=== PATIENT | female | born 1945 | race Caucasian/White ===

== ENCOUNTER 2018-11-08 13:48 | Outpatient (CLI) | payer OTHER, SELFPAY ==
[2018-11-08 14:31] LABS: Absolute Eosinophil Count 0.05 k/cumm (0.0-0.7); HCT 34.6 % (36.0-46.0); HGB 10.6 g/dL (12.0-15.5); Mean Corp. HGB Concentration 30.6 g/dL (32.0-36.0); Mean Corpuscular Hemoglobin 26.9 pg (27.0-33.0); Mean Corpuscular Volume 87.8 fL (80-95); Mean Platelet Volume 11.4 fL (8.0-11.0); Platelet Count 252 x1000/uL (130-400); RBC 3.94 m/cumm (4.00-5.20)
[2018-11-08 15:15] LABS: Absolute Lymphocyte Count 1.85 k/cumm (1.2-3.4); Absolute Monocyte Count 0.23 k/cumm (0.11-0.7); Atypical Lymphocytes % 3
[2018-11-08 15:25] LABS: Absolute Neutrophil Count 0.47 k/cumm (1.2-6.7)
[2018-11-08 15:26] LABS: Anisocytosis 2+; Diff Comment Manual Differential; Hypochromasia 2+
[2018-11-08 15:27] LABS: Microcytosis 1+
[2018-11-12 13:14] LABS: Anaplasma phagocytophilum Negative (Negative); Ehrlichia chaffeensis Negative (Negative); Ehrlichia ewingii/canis Negative (Negative); Ehrlichia muris eauclairensis Negative (Negative)
== END 2018-11-08 14:08 ==
PROVIDERS: PCP Nurse Practitioner Family; Visit Provider Internal Medicine Hematology
DX: D70.9 Neutropenia, unspecified (principal); S20.96XD Insect bite (nonvenomous) of unspecified parts of thorax, subsequent encounter
CPT/HCPCS: 36415; 85025; 87798

== ENCOUNTER 2018-12-08 19:05 | Inpatient (IN) | payer OTHER, SELFPAY ==
[2018-12-08] VITALS (10 sets, daily range): BP systolic 145–190; BP diastolic 68–98; PULSE 92–104; RESP 12–19; TEMP 36.8–37.1; O2SAT 94–98
[2018-12-08 20:01] LABS: Abs Immature Grans 0.01 k/cumm (0.0-0.09); Absolute Basophil Count 0.01 k/cumm (0.0-0.2); Absolute Eosinophil Count 0.02 k/cumm (0.0-0.7); Absolute Lymphocyte Count 1.69 k/cumm (1.2-3.4); Absolute Monocyte Count 0.28 k/cumm (0.11-0.7); Basophils % 0.4; Eosinophils % 0.9; HCT 28.5 % (36.0-46.0); Immature Grans % 0.4; Lactate 1.6 mmol/L (0.6-1.4); Lymphocytes % 72.5; Mean Corp. HGB Concentration 31.6 g/dL (32.0-36.0); Mean Corpuscular Hemoglobin 27.4 pg (27.0-33.0); Mean Corpuscular Volume 86.6 fL (80-95); Mean Platelet Volume 10.2 fL (8.0-11.0); Neutrophils % 13.8; Platelet Count 237 x1000/uL (130-400); RBC 3.29 m/cumm (4.00-5.20); White Blood Cell Count 2.33 k/cumm (4.4-10.8)
[2018-12-08 20:04] LABS: Absolute Neutrophil Count 0.32 k/cumm (1.2-6.7)
[2018-12-08 20:21] LABS: ALT 19 U/L (14-59); AST 15 U/L (15-37); Albumin 3.4 g/dL (3.4-5.0); Alkaline Phosphatase 64 U/L (46-116); Anion Gap 10.2 mmol/L (3-11); BUN 14 mg/dL (7-18); Bilirubin, Total 0.4 mg/dL (0.2-1.0); CO2 32.8 mmol/L (21.0-32.0); CREATININE 0.89 mg/dL (0.55-1.02); Calcium 9.1 mg/dL (8.5-10.1); Chloride 99 mmol/L (98-107); Glucose 134 mg/dL (70-100); Sodium 142 mmol/L (136-145); Total Protein 7.6 g/dL (6.4-8.2)
[2018-12-08 20:24] LABS: Potassium 2.5 mmol/L (3.5-5.1)
--- NOTE | 2018-12-08 20:26 | ED.GENADUL_ITS ---
Discharge Plan Disposition Patient Disposition: [facility] INPATIENT Condition: Stable Discharge Details Chief Complaint: Fever Clinical Impression: Neutropenic fever Admit Date/Time: 12/08/18 21:34 Admit Provider: Duke Carmona Attending Provider: Duke Carmona Primary Care Provider: Columba Knight ED Provider: Bar Smith Medical Decision Making This is a very pleasant 73-year-old female with past medical history of coronary artery disease and stents, hypertension, and recent diagnosis of myelodysplastic syndrome for which she is being treated at [facility]. She is undergone her first round of chemotherapy this week. She just had her PICC line removed 4 days ago, and a port placed at the same time. She has been doing well since then however today she noticed some mild chills and a fever of 100.7, she contacted [facility] and they recommended she come in for evaluation. Upon arrival here she is afebrile by oral temperature, and her chills have resolved. She has a notably benign physical exam aside for over the right chest port site which demonstrates mild erythema and mild warmth compared to the rest of the body. She has no other clear complaints of urinary or respiratory complaints whatsoever. Differential includes viral illness in addition to potential skin infection from port site. Blood cultures will be drawn, will start antibiotics of vancomycin and Zosyn, her absolute neutrophil count is 320, certainly putting her in a concerning range. Once her chest x-ray and urinalysis and remainder of her blood work are back we will contact [facility]. I suspect this patient would benefit from inpatient admission and IV antibiotics. 9:24 PM Patient has notably low absolute neutrophil count, chest x-ray shows no evidence of acute process. Still pending urinalysis, and the patient has not yet peed. I did contact [facility] and discussed the case with Dr. Gil from heme-onc, he agrees with the need for admission and agrees to the antibiotic choice of vancomycin and Zosyn. He does not recommend any additional antibiotics or management at this time. We will contact the hospitalist for admission, antibiotics, and close observation. FINDINGS: Right-sided Port-A-Cath in good position. Borderline cardiomegaly. Mild interstitial lung scarring. No focal pulmonary consolidation. No significant pleural effusion. IMPRESSION: No definite evidence of acute cardiopulmonary disease. Thank you for allowing us to participate in the care of your patient. Dictated and Authenticated by: Cuco Weiss MD [facility] General Date/Time Provider Initiated Documentation: 12/08/18 19:28 . [facility] Narrative: This is a 73-year-old female with a past medical history of cardiac disease with stents, hypertension, and recently diagnosed myelodysplastic syndrome, she is currently received her first round of chemotherapy finishing this week. She just had her PICC line removed on and a port placed on the same day. Today at home she noted mild chills and a temperature of 100.7 temporally. She contacted [facility] who recommended she come to the ER for further evaluation. By the time she arrived in the ER she was afebrile she has not taken any NSAIDs. At this time she denies any chest pain, shortness of breath, pleuritic chest pain, cough, productive sputum, dysuria, hematuria, incr eased urinary frequency, new rashes or lesions, numbness, tingling, or weakness. She denies any headache or neck pain or neck stiffness. She denies any other sick contacts. She denies a sore throat. She does elicit some tenderness over the new port site, but denies any other complaints. No other modifying factors. Related Data Home Medications Medication Instructions Recorded Confirmed acetaminophen [Tylenol] 650 mg PO Q8H PRN PRN 12/08/18 12/08/18 acyclovir [Zovirax] 400 mg PO BID 12/08/18 12/08/18 allopurinol 300 mg PO DAILY 12/08/18 12/08/18 amoxicillin-pot clavulanate 1 tab PO BID 12/08/18 12/08/18 [Augmentin] aspirin [Aspir-81] 81 mg PO DAILY 12/08/18 12/08/18 atorvastatin 80 mg PO ONCE PM 12/08/18 12/08/18 carvedilol [Coreg] 12.5 mg PO BID 12/08/18 12/08/18 cyanocobalamin (vitamin B-12) 1,000 mcg PO DAILY 12/08/18 12/08/18 diphenhydramine HCl 25 mg PO Q6H PRN PRN 12/08/18 12/08/18 fluconazole 200 mg PO DAILY 12/08/18 12/08/18 hydrochlorothiazide 25 mg PO DAILY 12/08/18 12/08/18 meclizine 25 mg PO BID PRN 12/08/18 12/08/18 ondansetron 8 mg PO PRN PRN 12/08/18 12/08/18 Allergies Allergy/AdvReac Type Severity Reaction Status Date / Time prochlorperazine AdvReac Mild Other (See Unverified 12/08/18 22:12 [From Compazine] Comment) General Stated Complaint: Fever REBEKAH: 3 Review of Systems Review of Systems ROS Unobtainable: All systems reviewed & are unremarkable except as noted in HPI and below [facility] Medical History (Updated 12/08/18 @ 21:42 by Duke Carmona) MDS (myelodysplastic syndrome) (Acute) Social History Smoking/Tobacco Use Status: Never Alcohol Intake: never Drug use: Never Substance use type: does not use Do you feel safe at home: Yes Do you feel safe in your relationship?: Yes Exam Narrative Exam Narrative: 1.Const: Well-nourished, Well-developed, appearing stated age 2.Eyes: PERRL, no conjunctival injection, and symmetrical lids. 3.ENT: Atraumatic external nose and ears. Moist MM. Neck: Symmetric, trachea midline, No thyromegaly. Patient demonstrates good movement of cervical neck. There is no nuchal rigidity, no nuchal tenderness. Patient is able to flex the neck without any difficulty or significant pain. Negative Kernig's and Brudzinski sign. 4.CVS: +S1/S2, No murmurs or gallops. Peripheral pulses 2+ and equal in all extremities. Brisk capillary refill in all extremities. 5.RESP: Unlabored respiratory effort. Clear to auscultation bilaterally. No wheezes rales or rhonchi 6.GI: Soft, Nontender/Nondistended, No hepatosplenomegaly. No guarding or rebound. No suprapubic tenderness. 7.MSK: Normocephalic/Atraumatic, Extremities w/o deformity or ttp No cyanosis or clubbing, Normal movement of all extremities. Trace pitting edema of the lower extremities bilaterally. No calf tenderness 8.Skin: Warm, Dry. The patient's right port site demonstrates very mild erythema, mild warmth compared to the rest of the skin. No drainage. No purulence. No induration. No fluctuance. 9.Neuro: compensation specialist II-XII grossly intact. Sensation grossly intact, no focal neurologic deficits. 10.Psych: (AAO) x3. Appropriate mood and affect Course Vital Signs Vital signs: Vital Signs Temperature 36.8 C 12/08/18 19:14 Pulse 104 H 12/08/18 19:14 Respiratory Rate 18 12/08/18 19:14 Blood Pressure 190/68 H 12/08/18 19:14 Pulse Oximetry 97 12/08/18 19:14 Temperature 36.8 C 12/08/18 19:14 Temperature Source Oral 12/08/18 19:14 Pulse 104 H 12/08/18 19:14 Respiratory Rate 18 12/08/18 19:14 Respiratory Effort 12/08/18 19:20 Blood Pressure 190/68 H 12/08/18 19:14 Blood Pressure Position Sitting 12/08/18 19:14 Pulse Oximetry 97 12/08/18 19:14 Oxygen Delivery Method Room Air 12/08/18 19:14 Oxygen Flow Rate 0 12/08/18 19:14 Pain Level 0 12/08/18 19:14 Lab/Test Results Lab/Test Results: 12/08/18 20:16 Nasopharynx Influenza Types A,B Antigen - Pending 12/08/18 19:28 Blood Blood Culture - Pending 12/08/18 19:28 Blood Blood Culture - Pending Laboratory Tests Range/Units 12/08/18 12/08/18 12/08/18 19:54 19:54 19:54 WBC (4.4-10.8) k/cumm 2.33 L RBC (4.00-5.20) m/cumm 3.29 L Hgb (12.0-15.5) g/dL 9.0 L Hct (36.0-46.0) % 28.5 L MCV (80-95) fL 86.6 MCH (27.0-33.0) pg 27.4 MCHC (32.0-36.0) g/dL 31.6 L RDW (11.7-14.6) % 19.0 H Plt Count (130-400) x1000/uL 237 MPV (8.0-11.0) fL 10.2 Sodium (136-145) mmol/L 142 Potassium (3.5-5.1) mmol/L 2.5 L* Chloride (98-107) mmol/L 99 Carbon Dioxide (21.0-32.0) mmol/L 32.8 H Anion Gap (3-11) mmol/L 10.2 BUN (7-18) mg/dL 14 Creatinine (0.55-1.02) mg/dL 0.89 Estimated GFR/1.73 m2 (mL/min/1.73m2) >= 60.00 Glucose (70-100) mg/dL 134 H Lactate (0.6-1.4) mmol/L 1.6 H Calcium (8.5-10.1) mg/dL 9.1 Total Bilirubin (0.2-1.0) mg/dL 0.4 AST (15-37) U/L 15 ALT (14-59) U/L 19 Alkaline Phosphatase (46-116) U/L 64 Total Protein (6.4-8.2) g/dL 7.6 Albumin (3.4-5.0) g/dL 3.4
--- NOTE | 2018-12-08 20:33 | DI.RAD_ITS ---
EXAM: XR CHEST 2V PA LATERAL CLINICAL HISTORY: fever, neutropenic. TECHNIQUE: 2D digital imaging was performed. COMPARISON: No exams were available for comparison FINDINGS: LUNGS: No focal consolidating infiltrates are present. No pleural effusion or pneumothorax is presen t. HEART: Mild cardiomegaly. MEDIASTINUM: Normal. OTHER FINDINGS:There is a right-sided indwelling central venous catheter. The tip of the catheter is in good position at the junction of the superior vena cava and right atrium. Bones: Age appropriate degenerative changes are seen in the spine. IMPRESSION: No acute pulmonary findings.
[2018-12-08] MEDS: VANCOMYCIN 2,000 MG in Normal Saline 500 ML 333.3333 MG IVPB (21:03)
[2018-12-08 21:07] LABS: Anisocytosis 1+; Diff Comment Agrees w/ Instrument; Hypochromasia 1+; Poikilocytes 1+; Polychromasia Present
[2018-12-08 21:11] LABS: Magnesium 1.6 mg/dL (1.8-2.4)
[2018-12-08] MEDS: PIPERACILLIN/TAZO 4.5 GM in Normal Saline 100 ML IVPB (21:14)
[2018-12-08] MEDS: Potassium Chloride 20 MEQ TABCR 40 MEQ PO (21:15)
--- NOTE | 2018-12-08 21:18 | DI.VRAD_ITS ---
PROCEDURE INFORMATION: Exam: XR Chest, 2 Views Exam date and time: 12/08/2018 8:13 PM Clinical history: 73 years old, female; Fever; Prior surgery; Surgery date: 6+ months; Surgery type: Port; Additional info: Fever, neutropenic TECHNIQUE: Imaging protocol: XR of the chest Views: 2 views. COMPARISON: No relevant prior studies available. FINDINGS: Right-sided Port-A-Cath in good position. Borderline cardiomegaly. Mild interstitial lung scarring. No focal pulmonary consolidation. No significant pleural effusion. IMPRESSION: No definite evidence of acute cardiopulmonary disease. Dictated and Authenticated by: Cuco Weiss MD. Ordering:GLADIS Dinero MD
--- NOTE | 2018-12-08 21:41 | W.PM.HP.N ---
Date of service: 12/08/18 Time of Service: 21:41 Assessment and Plan Assessment and plan (1) Neutropenic fever: Start date: 12/08/18 Status: Acute Assessment and plan: This is a 73-year-old lady who recently finished rounds of chemotherapy for myelodysplastic syndrome and recently had a central line placed over the right chest which is tender, red and warm to touch but with no fluctuance or discharge. She has no other source of infection presently but had a low-grade fever prompting her to call her caregivers at [facility] who told her to be evaluated at the local ED. She was found to be neutropenic with mainly lymphocytes on her differential and a low white blood cell count with an absolute neutrophil count below 400. She is admitted with broad-spectrum antibiotic coverage started and will be continued on Zosyn and vancomycin. Blood cultures and urine cultures were performed. She is comfortable and afebrile presently. She is anemic but has an adequate platelet count at this time. She is a full code and this will be respected. (2) MDS (myelodysplastic syndrome): Status: Chronic Assessment and plan: This is a recent diagnosis and being treated with the first round of chemotherapy now with neutropenic fever. She has an adequate platelet count but is anemic and white blood cell count is not severely low being just above 2000 but mostly lymphocytes on the differential. Her absolute neutrophil count is below 400. She has no active bleeding or bruising. The on-call pharmacist did call about her outpatient medication regimen with Zofran being given at a high dose which could increase QT interval and with fluconazole being given daily as a prophylaxis possibly causing the atorvastatin she is on for hyperlipidemia and CAD treatment to be affected with higher serum levels and possible side effects. Both the atorvastatin Zofran will be held during her hospital stay to be re-evaluated as to outpatient treatment and combinations with her new diagnosis of myelodysplastic syndrome and some of the medications in conflict. (3) Hypokalemia: Start date: 12/08/18 Status: Acute Assessment and plan: The patient is chronically on hydrochlorthiazide and is not on potassium supplement but has a low potassium and magnesium upon admission. She was given both IV and will continue IV supplement with normal saline for hydration. Follow-up lab and continue to adjust supplements. History of Present Illness History of Present Illness Chief Complaint: Low-grade fever and chills status post chemotherapy Narrative: This is a very pleasant 73-year-old lady who has a history of recently diagnosed mild dysplastic syndrome just managing her first round of chemotherapy. She had a central line port placed in the right upper chest just recently and this may be the source of infection with no other evidence of infection other than possible viral with a lymphocytosis and low WBC count. She was at home and had a low-grade fever post chemotherapy being greater than 100.5 which was the measurement that she was told to call the physician for. She has some slight chills but no other symptoms denying any GI complaints, respiratory complaints or other areas of skin changes other than over her recent central line port incision. She also has no complaints. She is very comfortable with no confusion and no focal neurological complaints. In the ED she was comfortable and had no fever with only her right chest wall with her recent surgery as her source of complaints. She had no further chills. She had cultures performed on her bloody urine and imaging was unrevealing for any acute respiratory process. Her urinalysis was benign. She was found to have hypokalemia and hypomagnesemia both of which were treated with IV potassium and magnesium with oral therapy to be continued. This was unexpected but she is chronically on hydrochlorothiazide without replacement. Review of Systems Review of Systems Narrative: 13 point review of systems otherwise unrevealing or stable. [facility] Medical History (Updated 12/09/18 @ 00:46 by Duke Carmona) CAD S/P percutaneous coronary angioplasty (Acute) HTN (hypertension), benign (Acute) Hyperlipidemia (Acute) Lumbago without sciatica (Acute) MDS (myelodysplastic syndrome) (Chronic) Vertiginous syndrome (Acute) Surgical History (Updated 12/09/18 @ 00:34 by Duke Carmona) S/P PICC central line placement (Acute) Social History (Updated 12/09/18 @ 00:35 by Duke Carmona) Smoking/Tobacco Use Status: Never Alcohol Intake: never Drug use: Never Substance use type: does not use What is your relationship status?: Panel score (0-1 are the most socially isolated patients): 1 Do you feel safe at home: Yes Do you feel safe in your relationship?: Yes 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 Medications and Allergies Home Medications Medication Instructions Recorded Confirmed Type acetaminophen [Tylenol] 650 mg PO Q8H PRN PRN 12/08/18 12/08/18 History acyclovir [Zovirax] 400 mg PO BID 12/08/18 12/08/18 History allopurinol 300 mg PO DAILY 12/08/18 12/08/18 History amoxicillin-pot clavulanate 1 tab PO BID 12/08/18 12/08/18 History [Augmentin] aspirin [Aspir-81] 81 mg PO DAILY 12/08/18 12/08/18 History atorvastatin 80 mg PO ONCE PM 12/08/18 12/08/18 History carvedilol [Coreg] 12.5 mg PO BID 12/08/18 12/08/18 History cyanocobalamin (vitamin B-12) 1,000 mcg PO DAILY 12/08/18 12/08/18 History diphenhydramine HCl 25 mg PO Q6H PRN PRN 12/08/18 12/08/18 History fluconazole 200 mg PO DAILY 12/08/18 12/08/18 History hydrochlorothiazide 25 mg PO DAILY 12/08/18 12/08/18 History meclizine 25 mg PO BID PRN 12/08/18 12/08/18 History ondansetron 8 mg PO PRN PRN 12/08/18 12/08/18 History Allergies Allergy/AdvReac Type Severity Reaction Status Date / Time prochlorperazine AdvReac Mild Other (See Unverified 12/08/18 22:12 [From Compazine] Comment) Exam Narrative Exam Narrative: General: Patient is obese, alert and oriented x3 and in no acute distress. HEENT: Normocephalic, oropharynx clear with moist mucosa, eyes with pupils equal and reactive to light symmetrically, extraocular movement intact and sclera anicteric, external ears normal. Neck: Supple without JVD. Back: Decreased range of motion with tenderness of the lumbar spine and loss of lumbar lordosis, no CVA tenderness, stooped posture. Lungs: Clear to auscultation percussion. Chest: Fresh incision over right upper chest wall with placement of central line port with tenderness to palpation, slight erythema and increased warmth to touch over the area but no fluctuance and no discharge. Heart: Regular rate and rhythm with 3/6 to 4/6 systolic murmur over left sternal border, no gallop or rub. Breast: Pendulous with full exam not done. Abdomen: Obese contour, soft and nontender with no palpable hepatomegaly. Bowel sounds positive all quadrants. Genitalia and rectal: Not examined. Extremities: Obese over lower extremities but no pitting edema, no cyanosis, clubbing and peripheral pulses intact with good capillary refill. Skin: Pale, warm and dry. No rashes noted. Neuro: No focalizing motor deficits, cranial nerves II through XII grossly intact, sensory grossly intact. Lymph: Grossly no palpable lymphadenopathy. Psych: Normal affect and mood, memory intact remote and recent and no abnormal thought processes. Results Imaging Imaging Studies: Chest x-ray findings: Right-sided Port-A-Cath in good position. Borderline cardiomegaly. Mild interstitial lung scarring. No focal pulmonary consolidation. No significant pleural effusion. IMPRESSION: No definite evidence of acute cardiopulmonary disease. Dictated and Authenticated by: Cuco Weiss MD Labs Result diagrams: 12/08/18 19:54 12/08/18 19:54 Labs: Laboratory Results - last 24 hr 12/08/18 12/08/18 12/08/18 19:54 19:54 19:54 WBC 2.33 L RBC 3.29 L Hgb 9.0 L Hct 28.5 L MCV 86.6 MCH 27.4 MCHC 31.6 L RDW 19.0 H Plt Count 237 MPV 10.2 Immature Gran % 0.4 Neutrophils % 13.8 Lymphocytes % 72.5 Monocytes % 12.0 Eosinophils % 0.9 Basophils % 0.4 Absolute Neutrophils 0.32 L* Absolute Lymphocytes 1.69 Absolute Monocytes 0.28 Absolute Eosinophils 0.02 Absolute Basophils 0.01 Differential Comment Agrees w/ instrument RBC Morphology See below Polychromasia Present Hypochromasia 1+ Poikilocytosis 1+ Anisocytosis 1+ Sodium 142 Potassium 2.5 L* Chloride 99 Carbon Dioxide 32.8 H Anion Gap 10.2 BUN 14 Creatinine 0.89 Estimated GFR/1.73 m2 >= 60.00 Glucose 134 H Lactate 1.6 H Calcium 9.1 Magnesium Total Bilirubin 0.4 AST 15 ALT 19 Alkaline Phosphatase 64 Total Protein 7.6 Albumin 3.4 12/08/18 19:54 WBC RBC Hgb Hct MCV MCH MCHC RDW Plt Count MPV Immature Gran % Neutrophils % Lymphocytes % Monocytes % Eosinophils % Basophils % Absolute Neutrophils Absolute Lymphocytes Absolute Monocytes Absolute Eosinophils Absolute Basophils Differential Comment RBC Morphology Polychromasia Hypochromasia Poikilocytosis Anisocytosis Sodium Potassium Chloride Carbon Dioxide Anion Gap BUN Creatinine Estimated GFR/1.73 m2 Glucose Lactate Calcium Magnesium 1.6 L Total Bilirubin AST ALT Alkaline Phosphatase Total Protein Albumin Last Vital Signs Temp 37.1 C 12/08/18 21:36 Pulse 104 H 12/08/18 19:14 Resp 18 12/08/18 19:14 BP 190/68 H 12/08/18 19:14 Pulse Ox 97 12/08/18 19:14
[2018-12-08 22:05] LABS: Bilirubin Negative (Negative); Blood Trace-intact (Negative); Clarity Clear (Clear); Glucose Negative (Negative); Ketones Negative (Negative); Leukocyte Esterase Negative (Negative); Nitrite Negative (Negative); Urobilinogen 0.2 EU/dL (Up TO 0.2)
[2018-12-08 22:23] LABS: Casts Negative LPF (Negative); Crystals Negative HPF (Negative); Epithelial Cells Many HPF (Negative); Mucus Negative (Negative); Other Cells Mod Transitional (Negative); RBC 0-2 (0-2); WBC Negative HPF (0-5)
[2018-12-08 22:24] LABS: Bacteria Negative HPF (Negative); C & S Indicated? No/Sq. Contamination
[2018-12-08] MEDS: MAGNESIUM SULFATE 1 GM/100 ML BAG IVPB (23:34)
[2018-12-08] MEDS: POTASSIUM CHLORIDE 20 MEQ/100 ML BAG 50 MEQ IVPB (23:34)
[2018-12-08] MEDS: Normal Saline Flush 10 ML SYR IVP (23:35)
[2018-12-09] VITALS (17 sets, daily range): BP systolic 131–192; BP diastolic 73–103; PULSE 64–93; RESP 16–19; TEMP 36.6–38; O2SAT 91–98
[2018-12-09] MEDS: POTASSIUM CHLORIDE/0.9% NACL 1,000 ML 100 MEQ IV ×2 (00:38→09:41)
[2018-12-09] MEDS: Carvedilol 12.5 MG TAB PO ×3 (00:44→20:32)
[2018-12-09] MEDS: Acyclovir 400 MG TAB PO ×3 (00:44→20:33)
[2018-12-09] MEDS: PIPERACILLIN/TAZO 4.5 GM in Normal Saline 100 ML IVPB ×2 (04:35→10:08)
[2018-12-09 07:46] LABS: ALT 18 U/L (14-59); AST 17 U/L (15-37); Albumin 2.8 g/dL (3.4-5.0); Alkaline Phosphatase 52 U/L (46-116); Anion Gap 8.2 mmol/L (3-11); BUN 10 mg/dL (7-18); Bilirubin, Total 0.5 mg/dL (0.2-1.0); CO2 29.8 mmol/L (21.0-32.0); CREATININE 0.83 mg/dL (0.55-1.02); Chloride 106 mmol/L (98-107); Glucose 126 mg/dL (70-100); Magnesium 1.8 mg/dL (1.8-2.4); Sodium 144 mmol/L (136-145); Total Protein 6.3 g/dL (6.4-8.2)
--- NOTE | 2018-12-09 07:51 | PHARADMIT ---
Addendum entered by Sarah Escalante 12/11/18 15:45: Pharmacy Note Subjective improved, port site looks better per morning report Objective VS-okay, afebrile weight-121.4(up) WBC-1.81(up) ANC-0.14(down) Assessment vanco and cefepime changed to PO doxycycline and cefpodoxime plan on keeping port site for time being per progress note Plan continue to watch H/H, ANC, WBC, and vitals Addendum entered by Latonya Black 12/10/18 16:34: Pharmacy Note Subjective Slight fever overnight but much improved overall Objective BP 152/89, lytes ok, ANC 0.23, WBC 1.79 Assessment Erythema, warmth, discomfort at port site improved with current abx therap *Brought to Dr. Shah's attention that atorvastatin has been active while pt is on fluconazole Plan Continue Cefepime and Vanco (day 2); monitor temp, vitals, and daily ANC Reduce atorvastatin to 40mg and will check CPK in AM Original Note: Admission Pharmacy Clinical Review MDS, NEUTROPENIC FEVER, HYPOKALEMIA (recently finished round of chemotherapy) Code Status Full Code Current Weight Wgt-111.13 kg Renally Cleared and Narrow Therapeutic Index Meds CrCl~ 46.5 mL/min Meds-OK QTc Value / Action Taken none current BP Control, Fever BP-154/84 Tmax-37.2C Electrolytes reviewed Na-142 K+2.5 Mag-1.6 DVT Prophylaxis ASA, SCDs Opiate Usage / Scheduled Bowel Regimen Ordered No Yes Plt/SCr for Heparin / Enoxaparin Plts-237 SCr-0.89 INR for Warfarin NA H/H stable, WBC/Bands H&H-9.0/28.5 WBC-2.33 ANC-0.32 Antibiotic appropriateness IV:Zosyn, Vancomycin, PO:Diflucan, Acyclovir Cultures and Sensitivities Blood-Pending, Flu-Neg Surgical ABX d/c within 24 hr DM control / Insulin Dosing BG-134 Heart Failure (Check EF%) (BOO's, B-Block, Diuretics) Coreg, HCTZ, IV to PO Switch No Home Meds Reviewed Yes Home Meds Not Ordered Augmentin, Lipitor, Zofran Comments Lipitor held while on Diflucan
[2018-12-09 07:53] LABS: Abs Immature Grans 0.01 k/cumm (0.0-0.09); Absolute Basophil Count 0.01 k/cumm (0.0-0.2); Absolute Eosinophil Count 0.02 k/cumm (0.0-0.7); Absolute Lymphocyte Count 1.35 k/cumm (1.2-3.4); Absolute Monocyte Count 0.26 k/cumm (0.11-0.7); Basophils % 0.5; Eosinophils % 1.1; HGB 7.9 g/dL (12.0-15.5); Immature Grans % 0.5; Lymphocytes % 72.2; Mean Corp. HGB Concentration 31.6 g/dL (32.0-36.0); Mean Corpuscular Hemoglobin 27.5 pg (27.0-33.0); Mean Corpuscular Volume 87.1 fL (80-95); Mean Platelet Volume 10.4 fL (8.0-11.0); Monocytes % 13.9; Neutrophils % 11.8; Platelet Count 192 x1000/uL (130-400); RBC 2.87 m/cumm (4.00-5.20); RBC Distribution Width 19.1 % (11.7-14.6)
[2018-12-09 07:58] LABS: Absolute Neutrophil Count 0.22 k/cumm (1.2-6.7); Anisocytosis 2+; Diff Comment Diff Reviewed; Hypochromasia 2+; Microcytosis 2+; White Blood Cell Count 1.87 k/cumm (4.4-10.8)
[2018-12-09 07:59] LABS: Potassium 2.9 mmol/L (3.5-5.1)
[2018-12-09] MEDS: Cyanocobalamin 500 MCG TAB 1000 MCG PO (08:28)
[2018-12-09] MEDS: Potassium Chloride 20 MEQ TABCR PO (08:28)
[2018-12-09] MEDS: hydroCHLOROthiazide 25 MG TAB PO (08:29)
[2018-12-09] MEDS: Aspirin E.C. 81 MG TABEC PO (08:29)
[2018-12-09] MEDS: Allopurinol 300 MG TAB PO (08:29)
[2018-12-09] MEDS: Magnesium Oxide 400 MG TAB PO ×3 (08:29→20:32)
[2018-12-09] MEDS: Fluconazole 100 MG TAB 200 MG PO (08:29)
[2018-12-09] MEDS: Potassium Chloride 20 MEQ TABCR 40 MEQ PO (09:40)
[2018-12-09] MEDS: POTASSIUM CHLORIDE 20 MEQ/100 ML BAG 50 MEQ IVPB (09:41)
--- NOTE | 2018-12-09 09:53 | PDOC.CMIN ---
- If Service Date Differs Date of service: 12/09/18 Time of Service: 09:53 Care Management Initial Assess REASON FOR HOSPITALIZATION:: Neutropenic fever PAST MEDICAL HISTORY/PAST SURGICAL HISTORY:: Medical history: CAD S/P percutaneous coronary angioplasty, hypertension, hyperlipidemia, lumbago without sciatica, myelodysplastic syndrome, and vertiginous syndrome. Surgical history: S/P PICC central line placement PREVIOUS FUNCTIONAL STATUS/SOCIAL/FAMILY SUPPORTS:: Emelyn resides in [facility] with her Josr. 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 Emelyn states she provides all of her 's care but after becoming ill herself 3 weeks ago, several family members and neighbors have stepped in to assist with her 's care. The couple has 5 children and their son, Young, recently moved home from [place] to help around the house. Emelyn shares that she also has a daughter and a niece who have been helping in the home. Emelyn remains independent in the community, drives and manages both her 's and her own needs. 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 CURRENT FUNCTIONAL STATUS:: Emelyn is lying in bed when CM meets with her. She is pleasant and talkative. She talks about the worldwind of being diagnosed with cancer, having to make arrangements for her 's care on short notice, starting chemotherapy, and now being at [facility] due to a possible infection of her port site, all taking place within a span of 3 weeks. ADVANCE DIRECTIVES:: Patient reports she is not interested in advance directives. Has patient been provided with information about the portal?: Yes CODE STATUS:: Full Code INSURANCE COVERAGE / FINANCIAL ISSUES:: [employer] group health, CBA CURRENT HOME/COMMUNITY SERVICES/EQUIPMENT:: Patient states she has walkers, a wheelchair, and a bed rail on its way to her home for her 's use. Emelyn attends physical therapy due to a pinched nerve and walks with a cane to help steady herself. Emelyn expresses an interest in [id number] but states she can set up that service by herself. PRIMARY CARE PHYSICIAN:: Duke Ventura MD, of [facility] in [place], [place]. Primary care physician contact updated. POTENTIAL DISCHARGE NEEDS:: Follow-up with primary care physician and [facility] providers. PATIENT/FAMILY EDUCATION NEEDS:: Discharge plan, limitations, and follow-up plan of care including ask me 3 and self-management. ANTICIPATED BARRIERS TO DISCHARGE:: None. TRANSPORTATION:: Family members will transport patient home upon discharge. PLAN:: Emelyn will be discharged home when medically cleared by provider. Anticipate no additional services needed at time of discharge. Family members will transport patient home.
[2018-12-09] MEDS: Normal Saline 1,000 ML 100 ML IV ×2 (11:05→22:43)
--- NOTE | 2018-12-09 12:37 | W.PM.PROGNOT ---
Date of Service Date of service: 12/09/18 Time of Service: 12:37 Assessment and Plan Assessment and plan (1) Neutropenic fever: Status: Acute Assessment and plan: Leukopenia and Neutropenia in setting of chemotherapy, now with onset of fevers. Patient reports difficulty at time of PICC line removal, with multiple parties attempting to manipulate her line - also with slight erythema, warmth, and subjective pain at Port site as potential portals of entry. Will continue broad spectrum coverage but change Pip-Maxime to Cefepime, and continue Vancomycin. Await Blood culture results, and monitor temperature, vitals, and daily ANC. (2) MDS (myelodysplastic syndrome): Status: Chronic Assessment and plan: On Decitabine. Following [place] [facility] [place]. (3) Anemia: Status: Chronic Assessment and plan: In setting of chemo. Given underlying CAD will transfuse 1 Unit of PRBCs to maintain Hgb >8. (4) CAD S/P percutaneous coronary angioplasty: Status: Acute Assessment and plan: History of NSTEMI, s/p INOCENTE 2018. Continue ASA, BB, statin. Monitor Hgb and consider transfusion to maintain >8. (5) HTN (hypertension), benign: Status: Acute Assessment and plan: Continue BB, thiazide diuretic. Monitor closely as patient is hypertensive despite her anemia, and has a history of Hypertensive Emergency/Urgency in the past. Will initiate IV Hydralazine prn, and 3rd antihypertensive agent if needed. (6) DVT prophylaxis: Status: Acute Assessment and plan: SC Enoxaparin. Subjective Subjective Interval history since last seen: 73 year old woman with a recent diagnosis of MDS on chemotherapy, admitted from [facility] Emergency Department with a diagnosis of Neutropenic Fever. Mrs. Jasso has a Past Medical History significant for CAD with a prior NSTEMI s/p stents in 2018 at [facility], HTN with prior hypertensive Urgency/Emergency, OA, and RBBB by ECG. The patient was recently diagnosed with myelodysplastic syndrome by bone biopsy performed at [facility], and initiated on chemotherapy with decitabine. She initially had a PICC line in place, then had a port placed for the purposes of her infusions. Her PICC line was removed 4 days ago, and port was placed at the same time with chemotherapy also being administered then. She had been reportedly in her usual state of health until she noted some mild chills with a fever of 100.7 ?F, and was instructed by her oncology team at [facility] to present to the ED for further evaluation. In the emergency department she was noted to be neutropenic by labs, with a urinalysis and chest x-ray that were negative for infection, and an influenza swab that was negative as well. Her port site was noted to be mildly erythematous and warm, with significant discomfort upon palpation. Her ANC count was 320 at time of admission. Given her fever and neutropenia, the patient was referred for admission for further evaluation and treatment. This morning Mrs. Jasso reports improvement overall in her symptoms, no further subjective fevers or chills. She has remained afebrile here and on broad-spectrum antibiotics. Blood cultures are still pending at this time. No further events were reported overnight. Exam Narrative Exam Narrative: General: Patient appears comfortable, AAOX3, NAD Skin: Right upper chest port site with minimal erythema and warmth, slightly swollen but without obvious induration or fluctuance. No drainage, and skin appears to be healing well. Neck: Supple CV: Regular, nontachycardic, S1S2, No rubs, murmurs, or gallops. Pulmonary: Clear to auscultation bilaterally, no crackles, wheezing, or rhonchi Abdomen: + Bowel Sounds, soft, nontender, nondistended Vascular: No lower extremity edema Psych: Normal mood and affect. Objective Objective Clinical Data: Abnormal lab results 12/08/18 12/08/18 12/08/18 Range/Units 19:54 19:54 19:54 WBC 2.33 L (4.4-10.8) k/cumm RBC 3.29 L (4.00-5.20) m/cumm Hgb 9.0 L (12.0-15.5) g/dL Hct 28.5 L (36.0-46.0) % MCHC 31.6 L (32.0-36.0) g/dL RDW 19.0 H (11.7-14.6) % Absolute Neutrophils 0.32 L* (1.2-6.7) k/cumm Potassium 2.5 L* (3.5-5.1) mmol/L Carbon Dioxide 32.8 H (21.0-32.0) mmol/L Glucose 134 H (70-100) mg/dL Lactate 1.6 H (0.6-1.4) mmol/L Calcium (8.5-10.1) mg/dL Magnesium (1.8-2.4) mg/dL Total Protein (6.4-8.2) g/dL Albumin (3.4-5.0) g/dL Urine Blood (Negative) Crossmatch 12/08/18 12/08/18 12/09/18 Range/Units 19:54 21:50 06:40 WBC (4.4-10.8) k/cumm RBC (4.00-5.20) m/cumm Hgb (12.0-15.5) g/dL Hct (36.0-46.0) % MCHC (32.0-36.0) g/dL RDW (11.7-14.6) % Absolute Neutrophils (1.2-6.7) k/cumm Potassium 2.9 L* (3.5-5.1) mmol/L Carbon Dioxide (21.0-32.0) mmol/L Glucose 126 H (70-100) mg/dL Lactate (0.6-1.4) mmol/L Calcium 8.0 L (8.5-10.1) mg/dL Magnesium 1.6 L (1.8-2.4) mg/dL Total Protein 6.3 L (6.4-8.2) g/dL Albumin 2.8 L (3.4-5.0) g/dL Urine Blood Trace-intact H (Negative) Crossmatch 12/09/18 12/09/18 Range/Units 06:40 06:40 WBC 1.87 L* (4.4-10.8) k/cumm RBC 2.87 L (4.00-5.20) m/cumm Hgb 7.9 L (12.0-15.5) g/dL Hct 25.0 L (36.0-46.0) % MCHC 31.6 L (32.0-36.0) g/dL RDW 19.1 H (11.7-14.6) % Absolute Neutrophils 0.22 L* (1.2-6.7) k/cumm Potassium (3.5-5.1) mmol/L Carbon Dioxide (21.0-32.0) mmol/L Glucose (70-100) mg/dL Lactate (0.6-1.4) mmol/L Calcium (8.5-10.1) mg/dL Magnesium (1.8-2.4) mg/dL Total Protein (6.4-8.2) g/dL Albumin (3.4-5.0) g/dL Urine Blood (Negative) Crossmatch See Detail Vital Signs Temperature 37.7 C H 12/09/18 07:40 Temperature Source Tympanic 12/09/18 07:40 Pulse 78 12/09/18 07:40 Pulse Rhythm Regular 12/08/18 22:55 Pulse 94 H 12/08/18 21:53 Respiratory Rate 18 12/09/18 07:40 Respiratory Effort 12/08/18 22:55 Respiratory Depth Normal 12/08/18 22:55 Respiratory Pattern Normal 12/08/18 22:55 Blood Pressure 169/76 H 12/09/18 07:40 Blood Pressure Mean 92 12/08/18 21:31 Blood Pressure Position Sitting 12/08/18 19:14 Pulse Oximetry 94 L 12/09/18 07:40 Oxygen Delivery Method Room Air 12/09/18 07:40 Oxygen Flow Rate 0 12/09/18 07:40 Pain Level 0 12/09/18 07:40 Comment 12/09/18 07:40 Intake & Output 12/08/18 12/09/18 12/09/18 23:59 11:59 23:59 Intake Total 600 / 620 1900.000 / 1900.000 Output Total 400 / 400 Balance 600 / 620 1500.000 / 1500.000 Weight 111.13 kg Intake: IV 600 / 620 1420.000 / 1420.000 Oral 480 / 480 Output: Urine 400 / 400 Other: Urine Color Yellow Urine Appearance Clear Clear Comment pt missed hat large void in toilet. Voiding Methods Toilet Laboratory Results WBC 1.87 k/cumm (4.4-10.8) L* 12/09/18 06:40 RBC 2.87 m/cumm (4.00-5.20) L 12/09/18 06:40 Hgb 7.9 g/dL (12.0-15.5) L 12/09/18 06:40 Hct 25.0 % (36.0-46.0) L 12/09/18 06:40 MCV 87.1 fL (80-95) 12/09/18 06:40 MCH 27.5 pg (27.0-33.0) 12/09/18 06:40 MCHC 31.6 g/dL (32.0-36.0) L 12/09/18 06:40 RDW 19.1 % (11.7-14.6) H 12/09/18 06:40 Plt Count 192 x1000/uL (130-400) 12/09/18 06:40 MPV 10.4 fL (8.0-11.0) 12/09/18 06:40 Immature Gran % 0.5 12/09/18 06:40 Neutrophils % 11.8 12/09/18 06:40 Lymphocytes % 72.2 12/09/18 06:40 Monocytes % 13.9 12/09/18 06:40 Eosinophils % 1.1 12/09/18 06:40 Basophils % 0.5 12/09/18 06:40 Absolute Neutrophils 0.22 k/cumm (1.2-6.7) L* 12/09/18 06:40 Absolute Lymphocytes 1.35 k/cumm (1.2-3.4) 12/09/18 06:40 Absolute Monocytes 0.26 k/cumm (0.11-0.7) 12/09/18 06:40 Absolute Eosinophils 0.02 k/cumm (0.0-0.7) 12/09/18 06:40 Absolute Basophils 0.01 k/cumm (0.0-0.2) 12/09/18 06:40 Differential Comment Diff reviewed 12/09/18 06:40 RBC Morphology See below 12/09/18 06:40 Polychromasia Present 12/08/18 19:54 Hypochromasia 2+ 12/09/18 06:40 Poikilocytosis 1+ 12/08/18 19:54 Anisocytosis 2+ 12/09/18 06:40 Microcytosis 2+ 12/09/18 06:40 Sodium 144 mmol/L (136-145) 12/09/18 06:40 Potassium 2.9 mmol/L (3.5-5.1) L* 12/09/18 06:40 Chloride 106 mmol/L (98-107) 12/09/18 06:40 Carbon Dioxide 29.8 mmol/L (21.0-32.0) 12/09/18 06:40 Anion Gap 8.2 mmol/L (3-11) 12/09/18 06:40 BUN 10 mg/dL (7-18) 12/09/18 06:40 Creatinine 0.83 mg/dL (0.55-1.02) 12/09/18 06:40 Estimated GFR/1.73 m2 >= 60.00 (mL/min/1.73m2) 12/09/18 06:40 Glucose 126 mg/dL (70-100) H 12/09/18 06:40 Lactate 1.6 mmol/L (0.6-1.4) H 12/08/18 19:54 Calcium 8.0 mg/dL (8.5-10.1) L 12/09/18 06:40 Magnesium 1.8 mg/dL (1.8-2.4) 12/09/18 06:40 Total Bilirubin 0.5 mg/dL (0.2-1.0) 12/09/18 06:40 AST 17 U/L (15-37) 12/09/18 06:40 ALT 18 U/L (14-59) 12/09/18 06:40 Alkaline Phosphatase 52 U/L (46-116) 12/09/18 06:40 Total Protein 6.3 g/dL (6.4-8.2) L 12/09/18 06:40 Albumin 2.8 g/dL (3.4-5.0) L 12/09/18 06:40 Urine Color Yellow (Yellow) 12/08/18 21:50 Urine Clarity Clear (Clear) 12/08/18 21:50 Urine pH 7.0 (5-8) 12/08/18 21:50 Ur Specific [place] 1.010 (1.005-1.025) 12/08/18 21:50 Urine Protein Negative mg/dL (Negative) 12/08/18 21:50 Urine Ketones Negative mg/dL (Negative) 12/08/18 21:50 Urine Blood Trace-intact (Negative) H 12/08/18 21:50 Urine Nitrite Negative (Negative) 12/08/18 21:50 Urine Bilirubin Negative (Negative) 12/08/18 21:50 Urine Urobilinogen 0.2 EU/dL (Up TO 0.2) 12/08/18 21:50 Ur Leukocyte Esterase Negative (Negative) 12/08/18 21:50 Urine RBC 0-2 (0-2) 12/08/18 21:50 Urine WBC Negative HPF (0-5) 12/08/18 21:50 Ur Epithelial Cells Many HPF (Negative) 12/08/18 21:50 Urine Crystals Negative HPF (Negative) 12/08/18 21:50 Urine Bacteria Negative HPF (Negative) 12/08/18 21:50 Urine Casts Negative LPF (Negative) 12/08/18 21:50 Urine Mucus Negative (Negative) 12/08/18 21:50 Urine Other Mod transitional (Negative) 12/08/18 21:50 Ur Culture Indicated? No/sq. contamination 12/08/18 21:50 Urine Glucose Negative mg/dL (Negative) 12/08/18 21:50 Patient ABO/Rh A Positive 12/09/18 06:40 Antibody Screen Negative 12/09/18 06:40 Crossmatch See Detail 12/09/18 06:40
[2018-12-09 12:48] LABS: Lactate 1.6 mmol/L (0.6-1.4)
[2018-12-09] MEDS: CEFEPIME 2 GM in Normal Saline 100 ML IVPB (15:33)
[2018-12-09] MEDS: amLODIPine 5 MG TAB PO (18:54)
[2018-12-09 19:31] LABS: Troponin I < 0.05 ng/mL (0.00-0.06)
[2018-12-09] MEDS: Atorvastatin 40 MG TAB 80 MG PO (20:32)
[2018-12-10] VITALS (10 sets, daily range): BP systolic 121–162; BP diastolic 58–96; PULSE 72–89; RESP 14–19; TEMP 36.4–37.4; O2SAT 92–95
[2018-12-10] MEDS: CEFEPIME 2 GM in Normal Saline 100 ML IVPB ×3 (01:14→16:29)
[2018-12-10 06:57] LABS: Lactate 1.9 mmol/L (0.6-1.4)
[2018-12-10 07:10] LABS: Abs Immature Grans 0.01 k/cumm (0.0-0.09); Absolute Basophil Count 0.01 k/cumm (0.0-0.2); Absolute Eosinophil Count 0.03 k/cumm (0.0-0.7); Absolute Lymphocyte Count 1.32 k/cumm (1.2-3.4); Absolute Monocyte Count 0.19 k/cumm (0.11-0.7); Basophils % 0.6; Eosinophils % 1.7; HCT 27.1 % (36.0-46.0); HGB 8.8 g/dL (12.0-15.5); Immature Grans % 0.6; Lymphocytes % 73.7; Mean Corp. HGB Concentration 32.5 g/dL (32.0-36.0); Mean Corpuscular Hemoglobin 28.3 pg (27.0-33.0); Mean Corpuscular Volume 87.1 fL (80-95); Mean Platelet Volume 9.9 fL (8.0-11.0); Monocytes % 10.6; Neutrophils % 12.8; Platelet Count 175 x1000/uL (130-400); RBC 3.11 m/cumm (4.00-5.20); RBC Distribution Width 18.7 % (11.7-14.6)
[2018-12-10 07:29] LABS: Anion Gap 9.2 mmol/L (3-11); BUN 11 mg/dL (7-18); CO2 26.8 mmol/L (21.0-32.0); CREATININE 0.82 mg/dL (0.55-1.02); Calcium 8.1 mg/dL (8.5-10.1); Chloride 107 mmol/L (98-107); Glucose 122 mg/dL (70-100); Magnesium 1.9 mg/dL (1.8-2.4); Potassium 3.2 mmol/L (3.5-5.1); Sodium 143 mmol/L (136-145)
[2018-12-10 07:32] LABS: Anisocytosis 2+; Diff Comment Diff Reviewed; Hypochromasia 2+; White Blood Cell Count 1.79 k/cumm (4.4-10.8)
[2018-12-10 07:33] LABS: Polychromasia Present
[2018-12-10] MEDS: Enoxaparin 40 MG/0.4 ML SYR SC (07:57)
[2018-12-10] MEDS: hydroCHLOROthiazide 25 MG TAB PO (07:57)
[2018-12-10] MEDS: Fluconazole 100 MG TAB 200 MG PO (07:58)
[2018-12-10] MEDS: Carvedilol 12.5 MG TAB PO ×2 (07:58→19:35)
[2018-12-10] MEDS: Magnesium Oxide 400 MG TAB PO ×3 (07:58→19:35)
[2018-12-10] MEDS: Acyclovir 400 MG TAB PO ×2 (07:58→19:35)
[2018-12-10] MEDS: Aspirin E.C. 81 MG TABEC PO (07:58)
[2018-12-10] MEDS: Cyanocobalamin 500 MCG TAB 1000 MCG PO (07:58)
[2018-12-10] MEDS: amLODIPine 5 MG TAB PO (07:59)
[2018-12-10] MEDS: Allopurinol 300 MG TAB PO (07:59)
[2018-12-10 09:57] LABS: Absolute Neutrophil Count 0.23 k/cumm (1.2-6.7)
[2018-12-10] MEDS: Normal Saline 1,000 ML 100 ML IV (09:58)
[2018-12-10] MEDS: Potassium Chloride 20 MEQ TABCR 40 MEQ PO ×2 (09:58→16:29)
--- NOTE | 2018-12-10 12:01 | PGE_ITS ---
Date of Service Date of service: 12/10/18 Time of Service: 12:01 Assessment and Plan Assessment and plan (1) Neutropenic fever: Status: Acute Assessment and plan: Leukopenia and Neutropenia in setting of chemotherapy, now with onset of fevers. Patient reports difficulty at time of PICC line removal, with multiple parties attempting to manipulate her line - also with slight erythema, warmth, and subjective pain at Port site as potential portals of entry. Also, erythema, warmth, and discomfort at port site appear improved/resolved on current antibiotic tehrapy. Will continue broad spectrum coverage Cefepime and Vancomycin, now day #2. Blood culture with no growth X24 hours. Monitor temperature, vitals, and daily ANC. Will consult ID to discuss case. (2) MDS (myelodysplastic syndrome): Status: Chronic Assessment and plan: On Decitabine. Following with [facility] Heme/Onc. (3) Anemia: Status: Chronic Assessment and plan: In setting of chemo. Given underlying CAD transfused with 1 Unit of PRBCs to maintain Hgb >8. (4) CAD S/P percutaneous coronary angioplasty: Status: Acute Assessment and plan: History of NSTEMI, s/p INOCENTE 2018. Continue ASA, BB, statin. Monitor Hgb and consider transfusion to maintain >8. (5) HTN (hypertension), benign: Status: Acute Assessment and plan: Continue BB, thiazide diuretic. Monitor closely as patient is hypertensive despite her anemia, and has a history of Hypertensive Emergency/Urgency in the past. Will continue IV Hydralazine prn, and 3rd antihypertensive agent if needed. (6) DVT prophylaxis: Status: Acute Assessment and plan: SC Enoxaparin. Subjective Subjective Interval history since last seen: 73 year old woman with a recent diagnosis of MDS on chemotherapy, admitted from [facility] Emergency Department on 12/08 with a diagnosis of Neutropenic Fever. Mrs. Jasso has a Past Medical History significant for CAD with a prior NSTEMI s/p stents in 2018 at [facility], HTN with prior hypertensive Urgency/Emergency, OA, and RBBB by ECG. The patient was recently diagnosed with myelodysplastic syndrome by bone biopsy performed at [facility], and initiated on chemotherapy with decitabine. She initially had a PICC line in place, then had a port placed for the purposes of her infusions. Her PICC line was removed 4 days prior to her admission, and port was placed at the same time. She had been in her usual state of health until she noted some mild chills with a fever of 100.7 ?F, and was instructed by her oncology team at [facility] to present to the ED for further evaluation. In the emergency department she was noted to be neutropenic by labs, with a urinalysis and chest x-ray that were negative for infection, and an influenza swab that was negative as well. Her port site was noted to be mildly erythematous and warm, with significant discomfort upon palpation. Her ANC count was 320 at time of admission. Given her fever and neutropenia, the patient was referred for admission for further evaluation and treatment. This morning Mrs. Jasso reports improvement overall in her symptoms, no further subjective fevers or chills, but with a recorded temperature last evening of 38.1. She also states that the pain and erythema overlying her port site have drastically improved. Blood cultures remain without growth. No further events were reported overnight. Exam Narrative Exam Narrative: General: Patient appears comfortable, AAOX3, NAD Skin: Right upper chest port site with essentially resolved erythema and warmth, improved swelling and pain on palpation. No obvious induration or fluctuance. No drainage, and skin appears to be healing well. Neck: Supple CV: Regular, nontachycardic, S1S2, No rubs, murmurs, or gallops. Pulmonary: Clear to auscultation bilaterally, no crackles, wheezing, or rhonchi Abdomen: + Bowel Sounds, soft, nontender, nondistended Vascular: No lower extremity edema Psych: Normal mood and affect. Objective Objective Clinical Data: Abnormal lab results 12/09/18 12/09/18 12/10/18 Range/Units 06:40 12:41 06:45 WBC (4.4-10.8) k/cumm RBC (4.00-5.20) m/cumm Hgb (12.0-15.5) g/dL Hct (36.0-46.0) % RDW (11.7-14.6) % Absolute Neutrophils (1.2-6.7) k/cumm Potassium 3.2 L (3.5-5.1) mmol/L Glucose 122 H (70-100) mg/dL Lactate 1.6 H (0.6-1.4) mmol/L Calcium 8.1 L (8.5-10.1) mg/dL Crossmatch See Detail 12/10/18 12/10/18 Range/Units 06:45 06:45 WBC 1.79 L* (4.4-10.8) k/cumm RBC 3.11 L (4.00-5.20) m/cumm Hgb 8.8 L (12.0-15.5) g/dL Hct 27.1 L (36.0-46.0) % RDW 18.7 H (11.7-14.6) % Absolute Neutrophils 0.23 L* (1.2-6.7) k/cumm Potassium (3.5-5.1) mmol/L Glucose (70-100) mg/dL Lactate 1.9 H (0.6-1.4) mmol/L Calcium (8.5-10.1) mg/dL Crossmatch Vital Signs Temperature 37 C 12/10/18 10:48 Temperature Source Tympanic 12/10/18 10:48 Pulse 72 12/10/18 10:48 Pulse Rhythm Regular 12/10/18 07:45 Pulse 94 H 12/08/18 21:53 Respiratory Rate 18 12/10/18 10:48 Respiratory Effort Non-Labored 12/10/18 07:45 Respiratory Depth Normal 12/10/18 07:45 Respiratory Pattern Normal 12/10/18 07:45 Blood Pressure 121/58 L 12/10/18 10:48 Blood Pressure Mean 92 12/08/18 21:31 Blood Pressure Position Sitting 12/08/18 19:14 Pulse Oximetry 92 L 12/10/18 10:48 Oxygen Delivery Method Room Air 12/10/18 10:48 Oxygen Flow Rate 0 12/10/18 10:48 Pain Level 0 12/10/18 10:48 Comment 12/09/18 16:00 Intake & Output 12/09/18 12/10/18 12/10/18 23:59 11:59 23:59 Intake Total 1900 / 3800.000 221 / 2216 Balance 1900 / 3000.000 221 / 221 Weight 119.8 kg Intake: IV 1480 / 2900.000 1450 / 1450 Oral 420 / 900 370 / 370 Blood Product 396 / 396 Rbc Leuko Reduced Unit 396 / 396 [id number] Other: Urine Color Yellow Pale Urine Appearance Clear Clear Urine Odor Normal Normal Comment Pt voided large ammount into toilet Pt voided large amount into toilet Voiding Methods Toilet Toilet Laboratory Results WBC 1.79 k/cumm (4.4-10.8) L* 12/10/18 06:45 RBC 3.11 m/cumm (4.00-5.20) L 12/10/18 06:45 Hgb 8.8 g/dL (12.0-15.5) L 12/10/18 06:45 Hct 27.1 % (36.0-46.0) L 12/10/18 06:45 MCV 87.1 fL (80-95) 12/10/18 06:45 MCH 28.3 pg (27.0-33.0) 12/10/18 06:45 MCHC 32.5 g/dL (32.0-36.0) 12/10/18 06:45 RDW 18.7 % (11.7-14.6) H 12/10/18 06:45 Plt Count 175 x1000/uL (130-400) 12/10/18 06:45 MPV 9.9 fL (8.0-11.0) 12/10/18 06:45 Immature Gran % 0.6 12/10/18 06:45 Neutrophils % 12.8 12/10/18 06:45 Lymphocytes % 73.7 12/10/18 06:45 Monocytes % 10.6 12/10/18 06:45 Eosinophils % 1.7 12/10/18 06:45 Basophils % 0.6 12/10/18 06:45 Absolute Neutrophils 0.23 k/cumm (1.2-6.7) L* 12/10/18 06:45 Absolute Lymphocytes 1.32 k/cumm (1.2-3.4) 12/10/18 06:45 Absolute Monocytes 0.19 k/cumm (0.11-0.7) 12/10/18 06:45 Absolute Eosinophils 0.03 k/cumm (0.0-0.7) 12/10/18 06:45 Absolute Basophils 0.01 k/cumm (0.0-0.2) 12/10/18 06:45 Differential Comment Diff reviewed 12/10/18 06:45 RBC Morphology See below 12/10/18 06:45 Polychromasia Present 12/10/18 06:45 Hypochromasia 2+ 12/10/18 06:45 Poikilocytosis 1+ 12/08/18 19:54 Anisocytosis 2+ 12/10/18 06:45 Microcytosis 2+ 12/09/18 06:40 Sodium 143 mmol/L (136-145) 12/10/18 06:45 Potassium 3.2 mmol/L (3.5-5.1) L 12/10/18 06:45 Chloride 107 mmol/L (98-107) 12/10/18 06:45 Carbon Dioxide 26.8 mmol/L (21.0-32.0) 12/10/18 06:45 Anion Gap 9.2 mmol/L (3-11) 12/10/18 06:45 BUN 11 mg/dL (7-18) 12/10/18 06:45 Creatinine 0.82 mg/dL (0.55-1.02) 12/10/18 06:45 Estimated GFR/1.73 m2 >= 60.00 (mL/min/1.73m2) 12/10/18 06:45 Glucose 122 mg/dL (70-100) H 12/10/18 06:45 Lactate 1.9 mmol/L (0.6-1.4) H 12/10/18 06:45 Calcium 8.1 mg/dL (8.5-10.1) L 12/10/18 06:45 Magnesium 1.9 mg/dL (1.8-2.4) 12/10/18 06:45 Total Bilirubin 0.5 mg/dL (0.2-1.0) 12/09/18 06:40 AST 17 U/L (15-37) 12/09/18 06:40 ALT 18 U/L (14-59) 12/09/18 06:40 Alkaline Phosphatase 52 U/L (46-116) 12/09/18 06:40 Troponin I < 0.05 ng/mL (0.00-0.06) 12/09/18 18:40 Total Protein 6.3 g/dL (6.4-8.2) L 12/09/18 06:40 Albumin 2.8 g/dL (3.4-5.0) L 12/09/18 06:40 Urine Color Yellow (Yellow) 12/08/18 21:50 Urine Clarity Clear (Clear) 12/08/18 21:50 Urine pH 7.0 (5-8) 12/08/18 21:50 Ur Specific [place] 1.010 (1.005-1.025) 12/08/18 21:50 Urine Protein Negative mg/dL (Negative) 12/08/18 21:50 Urine Ketones Negative mg/dL (Negative) 12/08/18 21:50 Urine Blood Trace-intact (Negative) H 12/08/18 21:50 Urine Nitrite Negative (Negative) 12/08/18 21:50 Urine Bilirubin Negative (Negative) 12/08/18 21:50 Urine Urobilinogen 0.2 EU/dL (Up TO 0.2) 12/08/18 21:50 Ur Leukocyte Esterase Negative (Negative) 12/08/18 21:50 Urine RBC 0-2 (0-2) 12/08/18 21:50 Urine WBC Negative HPF (0-5) 12/08/18 21:50 Ur Epithelial Cells Many HPF (Negative) 12/08/18 21:50 Urine Crystals Negative HPF (Negative) 12/08/18 21:50 Urine Bacteria Negative HPF (Negative) 12/08/18 21:50 Urine Casts Negative LPF (Negative) 12/08/18 21:50 Urine Mucus Negative (Negative) 12/08/18 21:50 Urine Other Mod transitional (Negative) 12/08/18 21:50 Ur Culture Indicated? No/sq. contamination 12/08/18 21:50 Urine Glucose Negative mg/dL (Negative) 12/08/18 21:50 Patient ABO/Rh A Positive 12/09/18 06:40 Antibody Screen Negative 12/09/18 06:40 Crossmatch See Detail 12/09/18 06:40
--- NOTE | 2018-12-10 14:44 | CHAPLAIN ---
Emelyn had two visitors when I stopped in. I explained my role and offered support. 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 Connor Vu, who retired this summer from the [employer] in [place]. Although he's no longer at the [employer], Emelyn said she is in touch wit him and he knows she is here. She didn't seem interested in further conversation with me.
--- NOTE | 2018-12-10 16:27 | PDOC.CMPRO ---
- If Service Date Differs Date of service: 12/10/18 Time of Service: 16:27 Care Management Progress Note S/O: Emelyn reports that her fever is gone but she had to receive a transfusion to increase her H&H and will need to remain at [facility] for another day or two while her blood count is being monitored. She expresses some concern over her hemoglobin level being low but is remaining optimistic. CM continues to follow. A: 73 year old female admitted to [facility] 12/08/18 with neutopenic fever and hypokalemia. P: Discharge recommendations undetermined at this time. CM continues to follow.
[2018-12-10 18:15] LABS: Vancomycin, Trough 31.8 ug/mL (10.0-20.0)
[2018-12-10] MEDS: Atorvastatin 40 MG TAB PO (19:35)
[2018-12-11] VITALS (8 sets, daily range): BP systolic 123–172; BP diastolic 63–98; PULSE 72–85; RESP 16–18; TEMP 36.3–37; O2SAT 93–98
[2018-12-11] MEDS: CEFEPIME 2 GM in Normal Saline 100 ML IVPB ×2 (00:24→07:55)
[2018-12-11 07:20] LABS: Abs Immature Grans 0.01 k/cumm (0.0-0.09); HCT 27.1 % (36.0-46.0); HGB 8.5 g/dL (12.0-15.5); Mean Corp. HGB Concentration 31.4 g/dL (32.0-36.0); Mean Corpuscular Hemoglobin 27.2 pg (27.0-33.0); Mean Corpuscular Volume 86.6 fL (80-95); Platelet Count 148 x1000/uL (130-400); RBC 3.13 m/cumm (4.00-5.20); RBC Distribution Width 18.8 % (11.7-14.6)
[2018-12-11] MEDS: Normal Saline 1,000 ML 100 ML IV ×2 (07:35→16:25)
[2018-12-11 07:37] LABS: BUN 13 mg/dL (7-18); CREATININE 0.82 mg/dL (0.55-1.02); Calcium 7.9 mg/dL (8.5-10.1); Chloride 107 mmol/L (98-107); Creatine Kinase 78 U/L (26-192); Glucose 111 mg/dL (70-100); Magnesium 1.9 mg/dL (1.8-2.4); Potassium 3.8 mmol/L (3.5-5.1); Sodium 142 mmol/L (136-145)
[2018-12-11] MEDS: Magnesium Oxide 400 MG TAB PO ×3 (07:54→19:46)
[2018-12-11] MEDS: Allopurinol 300 MG TAB PO (07:54)
[2018-12-11] MEDS: Carvedilol 12.5 MG TAB PO ×2 (07:54→19:46)
[2018-12-11] MEDS: hydroCHLOROthiazide 25 MG TAB PO (07:54)
[2018-12-11] MEDS: amLODIPine 5 MG TAB PO (07:54)
[2018-12-11] MEDS: Cyanocobalamin 500 MCG TAB 1000 MCG PO (07:54)
[2018-12-11] MEDS: Aspirin E.C. 81 MG TABEC PO (07:55)
[2018-12-11] MEDS: Acyclovir 400 MG TAB PO ×2 (07:55→19:46)
[2018-12-11] MEDS: Enoxaparin 40 MG/0.4 ML SYR SC (07:55)
[2018-12-11] MEDS: Fluconazole 100 MG TAB 200 MG PO (07:55)
[2018-12-11 08:00] LABS: White Blood Cell Count 1.81 k/cumm (4.4-10.8)
[2018-12-11 08:02] LABS: Absolute Lymphocyte Count 1.48 k/cumm (1.2-3.4); Absolute Monocyte Count 0.14 k/cumm (0.11-0.7); Absolute Neutrophil Count 0.14 k/cumm (1.2-6.7)
[2018-12-11 08:03] LABS: Absolute Eosinophil Count 0.04 k/cumm (0.0-0.7); Anisocytosis 2+; Diff Comment Manual Differential
[2018-12-11 08:04] LABS: Hypochromasia 2+; Polychromasia Present
[2018-12-11 08:05] LABS: Poikilocytes 1+
[2018-12-11] MEDS: Potassium Chloride 20 MEQ TABCR PO (10:15)
--- NOTE | 2018-12-11 13:51 | W.PM.PROGNOT ---
Date of Service Date of service: 12/11/18 Time of Service: 13:51 Assessment and Plan Assessment and plan (1) Neutropenic fever: Status: Acute Assessment and plan: Leukopenia and Neutropenia in setting of chemotherapy, now with onset of fevers. Patient reports difficulty at time of PICC line removal, with multiple parties attempting to manipulate her line - also with slight erythema, warmth, and subjective pain at Port site as potential portals of entry. Also, erythema, warmth, and discomfort at port site appear improved/resolved less than 24 hours post initiation of antibiotic therapy. Blood cultures are negative X48 hours - unfortunately there does not appear to be a central culture drawn. - Continue antibiotic therapy, but given that patient remains afebrile and stable will change to oral regimen, with plans to watch for another 24 hours prior to discharge. Received broad spectrum coverage Cefepime and Vancomycin for 2 days - change to oral Cefpodoxime and Doxycycline, per discussion with patient's oncologist Dr. Gustafson - will also plan on keeping port in for the time being. - Patient remains neutropenic - please note that her presenting CBC at time of diagnosis of MDS was neutropenia, with an ANC in the 200's, per discussion with oncology. (2) MDS (myelodysplastic syndrome): Status: Chronic Assessment and plan: On Decitabine. Following with [facility] Heme/Onc. (3) Anemia: Status: Chronic Assessment and plan: In setting of chemo. Given underlying CAD transfused with 1 Unit of PRBCs to maintain Hgb >8. (4) CAD S/P percutaneous coronary angioplasty: Status: Acute Assessment and plan: History of NSTEMI, s/p INOCENTE 2018. Continue ASA, BB, statin. Monitor Hgb and consider transfusion to maintain >8. (5) HTN (hypertension), benign: Status: Acute Assessment and plan: Continue BB, thiazide diuretic. Monitor closely as patient is hypertensive despite her anemia, and has a history of Hypertensive Emergency/Urgency in the past. Will continue IV Hydralazine prn, and 3rd antihypertensive agent if needed. Current blood pressures are ideal. (6) DVT prophylaxis: Status: Acute Assessment and plan: SC Enoxaparin. Subjective Subjective Interval history since last seen: 73 year old woman with a recent diagnosis of MDS on chemotherapy, admitted from [facility] Emergency Department on 12/08 with a diagnosis of Neutropenic Fever. Mrs. Jasso has a Past Medical History significant for CAD with a prior NSTEMI s/p stents in 2018 at [facility], HTN with prior hypertensive Urgency/Emergency, OA, and RBBB by ECG. The patient was recently diagnosed with myelodysplastic syndrome by bone biopsy performed at [facility], and initiated on chemotherapy with decitabine. She initially had a PICC line in place, then had a port placed for the purposes of her infusions. Her PICC line was removed 4 days prior to her admission, and port was placed at the same time. She had been in her usual state of health until she noted some mild chills with a fever of 100.7 ?F, and was instructed by her oncology team at [facility] to present to the ED for further evaluation. In the emergency department she was noted to be neutropenic by labs, with a urinalysis and chest x-ray that were negative for infection, and an influenza swab that was negative as well. Her port site was noted to be mildly erythematous and warm, with significant discomfort upon palpation. Her ANC count was 320 at time of admission. Given her fever and neutropenia, the patient was referred for admission for further evaluation and treatment. This morning Mrs. Jasso reports continued improvement overall in her symptoms, with no further subjective fevers or chills, and no further fevers clinically. She also states that the pain and erythema overlying her port site have drastically improved. Blood cultures remain without growth. No further events were reported overnight. Exam Narrative Exam Narrative: General: Patient appears comfortable, AAOX3, NAD Skin: Right upper chest port site with essentially resolved erythema and warmth, improved swelling and pain on palpation. No obvious induration or fluctuance. No drainage, and skin appears to be healing well. Neck: Supple CV: Regular, nontachycardic, S1S2, No rubs, murmurs, or gallops. Pulmonary: Clear to auscultation bilaterally, no crackles, wheezing, or rhonchi Abdomen: + Bowel Sounds, soft, nontender, nondistended Vascular: + b/l lower extremity edema Psych: Normal mood and affect. Objective Objective Clinical Data: Abnormal lab results 12/10/18 12/11/18 12/11/18 Range/Units 16:58 06:58 06:58 WBC 1.81 L* (4.4-10.8) k/cumm RBC 3.13 L (4.00-5.20) m/cumm Hgb 8.5 L (12.0-15.5) g/dL Hct 27.1 L (36.0-46.0) % MCHC 31.4 L (32.0-36.0) g/dL RDW 18.8 H (11.7-14.6) % Absolute Neutrophils 0.14 L* (1.2-6.7) k/cumm Glucose 111 H (70-100) mg/dL Calcium 7.9 L (8.5-10.1) mg/dL Vancomycin Trough 31.8 H* (10.0-20.0) ug/mL Vital Signs Temperature 36.6 C 12/11/18 10:19 Temperature Source Tympanic 12/11/18 10:19 Pulse 73 12/11/18 10:19 Pulse Rhythm Regular 12/11/18 07:56 Pulse 94 H 12/08/18 21:53 Respiratory Rate 16 12/11/18 10:19 Respiratory Effort Non-Labored 12/11/18 07:56 Respiratory Depth Normal 12/11/18 07:56 Respiratory Pattern Normal 12/11/18 07:56 Blood Pressure 123/63 12/11/18 10:19 Blood Pressure Mean 92 12/08/18 21:31 Blood Pressure Position Sitting 12/08/18 19:14 Pulse Oximetry 95 12/11/18 10:19 Oxygen Delivery Method Room Air 12/11/18 10:19 Oxygen Flow Rate 0 12/11/18 10:19 Pain Level 0 12/11/18 10:19 Comment 12/10/18 15:00 Intake & Output 12/10/18 12/11/18 12/11/18 23:59 11:59 23:59 Intake Total 830 / 3056 2210 / 2210 Balance 830 / 3056 2210 / 2210 Weight 121.4 kg Intake: IV 350 / 1810 0 / 2110 Oral 480 / 850 100 / 100 Other: Comment Voiding independently, urine not seen. Denies any issues. large void in toilet Voiding Methods Toilet Toilet Laboratory Results WBC 1.81 k/cumm (4.4-10.8) L* 12/11/18 06:58 RBC 3.13 m/cumm (4.00-5.20) L 12/11/18 06:58 Hgb 8.5 g/dL (12.0-15.5) L 12/11/18 06:58 Hct 27.1 % (36.0-46.0) L 12/11/18 06:58 MCV 86.6 fL (80-95) 12/11/18 06:58 MCH 27.2 pg (27.0-33.0) 12/11/18 06:58 MCHC 31.4 g/dL (32.0-36.0) L 12/11/18 06:58 RDW 18.8 % (11.7-14.6) H 12/11/18 06:58 Plt Count 148 x1000/uL (130-400) 12/11/18 06:58 MPV 10.0 fL (8.0-11.0) 12/11/18 06:58 Immature Gran % 0.0 12/11/18 06:58 Neutrophils % 8.0 12/11/18 06:58 Lymphocytes % 82.0 12/11/18 06:58 Monocytes % 8.0 12/11/18 06:58 Eosinophils % 2.0 12/11/18 06:58 Basophils % 0.0 12/11/18 06:58 Absolute Neutrophils 0.14 k/cumm (1.2-6.7) L* 12/11/18 06:58 Absolute Lymphocytes 1.48 k/cumm (1.2-3.4) 12/11/18 06:58 Absolute Monocytes 0.14 k/cumm (0.11-0.7) 12/11/18 06:58 Absolute Eosinophils 0.04 k/cumm (0.0-0.7) 12/11/18 06:58 Absolute Basophils 0.00 k/cumm (0.0-0.2) 12/11/18 06:58 Differential Comment Manual differential 12/11/18 06:58 RBC Morphology See below 12/11/18 06:58 Polychromasia Present 12/11/18 06:58 Hypochromasia 2+ 12/11/18 06:58 Poikilocytosis 1+ 12/11/18 06:58 Anisocytosis 2+ 12/11/18 06:58 Microcytosis 2+ 12/09/18 06:40 Sodium 142 mmol/L (136-145) 12/11/18 06:58 Potassium 3.8 mmol/L (3.5-5.1) 12/11/18 06:58 Chloride 107 mmol/L (98-107) 12/11/18 06:58 Carbon Dioxide 26.0 mmol/L (21.0-32.0) 12/11/18 06:58 Anion Gap 9.0 mmol/L (3-11) 12/11/18 06:58 BUN 13 mg/dL (7-18) 12/11/18 06:58 Creatinine 0.82 mg/dL (0.55-1.02) 12/11/18 06:58 Estimated GFR/1.73 m2 >= 60.00 (mL/min/1.73m2) 12/11/18 06:58 Glucose 111 mg/dL (70-100) H 12/11/18 06:58 Lactate 1.9 mmol/L (0.6-1.4) H 12/10/18 06:45 Calcium 7.9 mg/dL (8.5-10.1) L 12/11/18 06:58 Magnesium 1.9 mg/dL (1.8-2.4) 12/11/18 06:58 Total Bilirubin 0.5 mg/dL (0.2-1.0) 12/09/18 06:40 AST 17 U/L (15-37) 12/09/18 06:40 ALT 18 U/L (14-59) 12/09/18 06:40 Alkaline Phosphatase 52 U/L (46-116) 12/09/18 06:40 Creatine Kinase 78 U/L (26-192) 12/11/18 06:58 Troponin I < 0.05 ng/mL (0.00-0.06) 12/09/18 18:40 Total Protein 6.3 g/dL (6.4-8.2) L 12/09/18 06:40 Albumin 2.8 g/dL (3.4-5.0) L 12/09/18 06:40 Urine Color Yellow (Yellow) 12/08/18 21:50 Urine Clarity Clear (Clear) 12/08/18 21:50 Urine pH 7.0 (5-8) 12/08/18 21:50 Ur Specific [place] 1.010 (1.005-1.025) 12/08/18 21:50 Urine Protein Negative mg/dL (Negative) 12/08/18 21:50 Urine Ketones Negative mg/dL (Negative) 12/08/18 21:50 Urine Blood Trace-intact (Negative) H 12/08/18 21:50 Urine Nitrite Negative (Negative) 12/08/18 21:50 Urine Bilirubin Negative (Negative) 12/08/18 21:50 Urine Urobilinogen 0.2 EU/dL (Up TO 0.2) 12/08/18 21:50 Ur Leukocyte Esterase Negative (Negative) 12/08/18 21:50 Urine RBC 0-2 (0-2) 12/08/18 21:50 Urine WBC Negative HPF (0-5) 12/08/18 21:50 Ur Epithelial Cells Many HPF (Negative) 12/08/18 21:50 Urine Crystals Negative HPF (Negative) 12/08/18 21:50 Urine Bacteria Negative HPF (Negative) 12/08/18 21:50 Urine Casts Negative LPF (Negative) 12/08/18 21:50 Urine Mucus Negative (Negative) 12/08/18 21:50 Urine Other Mod transitional (Negative) 12/08/18 21:50 Ur Culture Indicated? No/sq. contamination 12/08/18 21:50 Urine Glucose Negative mg/dL (Negative) 12/08/18 21:50 Vancomycin Trough 31.8 ug/mL (10.0-20.0) H* 12/10/18 16:58 Patient ABO/Rh A Positive 12/09/18 06:40 Antibody Screen Negative 12/09/18 06:40 Crossmatch See Detail 12/09/18 06:40
--- NOTE | 2018-12-11 16:47 | PDOC.CMPRO ---
- If Service Date Differs Date of service: 12/11/18 Time of Service: 16:47 Care Management Progress Note S/O: Emelyn reports she is doing okay. She states she is being put on oral antibiotics and if she remains without a fever for the next 24 hours, she will then be discharged home. She shares that her is worried about her as this is the longest they have been apart in the past year and a half. She has made arrangements for a friend to bring him to the hospital to visit her. A: 73 yo female admitted to [facility] 12/08/18 with neutopenic fever and hypokalemia. P: Emelyn will be discharged when medically ready. Anticipate no additional services needed at time of discharge.
[2018-12-11] MEDS: Doxycycline Hyclate 100 MG CAP PO (18:44)
[2018-12-11] MEDS: Cefpodoxime 200 MG TAB PO (18:44)
[2018-12-11] MEDS: Atorvastatin 40 MG TAB PO (19:46)
[2018-12-12 04:23] VITALS: BP 157/84; PULSE 80; RESP 18; TEMP 37.1; O2SAT 96
[2018-12-12] MEDS: Normal Saline 1,000 ML 100 ML IV (04:38)
[2018-12-12] MEDS: Cefpodoxime 200 MG TAB PO ×2 (06:26→17:01)
[2018-12-12] MEDS: Doxycycline Hyclate 100 MG CAP PO ×2 (06:26→17:01)
[2018-12-12 07:06] LABS: Absolute Basophil Count 0.01 k/cumm (0.0-0.2); Absolute Eosinophil Count 0.03 k/cumm (0.0-0.7); Absolute Monocyte Count 0.17 k/cumm (0.11-0.7); Basophils % 0.5; Eosinophils % 1.6; HGB 8.8 g/dL (12.0-15.5); Lymphocytes % 80.2; Mean Corp. HGB Concentration 31.4 g/dL (32.0-36.0); Mean Corpuscular Hemoglobin 27.1 pg (27.0-33.0); Mean Corpuscular Volume 86.2 fL (80-95); Mean Platelet Volume 10.1 fL (8.0-11.0); Monocytes % 9.1; Neutrophils % 8.6; RBC 3.25 m/cumm (4.00-5.20); RBC Distribution Width 18.7 % (11.7-14.6)
[2018-12-12 07:16] LABS: White Blood Cell Count 1.87 k/cumm (4.4-10.8)
[2018-12-12 07:31] LABS: Anion Gap 8.7 mmol/L (3-11); BUN 13 mg/dL (7-18); CO2 27.3 mmol/L (21.0-32.0); CREATININE 0.82 mg/dL (0.55-1.02); Calcium 8.5 mg/dL (8.5-10.1); Chloride 107 mmol/L (98-107); Glucose 106 mg/dL (70-100); Magnesium 1.9 mg/dL (1.8-2.4); Potassium 3.9 mmol/L (3.5-5.1); Sodium 143 mmol/L (136-145)
[2018-12-12 07:34] VITALS: BP 170/88; PULSE 78; RESP 19; TEMP 37; O2SAT 95
[2018-12-12 08:22] LABS: Absolute Neutrophil Count 0.16 k/cumm (1.2-6.7); Anisocytosis 2+; Microcytosis 1+
[2018-12-12 08:23] LABS: Polychromasia Present
[2018-12-12 08:24] LABS: Poikilocytes 1+
[2018-12-12 08:25] LABS: Diff Comment Diff Reviewed; Platelet Count 128 x1000/uL (130-400)
[2018-12-12] MEDS: Acyclovir 400 MG TAB PO (08:25)
[2018-12-12] MEDS: Magnesium Oxide 400 MG TAB PO ×2 (09:52→10:06)
[2018-12-12] MEDS: Fluconazole 100 MG TAB 200 MG PO (09:52)
[2018-12-12] MEDS: Cyanocobalamin 500 MCG TAB 1000 MCG PO (09:53)
[2018-12-12] MEDS: Carvedilol 12.5 MG TAB PO (09:53)
[2018-12-12] MEDS: amLODIPine 5 MG TAB PO (09:53)
[2018-12-12] MEDS: hydroCHLOROthiazide 25 MG TAB PO (09:53)
[2018-12-12] MEDS: Enoxaparin 40 MG/0.4 ML SYR SC (09:53)
[2018-12-12] MEDS: Allopurinol 300 MG TAB PO (09:53)
[2018-12-12] MEDS: Aspirin E.C. 81 MG TABEC PO (09:53)
[2018-12-12] MEDS: Potassium Chloride 10 MEQ TABCR PO (10:06)
--- NOTE | 2018-12-12 11:28 | PDOC.CMDIS ---
Care Management Discharge Reason for Hospitalization: Neutropenic fever
[2018-12-12 12:02] VITALS: BP 158/76; PULSE 74; RESP 18; TEMP 37; O2SAT 95
--- NOTE | 2018-12-12 12:19 | W.PM.DS.N ---
Date of service: 12/12/18 Time of Service: 12:19 DS: Diagnosis Discharge Diagnosis (1) Neutropenic fever: Status: Acute (2) MDS (myelodysplastic syndrome): Status: Chronic (3) Anemia: Status: Chronic (4) CAD S/P percutaneous coronary angioplasty: Status: Acute (5) HTN (hypertension), benign: Status: Acute Discharge Plan Disposition Patient Disposition: HOME Condition: Stable Discharge Details Chief Complaint: Fever Clinical Impression: Neutropenic fever Reason For Visit: MDS, NEUTOPENIC FEVER, HYPOKALEMIA Admit Date/Time: 12/08/18 21:34 Admit Provider: Duke Carmona Attending Provider: Duke Carmona Primary Care Provider: Duke Ventura ED Provider: Bar Smith Hospital Course Hospital Course: Chief Complaint: Fever HPI: 73 year old woman with a recent diagnosis of MDS on chemotherapy, admitted from [facility] Emergency Department on 12/08 with a diagnosis of Neutropenic Fever. Mrs. Jasso has a Past Medical History significant for CAD with a prior NSTEMI s/p stents in 2018 at [facility], HTN with prior hypertensive Urgency/Emergency, OA, and RBBB by ECG. The patient was recently diagnosed with myelodysplastic syndrome by bone biopsy performed at [facility], and initiated on chemotherapy with decitabine. She initially had a PICC line in place, then had a port placed for the purposes of her infusions. Her PICC line was removed 3-4 days prior to her admission, and port was placed at the same time. She had been in her usual state of health until she noted some mild chills with a fever of 100.7 ?F, and was instructed by her oncology team at [facility] to present to the ED for further evaluation. In the emergency department she was noted to be neutropenic by labs, with a urinalysis and chest x-ray that were negative for infection, and an influenza swab that was negative as well. Her port site was noted to be mildly erythematous and warm, with significant discomfort upon palpation. Her ANC count was 320 at time of admission. Given her fever and neutropenia, the patient was referred for admission for further evaluation and treatment. This morning Mrs. Jasso reports continued improvement overall in her symptoms, with no further subjective fevers or chills, and no further fevers clinically. She also states that the pain and erythema overlying her port site have essentially resolved. Blood cultures remain without growth. No further events were reported overnight. Hospital Course: (1) Neutropenic fever: Leukopenia and Neutropenia in setting of chemotherapy, now with onset of fevers. Patient reports difficulty at time of PICC line removal, with multiple parties attempting to manipulate her line - also with slight erythema, warmth, and subjective pain at Port site as potential portals of entry. Also, erythema, warmth, and discomfort at port site appear improved less than 24 hours post initiation of antibiotic therapy, and are now resolved. Blood cultures are negative X72 hours - unfortunately there does not appear to be a central blood culture drawn. - Continue antibiotic therapy, but given that patient remained afebrile and stable changed to oral regimen yesterday. Patient has remained afebrile for 24 hours on PO coverage. - Received broad spectrum coverage Cefepime & Vancomycin for 3 days - changed to oral Cefpodoxime and Doxycycline, per discussion with patient's oncologist Dr. Gustafson. - Patient remains neutropenic - please note that her presenting CBC at time of diagnosis of MDS was neutropenia, with an ANC in the 200's, per discussion with oncology. - Per discussion with ID at [facility] and Oncology at [facility], decision was made to maintain port in place with close clinical follow-up after discharge. (2) MDS (myelodysplastic syndrome): On Decitabine. Following with [facility] Heme/Onc. (3) Anemia: In setting of chemo. Given underlying CAD transfused with 1 Unit of PRBCs to maintain Hgb >8. Hgb has remaines table in the 8's since. (4) CAD S/P percutaneous coronary angioplasty: History of NSTEMI, s/p INOCENTE 2018. Continue ASA, BB, statin. (5) HTN (hypertension), benign: Continue BB, thiazide diuretic. Patient remained hypertensive despite her anemia, and has a history of Hypertensive Emergency/Urgency in the past. SBP ranged between 120-170, with majority of values in the 150's. Needs outpatient monitoring and follow-up. (6) DVT prophylaxis: Was maintained on SC Enoxaparin. Home Meds and New Rx's Prescriptions: New doxycycline hyclate 100 mg Capsule 100 mg PO Q12H Qty: 20 RF: 0 cefpodoxime 200 mg Tablet 200 mg PO Q12H Qty: 20 RF: 0 Continued acetaminophen [Tylenol] 325 mg Capsule 650 mg PO Q8H PRN PRNRF: 0 acyclovir [Zovirax] 400 mg Tablet 400 mg PO BID RF: 0 allopurinol 300 mg Tablet 300 mg PO DAILY RF: 0 aspirin [Aspir-81] 81 mg Tablet,Delayed Release (Dr/Ec) 81 mg PO DAILY RF: 0 atorvastatin 80 mg Tablet 80 mg PO ONCE PM RF: 0 carvedilol [Coreg] 12.5 mg Tablet 12.5 mg PO BID RF: 0 cyanocobalamin (vitamin B-12) 1,000 mcg Capsule 1,000 mcg PO DAILY RF: 0 diphenhydramine HCl 25 mg Capsule 25 mg PO Q6H PRN PRNRF: 0 fluconazole 200 mg Tablet 200 mg PO DAILY RF: 0 hydrochlorothiazide 25 mg Tablet 25 mg PO DAILY RF: 0 meclizine 25 mg Tablet 25 mg PO BID PRNRF: 0 ondansetron 8 mg Tablet,Disintegrating 8 mg PO PRN PRNRF: 0 Discontinued amoxicillin-pot clavulanate [Augmentin] 875-125 mg Tablet 1 tab PO BID RF: 0 Discharge Instructions Instructions: Implanted Venous Access Port (DC), Hypokalemia (DC), Hypokalemia (GEN), Myelodysplastic Syndromes (DC) Stand Alone Forms: Nursing Discharge Form Referrals: Duke Ventura [Primary Care Provider] - 12/18/18 2:00 pm Activity:: No strenuous activity Equipment/Supplies:: No Equipment Needed Diet:: Low Sodium Discharge Orders Discharge Orders: Discharge Order (Routine); Ordered 12/12/18 Ordered By: Davon Paredes DS: Summary Status at Discharge Functional status at discharge: independent ambulation Overall status at discharge: patient is back to baseline Mental Status: mental status grossly normal Speech and Movement: speech and movement normal Mood: congruent mood Affect: normal affect Exam Narrative Exam Narrative: General: Patient appears comfortable, AAOX3, NAD Skin: Right upper chest port site with essentially resolved erythema and warmth, improved swelling and pain on palpation. No obvious induration or fluctuance. No drainage, and skin appears to be healing well. Neck: Supple CV: Regular, nontachycardic, S1S2, No rubs, murmurs, or gallops. Pulmonary: Clear to auscultation bilaterally, no crackles, wheezing, or rhonchi Abdomen: + Bowel Sounds, soft, nontender, nondistended Vascular: + b/l lower extremity edema Psych: Normal mood and affect. Psych Mental Status: mental status grossly normal Speech and Movement: speech and movement normal Mood: congruent mood Affect: normal affect DS: Data Vitals/I&O Vitals and I&O: Vital Signs Temperature 37.0 C 12/12/18 12:02 Temperature Source Tympanic 12/12/18 12:02 Pulse 74 12/12/18 12:02 Pulse Rhythm Regular 12/12/18 09:54 Pulse 94 H 12/08/18 21:53 Respiratory Rate 18 12/12/18 12:02 Respiratory Effort 12/12/18 09:54 Respiratory Depth Normal 12/12/18 09:54 Respiratory Pattern Normal 12/12/18 09:54 Blood Pressure 158/76 H 12/12/18 12:02 Blood Pressure Mean 92 12/08/18 21:31 Blood Pressure Position Sitting 12/08/18 19:14 Pulse Oximetry 95 12/12/18 12:02 Oxygen Delivery Method Room Air 12/12/18 12:02 Oxygen Flow Rate 0 12/12/18 12:02 Pain Level 0 12/12/18 12:02 Comment 12/10/18 15:00 Intake & Output 12/11/18 12/12/18 12/12/18 23:59 11:59 23:59 Intake Total 883.333 / 3093.333 1240 / 1240 Balance 883.333 / 3093.333 1240 / 1240 Weight 118.5 kg Intake: IV 883.333 / 2993.333 1000 / 1000 Oral 240 / 240 Data Completed and Pending Completed studies during hospitalization [Text1]: Exam(s) a RAD:XR chest 2V PA & lateral EXAM: XR CHEST 2V PA LATERAL CLINICAL HISTORY: fever, neutropenic. TECHNIQUE: 2D digital imaging was performed. COMPARISON: No exams were available for comparison FINDINGS: LUNGS: No focal consolidating infiltrates are present. No pleural effusion or pneumothorax is present. HEART: Mild cardiomegaly. MEDIASTINUM: Normal. OTHER FINDINGS:There is a right-sided indwelling central venous catheter. The tip of the catheter is in good position at the junction of the superior vena cava and right atrium. Bones: Age appropriate degenerative changes are seen in the spine. IMPRESSION: No acute pulmonary findings. Labs on day of discharge: Labs from last 24 hours 12/12/18 12/12/18 06:43 06:43 WBC 1.87 L* RBC 3.25 L Hgb 8.8 L Hct 28.0 L MCV 86.2 MCH 27.1 MCHC 31.4 L RDW 18.7 H Plt Count 128 L MPV 10.1 Immature Gran % 0.0 Neutrophils % 8.6 Lymphocytes % 80.2 Monocytes % 9.1 Eosinophils % 1.6 Basophils % 0.5 Absolute Neutrophils 0.16 L* Absolute Lymphocytes 1.50 Absolute Monocytes 0.17 Absolute Eosinophils 0.03 Absolute Basophils 0.01 Differential Comment Diff reviewed RBC Morphology See below Polychromasia Present Poikilocytosis 1+ Anisocytosis 2+ Microcytosis 1+ Sodium 143 Potassium 3.9 Chloride 107 Carbon Dioxide 27.3 Anion Gap 8.7 BUN 13 Creatinine 0.82 Estimated GFR/1.73 m2 >= 60.00 Glucose 106 H Calcium 8.5 Magnesium 1.9 Preliminary micro results at discharge 12/08/18 21:20 Blood Culture - Preliminary Blood NO GROWTH 72 HOURS 12/08/18 19:54 Blood Culture - Preliminary Blood NO GROWTH 72 HOURS [facility] Medical History CAD S/P percutaneous coronary angioplasty (Acute) HTN (hypertension), benign (Acute) Hyperlipidemia (Acute) Lumbago without sciatica (Acute) MDS (myelodysplastic syndrome) (Chronic) Vertiginous syndrome (Acute) Surgical History S/P PICC central line placement (Acute) Social History Smoking/Tobacco Use Status: Never Alcohol Intake: never Drug use: Never Substance use type: does not use What is your relationship status?: Panel score (0-1 are the most socially isolated patients): 1 Do you feel safe at home: Yes Do you feel safe in your relationship?: Yes Additional Social history: Retired nurse
[2018-12-12 15:30] VITALS: BP 156/84; PULSE 72; RESP 18; TEMP 36.9; O2SAT 95
--- NOTE | 2018-12-12 16:11 | PDOC.CMDIS ---
- If Service Date Differs Date of service: 12/12/18 Time of Service: 16:23 LACE Index Scoring Tool - Questions: Length of Stay (in days): 4 - 6 Acuity (Admit via E.D.?): Yes E.D. Visits: 1 - Answers: Total Score: 8 Risk of Readmission: Low Risk Care Management Discharge Reason for Hospitalization: Neutropenic fever Discharge Plan: Emelyn is being discharged home with no services. She will follow-up with her PCP as directed. Patient/Family Education Needs: Nursing will review discharge instructions with Emelyn re medications and activity level. Emelyn is able to verbalize reason for hospitalization and how to manage care at home.
[2018-12-13] MEDS: Normal Saline Flush 10 ML SYR IVP (10:21)
[2018-12-14] MEDS: Normal Saline Flush 10 ML SYR IVP (07:33)
== END 2018-12-12 17:04 | disposition home or self-care (01) | DRG 809 ==
LOC: ER 22:34 → MS 22:38
PROVIDERS: Emergency Medicine; Admitting Provider Family Medicine; Emergency Provider Student in an Organized Health Care Education/Training Program; PCP Family Medicine; Visit Provider Internal Medicine
DX: D70.1 Agranulocytosis secondary to cancer chemotherapy (principal); T80.212A Local infection due to central venous catheter, initial encounter; D64.81 Anemia due to antineoplastic chemotherapy; T45.1X5A Adverse effect of antineoplastic and immunosuppressive drugs, initial encounter; R50.81 Fever presenting with conditions classified elsewhere; D46.9 Myelodysplastic syndrome, unspecified; E87.6 Hypokalemia; I10 Essential (primary) hypertension; I25.10 Atherosclerotic heart disease of native coronary artery without angina pectoris; Z95.5 Presence of coronary angioplasty implant and graft; Z45.2 Encounter for adjustment and management of vascular access device; R31.0 Gross hematuria; E83.42 Hypomagnesemia
CPT/HCPCS: 36415; 36430; 80048; 80053; 82550; 85027; 86850; 86900; 86901; 86920; 86945; 87040; 87449; 96361; 96365; 99223; 99232; 99233; 99239; 99285; J1650; 71046; 80202; 81003; 81015; 83605; 83735; 84484; 85007; 85025; 99284; J2543; J3370; J3475; J3480; P9016

== ENCOUNTER 2019-01-09 08:02 | Outpatient (RCR) | payer OTHER, SELFPAY ==
[2018-12-19] MEDS: Normal Saline Flush 10 ML SYR IVP (08:11)
[2018-12-19 08:13] LABS: Abs Immature Grans 0.05 k/cumm (0.0-0.09); HCT 30.8 % (36.0-46.0); HGB 9.6 g/dL (12.0-15.5); Mean Corp. HGB Concentration 31.2 g/dL (32.0-36.0); Mean Corpuscular Hemoglobin 27.3 pg (27.0-33.0); Mean Corpuscular Volume 87.5 fL (80-95); RBC 3.52 m/cumm (4.00-5.20); RBC Distribution Width 19.2 % (11.7-14.6); White Blood Cell Count 2.83 k/cumm (4.4-10.8)
[2018-12-19 08:51] LABS: Absolute Monocyte Count 0.17 k/cumm (0.11-0.7); Atypical Lymphocytes % 2
[2018-12-19 08:52] LABS: Absolute Basophil Count 0.08 k/cumm (0.0-0.2)
[2018-12-19] MEDS: Heparin 500 UNITS/5 ML SYRINGE IV (09:00)
[2018-12-19 09:05] VITALS: BP 102/68; PULSE 69; RESP 19; TEMP 36.2; O2SAT 100
[2018-12-19 09:11] LABS: Absolute Lymphocyte Count 2.21 k/cumm (1.2-3.4); Absolute Neutrophil Count 0.25 k/cumm (1.2-6.7); Anisocytosis 2+; Diff Comment Manual Differential
[2018-12-19 09:12] LABS: Microcytosis 1+; Poikilocytes 1+; Polychromasia Present
[2018-12-19 09:13] LABS: Platelet Count 82 x1000/uL (130-400)
[2018-12-24 08:18] LABS: Abs Immature Grans 0.09 k/cumm (0.0-0.09); Absolute Basophil Count 0.05 k/cumm (0.0-0.2); HCT 29.6 % (36.0-46.0); HGB 9.2 g/dL (12.0-15.5); Mean Corp. HGB Concentration 31.1 g/dL (32.0-36.0); Mean Corpuscular Hemoglobin 27.1 pg (27.0-33.0); Mean Corpuscular Volume 87.1 fL (80-95); Mean Platelet Volume 10.9 fL (8.0-11.0); RBC Distribution Width 19.3 % (11.7-14.6); White Blood Cell Count 5.19 k/cumm (4.4-10.8)
[2018-12-24] MEDS: Heparin 500 UNITS/5 ML SYRINGE IV (08:21)
[2018-12-24] MEDS: Normal Saline Flush 10 ML SYR IVP (08:21)
[2018-12-24 08:35] LABS: ALT 20 U/L (14-59); AST 16 U/L (15-37); Albumin 3.6 g/dL (3.4-5.0); Alkaline Phosphatase 66 U/L (46-116); Anion Gap 12.4 mmol/L (3-11); BUN 21 mg/dL (7-18); Bilirubin, Total 0.4 mg/dL (0.2-1.0); CO2 24.6 mmol/L (21.0-32.0); CREATININE 1.06 mg/dL (0.55-1.02); Calcium 8.9 mg/dL (8.5-10.1); Chloride 103 mmol/L (98-107); Estimated GFR 50.81 (mL/min/1.73m2); Glucose 155 mg/dL (70-100); Potassium 3.5 mmol/L (3.5-5.1); Sodium 140 mmol/L (136-145); Total Protein 7.5 g/dL (6.4-8.2)
[2018-12-24 08:36] LABS: Absolute Lymphocyte Count 3.89 k/cumm (1.2-3.4); Absolute Monocyte Count 0.73 k/cumm (0.11-0.7)
[2018-12-24 08:37] LABS: Diff Comment Manual Differential
[2018-12-24 08:38] LABS: Hypochromasia 2+; Platelet Count 164 x1000/uL (130-400); Polychromasia Present
[2018-12-24 08:43] LABS: Absolute Neutrophil Count 0.42 k/cumm (1.2-6.7); Anisocytosis 2+
[2018-12-26] MEDS: Normal Saline Flush 10 ML SYR IVP (07:58)
[2018-12-26] MEDS: Heparin 500 UNITS/5 ML SYRINGE IV (07:59)
[2018-12-26 08:27] LABS: HCT 29.7 % (36.0-46.0); HGB 9.4 g/dL (12.0-15.5); Mean Corp. HGB Concentration 31.6 g/dL (32.0-36.0); Mean Corpuscular Hemoglobin 27.4 pg (27.0-33.0); Mean Corpuscular Volume 86.6 fL (80-95); Mean Platelet Volume 10.9 fL (8.0-11.0); RBC 3.43 m/cumm (4.00-5.20); RBC Distribution Width 19.9 % (11.7-14.6); White Blood Cell Count 6.85 k/cumm (4.4-10.8)
[2018-12-26 09:06] LABS: Absolute Basophil Count 0.07 k/cumm (0.0-0.2); Absolute Eosinophil Count 0.14 k/cumm (0.0-0.7); Absolute Lymphocyte Count 5.89 k/cumm (1.2-3.4); Absolute Monocyte Count 0.27 k/cumm (0.11-0.7)
[2018-12-26 09:07] LABS: Anisocytosis 2+; Basophilic Stippling Present; Diff Comment Manual Differential; Nucleated RBC 1 /100WBC; Poikilocytes 1+; Polychromasia Present
[2018-12-26 09:08] LABS: Platelet Count 210 x1000/uL (130-400)
[2018-12-26 09:23] LABS: Absolute Neutrophil Count 0.27 k/cumm (1.2-6.7)
[2018-12-30] MEDS: Normal Saline Flush 10 ML SYR IVP (11:58)
[2018-12-30 12:49] LABS: HCT 29.1 % (36.0-46.0); Mean Corp. HGB Concentration 30.9 g/dL (32.0-36.0); Mean Corpuscular Hemoglobin 26.7 pg (27.0-33.0); Mean Corpuscular Volume 86.4 fL (80-95); Mean Platelet Volume 11.4 fL (8.0-11.0); RBC 3.37 m/cumm (4.00-5.20); RBC Distribution Width 20.1 % (11.7-14.6); White Blood Cell Count 8.63 k/cumm (4.4-10.8)
[2018-12-30 14:04] LABS: Platelet Count 207 x1000/uL (130-400)
[2018-12-30 14:06] LABS: Other Cells 13
[2018-12-30 14:07] LABS: Anisocytosis 2+; Basophilic Stippling Present; Diff Comment Manual Differential; Nucleated RBC 10 /100WBC; Poikilocytes 1+; Polychromasia Present
[2018-12-30 14:16] LABS: ALT 22 U/L (14-59); AST 21 U/L (15-37); Albumin 3.7 g/dL (3.4-5.0); Alkaline Phosphatase 61 U/L (46-116); Anion Gap 11.9 mmol/L (3-11); BUN 20 mg/dL (7-18); Bilirubin, Total 0.3 mg/dL (0.2-1.0); CO2 25.1 mmol/L (21.0-32.0); CREATININE 0.97 mg/dL (0.55-1.02); Chloride 103 mmol/L (98-107); Estimated GFR 56.29 (mL/min/1.73m2); Glucose 119 mg/dL (70-100); Potassium 3.8 mmol/L (3.5-5.1); Sodium 140 mmol/L (136-145); Total Protein 7.5 g/dL (6.4-8.2)
[2018-12-31 14:13] LABS: Absolute Neutrophil Count 2.24 k/cumm (1.2-6.7)
[2018-12-31 14:14] LABS: Absolute Lymphocyte Count 4.14 k/cumm (1.2-3.4); Absolute Monocyte Count 0.78 k/cumm (0.11-0.7); Atypical Lymphocytes % 0
[2018-12-31 14:15] LABS: Absolute Eosinophil Count 0.09 k/cumm (0.0-0.7)
[2018-12-31 14:16] LABS: Abs Immature Grans 0.26 k/cumm (0.0-0.09)
[2019-01-02 11:51] VITALS: BP 102/68; PULSE 69; RESP 19; TEMP 36.2; O2SAT 100
[2019-01-02] MEDS: Normal Saline Flush 10 ML SYR IVP (11:53)
[2019-01-02 12:01] LABS: HCT 28.7 % (36.0-46.0); HGB 8.9 g/dL (12.0-15.5); Mean Platelet Volume 10.5 fL (8.0-11.0); Platelet Count 139 x1000/uL (130-400); RBC Distribution Width 19.6 % (11.7-14.6); White Blood Cell Count 9.78 k/cumm (4.4-10.8)
[2019-01-02 12:46] LABS: Absolute Lymphocyte Count 6.45 k/cumm (1.2-3.4); Absolute Neutrophil Count 1.17 k/cumm (1.2-6.7)
[2019-01-02 12:47] LABS: Absolute Monocyte Count 1.66 k/cumm (0.11-0.7); Other Cells 4
[2019-01-02 12:48] LABS: Anisocytosis 2+; Basophilic Stippling Present; Hypochromasia 2+; Microcytosis 1+; Nucleated RBC 2 /100WBC; Polychromasia Present
[2019-01-02 12:49] LABS: Diff Comment Manual Differential; Poikilocytes 2+
[2019-01-09] MEDS: Normal Saline Flush 10 ML SYR IVP (08:10)
[2019-01-09] MEDS: Heparin 500 UNITS/5 ML SYRINGE IV (08:11)
[2019-01-09 08:45] VITALS: BP 89/43; PULSE 94; RESP 20; TEMP 36.3; O2SAT 98
[2019-01-09 08:55] VITALS: BP 109/69; PULSE 89; RESP 20; O2SAT 98
[2019-01-09 09:14] LABS: HCT 26.9 % (36.0-46.0); HGB 8.6 g/dL (12.0-15.5); Mean Corpuscular Hemoglobin 27.3 pg (27.0-33.0); Mean Corpuscular Volume 85.4 fL (80-95); RBC 3.15 m/cumm (4.00-5.20); RBC Distribution Width 20.2 % (11.7-14.6)
[2019-01-09 09:18] LABS: Absolute Lymphocyte Count 5.66 k/cumm (1.2-3.4); Absolute Neutrophil Count 1.55 k/cumm (1.2-6.7); Platelet Count 52 x1000/uL (130-400)
[2019-01-09 09:20] LABS: Absolute Basophil Count 0.67 k/cumm (0.0-0.2); Absolute Eosinophil Count 0.11 k/cumm (0.0-0.7); Absolute Monocyte Count 1.78 k/cumm (0.11-0.7); Atypical Lymphocytes % 11; Nucleated RBC 5 /100WBC; Other Cells 10
[2019-01-09 09:21] LABS: Anisocytosis 3+; Basophilic Stippling Present; Diff Comment Manual Differential; Hypochromasia 1+; Macrocytosis 1+; Microcytosis 1+; Poikilocytes 1+; Polychromasia Present
== END 2019-01-09 23:59 | disposition home or self-care (01) ==
LOC: INF 08:02
PROVIDERS: PCP Family Medicine; Visit Provider Internal Medicine Hematology
DX: D46.20 Refractory anemia with excess of blasts, unspecified (principal); Z45.2 Encounter for adjustment and management of vascular access device
CPT/HCPCS: 36591; 80053; 86850; 86900; 86901; 85025

== ENCOUNTER 2019-02-07 02:43 | Outpatient (RCR) | payer OTHER, SELFPAY ==
[2019-01-14] VITALS (17 sets, daily range): BP systolic 125–165; BP diastolic 67–89; PULSE 79–99; RESP 18–20; TEMP 36.4–37.1; O2SAT 93–100
[2019-01-14] MEDS: Normal Saline Flush 10 ML SYR IVP (07:47)
[2019-01-14 08:15] LABS: Abs Immature Grans 1.13 k/cumm (0.0-0.09); HCT 23.7 % (36.0-46.0); HGB 7.5 g/dL (12.0-15.5); Mean Corp. HGB Concentration 31.6 g/dL (32.0-36.0); Mean Corpuscular Hemoglobin 27.4 pg (27.0-33.0); Mean Corpuscular Volume 86.5 fL (80-95); RBC 2.74 m/cumm (4.00-5.20); RBC Distribution Width 20.5 % (11.7-14.6); White Blood Cell Count 10.74 k/cumm (4.4-10.8)
[2019-01-14 08:33] LABS: ALT 17 U/L (14-59); AST 23 U/L (15-37); Albumin 3.1 g/dL (3.4-5.0); Alkaline Phosphatase 59 U/L (46-116); Anion Gap 12.1 mmol/L (3-11); BUN 22 mg/dL (7-18); Bilirubin, Total 0.3 mg/dL (0.2-1.0); CO2 24.9 mmol/L (21.0-32.0); CREATININE 1.09 mg/dL (0.55-1.02); Calcium 8.3 mg/dL (8.5-10.1); Chloride 105 mmol/L (98-107); Glucose 151 mg/dL (70-100); Magnesium 1.7 mg/dL (1.8-2.4); PHOSPHORUS 3.8 mg/dL (2.6-4.7); Potassium 3.3 mmol/L (3.5-5.1); Sodium 142 mmol/L (136-145); Total Protein 6.8 g/dL (6.4-8.2); Uric Acid 9.4 mg/dL (2.6-6.0)
[2019-01-14 08:41] LABS: Platelet Count 36 x1000/uL (130-400)
[2019-01-14 08:42] LABS: Absolute Basophil Count 0.21 k/cumm (0.0-0.2); Absolute Eosinophil Count 0.11 k/cumm (0.0-0.7); Absolute Lymphocyte Count 5.26 k/cumm (1.2-3.4); Absolute Monocyte Count 2.47 k/cumm (0.11-0.7); Absolute Neutrophil Count 1.29 k/cumm (1.2-6.7)
[2019-01-14 08:43] LABS: Anisocytosis 3+; Basophilic Stippling Present; Diff Comment Manual Differential; Hypochromasia 1+; Microcytosis 2+; Nucleated RBC 4 /100WBC; Other Cells 2; Polychromasia Present
[2019-01-14 08:44] LABS: Poikilocytes 2+
[2019-01-15] MEDS: Normal Saline Flush 10 ML SYR IVP (07:38)
[2019-01-15 07:57] LABS: ALT 18 U/L (14-59); AST 17 U/L (15-37); Albumin 3.2 g/dL (3.4-5.0); Alkaline Phosphatase 56 U/L (46-116); Anion Gap 12.1 mmol/L (3-11); BUN 20 mg/dL (7-18); Bilirubin, Total 0.6 mg/dL (0.2-1.0); CO2 24.9 mmol/L (21.0-32.0); Calcium 8.7 mg/dL (8.5-10.1); Chloride 105 mmol/L (98-107); Estimated GFR 48.69 (mL/min/1.73m2); Glucose 159 mg/dL (70-100); Magnesium 1.7 mg/dL (1.8-2.4); PHOSPHORUS 3.9 mg/dL (2.6-4.7); Potassium 3.7 mmol/L (3.5-5.1); Sodium 142 mmol/L (136-145); Total Protein 6.9 g/dL (6.4-8.2)
[2019-01-16] MEDS: Normal Saline Flush 10 ML SYR IVP (07:50)
[2019-01-16 08:21] LABS: Abs Immature Grans 0.47 k/cumm (0.0-0.09); Absolute Basophil Count 0.07 k/cumm (0.0-0.2); HCT 26.3 % (36.0-46.0); HGB 8.2 g/dL (12.0-15.5); Mean Corp. HGB Concentration 31.2 g/dL (32.0-36.0); Mean Corpuscular Hemoglobin 27.1 pg (27.0-33.0); Mean Corpuscular Volume 86.8 fL (80-95); RBC 3.03 m/cumm (4.00-5.20); RBC Distribution Width 19.5 % (11.7-14.6); White Blood Cell Count 6.62 k/cumm (4.4-10.8)
[2019-01-16 08:33] LABS: ALT 17 U/L (14-59); AST 14 U/L (15-37); Albumin 3.1 g/dL (3.4-5.0); Alkaline Phosphatase 57 U/L (46-116); BUN 17 mg/dL (7-18); Bilirubin, Total 0.6 mg/dL (0.2-1.0); Calcium 8.6 mg/dL (8.5-10.1); Chloride 104 mmol/L (98-107); Estimated GFR 54.35 (mL/min/1.73m2); Glucose 167 mg/dL (70-100); Magnesium 1.7 mg/dL (1.8-2.4); PHOSPHORUS 3.3 mg/dL (2.6-4.7); Potassium 3.6 mmol/L (3.5-5.1); Sodium 140 mmol/L (136-145); Total Protein 6.8 g/dL (6.4-8.2); Uric Acid 7.9 mg/dL (2.6-6.0)
[2019-01-16 08:37] LABS: Absolute Lymphocyte Count 2.45 k/cumm (1.2-3.4); Absolute Neutrophil Count 0.93 k/cumm (1.2-6.7); Platelet Count 39 x1000/uL (130-400)
[2019-01-16 08:38] LABS: Absolute Eosinophil Count 0.33 k/cumm (0.0-0.7); Absolute Monocyte Count 2.05 k/cumm (0.11-0.7); Nucleated RBC 5 /100WBC; Other Cells 3
[2019-01-16 08:39] LABS: Anisocytosis 3+; Basophilic Stippling Present; Diff Comment Manual Differential; Hypochromasia 1+; Poikilocytes 2+; Polychromasia Present
[2019-01-16 10:14] LABS: Macrocytosis 2+
[2019-01-17] MEDS: Normal Saline Flush 10 ML SYR IVP (07:42)
[2019-01-17 08:05] LABS: Abs Immature Grans 0.08 k/cumm (0.0-0.09); HCT 25.5 % (36.0-46.0); HGB 8.1 g/dL (12.0-15.5); Mean Corp. HGB Concentration 31.8 g/dL (32.0-36.0); Mean Corpuscular Hemoglobin 27.3 pg (27.0-33.0); Mean Corpuscular Volume 85.9 fL (80-95); RBC 2.97 m/cumm (4.00-5.20); RBC Distribution Width 19.1 % (11.7-14.6); White Blood Cell Count 4.65 k/cumm (4.4-10.8)
[2019-01-17 08:20] LABS: ALT 20 U/L (14-59); AST 16 U/L (15-37); Albumin 3.1 g/dL (3.4-5.0); Alkaline Phosphatase 57 U/L (46-116); Anion Gap 9.5 mmol/L (3-11); BUN 16 mg/dL (7-18); Bilirubin, Total 0.8 mg/dL (0.2-1.0); CO2 26.5 mmol/L (21.0-32.0); CREATININE 1.14 mg/dL (0.55-1.02); Calcium 8.7 mg/dL (8.5-10.1); Chloride 104 mmol/L (98-107); Estimated GFR 46.72 (mL/min/1.73m2); Glucose 175 mg/dL (70-100); PHOSPHORUS 3.4 mg/dL (2.6-4.7); Potassium 3.7 mmol/L (3.5-5.1); Sodium 140 mmol/L (136-145); Total Protein 6.8 g/dL (6.4-8.2); Uric Acid 7.6 mg/dL (2.6-6.0)
[2019-01-17 08:22] LABS: Absolute Neutrophil Count 0.98 k/cumm (1.2-6.7); Platelet Count 38 x1000/uL (130-400)
[2019-01-17 08:23] LABS: Absolute Basophil Count 0.14 k/cumm (0.0-0.2); Anisocytosis 3+; Basophilic Stippling Present; Diff Comment Manual Differential; Hypochromasia 2+; Microcytosis 2+; Nucleated RBC 4 /100WBC; Polychromasia Present
[2019-01-17 08:24] LABS: Poikilocytes 2+
[2019-01-20 08:04] LABS: Abs Immature Grans 0.02 k/cumm (0.0-0.09); Absolute Eosinophil Count 0.03 k/cumm (0.0-0.7); HCT 23.7 % (36.0-46.0); HGB 7.5 g/dL (12.0-15.5); Mean Corp. HGB Concentration 31.6 g/dL (32.0-36.0); Mean Corpuscular Hemoglobin 27.1 pg (27.0-33.0); Mean Corpuscular Volume 85.6 fL (80-95); RBC 2.77 m/cumm (4.00-5.20); RBC Distribution Width 18.6 % (11.7-14.6); White Blood Cell Count 2.94 k/cumm (4.4-10.8)
[2019-01-20 08:08] VITALS: BP 130/89; PULSE 91; RESP 19; TEMP 36.4; O2SAT 99
[2019-01-20] MEDS: Normal Saline Flush 10 ML SYR IVP (08:09)
[2019-01-20 08:16] LABS: ALT 20 U/L (14-59); AST 16 U/L (15-37); Albumin 3.1 g/dL (3.4-5.0); Alkaline Phosphatase 58 U/L (46-116); BUN 20 mg/dL (7-18); Bilirubin, Total 0.7 mg/dL (0.2-1.0); CREATININE 1.14 mg/dL (0.55-1.02); Calcium 8.8 mg/dL (8.5-10.1); Chloride 102 mmol/L (98-107); Estimated GFR 46.72 (mL/min/1.73m2); Glucose 172 mg/dL (70-100); Magnesium 1.5 mg/dL (1.8-2.4); PHOSPHORUS 4.4 mg/dL (2.6-4.7); Potassium 3.4 mmol/L (3.5-5.1); Sodium 141 mmol/L (136-145); Total Protein 6.9 g/dL (6.4-8.2)
[2019-01-20 08:23] LABS: Absolute Neutrophil Count 0.76 k/cumm (1.2-6.7); Platelet Count 38 x1000/uL (130-400)
[2019-01-20 08:24] LABS: Absolute Basophil Count 0.03 k/cumm (0.0-0.2); Absolute Lymphocyte Count 1.29 k/cumm (1.2-3.4); Absolute Monocyte Count 0.71 k/cumm (0.11-0.7); Anisocytosis 3+; Diff Comment Manual Differential; Hypochromasia 2+; Other Cells 1
[2019-01-20 08:25] LABS: Basophilic Stippling Present; Microcytosis 2+; Nucleated RBC 4 /100WBC; Poikilocytes 2+; Polychromasia Present
[2019-01-20 10:52] VITALS: BP 134/71; PULSE 94; RESP 18; TEMP 36.6; O2SAT 99
[2019-01-24] MEDS: Normal Saline Flush 10 ML SYR IVP (06:56)
[2019-01-24 07:02] LABS: HCT 23.4 % (36.0-46.0); HGB 7.6 g/dL (12.0-15.5); Mean Corp. HGB Concentration 32.5 g/dL (32.0-36.0); Mean Corpuscular Volume 86.3 fL (80-95); RBC 2.71 m/cumm (4.00-5.20); RBC Distribution Width 18.2 % (11.7-14.6)
[2019-01-24 07:15] VITALS: BP 136/64; PULSE 85; RESP 19; TEMP 36.3; O2SAT 99
[2019-01-24 08:09] LABS: White Blood Cell Count 1.69 k/cumm (4.4-10.8)
[2019-01-24 08:10] LABS: Platelet Count 19 x1000/uL (130-400)
[2019-01-24 08:11] LABS: Absolute Basophil Count 0.07 k/cumm (0.0-0.2); Absolute Lymphocyte Count 1.05 k/cumm (1.2-3.4); Absolute Monocyte Count 0.27 k/cumm (0.11-0.7); Absolute Neutrophil Count 0.27 k/cumm (1.2-6.7)
[2019-01-24 08:12] LABS: Anisocytosis 2+; Basophilic Stippling 2+; Diff Comment Manual Differential; Hypochromasia 3+
[2019-01-24 08:13] LABS: Microcytosis 2+; Poikilocytes 2+; Schistocytes 2+
[2019-01-24 11:08] VITALS: BP 133/78; PULSE 80; RESP 18; TEMP 36.7; O2SAT 98
[2019-01-24 12:54] VITALS: BP 150/71; PULSE 52; RESP 18; TEMP 36.7; O2SAT 96
[2019-01-24 13:20] VITALS: BP 156/72; PULSE 91; RESP 19; TEMP 36.7; O2SAT 99
[2019-01-27] MEDS: Normal Saline Flush 10 ML SYR IVP (08:22)
[2019-01-27 08:36] LABS: Abs Immature Grans 0.01 k/cumm (0.0-0.09); Absolute Basophil Count 0.02 k/cumm (0.0-0.2); Absolute Eosinophil Count 0.02 k/cumm (0.0-0.7); Absolute Lymphocyte Count 0.79 k/cumm (1.2-3.4); Basophils % 1.7; Eosinophils % 1.7; HCT 26.2 % (36.0-46.0); HGB 8.4 g/dL (12.0-15.5); Immature Grans % 0.8; Lymphocytes % 66.9; Mean Corp. HGB Concentration 32.1 g/dL (32.0-36.0); Mean Corpuscular Hemoglobin 27.7 pg (27.0-33.0); Mean Corpuscular Volume 86.5 fL (80-95); Monocytes % 16.9; RBC 3.03 m/cumm (4.00-5.20); RBC Distribution Width 17.3 % (11.7-14.6)
[2019-01-27] MEDS: Heparin 500 UNITS/5 ML SYRINGE IV (09:00)
[2019-01-27 09:14] LABS: Platelet Count 26 x1000/uL (130-400); White Blood Cell Count 1.18 k/cumm (4.4-10.8)
[2019-01-27 09:15] LABS: Absolute Neutrophil Count 0.14 k/cumm (1.2-6.7); Anisocytosis 2+; Basophilic Stippling Present; Diff Comment Agrees w/ Instrument
[2019-01-27 09:16] LABS: Microcytosis 2+; Nucleated RBC 3 /100WBC; Poikilocytes 2+; Polychromasia Present
[2019-01-30] VITALS (12 sets, daily range): BP systolic 108–155; BP diastolic 53–88; PULSE 65–99; RESP 18–19; TEMP 36.5–37.1; O2SAT 97–100
[2019-01-30] MEDS: Heparin 500 UNITS/5 ML SYRINGE IV (08:30)
[2019-01-30] MEDS: Normal Saline Flush 10 ML SYR IVP (08:30)
[2019-01-30 08:39] LABS: HCT 24.5 % (36.0-46.0); HGB 7.9 g/dL (12.0-15.5); Mean Corp. HGB Concentration 32.2 g/dL (32.0-36.0); Mean Corpuscular Hemoglobin 27.7 pg (27.0-33.0); RBC 2.85 m/cumm (4.00-5.20); RBC Distribution Width 17.5 % (11.7-14.6)
[2019-01-30 09:32] LABS: White Blood Cell Count 1.24 k/cumm (4.4-10.8)
[2019-01-30 09:34] LABS: Absolute Neutrophil Count 0.09 k/cumm (1.2-6.7); Platelet Count 21 x1000/uL (130-400)
[2019-01-30 09:35] LABS: Absolute Basophil Count 0.06 k/cumm (0.0-0.2); Absolute Eosinophil Count 0.05 k/cumm (0.0-0.7); Absolute Lymphocyte Count 0.93 k/cumm (1.2-3.4)
[2019-01-30 09:36] LABS: Anisocytosis 2+; Diff Comment Manual Differential; Hypochromasia 1+; Microcytosis 1+; Other Cells 1
[2019-01-30 09:37] LABS: Poikilocytes 2+
[2019-02-03 08:50] LABS: Absolute Basophil Count 0.01 k/cumm (0.0-0.2); Absolute Eosinophil Count 0.01 k/cumm (0.0-0.7); Absolute Lymphocyte Count 0.77 k/cumm (1.2-3.4); Absolute Monocyte Count 0.13 k/cumm (0.11-0.7); HCT 23.3 % (36.0-46.0); HGB 7.7 g/dL (12.0-15.5); Lymphocytes % 75.5; Mean Corpuscular Hemoglobin 28.3 pg (27.0-33.0); Mean Corpuscular Volume 85.7 fL (80-95); Monocytes % 12.7; Neutrophils % 9.8; RBC 2.72 m/cumm (4.00-5.20); RBC Distribution Width 16.3 % (11.7-14.6)
[2019-02-03 09:11] LABS: White Blood Cell Count 1.02 k/cumm (4.4-10.8)
[2019-02-03 09:13] LABS: Anisocytosis 2+; Diff Comment Agrees w/ Instrument; Nucleated RBC 1 /100WBC; Platelet Count 24 x1000/uL (130-400)
[2019-02-03 09:14] LABS: Microcytosis 1+; Poikilocytes 1+
[2019-02-03 10:00] VITALS: BP 136/68; PULSE 101; RESP 20; TEMP 36.7; O2SAT 93
[2019-02-03] MEDS: Normal Saline Flush 10 ML SYR IVP (12:04)
[2019-02-03] MEDS: Heparin 500 UNITS/5 ML SYRINGE IV (12:05)
[2019-02-05 09:29] LABS: Absolute Basophil Count 0.01 k/cumm (0.0-0.2); Absolute Eosinophil Count 0.01 k/cumm (0.0-0.7); Absolute Lymphocyte Count 0.82 k/cumm (1.2-3.4); Absolute Monocyte Count 0.08 k/cumm (0.11-0.7); HCT 25.1 % (36.0-46.0); HGB 8.4 g/dL (12.0-15.5); Lymphocytes % 84.5; Mean Corp. HGB Concentration 33.5 g/dL (32.0-36.0); Mean Corpuscular Hemoglobin 28.6 pg (27.0-33.0); Mean Corpuscular Volume 85.4 fL (80-95); Monocytes % 8.2; Neutrophils % 5.3; RBC 2.94 m/cumm (4.00-5.20); RBC Distribution Width 15.9 % (11.7-14.6)
[2019-02-05] MEDS: Normal Saline Flush 10 ML SYR IVP (09:32)
[2019-02-05 09:38] LABS: White Blood Cell Count 0.97 k/cumm (4.4-10.8)
[2019-02-05 09:39] LABS: Absolute Neutrophil Count 0.05 k/cumm (1.2-6.7)
[2019-02-05 09:44] LABS: ALT 19 U/L (14-59); AST 12 U/L (15-37); Albumin 3.3 g/dL (3.4-5.0); Alkaline Phosphatase 73 U/L (46-116); Anion Gap 11.2 mmol/L (3-11); BUN 26 mg/dL (7-18); Bilirubin, Total 1.1 mg/dL (0.2-1.0); CO2 25.8 mmol/L (21.0-32.0); CREATININE 0.99 mg/dL (0.55-1.02); Calcium 8.8 mg/dL (8.5-10.1); Chloride 103 mmol/L (98-107); Estimated GFR 54.98 (mL/min/1.73m2); Glucose 153 mg/dL (74-106); Potassium 3.9 mmol/L (3.5-5.1); Sodium 140 mmol/L (136-145); Total Protein 7.1 g/dL (6.4-8.2)
[2019-02-05 09:58] LABS: Anisocytosis 2+; Diff Comment Agrees w/ Instrument; Hypochromasia 2+; Platelet Count 33 x1000/uL (130-400); Polychromasia Present
[2019-02-05 09:59] LABS: Poikilocytes 2+
[2019-02-07 08:20] LABS: Absolute Basophil Count 0.01 k/cumm (0.0-0.2); Absolute Monocyte Count 0.06 k/cumm (0.11-0.7); Basophils % 1.1; HCT 24.6 % (36.0-46.0); HGB 8.1 g/dL (12.0-15.5); Lymphocytes % 85.1; Mean Corp. HGB Concentration 32.9 g/dL (32.0-36.0); Mean Corpuscular Hemoglobin 28.2 pg (27.0-33.0); Mean Corpuscular Volume 85.7 fL (80-95); Monocytes % 6.4; Neutrophils % 7.4; RBC 2.87 m/cumm (4.00-5.20); RBC Distribution Width 15.4 % (11.7-14.6)
[2019-02-07] MEDS: Heparin 500 UNITS/5 ML SYRINGE IV (08:30)
[2019-02-07] MEDS: Normal Saline Flush 10 ML SYR IVP (08:30)
[2019-02-07 08:47] LABS: White Blood Cell Count 0.94 k/cumm (4.4-10.8)
[2019-02-07 08:48] LABS: Absolute Neutrophil Count 0.07 k/cumm (1.2-6.7); Platelet Count 42 x1000/uL (130-400)
[2019-02-07 08:49] LABS: Anisocytosis 1+; Diff Comment Agrees w/ Instrument; Microcytosis 1+; Poikilocytes 1+; Polychromasia Present
== END 2019-02-08 23:59 | disposition home or self-care (01) ==
LOC: INF 02:43
PROVIDERS: PCP Family Medicine; Visit Provider Internal Medicine Hematology
DX: D46.20 Refractory anemia with excess of blasts, unspecified (principal); Z45.2 Encounter for adjustment and management of vascular access device
CPT/HCPCS: 36430; 36591; 80053; 86850; 86900; 86901; 86920; 86945; 83735; 84100; 84550; 85025; P9016; P9035

== ENCOUNTER 2019-03-06 09:09 | Emergency (ER) | payer OTHER, SELFPAY ==
[2019-03-06 09:13] VITALS: BP 168/71; PULSE 88; RESP 18; TEMP 37.7; O2SAT 98
--- NOTE | 2019-03-06 09:33 | ED.GENADUL_ITS ---
Discharge Plan Disposition Patient Disposition: [facility] Condition: Stable Discharge Details Chief Complaint: Fever Clinical Impression: Neutropenic fever, Right middle lobe pneumonia Primary Care Provider: [facility] ED Provider: Coleman Bynum Home Meds and New Rx's Prescriptions: No Action levofloxacin [Levaquin] 750 mg Tablet 750 mg PO DAILY RF: 0 magnesium oxide 400 mg magnesium Tablet 400 mg PO DAILY RF: 0 potassium chloride 20 mEq Tablet Extended Release 40 meq PO DAILY RF: 0 Venclexta 100 mg Tablet 200 mg PO DIRECTED RF: 0 acetaminophen [Tylenol] 325 mg Capsule 650 mg PO Q8H PRN PRNRF: 0 acyclovir [Zovirax] 400 mg Tablet 400 mg PO BID RF: 0 allopurinol 300 mg Tablet 300 mg PO DAILY RF: 0 aspirin [Aspir-81] 81 mg Tablet,Delayed Release (Dr/Ec) 81 mg PO DAILY RF: 0 atorvastatin 80 mg Tablet 80 mg PO ONCE PM RF: 0 carvedilol [Coreg] 12.5 mg Tablet 12.5 mg PO BID RF: 0 cyanocobalamin (vitamin B-12) 1,000 mcg Capsule 1,000 mcg PO DAILY RF: 0 diphenhydramine HCl 25 mg Capsule 25 mg PO Q6H PRN PRNRF: 0 fluconazole 200 mg Tablet 200 mg PO DAILY RF: 0 hydrochlorothiazide 25 mg Tablet 25 mg PO DAILY RF: 0 meclizine 25 mg Tablet 25 mg PO BID PRNRF: 0 ondansetron 8 mg Tablet,Disintegrating 8 mg PO PRN PRNRF: 0 doxycycline hyclate 100 mg Capsule 100 mg PO Q12H Qty: 20 RF: 0 Medical Decision Making Delightful 73-year-old female referred from outpatient laboratory. She has a history of neutropenia and was found to have a temperature of 38.3 on evaluation today. She is actively undergoing chemotherapy for myelodysplastic syndrome. She states she has had a few days of dry cough at night, but denies any other significant positives on review of systems. She has been taking daily chemotherapy. She has been known to be neutropenic. She has been taking antibiotic daily as well. She arrives with temperature of 37.7, pulse 88, blood pressure 168/71. Her exam is unremarkable. Screening laboratories, urinalysis, blood culture, chest x- ray, flu swab obtained. This morning's initial CBC revealed a white blood cell count of 0.48 with 0.09 neutrophils, hemoglobin 8.3, platelets 592. Repeat laboratories: Influenza negative, urinalysis appears concentrated with specific gravity of 1.03, mixed cells present and likely contaminated, culture ordered. Chemistries the sodium 132, potassium 3.8, chloride 96, bicarb 26, BUN 15, creatinine 0.9, glucose 282, magnesium 1.7 Chest x-ray: Right middle lobe pneumonia. I discussed the case and reviewed the records with Dr. Clay of heme-onc at [facility]. He states the patient did not tolerate Levaquin and has been taking Augmentin. He recommends admission, with treatment to include cefepime and azithromycin for coverage of atypical organisms. Cefepime 2 g and azithromycin 500 mg ordered. As patient is undergoing active treatment, has lobar pneumonia, we will transfer [facility] for inpatient admission. Lab Data Lab results reviewed: Yes I reviewed the patient's lab results. Labs: Laboratory Results - last 24 hr 03/06/19 03/06/19 03/06/19 09:32 09:43 10:15 WBC Cancelled RBC Cancelled Hgb Cancelled Hct Cancelled MCV Cancelled MCH Cancelled MCHC Cancelled RDW Cancelled Plt Count Cancelled MPV Cancelled Immature Gran % Cancelled Neutrophils % Cancelled Band Neutrophils % Cancelled Lymphocytes % Cancelled Atypical Lymphs % Cancelled Monocytes % Cancelled Eosinophils % Cancelled Basophils % Cancelled Metamyelocytes % Cancelled Myelocytes % Cancelled Promyelocytes % Cancelled Absolute Neutrophils Cancelled Absolute Lymphocytes Cancelled Absolute Monocytes Cancelled Absolute Eosinophils Cancelled Absolute Basophils Cancelled Nucleated RBCs Cancelled Differential Comment Cancelled Other Cell Type Cancelled RBC Morphology Cancelled Polychromasia Cancelled Hypochromasia Cancelled Poikilocytosis Cancelled Basophilic Stippling Cancelled Anisocytosis Cancelled Microcytosis Cancelled Macrocytosis Cancelled Spherocytes Cancelled Target Cells Cancelled Tear Drop Cells Cancelled Ovalocytes Cancelled Stomatocytes Cancelled [place] Bodies Cancelled [place] Cells Cancelled Acanthocytes (Spur) Cancelled Schistocytes Cancelled Sodium 132 L Potassium 3.8 Chloride 96 L Carbon Dioxide 26.4 Anion Gap 9.6 BUN 15 Creatinine 0.90 Estimated GFR/1.73 m2 >= 60.00 Glucose 282 H Lactate Calcium 8.1 L Magnesium 1.7 L Total Bilirubin 1.0 AST 18 ALT 25 Alkaline Phosphatase 128 H Troponin I Total Protein 6.7 Albumin 1.8 L Urine Color Dark yellow Urine Clarity Clear Urine pH 5.5 Ur Specific [place] >= 1.030 H Urine Protein 100 H Urine Ketones Negative Urine Blood Negative Urine Nitrite Negative Urine Bilirubin Small H Urine Urobilinogen 4.0 H Ur Leukocyte Esterase Negative Urine RBC 5-10 H Urine WBC 10-20 H Ur Epithelial Cells Many Urine Crystals Negative Urine Bacteria Many Urine Casts 10-20 coarsegranular Urine Mucus Moderate Urine Other Moderate renal Ur Culture Indicated? C&s done as ordered Urine Glucose 500 H 03/06/19 03/06/19 03/06/19 11:22 11:38 14:22 WBC RBC Hgb Hct MCV MCH MCHC RDW Plt Count MPV Immature Gran % Neutrophils % Band Neutrophils % Lymphocytes % Atypical Lymphs % Monocytes % Eosinophils % Basophils % Metamyelocytes % Myelocytes % Promyelocytes % Absolute Neutrophils Absolute Lymphocytes Absolute Monocytes Absolute Eosinophils Absolute Basophils Nucleated RBCs Differential Comment Other Cell Type RBC Morphology Polychromasia Hypochromasia Poikilocytosis Basophilic Stippling Anisocytosis Microcytosis Macrocytosis Spherocytes Target Cells Tear Drop Cells Ovalocytes Stomatocytes [place] Bodies [place] Cells Acanthocytes (Spur) Schistocytes Sodium Cancelled Potassium Cancelled Chloride Cancelled Carbon Dioxide Cancelled Anion Gap Cancelled BUN Cancelled Creatinine Cancelled Estimated GFR/1.73 m2 Cancelled Glucose Cancelled Lactate 1.4 Calcium Cancelled Magnesium Total Bilirubin Cancelled AST Cancelled ALT Cancelled Alkaline Phosphatase Cancelled Troponin I Cancelled Cancelled Total Protein Cancelled Albumin Cancelled Urine Color Urine Clarity Urine pH Ur Specific [place] Urine Protein Urine [place] Urine Blood Urine Nitrite Urine Bilirubin Urine Urobilinogen Ur Leukocyte Esterase Urine RBC Urine WBC Ur Epithelial Cells Urine Crystals Urine Bacteria Urine Casts Urine Mucus Urine Other Ur Culture Indicated? Urine Glucose HPI General Mode of arrival: ambulatory . Date/Time Provider Initiated Documentation: 03/06/19 09:19 . Limitations to Documentation: no limitations . Information obtained by: patient . History of Present Illness 73 year old F presents to the emergency department with the chief complaint of Temperature 38.3, history of neutropenia. Dry cough, described as mild, and is localized to the chest. Patient reports no radiation. Patient started experiencing this day(s) and it has been intermittent. No relieving factors improve symptom(s), No exacerbating factors reported . Patient notes no other symptoms.. Patient did receive the following treatments prior to arrival, none Related Data Home Medications Medication Instructions Recorded Confirmed acetaminophen [Tylenol] 650 mg PO Q8H PRN PRN 12/08/18 03/06/19 acyclovir [Zovirax] 400 mg PO BID 12/08/18 03/06/19 allopurinol 300 mg PO DAILY 12/08/18 03/06/19 aspirin [Aspir-81] 81 mg PO DAILY 12/08/18 03/06/19 atorvastatin 80 mg PO ONCE PM 12/08/18 03/06/19 carvedilol [Coreg] 12.5 mg PO BID 12/08/18 03/06/19 cyanocobalamin (vitamin B-12) 1,000 mcg PO DAILY 12/08/18 03/06/19 diphenhydramine HCl 25 mg PO Q6H PRN PRN 12/08/18 03/06/19 fluconazole 200 mg PO DAILY 12/08/18 03/06/19 hydrochlorothiazide 25 mg PO DAILY 12/08/18 03/06/19 meclizine 25 mg PO BID PRN 12/08/18 03/06/19 ondansetron 8 mg PO PRN PRN 12/08/18 03/06/19 doxycycline hyclate 100 mg PO Q12H #20 cap 12/12/18 03/06/19 levofloxacin [Levaquin] 750 mg PO DAILY 03/06/19 03/06/19 magnesium oxide 400 mg PO DAILY 03/06/19 03/06/19 potassium chloride 40 meq PO DAILY 03/06/19 03/06/19 venetoclax [Venclexta] 200 mg PO DIRECTED 03/06/19 03/06/19 Previous Rx's Medication Instructions Recorded doxycycline hyclate 100 mg PO Q12H #20 cap 12/12/18 Allergies Allergy/AdvReac Type Severity Reaction Status Date / Time prochlorperazine AdvReac Mild Other (See Unverified 03/06/19 09:24 [From Compazine] Comment) General Stated Complaint: Fever REBEKAH: 3 Review of Systems Narrative: 6 systems reviewed and otherwise negative [facility] Medical History CAD S/P percutaneous coronary angioplasty (Acute) HTN (hypertension), benign (Acute) Hyperlipidemia (Acute) Lumbago without sciatica (Acute) MDS (myelodysplastic syndrome) (Chronic) Vertiginous syndrome (Acute) Social History Smoking/Tobacco Use Status: Never Alcohol Intake: never Drug use: Never Substance use type: does not use What is your relationship status?: Panel score (0-1 are the most socially isolated patients): 1 Do you feel safe at home: Yes Do you feel safe in your relationship?: Yes Additional Social history: Retired nurse Exam Narrative Exam Narrative: GEN: awake, alert, oriented 3. Pleasant, well groomed, interactive. HEAD: Normocephalic, atraumatic ENT: Mucous membranes moist, oropharynx unremarkable, External ear exam unremarkable EYES: PERRL, EOMI NECK: Full ROM, no TAYLER, no menigismus CHEST/RESP: Right anterior chest port nontender, ? R mid rhonchi, otherwise clear to auscultation bilateral, no wheeze/rales CARDIOVASCULAR: RRR, no murmur, rub katy. 2+ Rad pulse bilateral ABDOMEN: Soft, nontender, no mass. +Bowel sounds EXT: Full ROM, no edema, no rash Neuro: Grossly normal neurologic exam, conversant, interactive. Psych: Speech fluent, thoughts congruent, affect normal Course Vital Signs Vital signs: Vital Signs Temperature 37.7 C H 03/06/19 09:13 Pulse 88 03/06/19 09:13 Respiratory Rate 18 03/06/19 09:13 Blood Pressure 168/71 H 03/06/19 09:13 Pulse Oximetry 98 03/06/19 09:13 Temperature 37.7 C H 03/06/19 09:13 Temperature Source Oral 03/06/19 09:13 Pulse 88 03/06/19 09:13 Respiratory Rate 18 03/06/19 09:13 Respiratory Effort 03/06/19 09:26 Blood Pressure 168/71 H 03/06/19 09:13 Blood Pressure Position Supine 03/06/19 09:13 Pulse Oximetry 98 03/06/19 09:13 Oxygen Delivery Method Room Air 03/06/19 09:13 Oxygen Flow Rate 0 03/06/19 09:13 Pain Level 0 03/06/19 09:13 Comment 03/06/19 09:13
[2019-03-06] MEDS: Normal Saline Flush 10 ML SYR IVP (09:56)
--- NOTE | 2019-03-06 10:00 | DI.RAD_ITS ---
EXAM: XR CHEST 2V PA LATERAL INDICATION: fever, hx neutropenia. COMPARISON: XR CHEST 2V PA LATERAL from 12/08/2018 TECHNIQUE: 2D digital imaging was performed. FINDINGS: Cardiomegaly. The right-sided Port-A-Cath is in stable position. Left lung is clear. There is an i nfiltrate seen in the right middle lobe. No pneumothorax is identified. There is a small amount of fluid in the fissure and posterior. Degenerative changes are seen in the spine. IMPRESSION: Right middle lobe pneumonia.
[2019-03-06 10:17] LABS: ALT 25 U/L (14-59); AST 18 U/L (15-37); Albumin 1.8 g/dL (3.4-5.0); Alkaline Phosphatase 128 U/L (46-116); Anion Gap 9.6 mmol/L (3-11); BUN 15 mg/dL (7-18); CO2 26.4 mmol/L (21.0-32.0); Calcium 8.1 mg/dL (8.5-10.1); Chloride 96 mmol/L (98-107); Glucose 282 mg/dL (74-106); Magnesium 1.7 mg/dL (1.8-2.4); Potassium 3.8 mmol/L (3.5-5.1); Sodium 132 mmol/L (136-145); Total Protein 6.7 g/dL (6.4-8.2)
[2019-03-06 10:22] LABS: Bilirubin Small (Negative); Blood Negative (Negative); Clarity Clear (Clear); Glucose 500 mg/dL (Negative); Ketones Negative (Negative); Leukocyte Esterase Negative (Negative); Nitrite Negative (Negative); Specific Gravity >= 1.030 (1.005-1.025); pH 5.5 (5-8)
[2019-03-06 10:35] LABS: Bacteria Many HPF (Negative); C & S Indicated? C&S Done As Ordered; Crystals Negative HPF (Negative); Epithelial Cells Many HPF (Negative); Mucus Moderate (Negative); Other Cells Moderate Renal (Negative)
[2019-03-06 11:24] VITALS: BP 153/65; PULSE 86; RESP 16; TEMP 38.4; O2SAT 98
[2019-03-06 11:44] LABS: Lactate 1.4 mmol/L (0.6-1.4)
[2019-03-06] MEDS: Acetaminophen 500 MG TAB 1000 MG PO (11:44)
[2019-03-06] MEDS: CEFEPIME 2 GM in Normal Saline 100 ML IVPB (11:45)
[2019-03-06] MEDS: Normal Saline 1,000 ML 100 ML IV (11:47)
[2019-03-06] MEDS: AZITHROMYCIN 500 MG in Normal Saline 250 ML 250 MG IVPB (12:14)
--- NOTE | 2019-03-08 16:16 | NUR.NOTE ---
Nursing Note: [place] [facility] [place] [facility] [place] urine culture result. Tonie Rm.
== END 2019-03-06 12:21 | disposition short-term general hospital (02) ==
PROVIDERS: Emergency Provider Emergency Medicine; PCP Family Medicine
DX: D70.9 Neutropenia, unspecified (principal); D46.9 Myelodysplastic syndrome, unspecified; J18.9 Pneumonia, unspecified organism; Z95.828 Presence of other vascular implants and grafts; Z79.899 Other long term (current) drug therapy; I10 Essential (primary) hypertension
CPT/HCPCS: 36415; 36591; 80053; 87040; 87449; 96361; 96365; 96375; 99285; 71046; 81003; 81015; 83605; 83735; 84484; 85025; 87086; J0456

== ENCOUNTER 2019-03-10 01:08 | Outpatient (RCR) | payer OTHER, SELFPAY ==
[2019-02-10] MEDS: Normal Saline Flush 10 ML SYR IVP (07:45)
[2019-02-10 08:10] LABS: HCT 24.7 % (36.0-46.0); HGB 8.1 g/dL (12.0-15.5); Mean Corp. HGB Concentration 32.8 g/dL (32.0-36.0); Mean Corpuscular Hemoglobin 28.1 pg (27.0-33.0); Mean Corpuscular Volume 85.8 fL (80-95); RBC 2.88 m/cumm (4.00-5.20); RBC Distribution Width 15.8 % (11.7-14.6)
[2019-02-10 08:38] LABS: White Blood Cell Count 0.89 k/cumm (4.4-10.8)
[2019-02-10 08:40] LABS: Absolute Basophil Count 0.06 k/cumm (0.0-0.2); Absolute Lymphocyte Count 0.69 k/cumm (1.2-3.4); Absolute Monocyte Count 0.08 k/cumm (0.11-0.7); Absolute Neutrophil Count 0.05 k/cumm (1.2-6.7)
[2019-02-10 08:41] LABS: Anisocytosis 2+; Diff Comment Manual Differential; Microcytosis 2+; Platelet Count 126 x1000/uL (130-400); Poikilocytes 1+; Polychromasia Present
[2019-02-11 10:05] LABS: Magnesium 1.9 mg/dL (1.8-2.4); PHOSPHORUS 4.1 mg/dL (2.6-4.7); Uric Acid 5.1 mg/dL (2.6-6.0)
[2019-02-13] VITALS (10 sets, daily range): BP systolic 127–156; BP diastolic 54–75; PULSE 82–100; RESP 18–19; TEMP 36.2–37; O2SAT 95–99
[2019-02-13] MEDS: Normal Saline Flush 10 ML SYR IVP ×2 (07:40→12:30)
[2019-02-13 08:04] LABS: Abs Immature Grans 0.01 k/cumm (0.0-0.09); Absolute Eosinophil Count 0.01 k/cumm (0.0-0.7); HCT 22.5 % (36.0-46.0); HGB 7.2 g/dL (12.0-15.5); Mean Corpuscular Hemoglobin 27.9 pg (27.0-33.0); Mean Corpuscular Volume 87.2 fL (80-95); Mean Platelet Volume 9.9 fL (8.0-11.0); RBC 2.58 m/cumm (4.00-5.20); RBC Distribution Width 15.8 % (11.7-14.6)
[2019-02-13 08:26] LABS: ALT 15 U/L (14-59); AST 12 U/L (15-37); Alkaline Phosphatase 85 U/L (46-116); Anion Gap 10.2 mmol/L (3-11); BUN 17 mg/dL (7-18); Bilirubin, Total 0.8 mg/dL (0.2-1.0); CO2 25.8 mmol/L (21.0-32.0); CREATININE 1.23 mg/dL (0.55-1.02); Calcium 8.7 mg/dL (8.5-10.1); Chloride 102 mmol/L (98-107); Glucose 215 mg/dL (74-106); Magnesium 1.9 mg/dL (1.8-2.4); PHOSPHORUS 3.1 mg/dL (2.6-4.7); Potassium 3.8 mmol/L (3.5-5.1); Sodium 138 mmol/L (136-145); Total Protein 7.1 g/dL (6.4-8.2); Uric Acid 4.8 mg/dL (2.6-6.0)
[2019-02-13 08:28] LABS: Absolute Basophil Count 0.02 k/cumm (0.0-0.2); Absolute Lymphocyte Count 0.76 k/cumm (1.2-3.4)
[2019-02-13 08:32] LABS: Absolute Neutrophil Count 0.02 k/cumm (1.2-6.7); Anisocytosis 1+; Diff Comment Manual Differential; Polychromasia Present
[2019-02-13 08:33] LABS: Platelet Count 227 x1000/uL (130-400); Poikilocytes 1+
[2019-02-14] VITALS (8 sets, daily range): BP systolic 123–156; BP diastolic 49–82; PULSE 75–91; RESP 18–19; TEMP 36.5–36.8; O2SAT 96–100
[2019-02-14] MEDS: Normal Saline Flush 10 ML SYR IVP (13:10)
[2019-02-14] MEDS: Heparin 500 UNITS/5 ML SYRINGE IV (13:10)
[2019-02-17 08:15] LABS: HCT 25.2 % (36.0-46.0); HGB 8.5 g/dL (12.0-15.5); Mean Corp. HGB Concentration 33.7 g/dL (32.0-36.0); Mean Platelet Volume 9.6 fL (8.0-11.0); Platelet Count 215 x1000/uL (130-400); RBC 2.93 m/cumm (4.00-5.20); RBC Distribution Width 14.6 % (11.7-14.6)
[2019-02-17 08:26] LABS: White Blood Cell Count 0.74 k/cumm (4.4-10.8)
[2019-02-17 09:23] LABS: Absolute Basophil Count 0.01 k/cumm (0.0-0.2); Absolute Monocyte Count 0.01 k/cumm (0.11-0.7)
[2019-02-17 09:24] LABS: Diff Comment Manual Differential; Hypochromasia 2+
[2019-02-17 09:27] LABS: Poikilocytes 2+
[2019-02-17 09:28] LABS: Absolute Neutrophil Count 0.01 k/cumm (1.2-6.7)
[2019-02-17 10:00] VITALS: BP 143/74; PULSE 81; RESP 19; TEMP 36.6; O2SAT 98
[2019-02-17 10:10] VITALS: BP 149/74; PULSE 84; RESP 18; TEMP 36.6; O2SAT 100
[2019-02-17] MEDS: Normal Saline Flush 10 ML SYR IVP (11:55)
[2019-02-17 11:56] VITALS: BP 137/75; PULSE 78; RESP 18; TEMP 36.9; O2SAT 99
[2019-02-20 07:58] LABS: Abs Immature Grans 0.01 k/cumm (0.0-0.09); Absolute Lymphocyte Count 0.75 k/cumm (1.2-3.4); Absolute Monocyte Count 0.01 k/cumm (0.11-0.7); HCT 27.4 % (36.0-46.0); HGB 8.9 g/dL (12.0-15.5); Immature Grans % 1.3; Lymphocytes % 96.2; Mean Corp. HGB Concentration 32.5 g/dL (32.0-36.0); Mean Corpuscular Hemoglobin 28.2 pg (27.0-33.0); Mean Corpuscular Volume 86.7 fL (80-95); Mean Platelet Volume 10.1 fL (8.0-11.0); Monocytes % 1.3; Neutrophils % 1.2; Platelet Count 150 x1000/uL (130-400); RBC 3.16 m/cumm (4.00-5.20); RBC Distribution Width 14.9 % (11.7-14.6)
[2019-02-20 08:59] LABS: White Blood Cell Count 0.78 k/cumm (4.4-10.8)
[2019-02-20 09:00] LABS: Absolute Neutrophil Count 0.01 k/cumm (1.2-6.7)
[2019-02-20 09:01] LABS: Anisocytosis 2+; Diff Comment Agrees w/ Instrument
[2019-02-20 09:02] LABS: Hypochromasia 2+; Poikilocytes 2+
[2019-02-20] MEDS: Heparin 500 UNITS/5 ML SYRINGE IV (10:40)
[2019-02-20] MEDS: Normal Saline Flush 10 ML SYR IVP (10:40)
[2019-02-24] VITALS (8 sets, daily range): BP systolic 123–153; BP diastolic 56–82; PULSE 77–87; RESP 17–19; TEMP 36.6–37.2; O2SAT 94–97
[2019-02-24 07:54] LABS: HGB 8.4 g/dL (12.0-15.5); Mean Corp. HGB Concentration 32.3 g/dL (32.0-36.0); Mean Corpuscular Hemoglobin 27.8 pg (27.0-33.0); Mean Corpuscular Volume 86.1 fL (80-95); Mean Platelet Volume 8.8 fL (8.0-11.0); RBC 3.02 m/cumm (4.00-5.20); RBC Distribution Width 14.5 % (11.7-14.6)
[2019-02-24 08:20] LABS: White Blood Cell Count 0.76 k/cumm (4.4-10.8)
[2019-02-24 08:21] LABS: Absolute Basophil Count 0.01 k/cumm (0.0-0.2); Absolute Lymphocyte Count 0.73 k/cumm (1.2-3.4); Absolute Monocyte Count 0.02 k/cumm (0.11-0.7); Absolute Neutrophil Count 0.01 k/cumm (1.2-6.7); Platelet Count 108 x1000/uL (130-400)
[2019-02-24 08:22] LABS: Anisocytosis 1+; Diff Comment Manual Differential; Microcytosis 1+; Polychromasia Present
[2019-02-24] MEDS: Normal Saline Flush 10 ML SYR IVP (09:28)
[2019-02-24] MEDS: Heparin 500 UNITS/5 ML SYRINGE IV (09:29)
[2019-02-27 08:20] LABS: HCT 26.4 % (36.0-46.0); HGB 8.7 g/dL (12.0-15.5); Mean Corpuscular Hemoglobin 28.7 pg (27.0-33.0); Mean Corpuscular Volume 87.1 fL (80-95); Mean Platelet Volume 11.7 fL (8.0-11.0); Platelet Count 185 x1000/uL (130-400); RBC 3.03 m/cumm (4.00-5.20); RBC Distribution Width 14.3 % (11.7-14.6)
[2019-02-27] MEDS: Heparin 500 UNITS/5 ML SYRINGE IV (08:22)
[2019-02-27] MEDS: Normal Saline Flush 10 ML SYR IVP (08:22)
[2019-02-27 08:54] LABS: Atypical Lymphocytes % 4
[2019-02-27 09:05] LABS: White Blood Cell Count 0.64 k/cumm (4.4-10.8)
[2019-02-27 09:06] LABS: Diff Comment Manual Differential; Nucleated RBC 1 /100WBC
[2019-02-27 09:07] LABS: RBC Morphology Normal
[2019-02-27 09:08] LABS: Absolute Lymphocyte Count 0.64 k/cumm (1.2-3.4)
[2019-03-03 08:01] VITALS: BP 123/75; PULSE 77; RESP 18; TEMP 36.6; O2SAT 96
[2019-03-03 08:19] LABS: Absolute Lymphocyte Count 0.59 k/cumm (1.2-3.4); Absolute Monocyte Count 0.01 k/cumm (0.11-0.7); HCT 25.1 % (36.0-46.0); HGB 8.2 g/dL (12.0-15.5); Lymphocytes % 95.2; Mean Corp. HGB Concentration 32.7 g/dL (32.0-36.0); Mean Corpuscular Hemoglobin 28.9 pg (27.0-33.0); Mean Corpuscular Volume 88.4 fL (80-95); Monocytes % 1.6; Neutrophils % 3.2; RBC 2.84 m/cumm (4.00-5.20); RBC Distribution Width 15.1 % (11.7-14.6)
[2019-03-03 08:45] LABS: Absolute Neutrophil Count 0.02 k/cumm (1.2-6.7); Platelet Count 471 x1000/uL (130-400); White Blood Cell Count 0.62 k/cumm (4.4-10.8)
[2019-03-03 08:46] LABS: Anisocytosis 1+; Diff Comment Agrees w/ Instrument; Polychromasia Present
[2019-03-03 09:21] VITALS: BP 115/64; PULSE 72; RESP 18; TEMP 37.1; O2SAT 97
[2019-03-03 09:23] VITALS: BP 111/48; PULSE 75; RESP 19; TEMP 37.5; O2SAT 97
[2019-03-03 09:53] VITALS: BP 118/61; PULSE 76; RESP 18; TEMP 36.8; O2SAT 97
[2019-03-03 10:23] VITALS: BP 113/57; PULSE 76; RESP 18; TEMP 36.8; O2SAT 97
[2019-03-03 10:53] VITALS: BP 133/65; PULSE 76; RESP 19; TEMP 36.6; O2SAT 100
[2019-03-03] MEDS: Normal Saline Flush 10 ML SYR IVP (11:33)
[2019-03-03] MEDS: Heparin 500 UNITS/5 ML SYRINGE IV (11:33)
[2019-03-06 08:11] LABS: HCT 25.6 % (36.0-46.0); HGB 8.3 g/dL (12.0-15.5); Mean Corp. HGB Concentration 32.4 g/dL (32.0-36.0); Mean Corpuscular Hemoglobin 28.6 pg (27.0-33.0); Mean Corpuscular Volume 88.3 fL (80-95); Mean Platelet Volume 9.6 fL (8.0-11.0); Platelet Count 592 x1000/uL (130-400); RBC Distribution Width 15.2 % (11.7-14.6)
[2019-03-06 08:33] LABS: Absolute Lymphocyte Count 0.38 k/cumm (1.2-3.4); Absolute Monocyte Count 0.01 k/cumm (0.11-0.7)
[2019-03-06 08:56] VITALS: BP 136/56; PULSE 84; RESP 19; TEMP 38.5; O2SAT 98
[2019-03-06 09:26] LABS: Absolute Neutrophil Count 0.09 k/cumm (1.2-6.7); Anisocytosis 1+; Diff Comment Manual Differential; Microcytosis 1+; Poikilocytes 1+; Polychromasia Present; White Blood Cell Count 0.48 k/cumm (4.4-10.8)
== END 2019-03-11 23:59 | disposition home or self-care (01) ==
LOC: INF 01:08
PROVIDERS: PCP Family Medicine; Visit Provider Internal Medicine Hematology
DX: C92.00 Acute myeloblastic leukemia, not having achieved remission (principal); Z45.2 Encounter for adjustment and management of vascular access device
CPT/HCPCS: 36430; 36591; 80053; 86850; 86900; 86901; 86920; 86945; 83735; 84100; 84550; 85025; 86644; P9016

== ENCOUNTER 2019-04-03 11:00 | Emergency (ER) | payer OTHER, SELFPAY ==
[2019-04-03 11:07] VITALS: BP 158/74; PULSE 97; RESP 20; TEMP 36.6; O2SAT 97
--- NOTE | 2019-04-03 11:35 | ED.GENADUL_ITS ---
Discharge Plan Disposition Patient Disposition: HOME Condition: Fair Discharge Details Chief Complaint: SOB Clinical Impression: CHF (congestive heart failure), Hypokalemia Primary Care Provider: [facility] ED Provider: Eli Gamboa Home Meds and New Rx's Prescriptions: New potassium chloride 20 mEq tablet extended release 20 meq PO DAILY Qty: 20 RF: 0 furosemide [Lasix] 40 mg tablet 40 mg PO DAILY Qty: 7 RF: 0 Continued levofloxacin [Levaquin] 750 mg Tablet 750 mg PO DAILY RF: 0 magnesium oxide 400 mg magnesium Tablet 400 mg PO DAILY RF: 0 potassium chloride 20 mEq Tablet Extended Release 40 meq PO DAILY RF: 0 Venclexta 100 mg Tablet 200 mg PO DAILY RF: 0 acetaminophen [Tylenol] 325 mg Capsule 650 mg PO Q8H PRN PRNRF: 0 acyclovir [Zovirax] 400 mg Tablet 400 mg PO BID RF: 0 allopurinol 300 mg Tablet 300 mg PO DAILY RF: 0 aspirin [Aspir-81] 81 mg Tablet,Delayed Release (Dr/Ec) 81 mg PO DAILY RF: 0 atorvastatin 80 mg Tablet 80 mg PO ONCE PM RF: 0 carvedilol [Coreg] 12.5 mg Tablet 12.5 mg PO BID RF: 0 cyanocobalamin (vitamin B-12) 1,000 mcg Capsule 1,000 mcg PO DAILY RF: 0 diphenhydramine HCl 25 mg Capsule 25 mg PO Q6H PRN PRNRF: 0 fluconazole 200 mg Tablet 200 mg PO DAILY RF: 0 meclizine 25 mg Tablet 25 mg PO BID PRNRF: 0 ondansetron 8 mg Tablet,Disintegrating 8 mg PO PRN PRNRF: 0 doxycycline hyclate 100 mg Capsule 100 mg PO Q12H Qty: 20 RF: 0 Discontinued hydrochlorothiazide 25 mg Tablet 25 mg PO DAILY RF: 0 Discharge Instructions Instructions: Heart Failure (ED), Hypokalemia (ED) Additional Instructions: Encourage water intake. Please make medications changes as discuss, stop your HCTZ and begin the Lasix. First dose has been given today, next dose should be taken tomorrow morning. Your potassium was low, a daily dosing of this was prescribed. Your imaging does not show any pneumonia, pulmonary embolism. You have an appointment with your primary care on Sunday the at 10:30AM. At that time please discuss medication changes and the pericardial effusion noted on your CT scan, they may recommend repeat echocardiogram. If you develop chest pain, difficuty breathing, fevers/chills or other new/worsening symptoms please seek care urgently once again. Referrals: [facility] [Primary Care Provider] - 04/07/19 10:30 am Discharge Data Discharge Date/Time-TO BE ENTERED AT DEPARTURE: 04/03/19 17:11 Medical Decision Making <Leatha Mcintyre - Last Filed: 04/04/19 08:44> 73 year old female with history of Leukemia, presents with exertional SOB x 3 days, worse today. Reports having blood drawn today. Denies Chest pain, productive cough, fever or chills. Recent pneumonia in February. She last had Chemotherapy 10 days ago. Exam is largely benign except for 2+ pitting edema to her BLE. She is alert and oriented. CBC reviewed from this am and additional labs and work up ordered including CMP, D-dimer, Pro BNP, and Chest Xray.D-dimer elevated and BNP elevated. EXAM: XR CHEST 2V PA LATERAL INDICATION: Shortness of breath. COMPARISON: XR CHEST 2V PA LATERAL from 12/08/2018 XR CHEST 2V PA LATERAL from 03/06/2019 TECHNIQUE: 2D digital imaging was performed. FINDINGS: The heart is stable and enlarged. Pulmonary vasculature is within normal limits. The indwelling central venous catheter is in stable position. The tip is seen at the junction of the superior vena cava and right atrium. There is a right middle lobe infiltrate. Lungs are otherwise clear. No pleural effusion or pneumothorax is identified. IMPRESSION: Persistent small right middle lobe infiltrate. This may represent incomplete clearing of the prior pneumonia, atelectasis or new infiltrate. Please correlate clinically. Ordered By: Leatha Mcintyre Chest x-ray noted above, possible right middle lobe infiltrate which could be old. Chest CT ordered to rule out PE due to elevated D-dimer and BNP of 1064. Patient informed and is aware and agreeable with plan. 1343:Care signed out to Eli FIERRO pending CT result. Report given on patient presentation and was hemodynamically stable at the time. <Bar Smith DO - Last Filed: 04/03/19 11:59> EKG 11: 49 Rate 89, intervals demonstrate a [place] 124, QTc of 516, QRS 158, right bundle branch block, previous EKG from 09/06/05 demonstrates near identical findings. No significant acute changes. <SRI Le - Last Filed: 04/06/19 01:13> Care was transitioned to myself from Roxane Germain NP, with imaging pending. Please see her initial note for presentation, evaluation and laboratory work-up. In brief, patient is a 73-year-old female with history of leukemia currently receiving chemotherapy treatments. She is been short of breath over the past few days but noted that this is markedly increased today. CT imaging was pending to evaluate for possible PE. We are contacted by radiologist who advised the patient does have a small pericardial effusion but no evidence of PE. Discussed the findings with the patient. Patient had been admitted at [facility] for neutropenic fever and right middle lobe pneumonia last month. She reports she stayed at the hospital for approximate 6 days on IV antibiotics. She reports that since being home, she has noted some mild shortness of breath but is greatly exacerbated over the past 2 days. Will consult again with oncology. Will push images to [facility] [place]. Review of the labs showed patient BNP is elevated at 1064. I do not have an old for comparison. She does have notable lower extremity pitting edema bilaterally. I am questioning if this is also contributing to the patient's increasing shortness of breath. Plan to give Lasix along with the antibiotics. Consulted with oncology at [facility]. We discussed the patients CHF as well as the pericardial effusion. She advised placing the patient on Lasix. She reviewed the patients recent labs/imaging. States that patient had an echo last fall with an EF of 62%. She advised that this could be repeated as an outpatient if needed. She does have an old BNP which was elevated. As the patient does not have symptoms of pneumonia, does not recommend startingon antibiotics. Discussed case with the hospitalist. Discussed findings and concerns. At this point, neither the hospitalist nor the oncologist feel that inpatient admission is absolutely necessary. Discussed htis with the patient. Hospitalist recommended stopping the HCTZ and starting lasix with close f/u . Discussed this option with the patient. She would prefer outpatient management over inpatient. She lives locally and is able to return is symptoms worsen. She was given first dose while here. She was givne strict return precautions. Contacted PCP and was able to get appointment for Sunday. All of her quesitons and concerns were addressed, she is in agreement with this plan. HPI <Leatha Mcintyre - Last Filed: 04/04/19 08:44> General Date/Time Provider Initiated Documentation: 04/03/19 11:22 . Information obtained by: patient . History of Present Illness 73 year old F presents to the emergency department with the chief complaint of Shortness of breath, described as moderate, with intensity rated at 5. and is localized to the chest. Patient started experiencing this day(s) (3) and it has been constant. Rest improves symptom(s), Movement worsens symptoms . Patient notes shortness of breath; denies chest pain, cough, diaphoresis, fever/chills and headaches. Patient did receive the following treatments prior to arrival, none HPI Narrative: 73-year-old female history of leukemia receiving chemo treatments presents with worsening shortness of breath markedly worse this morning. She reports recent pneumonia diagnosis and treatment in the end of February. Related Data Home Medications Medication Instructions Recorded Confirmed acetaminophen [Tylenol] 650 mg PO Q8H PRN PRN 12/08/18 04/03/19 acyclovir [Zovirax] 400 mg PO BID 12/08/18 04/03/19 allopurinol 300 mg PO DAILY 12/08/18 04/03/19 aspirin [Aspir-81] 81 mg PO DAILY 12/08/18 04/03/19 atorvastatin 80 mg PO ONCE PM 12/08/18 04/03/19 carvedilol [Coreg] 12.5 mg PO BID 12/08/18 04/03/19 cyanocobalamin (vitamin B-12) 1,000 mcg PO DAILY 12/08/18 04/03/19 diphenhydramine HCl 25 mg PO Q6H PRN PRN 12/08/18 04/03/19 fluconazole 200 mg PO DAILY 12/08/18 04/03/19 meclizine 25 mg PO BID PRN 12/08/18 04/03/19 ondansetron 8 mg PO PRN PRN 12/08/18 04/03/19 doxycycline hyclate 100 mg PO Q12H #20 cap 12/12/18 04/03/19 Venclexta 200 mg PO DAILY 03/06/19 04/03/19 levofloxacin [Levaquin] 750 mg PO DAILY 03/06/19 04/03/19 magnesium oxide 400 mg PO DAILY 03/06/19 04/03/19 potassium chloride 40 meq PO DAILY 03/06/19 04/03/19 furosemide [Lasix] 40 mg PO DAILY #7 tab 04/03/19 potassium chloride 20 meq PO DAILY #20 tab 04/03/19 Previous Rx's Medication Instructions Recorded doxycycline hyclate 100 mg PO Q12H #20 cap 12/12/18 furosemide [Lasix] 40 mg PO DAILY #7 tab 04/03/19 potassium chloride 20 meq PO DAILY #20 tab 04/03/19 Allergies Allergy/AdvReac Type Severity Reaction Status Date / Time prochlorperazine AdvReac Mild Other (See Unverified 04/03/19 11:46 [From Compazine] Comment) General Stated Complaint: SOB REBEKAH: 3 Review of Systems <Leatha Mcintyre - Last Filed: 04/04/19 08:44> Narrative: Constitutional: Negative for weight loss, alert and oriented, well groomed, normal body habitus, appears comfortable. HEENT: Denies trauma, headaches, blurry vision, nasal discharge, sore throat, trouble swallowing. Chest: Denies chest pain, palpitations, irregular rhythm, hypertension. Respiratory: Positive SOB, cough, hemoptysis. GI: Denies abdominal pain, nausea, vomiting, diarrhea, constipation. : Denies dysuria, hematuria, flank pain, vaginal bleeding, rectal bleeding. Neuro: Denies dizziness, blurry vision, weakness, syncope, headache or facial numbness. Hematologic: Denies easy bruising, intolerance to heat or cold, hair loss. All systems reviewed & are unremarkable except as noted in HPI and below Hematologic/Lymphatic Hematologic/Lymphatic: Reports other (has history of leukemia) PFSH <Leatha Mcintyre - Last Filed: 04/04/19 08:44> Social History Smoking/Tobacco Use Status: Never Alcohol Intake: never Drug use: Never Substance use type: does not use What is your relationship status?: Panel score (0-1 are the most socially isolated patients): 1 Do you feel safe at home: Yes Do you feel safe in your relationship?: Yes Additional Social history: Retired nurse Exam <Leatha Mcintyre - [facility] Filed: 04/04/19 08:44> Const General: cooperative, comfortable and no acute distress Nutritional Appearance: obese Orientation: alert, awake and oriented x3 HENMT Head: normal to inspection and normocephalic Ears: hearing grossly normal bilaterally General nose exam: external nose normal Face and sinus: normal facial exam Mouth: oral mucosae normal Throat: posterior oropharynx normal Neck Neck: normal visual inspection Carotids: normal carotid upstroke Lymphatic: no lymphadenopathy noted Chest Chest: other (Right side port-a cath in place, recently accessed) Resp Effort & Inspection: able to speak in complete sentences, no audible wheezes, no cough, no grunting, not labored, no pursed lip breathing, no respiratory distress, no retractions, no stridor, not tachypneic, no use of accessory muscles and other (SOB on exertion) Auscultation: clear to auscultation bilaterally, no crackles, no rales, no rhonchi and no wheezes Cardio Rate: regular rate Rhythm: regular rhythm Heart Sounds: S1 normal and S2 normal GI Inspection: normal to inspection Palpation: soft and nontender Skin General skin exam: no rashes or lesions noted Extrem General: normal capillary refill, no calf tenderness and edema Laterality: bilat eral (2+ pitting ) Course <Leatha Mcintyre - Last Filed: 04/04/19 08:44> Vital Signs Vital signs: Vital Signs Temperature 36.6 C 04/03/19 11:07 Pulse 97 H 04/03/19 11:07 Respiratory Rate 20 04/03/19 11:07 Blood Pressure 158/74 H 04/03/19 11:07 Pulse Oximetry 97 04/03/19 11:07 Temperature 36.6 C 04/03/19 11:07 Temperature Source Skin 04/03/19 11:07 Pulse 97 H 04/03/19 11:07 Respiratory Rate 20 04/03/19 11:07 Blood Pressure 158/74 H 04/03/19 11:07 Pulse Oximetry 97 04/03/19 11:07 Oxygen Delivery Method Room Air 04/03/19 11:07 Oxygen Flow Rate 0 04/03/19 11:07 Pain Level 0 04/03/19 11:07 Sign Out <Leatha Mcintyre - Last Filed: 04/04/19 08:44> Sign Out Data: Sign Out Comment: Pending CT chest R/O PE. Last updated by Leatha Mcintyre at 04/03/19 13:43
[2019-04-03] MEDS: Normal Saline-STERILE FIELD 0.9% 10 ML SYR (12:11)
--- NOTE | 2019-04-03 12:18 | DI.RAD_ITS ---
EXAM: XR CHEST 2V PA LATERAL INDICATION: Shortness of breath. COMPARISON: XR CHEST 2V PA LATERAL from 12/08/2018 XR CHEST 2V PA LATERAL from 03/06/2019 TECHNIQUE: 2D digital imaging was performed. FINDINGS: The heart is stable and enlarged. Pulmonary vasculature is within normal limits. The indwelling kaitlin tral venous catheter is in stable position. The tip is seen at the junction of the superior vena cav a and right atrium. There is a right middle lobe infiltrate. Lungs are otherwise clear. No pleural effusion or pneumothorax is identified. IMPRESSION: Persistent small right middle lobe infiltrate. This may represent incomplete clearing of the prior p neumonia, atelectasis or new infiltrate. Please correlate clinically.
[2019-04-03 12:33] LABS: ALT 16 U/L (14-59); AST 15 U/L (15-37); Alkaline Phosphatase 89 U/L (46-116); Anion Gap 8.4 mmol/L (3-11); BUN 16 mg/dL (7-18); Bilirubin, Total 0.5 mg/dL (0.2-1.0); CO2 32.6 mmol/L (21.0-32.0); CREATININE 0.95 mg/dL (0.55-1.02); Calcium 8.8 mg/dL (8.5-10.1); Chloride 100 mmol/L (98-107); Estimated GFR 57.66 (mL/min/1.73m2); Glucose 148 mg/dL (74-106); Magnesium 1.7 mg/dL (1.8-2.4); NT-proBNP 1064 pg/mL (<300); Potassium 3.2 mmol/L (3.5-5.1); Sodium 141 mmol/L (136-145)
[2019-04-03 12:36] LABS: Troponin I < 0.05 ng/Ml (<0.06)
[2019-04-03 12:51] LABS: D-Dimer 1532 ng/mlFEU (<500)
[2019-04-03 14:34] VITALS: BP 140/75; PULSE 84; O2SAT 99
[2019-04-03] MEDS: Omnipaque 350 MG/ML 100 ML BTL IJ (14:38)
[2019-04-03] MEDS: Normal Saline - Diluent 50 ML VIAL IV (14:39)
--- NOTE | 2019-04-03 14:45 | DI.CT_ITS ---
EXAM: CT CHEST PE CTA CLINICAL HISTORY: SHORTNESS OF BREATH, ELEVATED D-DIMER. TECHNIQUE: Imaging Protocol: Axial CT angiography was performed with multislice acquisition and mul tiplanar and/or 3D reconstructions. CONTRAST MATERIAL: Intravenous: Omnipaque 350 Contrast volume:100 mL COMPARISON: XR CHEST 2V PA LATERAL from 03/06/2019 FINDINGS: Pulmonary Arteries: No evidence of filling defect to suggest pulmonary emboli. Tracheobronchial tree: Patent where visualized. Mediastinum and [place]: No dominant adenopathy or fluid collection. Pulmonary parenchyma: No consolidation or dominant measurable mass. No architectural distortion. Pleura: No effusion or pneumothorax. Heart: Cardiomegaly. Marked coronary artery calcifications. Small pericardial effusion. No evidenc e of right heart strain. Aorta: Atherosclerosis. No aneurysm or dissection. Upper abdomen: Nodularity of the left adrenal gland. This is incompletely imaged. Bones: DISH. Tubes, Catheters, and Lines: Port-A-Cath is in place. The tip is seen in the right atrium. IMPRESSION: 1. There is no evidence of a pulmonary embolus, thoracic aortic dissection or aneurysm. 2. Cardiomegaly and small pericardial effusion. 3. Findings were discussed with the Emergency Department on the date of the examination. DATA REPOSITORY: All CT scans at this facility are submitted to the National Radiology Data Registry (NRDR) Dose Index Registry (DIR) with the [employer] (ACR). RADIATION OPTIMIZATION: All CT scans at this facility use at least one of these dose optimization te chniques: automated exposure control; mA and/or kV adjustment per patient size (includes targeted exa ms where dose is matched to clinical indication); or iterative reconstruction.
[2019-04-03 15:13] LABS: Troponin I < 0.05 ng/Ml (<0.06)
[2019-04-03 15:31] VITALS: RESP 20
[2019-04-03] MEDS: POTASSIUM CHLORIDE 20 MEQ, POTASSIUM CHLORIDE 10 MEQ 30 MEQ PO (16:22)
[2019-04-03] MEDS: Furosemide 20 MG/2 ML VIAL IVP (16:23)
[2019-04-03] MEDS: Normal Saline Flush 10 ML SYR IVP (16:55)
[2019-04-03] MEDS: Heparin 500 UNITS/5 ML SYRINGE (16:56)
== END 2019-04-03 17:11 | disposition home or self-care (01) ==
PROVIDERS: Registered Nurse Emergency; Emergency Provider Physician Assistant; PCP Family Medicine
DX: I50.30 Unspecified diastolic (congestive) heart failure (principal); E87.6 Hypokalemia; C95.90 Leukemia, unspecified not having achieved remission
CPT/HCPCS: 36415; 71275; 80053; 93005; 96374; 99285; 71046; 83735; 83880; 84484; 85379; 93010; 99284; J1941; J3490

== ENCOUNTER 2019-04-10 01:38 | Outpatient (RCR) | payer OTHER, SELFPAY ==
[2019-03-13 08:30] LABS: Abs Immature Grans 0.22 k/cumm (0.0-0.09); HCT 33.8 % (36.0-46.0); HGB 11.1 g/dL (12.0-15.5); Mean Corp. HGB Concentration 32.8 g/dL (32.0-36.0); Mean Corpuscular Hemoglobin 29.4 pg (27.0-33.0); Mean Corpuscular Volume 89.4 fL (80-95); Mean Platelet Volume 9.8 fL (8.0-11.0); Platelet Count 515 x1000/uL (130-400); RBC 3.78 m/cumm (4.00-5.20); RBC Distribution Width 15.3 % (11.7-14.6); White Blood Cell Count 3.01 k/cumm (4.4-10.8)
[2019-03-13 09:23] LABS: RBC Morphology Normal
[2019-03-13] MEDS: Normal Saline Flush 10 ML SYR IVP (09:30)
[2019-03-13] MEDS: Heparin 500 UNITS/5 ML SYRINGE (09:31)
[2019-03-13 09:48] LABS: Absolute Neutrophil Count 1.17 k/cumm (1.2-6.7)
[2019-03-13 09:49] LABS: Absolute Lymphocyte Count 1.11 k/cumm (1.2-3.4)
[2019-03-13 09:50] LABS: Absolute Monocyte Count 0.36 k/cumm (0.11-0.7)
[2019-03-13 09:52] LABS: Diff Comment Manual Differential
[2019-03-17] MEDS: Normal Saline Flush 10 ML SYR IVP (08:05)
[2019-03-17 08:20] LABS: Abs Immature Grans 0.29 k/cumm (0.0-0.09); HCT 35.8 % (36.0-46.0); HGB 11.5 g/dL (12.0-15.5); Mean Corp. HGB Concentration 32.1 g/dL (32.0-36.0); Mean Corpuscular Hemoglobin 28.6 pg (27.0-33.0); Mean Corpuscular Volume 89.1 fL (80-95); Mean Platelet Volume 9.4 fL (8.0-11.0); Platelet Count 479 x1000/uL (130-400); RBC 4.02 m/cumm (4.00-5.20); RBC Distribution Width 15.7 % (11.7-14.6); White Blood Cell Count 5.45 k/cumm (4.4-10.8)
[2019-03-17 08:41] LABS: Absolute Lymphocyte Count 1.42 k/cumm (1.2-3.4); Absolute Monocyte Count 1.36 k/cumm (0.11-0.7); Absolute Neutrophil Count 2.29 k/cumm (1.2-6.7); Anisocytosis 1+; Diff Comment Manual Differential
[2019-03-17 08:42] LABS: Hypochromasia 1+
[2019-03-20] MEDS: Normal Saline Flush 10 ML SYR IVP (08:23)
[2019-03-20 08:27] LABS: HCT 33.8 % (36.0-46.0); HGB 10.8 g/dL (12.0-15.5); Mean Corpuscular Hemoglobin 28.8 pg (27.0-33.0); Mean Corpuscular Volume 90.1 fL (80-95); Platelet Count 366 x1000/uL (130-400); RBC 3.75 m/cumm (4.00-5.20); RBC Distribution Width 16.4 % (11.7-14.6); White Blood Cell Count 5.39 k/cumm (4.4-10.8)
[2019-03-20 08:55] LABS: Absolute Neutrophil Count 2.32 k/cumm (1.2-6.7)
[2019-03-20 08:56] LABS: Absolute Basophil Count 0.05 k/cumm (0.0-0.2); Absolute Lymphocyte Count 1.51 k/cumm (1.2-3.4)
[2019-03-20 08:57] LABS: Anisocytosis 2+; Diff Comment Manual Differential; Polychromasia Present
[2019-03-20 08:58] LABS: Absolute Monocyte Count 1.24 k/cumm (0.11-0.7); Poikilocytes 1+
[2019-03-24] MEDS: Normal Saline Flush 10 ML SYR IVP (07:50)
[2019-03-24 08:08] LABS: Abs Immature Grans 0.07 k/cumm (0.0-0.09); Absolute Basophil Count 0.01 k/cumm (0.0-0.2); Absolute Eosinophil Count 0.01 k/cumm (0.0-0.7); Absolute Lymphocyte Count 1.42 k/cumm (1.2-3.4); Absolute Monocyte Count 0.79 k/cumm (0.11-0.7); Absolute Neutrophil Count 2.17 k/cumm (1.2-6.7); Basophils % 0.2; Eosinophils % 0.2; HCT 34.1 % (36.0-46.0); HGB 11.1 g/dL (12.0-15.5); Immature Grans % 1.6 %; Lymphocytes % 31.8; Mean Corp. HGB Concentration 32.6 g/dL (32.0-36.0); Mean Platelet Volume 9.1 fL (8.0-11.0); Monocytes % 17.7; Neutrophils % 48.5; Platelet Count 247 x1000/uL (130-400); RBC 3.83 m/cumm (4.00-5.20); RBC Distribution Width 16.1 % (11.7-14.6); White Blood Cell Count 4.47 k/cumm (4.4-10.8)
[2019-03-27] MEDS: Heparin 500 UNITS/5 ML SYRINGE IV (08:00)
[2019-03-27] MEDS: Normal Saline Flush 10 ML SYR IVP (08:00)
[2019-03-27 08:10] LABS: Abs Immature Grans 0.02 k/cumm (0.0-0.09); Absolute Basophil Count 0.01 k/cumm (0.0-0.2); Absolute Lymphocyte Count 1.22 k/cumm (1.2-3.4); Absolute Monocyte Count 0.61 k/cumm (0.11-0.7); Absolute Neutrophil Count 1.75 k/cumm (1.2-6.7); Basophils % 0.3; HCT 32.8 % (36.0-46.0); HGB 10.8 g/dL (12.0-15.5); Immature Grans % 0.6 %; Lymphocytes % 33.8; Mean Corp. HGB Concentration 32.9 g/dL (32.0-36.0); Mean Corpuscular Hemoglobin 29.5 pg (27.0-33.0); Mean Corpuscular Volume 89.6 fL (80-95); Mean Platelet Volume 9.5 fL (8.0-11.0); Monocytes % 16.9; Neutrophils % 48.4; Platelet Count 197 x1000/uL (130-400); RBC 3.66 m/cumm (4.00-5.20); RBC Distribution Width 16.8 % (11.7-14.6); White Blood Cell Count 3.61 k/cumm (4.4-10.8)
[2019-03-31 08:07] LABS: Abs Immature Grans 0.01 k/cumm (0.0-0.09); Absolute Lymphocyte Count 1.27 k/cumm (1.2-3.4); Absolute Monocyte Count 0.32 k/cumm (0.11-0.7); Absolute Neutrophil Count 0.92 k/cumm (1.2-6.7); HCT 32.4 % (36.0-46.0); HGB 10.6 g/dL (12.0-15.5); Immature Grans % 0.4 %; Lymphocytes % 50.4; Mean Corp. HGB Concentration 32.7 g/dL (32.0-36.0); Mean Corpuscular Hemoglobin 29.4 pg (27.0-33.0); Mean Corpuscular Volume 89.8 fL (80-95); Mean Platelet Volume 9.3 fL (8.0-11.0); Monocytes % 12.7; Neutrophils % 36.5; Platelet Count 177 x1000/uL (130-400); RBC 3.61 m/cumm (4.00-5.20); RBC Distribution Width 17.3 % (11.7-14.6); White Blood Cell Count 2.52 k/cumm (4.4-10.8)
[2019-03-31 08:41] LABS: Anisocytosis 2+; Diff Comment Diff Reviewed; Polychromasia Present
[2019-03-31] MEDS: Heparin 500 UNITS/5 ML SYRINGE IV (08:45)
[2019-03-31] MEDS: Normal Saline Flush 10 ML SYR IVP (08:45)
[2019-04-03 08:11] LABS: Abs Immature Grans 0.01 k/cumm (0.0-0.09); Absolute Basophil Count 0.01 k/cumm (0.0-0.2); Absolute Lymphocyte Count 1.01 k/cumm (1.2-3.4); Absolute Monocyte Count 0.13 k/cumm (0.11-0.7); Absolute Neutrophil Count 1.25 k/cumm (1.2-6.7); Basophils % 0.4; HCT 31.5 % (36.0-46.0); HGB 10.4 g/dL (12.0-15.5); Immature Grans % 0.4 %; Lymphocytes % 41.9; Mean Corpuscular Hemoglobin 29.7 pg (27.0-33.0); Mean Platelet Volume 9.3 fL (8.0-11.0); Monocytes % 5.4; Neutrophils % 51.9; Platelet Count 173 x1000/uL (130-400); RBC Distribution Width 17.5 % (11.7-14.6); White Blood Cell Count 2.41 k/cumm (4.4-10.8)
[2019-04-03] MEDS: Normal Saline Flush 10 ML SYR IVP (08:36)
[2019-04-03] MEDS: Heparin 500 UNITS/5 ML SYRINGE IV (08:37)
[2019-04-07] MEDS: Heparin 500 UNITS/5 ML SYRINGE IV (07:46)
[2019-04-07] MEDS: Normal Saline Flush 10 ML SYR IVP (07:46)
[2019-04-07 07:59] LABS: Absolute Lymphocyte Count 1.31 k/cumm (1.2-3.4); Absolute Monocyte Count 0.01 k/cumm (0.11-0.7); HCT 29.3 % (36.0-46.0); HGB 9.6 g/dL (12.0-15.5); Mean Corp. HGB Concentration 32.8 g/dL (32.0-36.0); Mean Corpuscular Hemoglobin 29.4 pg (27.0-33.0); Mean Corpuscular Volume 89.9 fL (80-95); Mean Platelet Volume 11.3 fL (8.0-11.0); Monocytes % 0.6; Neutrophils % 25.4; RBC 3.26 m/cumm (4.00-5.20); RBC Distribution Width 17.3 % (11.7-14.6)
[2019-04-07 08:40] LABS: Absolute Neutrophil Count 0.45 k/cumm (1.2-6.7); White Blood Cell Count 1.77 k/cumm (4.4-10.8)
[2019-04-07 08:41] LABS: Anisocytosis 2+; Diff Comment Diff Reviewed; Microcytosis 1+; Poikilocytes 1+; Polychromasia Present
[2019-04-07 08:43] LABS: Platelet Count 107 x1000/uL (130-400)
[2019-04-10] MEDS: Normal Saline Flush 10 ML SYR IVP (07:45)
[2019-04-10] MEDS: Heparin 500 UNITS/5 ML SYRINGE IV (07:45)
[2019-04-10 08:01] LABS: Absolute Basophil Count 0.01 k/cumm (0.0-0.2); Absolute Lymphocyte Count 1.12 k/cumm (1.2-3.4); Absolute Monocyte Count 0.01 k/cumm (0.11-0.7); Basophils % 0.8; HCT 26.9 % (36.0-46.0); HGB 8.8 g/dL (12.0-15.5); Lymphocytes % 91.8; Mean Corp. HGB Concentration 32.7 g/dL (32.0-36.0); Mean Corpuscular Hemoglobin 29.6 pg (27.0-33.0); Mean Corpuscular Volume 90.6 fL (80-95); Monocytes % 0.8; Neutrophils % 6.6; RBC 2.97 m/cumm (4.00-5.20); RBC Distribution Width 17.7 % (11.7-14.6)
[2019-04-10 08:39] LABS: White Blood Cell Count 1.22 k/cumm (4.4-10.8)
[2019-04-10 08:40] LABS: Absolute Neutrophil Count 0.08 k/cumm (1.2-6.7)
[2019-04-10 08:42] LABS: Platelet Count 33 x1000/uL (130-400)
[2019-04-10 08:43] LABS: Diff Comment Diff Reviewed
[2019-04-10 08:44] LABS: Anisocytosis 2+; Microcytosis 1+; Poikilocytes 1+; Polychromasia Present
== END 2019-04-11 23:59 | disposition home or self-care (01) ==
LOC: INF 01:38
PROVIDERS: PCP Family Medicine; Visit Provider Internal Medicine Hematology
DX: C92.00 Acute myeloblastic leukemia, not having achieved remission (principal); D46.9 Myelodysplastic syndrome, unspecified
CPT/HCPCS: 36591; 86900; 86901; 85025

== ENCOUNTER 2019-05-08 03:00 | Outpatient (RCR) | payer OTHER, SELFPAY ==
[2019-04-14] VITALS (15 sets, daily range): BP systolic 142–199; BP diastolic 61–118; PULSE 66–111; RESP 18–20; TEMP 36.4–36.7; O2SAT 95–100
[2019-04-14 08:16] LABS: Absolute Lymphocyte Count 1.19 k/cumm (1.2-3.4); Absolute Monocyte Count 0.01 k/cumm (0.11-0.7); HGB 8.1 g/dL (12.0-15.5); Lymphocytes % 99.2; Mean Corp. HGB Concentration 33.8 g/dL (32.0-36.0); Mean Corpuscular Volume 88.9 fL (80-95); Monocytes % 0.8; RBC Distribution Width 17.3 % (11.7-14.6)
[2019-04-14 08:32] LABS: Platelet Count 13 x1000/uL (130-400)
[2019-04-14 08:38] LABS: Diff Comment Diff Reviewed; Nucleated RBC 1 /100WBC
[2019-04-14 08:39] LABS: Anisocytosis 2+; Macrocytosis 1+; Microcytosis 1+; Polychromasia Present
[2019-04-14 08:40] LABS: Poikilocytes 1+
[2019-04-14] MEDS: Normal Saline Flush 10 ML SYR IVP (11:37)
[2019-04-15 09:15] VITALS: BP 118/66; PULSE 69; RESP 18; TEMP 36.4; O2SAT 95
[2019-04-15 09:35] VITALS: BP 111/71; PULSE 84; RESP 18; TEMP 36.6; O2SAT 99
[2019-04-15] MEDS: Normal Saline Flush 10 ML SYR IVP (10:08)
[2019-04-17 09:46] LABS: HCT 25.9 % (36.0-46.0); HGB 8.9 g/dL (12.0-15.5); Mean Corp. HGB Concentration 34.4 g/dL (32.0-36.0); Mean Corpuscular Hemoglobin 29.8 pg (27.0-33.0); Mean Corpuscular Volume 86.6 fL (80-95); RBC 2.99 m/cumm (4.00-5.20); RBC Distribution Width 16.5 % (11.7-14.6)
[2019-04-17] MEDS: Normal Saline Flush 10 ML SYR IVP (10:03)
[2019-04-17] MEDS: Heparin 500 UNITS/5 ML SYRINGE IV (10:03)
[2019-04-17 10:05] LABS: Platelet Count 21 x1000/uL (130-400)
[2019-04-17 10:06] LABS: Absolute Lymphocyte Count 1.27 k/cumm (1.2-3.4); Absolute Neutrophil Count 0.03 k/cumm (1.2-6.7); Atypical Lymphocytes % 2; Diff Comment Manual Differential
[2019-04-17 10:07] LABS: Anisocytosis 1+
[2019-04-21] MEDS: Normal Saline Flush 10 ML SYR IVP (11:40)
[2019-04-21 12:21] LABS: Absolute Lymphocyte Count 1.44 k/cumm (1.2-3.4); Absolute Monocyte Count 0.05 k/cumm (0.11-0.7); HCT 23.5 % (36.0-46.0); HGB 8.2 g/dL (12.0-15.5); Lymphocytes % 93.5; Mean Corp. HGB Concentration 34.9 g/dL (32.0-36.0); Mean Corpuscular Volume 86.1 fL (80-95); Monocytes % 3.2; Neutrophils % 3.3; RBC 2.73 m/cumm (4.00-5.20); RBC Distribution Width 16.1 % (11.7-14.6)
[2019-04-21 12:49] LABS: White Blood Cell Count 1.54 k/cumm (4.4-10.8)
[2019-04-21 12:50] LABS: Absolute Neutrophil Count 0.05 k/cumm (1.2-6.7)
[2019-04-21 12:53] LABS: Platelet Count 13 x1000/uL (130-400)
[2019-04-21 12:55] LABS: Diff Comment Diff Reviewed
[2019-04-21 12:56] LABS: Anisocytosis 1+; Poikilocytes 1+; Polychromasia Present
[2019-04-21 13:08] VITALS: BP 127/72; PULSE 89; RESP 18; TEMP 36.4; O2SAT 99
[2019-04-21 13:10] VITALS: BP 136/76; PULSE 88; RESP 19; TEMP 36.6; O2SAT 100
[2019-04-21 13:25] VITALS: BP 150/59; PULSE 87; RESP 18; TEMP 36.6; O2SAT 99
[2019-04-21 13:40] VITALS: BP 146/61; PULSE 84; RESP 18; TEMP 36.6; O2SAT 98
[2019-04-21 13:55] VITALS: BP 157/79; PULSE 87; RESP 18; TEMP 36.5; O2SAT 99
[2019-04-22 11:00] VITALS: BP 131/73; PULSE 79; RESP 18; TEMP 36.4; O2SAT 98
[2019-04-22] MEDS: Normal Saline Flush 10 ML SYR IVP (11:00)
[2019-04-22 11:30] VITALS: BP 131/80; PULSE 72; RESP 20; TEMP 36.1; O2SAT 100
[2019-04-24 08:15] LABS: Absolute Lymphocyte Count 1.42 k/cumm (1.2-3.4); Absolute Monocyte Count 0.11 k/cumm (0.11-0.7); HCT 25.2 % (36.0-46.0); HGB 8.7 g/dL (12.0-15.5); Lymphocytes % 86.6; Mean Corp. HGB Concentration 34.5 g/dL (32.0-36.0); Mean Corpuscular Hemoglobin 29.6 pg (27.0-33.0); Mean Corpuscular Volume 85.7 fL (80-95); Monocytes % 6.7; Neutrophils % 6.7; RBC 2.94 m/cumm (4.00-5.20); RBC Distribution Width 15.6 % (11.7-14.6)
[2019-04-24 08:55] LABS: Absolute Neutrophil Count 0.11 k/cumm (1.2-6.7); White Blood Cell Count 1.64 k/cumm (4.4-10.8)
[2019-04-24 08:57] LABS: Diff Comment Diff Reviewed; Platelet Count 34 x1000/uL (130-400)
[2019-04-24 09:00] LABS: Anisocytosis 1+; Macrocytosis 1+; Microcytosis 1+; Polychromasia Present
[2019-04-24 09:01] LABS: Poikilocytes 1+
[2019-04-24] MEDS: Heparin 500 UNITS/5 ML SYRINGE IV (09:09)
[2019-04-24] MEDS: Normal Saline Flush 10 ML SYR IVP (09:10)
[2019-04-28 08:19] LABS: Abs Immature Grans 0.01 k/cumm (0.0-0.09); Absolute Monocyte Count 0.25 k/cumm (0.11-0.7); HCT 23.1 % (36.0-46.0); HGB 7.9 g/dL (12.0-15.5); Immature Grans % 0.5 %; Lymphocytes % 72.1; Mean Corp. HGB Concentration 34.2 g/dL (32.0-36.0); Mean Corpuscular Hemoglobin 29.9 pg (27.0-33.0); Mean Corpuscular Volume 87.5 fL (80-95); RBC 2.64 m/cumm (4.00-5.20); RBC Distribution Width 15.6 % (11.7-14.6); White Blood Cell Count 2.08 k/cumm (4.4-10.8)
[2019-04-28 08:29] VITALS: BP 143/75; PULSE 84; RESP 18; TEMP 36.6; O2SAT 98
[2019-04-28 08:32] LABS: ALT 14 U/L (14-59); AST 10 U/L (15-37); Albumin 3.1 g/dL (3.4-5.0); Alkaline Phosphatase 89 U/L (46-116); BUN 20 mg/dL (7-18); Bilirubin, Total 0.3 mg/dL (0.2-1.0); CREATININE 1.14 mg/dL (0.55-1.02); Calcium 8.6 mg/dL (8.5-10.1); Chloride 103 mmol/L (98-107); Estimated GFR 46.59 (mL/min/1.73m2); Glucose 154 mg/dL (74-106); Potassium 3.5 mmol/L (3.5-5.1); Sodium 142 mmol/L (136-145); Total Protein 6.7 g/dL (6.4-8.2)
[2019-04-28 08:50] LABS: Platelet Count 31 x1000/uL (130-400)
[2019-04-28 08:52] LABS: Neutrophils % 15.4
[2019-04-28 08:53] LABS: Absolute Neutrophil Count 0.32 k/cumm (1.2-6.7)
[2019-04-28 08:54] LABS: Diff Comment Agrees w/ Instrument
[2019-04-28 08:56] LABS: Anisocytosis 1+
[2019-04-28 09:46] VITALS: BP 146/72; PULSE 80; RESP 19; TEMP 36.6; O2SAT 99
[2019-04-28 10:01] VITALS: BP 139/67; PULSE 82; RESP 19; TEMP 36.6; O2SAT 97
[2019-04-28 10:16] VITALS: BP 112/69; PULSE 77; RESP 19; TEMP 36.5; O2SAT 99
[2019-04-28 10:31] VITALS: BP 120/68; PULSE 71; RESP 18; TEMP 36.4; O2SAT 99
[2019-04-28 12:07] VITALS: BP 157/69; PULSE 70; RESP 19; TEMP 36.3; O2SAT 100
[2019-04-28] MEDS: Normal Saline Flush 10 ML SYR IVP (12:21)
[2019-05-01 08:10] LABS: Abs Immature Grans 0.34 k/cumm (0.0-0.09); HCT 25.7 % (36.0-46.0); HGB 8.8 g/dL (12.0-15.5); Mean Corp. HGB Concentration 34.2 g/dL (32.0-36.0); Mean Corpuscular Volume 87.7 fL (80-95); RBC 2.93 m/cumm (4.00-5.20); RBC Distribution Width 15.4 % (11.7-14.6); White Blood Cell Count 6.34 k/cumm (4.4-10.8)
[2019-05-01 09:02] LABS: Platelet Count 30 x1000/uL (130-400)
[2019-05-01 09:07] LABS: Absolute Monocyte Count 0.95 k/cumm (0.11-0.7)
[2019-05-01 09:08] LABS: Anisocytosis 1+; Polychromasia Present
[2019-05-01 09:09] LABS: Diff Comment Manual Differential
[2019-05-01 09:10] VITALS: BP 157/69; PULSE 70; RESP 19; TEMP 36.3; O2SAT 100
[2019-05-01] MEDS: Normal Saline Flush 10 ML SYR IVP (09:13)
[2019-05-01] MEDS: Heparin 500 UNITS/5 ML SYRINGE IV (09:13)
[2019-05-05 08:18] LABS: Abs Immature Grans 0.05 k/cumm (0.0-0.09); Absolute Lymphocyte Count 1.34 k/cumm (1.2-3.4); Absolute Monocyte Count 0.68 k/cumm (0.11-0.7); Absolute Neutrophil Count 1.13 k/cumm (1.2-6.7); HCT 25.6 % (36.0-46.0); HGB 8.7 g/dL (12.0-15.5); Immature Grans % 1.6 %; Lymphocytes % 41.9; Mean Corpuscular Hemoglobin 29.9 pg (27.0-33.0); Mean Platelet Volume 9.8 fL (8.0-11.0); Monocytes % 21.3; Neutrophils % 35.2; Platelet Count 37 x1000/uL (130-400); RBC 2.91 m/cumm (4.00-5.20); RBC Distribution Width 15.4 % (11.7-14.6)
[2019-05-05 08:26] LABS: Anisocytosis 1+; Basophilic Stippling Present; Diff Comment Diff Reviewed; Macrocytosis 1+; Microcytosis 1+; Polychromasia Present
[2019-05-05] MEDS: Normal Saline Flush 10 ML SYR IVP (08:29)
[2019-05-05] MEDS: Heparin 500 UNITS/5 ML SYRINGE IV (08:30)
[2019-05-08 08:15] LABS: Abs Immature Grans 0.02 k/cumm (0.0-0.09); Absolute Lymphocyte Count 1.25 k/cumm (1.2-3.4); Absolute Monocyte Count 0.65 k/cumm (0.11-0.7); HCT 24.3 % (36.0-46.0); HGB 8.1 g/dL (12.0-15.5); Immature Grans % 0.6 %; Lymphocytes % 40.1; Mean Corp. HGB Concentration 33.3 g/dL (32.0-36.0); Mean Corpuscular Hemoglobin 29.7 pg (27.0-33.0); Mean Platelet Volume 10.6 fL (8.0-11.0); Monocytes % 20.8; Neutrophils % 38.5; Platelet Count 56 x1000/uL (130-400); RBC 2.73 m/cumm (4.00-5.20); RBC Distribution Width 15.4 % (11.7-14.6); White Blood Cell Count 3.12 k/cumm (4.4-10.8)
[2019-05-08 08:29] LABS: Diff Comment PLT Morph Reviewed
[2019-05-08 08:30] LABS: Anisocytosis 1+; Polychromasia Present
[2019-05-08 08:44] VITALS: BP 145/75; PULSE 78; RESP 19; TEMP 36.5; O2SAT 99
[2019-05-08 09:23] VITALS: BP 138/68; PULSE 76; RESP 18; TEMP 36.6; O2SAT 98
[2019-05-08 09:38] VITALS: BP 145/82; PULSE 75; RESP 18; TEMP 36.6; O2SAT 99
[2019-05-08 09:54] VITALS: BP 141/78; PULSE 65; RESP 19; TEMP 36.5; O2SAT 100
[2019-05-08 10:10] VITALS: BP 161/83; PULSE 65; RESP 18; TEMP 36.4; O2SAT 100
[2019-05-08 10:40] VITALS: BP 149/72; PULSE 71; RESP 18; TEMP 36.4; O2SAT 100
[2019-05-08] MEDS: Heparin 500 UNITS/5 ML SYRINGE IV (12:20)
[2019-05-08] MEDS: Normal Saline Flush 10 ML SYR IVP (12:20)
== END 2019-05-10 23:59 | disposition home or self-care (01) ==
LOC: INF 03:00
PROVIDERS: PCP Family Medicine; Visit Provider Internal Medicine Hematology
DX: C92.00 Acute myeloblastic leukemia, not having achieved remission (principal); Z45.2 Encounter for adjustment and management of vascular access device
CPT/HCPCS: 36430; 36591; 80053; 86850; 86900; 86901; 86920; 86945; 85025; 86644; P9016; P9035

== ENCOUNTER 2019-06-09 02:12 | Outpatient (RCR) | payer OTHER, SELFPAY ==
[2019-05-12] MEDS: Normal Saline Flush 10 ML SYR IVP (08:15)
[2019-05-12 08:19] LABS: Abs Immature Grans 0.02 k/cumm (0.0-0.09); HCT 27.4 % (36.0-46.0); HGB 9.4 g/dL (12.0-15.5); Mean Corp. HGB Concentration 34.3 g/dL (32.0-36.0); Mean Corpuscular Hemoglobin 30.7 pg (27.0-33.0); Mean Corpuscular Volume 89.5 fL (80-95); Mean Platelet Volume 9.2 fL (8.0-11.0); Platelet Count 119 x1000/uL (130-400); RBC 3.06 m/cumm (4.00-5.20); RBC Distribution Width 15.6 % (11.7-14.6); White Blood Cell Count 2.78 k/cumm (4.4-10.8)
[2019-05-12 08:38] LABS: Absolute Lymphocyte Count 1.33 k/cumm (1.2-3.4); Absolute Monocyte Count 0.89 k/cumm (0.11-0.7); Absolute Neutrophil Count 0.56 k/cumm (1.2-6.7); Diff Comment Manual Differential
[2019-05-12 08:39] LABS: Anisocytosis 2+; Hypochromasia 2+; Polychromasia Present
[2019-05-12 08:40] LABS: Poikilocytes 2+
[2019-05-15 08:11] LABS: Abs Immature Grans 0.03 k/cumm (0.0-0.09); Absolute Basophil Count 0.01 k/cumm (0.0-0.2); HCT 28.7 % (36.0-46.0); HGB 9.5 g/dL (12.0-15.5); Immature Grans % 0.8 %; Mean Corp. HGB Concentration 33.1 g/dL (32.0-36.0); Mean Corpuscular Hemoglobin 30.3 pg (27.0-33.0); Mean Corpuscular Volume 91.4 fL (80-95); Mean Platelet Volume 9.6 fL (8.0-11.0); Platelet Count 166 x1000/uL (130-400); RBC 3.14 m/cumm (4.00-5.20); RBC Distribution Width 17.5 % (11.7-14.6)
[2019-05-15 09:01] LABS: Absolute Neutrophil Count 1.01 k/cumm (1.2-6.7)
[2019-05-15 09:02] LABS: Absolute Monocyte Count 0.68 k/cumm (0.11-0.7)
[2019-05-15 09:03] LABS: Promyelocytes % 2 %
[2019-05-15 09:04] LABS: Diff Comment Diff Reviewed; Nucleated RBC 1 /100WBC
[2019-05-15 09:05] LABS: Anisocytosis 2+
[2019-05-15 09:06] LABS: Poikilocytes 1+; Polychromasia Present
[2019-05-19] MEDS: Normal Saline Flush 10 ML SYR IVP (07:58)
[2019-05-19 08:11] LABS: Abs Immature Grans 0.04 k/cumm (0.0-0.09); Absolute Basophil Count 0.01 k/cumm (0.0-0.2); Absolute Monocyte Count 0.61 k/cumm (0.11-0.7); Absolute Neutrophil Count 0.84 k/cumm (1.2-6.7); Basophils % 0.3; HCT 27.9 % (36.0-46.0); HGB 9.5 g/dL (12.0-15.5); Immature Grans % 1.3 %; Lymphocytes % 51.6; Mean Corp. HGB Concentration 34.1 g/dL (32.0-36.0); Mean Corpuscular Volume 91.2 fL (80-95); Mean Platelet Volume 8.8 fL (8.0-11.0); Monocytes % 19.7; Neutrophils % 27.1; Platelet Count 159 x1000/uL (130-400); RBC 3.06 m/cumm (4.00-5.20); RBC Distribution Width 17.7 % (11.7-14.6)
[2019-05-22 08:06] LABS: Abs Immature Grans 0.01 k/cumm (0.0-0.09); Absolute Basophil Count 0.01 k/cumm (0.0-0.2); Absolute Lymphocyte Count 1.63 k/cumm (1.2-3.4); Absolute Monocyte Count 0.56 k/cumm (0.11-0.7); Absolute Neutrophil Count 1.27 k/cumm (1.2-6.7); Basophils % 0.3; HCT 27.5 % (36.0-46.0); HGB 9.1 g/dL (12.0-15.5); Immature Grans % 0.3 %; Lymphocytes % 46.8; Mean Corp. HGB Concentration 33.1 g/dL (32.0-36.0); Mean Corpuscular Hemoglobin 30.6 pg (27.0-33.0); Mean Corpuscular Volume 92.6 fL (80-95); Mean Platelet Volume 9.3 fL (8.0-11.0); Monocytes % 16.1; Neutrophils % 36.5; Platelet Count 147 x1000/uL (130-400); RBC 2.97 m/cumm (4.00-5.20); RBC Distribution Width 18.5 % (11.7-14.6); White Blood Cell Count 3.48 k/cumm (4.4-10.8)
[2019-05-22] MEDS: Heparin 500 UNITS/5 ML SYRINGE IV (08:24)
[2019-05-22] MEDS: Normal Saline Flush 10 ML SYR IVP (08:24)
[2019-05-26] MEDS: Normal Saline Flush 10 ML SYR IVP (08:00)
[2019-05-26] MEDS: Heparin 500 UNITS/5 ML SYRINGE IV (08:00)
[2019-05-26 08:33] LABS: Abs Immature Grans 0.01 k/cumm (0.0-0.09); Absolute Lymphocyte Count 1.39 k/cumm (1.2-3.4); Absolute Monocyte Count 0.29 k/cumm (0.11-0.7); Absolute Neutrophil Count 1.03 k/cumm (1.2-6.7); HCT 26.2 % (36.0-46.0); HGB 8.7 g/dL (12.0-15.5); Immature Grans % 0.4 %; Lymphocytes % 51.1; Mean Corp. HGB Concentration 33.2 g/dL (32.0-36.0); Mean Corpuscular Hemoglobin 31.4 pg (27.0-33.0); Mean Corpuscular Volume 94.6 fL (80-95); Mean Platelet Volume 8.8 fL (8.0-11.0); Monocytes % 10.7; Neutrophils % 37.8; Platelet Count 110 x1000/uL (130-400); RBC 2.77 m/cumm (4.00-5.20); RBC Distribution Width 18.9 % (11.7-14.6); White Blood Cell Count 2.72 k/cumm (4.4-10.8)
[2019-05-29] MEDS: Heparin 500 UNITS/5 ML SYRINGE IV (08:15)
[2019-05-29] MEDS: Normal Saline Flush 10 ML SYR IVP (08:15)
[2019-05-29 08:36] LABS: Absolute Lymphocyte Count 1.12 k/cumm (1.2-3.4); Absolute Monocyte Count 0.12 k/cumm (0.11-0.7); Absolute Neutrophil Count 1.06 k/cumm (1.2-6.7); HCT 24.9 % (36.0-46.0); HGB 8.2 g/dL (12.0-15.5); Lymphocytes % 48.7; Mean Corp. HGB Concentration 32.9 g/dL (32.0-36.0); Mean Corpuscular Hemoglobin 31.5 pg (27.0-33.0); Mean Corpuscular Volume 95.8 fL (80-95); Mean Platelet Volume 8.6 fL (8.0-11.0); Monocytes % 5.2; Neutrophils % 46.1; Platelet Count 79 x1000/uL (130-400); RBC Distribution Width 19.7 % (11.7-14.6)
[2019-05-29 09:42] LABS: Anisocytosis 2+; Diff Comment RBC Morph Reviewed
[2019-05-29 09:43] LABS: Hypochromasia 2+; Macrocytosis 2+; Poikilocytes 1+; Polychromasia Present
[2019-05-30] VITALS (7 sets, daily range): BP systolic 130–151; BP diastolic 60–83; PULSE 81–90; RESP 18–19; TEMP 36–36.6; O2SAT 97–100
[2019-05-30] MEDS: Normal Saline Flush 10 ML SYR IVP (15:23)
[2019-05-30] MEDS: Heparin 500 UNITS/5 ML SYRINGE IV (15:25)
[2019-06-02 08:36] LABS: Absolute Lymphocyte Count 1.03 k/cumm (1.2-3.4); Absolute Monocyte Count 0.02 k/cumm (0.11-0.7); Absolute Neutrophil Count 0.62 k/cumm (1.2-6.7); HCT 27.9 % (36.0-46.0); HGB 9.4 g/dL (12.0-15.5); Lymphocytes % 61.7; Mean Corp. HGB Concentration 33.7 g/dL (32.0-36.0); Mean Corpuscular Hemoglobin 31.9 pg (27.0-33.0); Mean Corpuscular Volume 94.6 fL (80-95); Mean Platelet Volume 9.9 fL (8.0-11.0); Monocytes % 1.2; Neutrophils % 37.1; RBC 2.95 m/cumm (4.00-5.20)
[2019-06-02 09:05] LABS: Anisocytosis 3+; Diff Comment RBC Morph Reviewed; White Blood Cell Count 1.67 k/cumm (4.4-10.8)
[2019-06-02 09:06] LABS: Macrocytosis 1+; Microcytosis 1+; Poikilocytes 1+; Polychromasia Present
[2019-06-02] MEDS: Normal Saline Flush 10 ML SYR IVP (09:20)
[2019-06-02] MEDS: Heparin 500 UNITS/5 ML SYRINGE IV (09:20)
[2019-06-02 11:59] LABS: Platelet Count 59 x1000/uL (130-400)
[2019-06-09 08:33] LABS: Absolute Basophil Count 0.01 k/cumm (0.0-0.2); HCT 26.4 % (36.0-46.0); Mean Corp. HGB Concentration 34.1 g/dL (32.0-36.0); Mean Corpuscular Hemoglobin 32.4 pg (27.0-33.0); Mean Platelet Volume 9.7 fL (8.0-11.0); RBC 2.78 m/cumm (4.00-5.20); RBC Distribution Width 19.8 % (11.7-14.6)
[2019-06-09 08:41] VITALS: BP 151/83; PULSE 88; RESP 19; TEMP 36.4; O2SAT 99
[2019-06-09] MEDS: Normal Saline Flush 10 ML SYR IVP (08:47)
[2019-06-09] MEDS: Heparin 500 UNITS/5 ML SYRINGE IV (08:47)
[2019-06-09 09:05] LABS: Absolute Eosinophil Count 0.01 k/cumm (0.0-0.7); Absolute Lymphocyte Count 1.16 k/cumm (1.2-3.4); Absolute Monocyte Count 0.03 k/cumm (0.11-0.7)
[2019-06-09 09:11] LABS: Absolute Neutrophil Count 0.04 k/cumm (1.2-6.7)
[2019-06-09 09:12] LABS: White Blood Cell Count 1.25 k/cumm (4.4-10.8)
[2019-06-09 09:13] LABS: Diff Comment Manual Differential; Platelet Count 74 x1000/uL (130-400)
[2019-06-09 09:14] LABS: Hypochromasia 2+; Poikilocytes 2+; Polychromasia Present
[2019-06-09 12:06] LABS: Uric Acid 2.6 mg/dL (2.6-6.0)
== END 2019-06-10 23:59 | disposition home or self-care (01) ==
LOC: INF 02:12
PROVIDERS: PCP Family Medicine; Visit Provider Internal Medicine Hematology
DX: C92.00 Acute myeloblastic leukemia, not having achieved remission (principal); Z45.2 Encounter for adjustment and management of vascular access device
CPT/HCPCS: 36430; 36591; 86850; 86900; 86901; 86920; 86945; 83735; 84100; 84550; 85025; P9016

== ENCOUNTER 2019-07-10 01:00 | Outpatient (RCR) | payer OTHER, SELFPAY ==
[2019-06-12] MEDS: Heparin 500 UNITS/5 ML SYRINGE IV (08:23)
[2019-06-12] MEDS: Normal Saline Flush 10 ML SYR IVP (08:23)
[2019-06-12 08:27] LABS: Absolute Eosinophil Count 0.01 k/cumm (0.0-0.7); Absolute Lymphocyte Count 1.78 k/cumm (1.2-3.4); Absolute Monocyte Count 0.02 k/cumm (0.11-0.7); Eosinophils % 0.5; HCT 26.2 % (36.0-46.0); Lymphocytes % 95.7; Mean Corp. HGB Concentration 34.4 g/dL (32.0-36.0); Mean Corpuscular Hemoglobin 32.7 pg (27.0-33.0); Mean Corpuscular Volume 95.3 fL (80-95); Mean Platelet Volume 10.4 fL (8.0-11.0); Monocytes % 1.1; RBC 2.75 m/cumm (4.00-5.20); RBC Distribution Width 19.4 % (11.7-14.6)
[2019-06-12 08:50] LABS: Platelet Count 67 x1000/uL (130-400)
[2019-06-12 08:52] LABS: Diff Comment Agrees w/ Instrument; Neutrophils % 2.7
[2019-06-12 08:53] LABS: Hypochromasia 1+; Polychromasia Present
[2019-06-12 08:54] LABS: Poikilocytes 1+
[2019-06-12 08:56] LABS: Absolute Neutrophil Count 0.05 k/cumm (1.2-6.7); White Blood Cell Count 1.86 k/cumm (4.4-10.8)
[2019-06-16 08:26] LABS: Absolute Eosinophil Count 0.01 k/cumm (0.0-0.7); Absolute Lymphocyte Count 1.19 k/cumm (1.2-3.4); Absolute Monocyte Count 0.07 k/cumm (0.11-0.7); Eosinophils % 0.7; HCT 23.4 % (36.0-46.0); HGB 8.1 g/dL (12.0-15.5); Lymphocytes % 86.9; Mean Corp. HGB Concentration 34.6 g/dL (32.0-36.0); Mean Corpuscular Hemoglobin 33.2 pg (27.0-33.0); Mean Corpuscular Volume 95.9 fL (80-95); Mean Platelet Volume 10.7 fL (8.0-11.0); Monocytes % 5.1; Neutrophils % 7.3; RBC 2.44 m/cumm (4.00-5.20); RBC Distribution Width 19.2 % (11.7-14.6)
[2019-06-16 08:59] LABS: White Blood Cell Count 1.37 k/cumm (4.4-10.8)
[2019-06-16 09:00] LABS: Platelet Count 43 x1000/uL (130-400)
[2019-06-16 09:01] LABS: Anisocytosis 2+; Diff Comment Agrees w/ Instrument; Microcytosis 1+; Polychromasia Present
[2019-06-16 09:02] LABS: Poikilocytes 1+
[2019-06-16 09:46] VITALS: BP 125/68; PULSE 93; RESP 14; TEMP 36.6; O2SAT 100
[2019-06-16 09:50] VITALS: BP 125/68; PULSE 93; RESP 14; TEMP 36.6; O2SAT 100
[2019-06-16 10:01] VITALS: BP 132/84; PULSE 84; RESP 15; TEMP 36.5; O2SAT 100
[2019-06-16] MEDS: Heparin 500 UNITS/5 ML SYRINGE IV (10:17)
[2019-06-16] MEDS: Normal Saline Flush 10 ML SYR IVP (10:17)
[2019-06-16 10:31] VITALS: BP 132/70; PULSE 81; RESP 15; TEMP 36.4; O2SAT 100
[2019-06-16 11:24] VITALS: BP 158/84; PULSE 78; RESP 16; TEMP 36.7; O2SAT 100
[2019-06-19 07:51] VITALS: BP 158/84; PULSE 78; RESP 16; TEMP 36.7; O2SAT 100
[2019-06-19] MEDS: Normal Saline Flush 10 ML SYR IVP (07:53)
[2019-06-19 08:08] LABS: Abs Immature Grans 0.05 k/cumm (0.0-0.09); Absolute Eosinophil Count 0.01 k/cumm (0.0-0.7); Absolute Lymphocyte Count 1.33 k/cumm (1.2-3.4); Absolute Monocyte Count 0.15 k/cumm (0.11-0.7); Eosinophils % 0.6; HCT 24.6 % (36.0-46.0); HGB 8.6 g/dL (12.0-15.5); Immature Grans % 2.8 %; Lymphocytes % 73.9; Mean Corpuscular Hemoglobin 33.1 pg (27.0-33.0); Mean Corpuscular Volume 94.6 fL (80-95); Monocytes % 8.3; Neutrophils % 14.4
[2019-06-19 08:28] LABS: Anisocytosis 2+; Diff Comment Agrees w/ Instrument; Microcytosis 1+
[2019-06-19 08:29] LABS: Poikilocytes 1+; Polychromasia Present
[2019-06-19 08:35] LABS: Platelet Count 24 x1000/uL (130-400)
[2019-06-19 08:36] LABS: Absolute Neutrophil Count 0.26 k/cumm (1.2-6.7)
[2019-06-19] MEDS: Heparin 500 UNITS/5 ML SYRINGE IV (08:46)
[2019-06-23 08:21] LABS: Abs Immature Grans 0.01 k/cumm (0.0-0.09); Absolute Eosinophil Count 0.01 k/cumm (0.0-0.7); Absolute Lymphocyte Count 1.54 k/cumm (1.2-3.4); Absolute Monocyte Count 0.26 k/cumm (0.11-0.7); Eosinophils % 0.5; HCT 23.2 % (36.0-46.0); Immature Grans % 0.5 %; Lymphocytes % 69.4; Mean Corp. HGB Concentration 34.5 g/dL (32.0-36.0); Mean Corpuscular Hemoglobin 33.1 pg (27.0-33.0); Mean Corpuscular Volume 95.9 fL (80-95); Monocytes % 11.7; Neutrophils % 17.9; RBC 2.42 m/cumm (4.00-5.20); RBC Distribution Width 18.3 % (11.7-14.6); White Blood Cell Count 2.22 k/cumm (4.4-10.8)
[2019-06-23 09:02] LABS: Platelet Count 24 x1000/uL (130-400)
[2019-06-23 09:03] LABS: Anisocytosis 1+; Diff Comment Diff Reviewed
[2019-06-23 09:04] VITALS: BP 135/88; PULSE 80; RESP 15; TEMP 36.5; O2SAT 99
[2019-06-23 09:30] VITALS: BP 134/81; PULSE 77; RESP 15; TEMP 36.3; O2SAT 99
[2019-06-23 09:45] VITALS: BP 131/74; PULSE 75; RESP 16; TEMP 36.4; O2SAT 99
[2019-06-23 10:25] VITALS: BP 142/67; PULSE 78; RESP 16; TEMP 36.3; O2SAT 100
[2019-06-23 11:15] VITALS: BP 149/84; PULSE 74; RESP 16; TEMP 36.4; O2SAT 100
[2019-06-26] MEDS: Normal Saline Flush 10 ML SYR IVP (07:49)
[2019-06-26] MEDS: Heparin 500 UNITS/5 ML SYRINGE IV (07:50)
[2019-06-26 08:05] LABS: Abs Immature Grans 0.01 k/cumm (0.0-0.09); Absolute Eosinophil Count 0.01 k/cumm (0.0-0.7); Absolute Lymphocyte Count 1.59 k/cumm (1.2-3.4); Absolute Monocyte Count 0.33 k/cumm (0.11-0.7); Eosinophils % 0.4; HGB 9.1 g/dL (12.0-15.5); Immature Grans % 0.4 %; Lymphocytes % 62.6; Mean Corp. HGB Concentration 33.7 g/dL (32.0-36.0); Mean Corpuscular Hemoglobin 31.7 pg (27.0-33.0); Mean Corpuscular Volume 94.1 fL (80-95); Neutrophils % 23.6; RBC 2.87 m/cumm (4.00-5.20); RBC Distribution Width 17.6 % (11.7-14.6); White Blood Cell Count 2.54 k/cumm (4.4-10.8)
[2019-06-26 08:50] LABS: Platelet Count 26 x1000/uL (130-400)
[2019-06-26 08:51] LABS: Anisocytosis 1+; Diff Comment Diff Reviewed
[2019-06-26 08:52] LABS: Basophilic Stippling Present; Polychromasia Present
[2019-06-30 08:17] LABS: Abs Immature Grans 0.01 k/cumm (0.0-0.09); Absolute Eosinophil Count 0.01 k/cumm (0.0-0.7); Absolute Lymphocyte Count 1.64 k/cumm (1.2-3.4); Absolute Monocyte Count 0.38 k/cumm (0.11-0.7); Absolute Neutrophil Count 0.82 k/cumm (1.2-6.7); Eosinophils % 0.3; HCT 25.2 % (36.0-46.0); HGB 8.8 g/dL (12.0-15.5); Immature Grans % 0.3 %; Lymphocytes % 57.3; Mean Corp. HGB Concentration 34.9 g/dL (32.0-36.0); Mean Corpuscular Hemoglobin 32.8 pg (27.0-33.0); Monocytes % 13.3; Neutrophils % 28.8; Platelet Count 32 x1000/uL (130-400); RBC 2.68 m/cumm (4.00-5.20); RBC Distribution Width 17.2 % (11.7-14.6); White Blood Cell Count 2.86 k/cumm (4.4-10.8)
[2019-06-30] MEDS: Heparin 500 UNITS/5 ML SYRINGE IV (08:29)
[2019-06-30] MEDS: Normal Saline Flush 10 ML SYR IVP (08:29)
[2019-06-30 08:37] LABS: Anisocytosis 1+; Diff Comment Diff Reviewed; Macrocytosis 1+; Poikilocytes 1+
[2019-07-03] VITALS (8 sets, daily range): BP systolic 128–150; BP diastolic 61–85; PULSE 72–89; RESP 18–19; TEMP 36–36.4; O2SAT 99–100
[2019-07-03] MEDS: Heparin 500 UNITS/5 ML SYRINGE IV (08:08)
[2019-07-03] MEDS: Normal Saline Flush 10 ML SYR IVP (08:08)
[2019-07-03 08:23] LABS: Abs Immature Grans 0.03 k/cumm (0.0-0.09); Absolute Basophil Count 0.01 k/cumm (0.0-0.2); Absolute Eosinophil Count 0.03 k/cumm (0.0-0.7); Absolute Lymphocyte Count 2.03 k/cumm (1.2-3.4); Absolute Monocyte Count 0.43 k/cumm (0.11-0.7); Absolute Neutrophil Count 0.85 k/cumm (1.2-6.7); Basophils % 0.3; Eosinophils % 0.9; HCT 24.4 % (36.0-46.0); HGB 8.4 g/dL (12.0-15.5); Immature Grans % 0.9 %; Lymphocytes % 60.1; Mean Corp. HGB Concentration 34.4 g/dL (32.0-36.0); Mean Corpuscular Hemoglobin 32.6 pg (27.0-33.0); Mean Corpuscular Volume 94.6 fL (80-95); Mean Platelet Volume 9.7 fL (8.0-11.0); Monocytes % 12.7; Neutrophils % 25.1; RBC 2.58 m/cumm (4.00-5.20); RBC Distribution Width 17.6 % (11.7-14.6); White Blood Cell Count 3.38 k/cumm (4.4-10.8)
[2019-07-03 08:30] LABS: Anisocytosis 2+; Diff Comment Diff Reviewed; Platelet Count 36 x1000/uL (130-400); Polychromasia Present
[2019-07-07 08:19] LABS: Abs Immature Grans 0.01 k/cumm (0.0-0.09); Absolute Eosinophil Count 0.02 k/cumm (0.0-0.7); Absolute Lymphocyte Count 1.38 k/cumm (1.2-3.4); Absolute Monocyte Count 0.37 k/cumm (0.11-0.7); Absolute Neutrophil Count 1.11 k/cumm (1.2-6.7); Eosinophils % 0.7; HCT 25.4 % (36.0-46.0); HGB 8.7 g/dL (12.0-15.5); Immature Grans % 0.3 %; Lymphocytes % 47.8; Mean Corp. HGB Concentration 34.3 g/dL (32.0-36.0); Mean Corpuscular Hemoglobin 31.4 pg (27.0-33.0); Mean Corpuscular Volume 91.7 fL (80-95); Mean Platelet Volume 10.1 fL (8.0-11.0); Monocytes % 12.8; Neutrophils % 38.4; RBC 2.77 m/cumm (4.00-5.20); RBC Distribution Width 19.4 % (11.7-14.6); White Blood Cell Count 2.89 k/cumm (4.4-10.8)
[2019-07-07 08:30] LABS: Anisocytosis 2+; Basophilic Stippling Present; Diff Comment RBC Morph Reviewed; Platelet Count 44 x1000/uL (130-400); Polychromasia Present
[2019-07-07 08:46] LABS: ALT 35 U/L (14-59); AST 21 U/L (15-37); Albumin 3.3 g/dL (3.4-5.0); Alkaline Phosphatase 72 U/L (46-116); BUN 22 mg/dL (7-18); Bilirubin, Total 0.5 mg/dL (0.2-1.0); CREATININE 0.92 mg/dL (0.55-1.02); Calcium 8.8 mg/dL (8.5-10.1); Chloride 102 mmol/L (98-107); Estimated GFR 59.67 (mL/min/1.73m2); Glucose 157 mg/dL (74-106); Magnesium 1.8 mg/dL (1.8-2.4); PHOSPHORUS 4.7 mg/dL (2.6-4.7); Potassium 3.3 mmol/L (3.5-5.1); Sodium 139 mmol/L (136-145); Uric Acid 7.1 mg/dL (2.6-6.0)
[2019-07-10 12:01] VITALS: BP 144/85; PULSE 73; RESP 18; TEMP 36.2; O2SAT 99
[2019-07-10] MEDS: Normal Saline Flush 10 ML SYR IVP (12:04)
== END 2019-07-10 23:59 | disposition home or self-care (01) ==
LOC: INF 01:00
PROVIDERS: PCP Family Medicine; Visit Provider Internal Medicine Hematology
DX: C92.00 Acute myeloblastic leukemia, not having achieved remission (principal); Z45.2 Encounter for adjustment and management of vascular access device
CPT/HCPCS: 36430; 36591; 80053; 86850; 86900; 86901; 86920; 86945; 83735; 84100; 84550; 85025; P9016

== ENCOUNTER 2019-08-07 02:58 | Outpatient (RCR) | payer OTHER, SELFPAY ==
[2019-07-10 12:23] LABS: Abs Immature Grans 0.03 k/cumm (0.0-0.09); Absolute Basophil Count 0.01 k/cumm (0.0-0.2); Absolute Eosinophil Count 0.02 k/cumm (0.0-0.7); Absolute Lymphocyte Count 1.58 k/cumm (1.2-3.4); Absolute Monocyte Count 0.53 k/cumm (0.11-0.7); Absolute Neutrophil Count 1.56 k/cumm (1.2-6.7); Basophils % 0.3; Eosinophils % 0.5; HCT 24.1 % (36.0-46.0); Immature Grans % 0.8 %; Lymphocytes % 42.4; Mean Corp. HGB Concentration 33.2 g/dL (32.0-36.0); Mean Corpuscular Hemoglobin 31.3 pg (27.0-33.0); Mean Corpuscular Volume 94.1 fL (80-95); Mean Platelet Volume 10.5 fL (8.0-11.0); Monocytes % 14.2; Neutrophils % 41.8; RBC 2.56 m/cumm (4.00-5.20); White Blood Cell Count 3.73 k/cumm (4.4-10.8)
[2019-07-10 12:33] LABS: Anisocytosis 2+; Diff Comment Diff Reviewed; Hypochromasia 1+; Macrocytosis 1+; Microcytosis 1+; Platelet Count 57 x1000/uL (130-400); Polychromasia Present
[2019-07-10 12:34] LABS: Poikilocytes 1+
[2019-07-11] VITALS (7 sets, daily range): BP systolic 112–168; BP diastolic 69–83; PULSE 83–104; RESP 18–19; TEMP 36.2–36.6; O2SAT 96–100
[2019-07-11] MEDS: Normal Saline Flush 10 ML SYR IVP (11:22)
[2019-07-14 12:13] LABS: Abs Immature Grans 0.01 k/cumm (0.0-0.09); Absolute Eosinophil Count 0.02 k/cumm (0.0-0.7); Absolute Lymphocyte Count 1.13 k/cumm (1.2-3.4); Absolute Monocyte Count 0.28 k/cumm (0.11-0.7); Absolute Neutrophil Count 1.46 k/cumm (1.2-6.7); Eosinophils % 0.7; HCT 27.5 % (36.0-46.0); HGB 9.4 g/dL (12.0-15.5); Immature Grans % 0.3 %; Mean Corp. HGB Concentration 34.2 g/dL (32.0-36.0); Mean Corpuscular Hemoglobin 31.2 pg (27.0-33.0); Mean Corpuscular Volume 91.4 fL (80-95); Mean Platelet Volume 11.1 fL (8.0-11.0); Monocytes % 9.7; Neutrophils % 50.3; RBC 3.01 m/cumm (4.00-5.20)
[2019-07-14] MEDS: Normal Saline Flush 10 ML SYR IVP (12:22)
[2019-07-14 12:33] LABS: Anisocytosis 2+; Diff Comment Diff Reviewed; Macrocytosis 1+; Microcytosis 1+; Platelet Count 44 x1000/uL (130-400)
[2019-07-17 08:07] LABS: Absolute Eosinophil Count 0.01 k/cumm (0.0-0.7); Absolute Lymphocyte Count 1.82 k/cumm (1.2-3.4); Absolute Monocyte Count 0.26 k/cumm (0.11-0.7); Absolute Neutrophil Count 1.19 k/cumm (1.2-6.7); Eosinophils % 0.3; HCT 27.7 % (36.0-46.0); HGB 9.5 g/dL (12.0-15.5); Lymphocytes % 55.5; Mean Corp. HGB Concentration 34.3 g/dL (32.0-36.0); Mean Corpuscular Hemoglobin 31.5 pg (27.0-33.0); Mean Corpuscular Volume 91.7 fL (80-95); Mean Platelet Volume 10.1 fL (8.0-11.0); Monocytes % 7.9; Neutrophils % 36.3; RBC 3.02 m/cumm (4.00-5.20); RBC Distribution Width 18.9 % (11.7-14.6); White Blood Cell Count 3.28 k/cumm (4.4-10.8)
[2019-07-17 08:17] LABS: Anisocytosis 2+; Diff Comment PLT Morph Reviewed; Platelet Count 31 x1000/uL (130-400); Polychromasia Present
[2019-07-17] MEDS: Normal Saline Flush 10 ML SYR IVP (08:30)
[2019-07-17] MEDS: Heparin 500 UNITS/5 ML SYRINGE IV (08:30)
[2019-07-21] VITALS (8 sets, daily range): BP systolic 112–147; BP diastolic 60–109; PULSE 73–89; RESP 18–19; TEMP 36.3–36.6; O2SAT 98–100
[2019-07-21] MEDS: Normal Saline Flush 10 ML SYR IVP (08:06)
[2019-07-21] MEDS: Heparin 500 UNITS/5 ML SYRINGE IV (08:06)
[2019-07-21 08:19] LABS: Absolute Lymphocyte Count 1.47 k/cumm (1.2-3.4); HCT 24.2 % (36.0-46.0); HGB 8.3 g/dL (12.0-15.5); Lymphocytes % 72.4; Mean Corp. HGB Concentration 34.3 g/dL (32.0-36.0); Mean Corpuscular Hemoglobin 31.4 pg (27.0-33.0); Mean Corpuscular Volume 91.7 fL (80-95); Monocytes % 4.9; Neutrophils % 22.7; RBC 2.64 m/cumm (4.00-5.20); RBC Distribution Width 18.7 % (11.7-14.6); White Blood Cell Count 2.03 k/cumm (4.4-10.8)
[2019-07-21 08:42] LABS: Absolute Neutrophil Count 0.46 k/cumm (1.2-6.7)
[2019-07-21 08:43] LABS: Anisocytosis 2+; Diff Comment Diff Reviewed; Hypochromasia 1+; Platelet Count 28 x1000/uL (130-400); Poikilocytes 1+; Polychromasia Present
[2019-07-24 08:08] LABS: Absolute Lymphocyte Count 1.18 k/cumm (1.2-3.4); Absolute Monocyte Count 0.04 k/cumm (0.11-0.7); HCT 27.6 % (36.0-46.0); HGB 9.4 g/dL (12.0-15.5); Mean Corp. HGB Concentration 34.1 g/dL (32.0-36.0); Mean Corpuscular Volume 91.1 fL (80-95); Monocytes % 2.5; Neutrophils % 22.3; RBC 3.03 m/cumm (4.00-5.20); RBC Distribution Width 18.7 % (11.7-14.6)
[2019-07-24 08:22] LABS: Absolute Neutrophil Count 0.35 k/cumm (1.2-6.7)
[2019-07-24 08:26] LABS: Platelet Count 16 x1000/uL (130-400); White Blood Cell Count 1.57 k/cumm (4.4-10.8)
[2019-07-24 08:27] LABS: Anisocytosis 2+; Diff Comment Agrees w/ Instrument; Lymphocytes % 75.2; Nucleated RBC 2 /100WBC
[2019-07-24 08:31] VITALS: BP 143/77; PULSE 89; RESP 18; TEMP 36.3; O2SAT 98
[2019-07-24] MEDS: Normal Saline Flush 10 ML SYR IVP (08:33)
[2019-07-25 08:35] VITALS: BP 148/87; PULSE 104; RESP 18; TEMP 36.4; O2SAT 99
[2019-07-25 09:16] VITALS: BP 175/67; PULSE 85; RESP 18; TEMP 36.4; O2SAT 100
[2019-07-25] MEDS: Normal Saline Flush 10 ML SYR IVP (09:24)
[2019-07-25 10:43] VITALS: BP 159/80; PULSE 70; RESP 18; TEMP 36.5; O2SAT 100
[2019-07-28 08:08] LABS: Absolute Eosinophil Count 0.01 k/cumm (0.0-0.7); Absolute Lymphocyte Count 0.92 k/cumm (1.2-3.4); HCT 25.2 % (36.0-46.0); HGB 8.5 g/dL (12.0-15.5); Lymphocytes % 87.6; Mean Corp. HGB Concentration 33.7 g/dL (32.0-36.0); Mean Corpuscular Hemoglobin 31.1 pg (27.0-33.0); Mean Corpuscular Volume 92.3 fL (80-95); Mean Platelet Volume 9.4 fL (8.0-11.0); Neutrophils % 11.4; RBC 2.73 m/cumm (4.00-5.20); RBC Distribution Width 18.8 % (11.7-14.6)
[2019-07-28 08:42] LABS: White Blood Cell Count 1.05 k/cumm (4.4-10.8)
[2019-07-28 08:43] LABS: Absolute Neutrophil Count 0.12 k/cumm (1.2-6.7)
[2019-07-28 08:44] LABS: Platelet Count 41 x1000/uL (130-400)
[2019-07-28 08:46] LABS: Anisocytosis 2+; Diff Comment Agrees w/ Instrument; Polychromasia Present
[2019-07-28 09:00] VITALS: BP 153/79; PULSE 80; RESP 19; TEMP 36.6; O2SAT 100
[2019-07-28 10:58] VITALS: BP 155/74; PULSE 71; RESP 18; TEMP 36.6; O2SAT 99
[2019-07-28 11:13] VITALS: BP 150/93; PULSE 84; RESP 18; TEMP 36.3; O2SAT 99
[2019-07-28 11:28] VITALS: BP 159/83; PULSE 86; RESP 18; TEMP 36.6; O2SAT 99
[2019-07-28 11:43] VITALS: BP 172/71; PULSE 82; RESP 18; TEMP 36.6; O2SAT 99
[2019-07-28 12:13] VITALS: BP 165/80; PULSE 87; RESP 18; TEMP 36.6; O2SAT 99
[2019-07-28] MEDS: Normal Saline Flush 10 ML SYR IVP (12:30)
[2019-07-31 07:39] LABS: Abs Immature Grans 0.03 k/cumm (0.0-0.09); Absolute Basophil Count 0.01 k/cumm (0.0-0.2); Absolute Lymphocyte Count 1.14 k/cumm (1.2-3.4); Basophils % 0.8; HCT 28.2 % (36.0-46.0); HGB 9.5 g/dL (12.0-15.5); Immature Grans % 2.5 %; Lymphocytes % 94.2; Mean Corp. HGB Concentration 33.7 g/dL (32.0-36.0); Mean Corpuscular Hemoglobin 30.8 pg (27.0-33.0); Mean Corpuscular Volume 91.6 fL (80-95); Mean Platelet Volume 10.2 fL (8.0-11.0); Neutrophils % 2.5; RBC 3.08 m/cumm (4.00-5.20); RBC Distribution Width 18.4 % (11.7-14.6)
[2019-07-31] MEDS: Normal Saline Flush 10 ML SYR IVP (07:45)
[2019-07-31 08:12] VITALS: BP 165/80; PULSE 87; RESP 18; TEMP 36.6; O2SAT 99
[2019-07-31 08:21] LABS: ALT 41 U/L (14-59); AST 26 U/L (15-37); Albumin 3.4 g/dL (3.4-5.0); Alkaline Phosphatase 70 U/L (46-116); BUN 16 mg/dL (7-18); Bilirubin, Total 0.8 mg/dL (0.2-1.0); CREATININE 0.99 mg/dL (0.55-1.02); Calcium 8.7 mg/dL (8.5-10.1); Chloride 106 mmol/L (98-107); Estimated GFR 54.83 (mL/min/1.73m2); Glucose 147 mg/dL (74-106); Sodium 140 mmol/L (136-145); Total Protein 7.1 g/dL (6.4-8.2)
[2019-07-31 08:32] LABS: Absolute Neutrophil Count 0.03 k/cumm (1.2-6.7); White Blood Cell Count 1.21 k/cumm (4.4-10.8)
[2019-07-31 08:33] LABS: Anisocytosis 2+; Diff Comment Diff Reviewed; Platelet Count 54 x1000/uL (130-400)
[2019-08-05] VITALS (8 sets, daily range): BP systolic 133–174; BP diastolic 65–84; PULSE 72–91; RESP 16–18; TEMP 35.9–36.6; O2SAT 98–100
[2019-08-05 08:08] LABS: HCT 25.1 % (36.0-46.0); HGB 8.5 g/dL (12.0-15.5); Mean Corp. HGB Concentration 33.9 g/dL (32.0-36.0); Mean Corpuscular Hemoglobin 31.1 pg (27.0-33.0); Mean Corpuscular Volume 91.9 fL (80-95); Mean Platelet Volume 10.2 fL (8.0-11.0); RBC 2.73 m/cumm (4.00-5.20); RBC Distribution Width 18.1 % (11.7-14.6)
[2019-08-05] MEDS: Normal Saline Flush 10 ML SYR IVP (08:26)
[2019-08-05] MEDS: Heparin 500 UNITS/5 ML SYRINGE IV (08:27)
[2019-08-05 08:40] LABS: Absolute Eosinophil Count 0.01 k/cumm (0.0-0.7); Absolute Lymphocyte Count 0.78 k/cumm (1.2-3.4); Absolute Monocyte Count 0.02 k/cumm (0.11-0.7); Platelet Count 58 x1000/uL (130-400); White Blood Cell Count 0.81 k/cumm (4.4-10.8)
[2019-08-05 08:41] LABS: Anisocytosis 2+; Basophilic Stippling Present; Diff Comment Manual Differential; Polychromasia Present
[2019-08-07 08:13] LABS: Absolute Lymphocyte Count 1.31 k/cumm (1.2-3.4); Absolute Monocyte Count 0.03 k/cumm (0.11-0.7); HCT 29.6 % (36.0-46.0); Lymphocytes % 95.6; Mean Corp. HGB Concentration 33.8 g/dL (32.0-36.0); Mean Corpuscular Hemoglobin 30.9 pg (27.0-33.0); Mean Corpuscular Volume 91.4 fL (80-95); Mean Platelet Volume 9.7 fL (8.0-11.0); Monocytes % 2.2; Neutrophils % 2.2; RBC 3.24 m/cumm (4.00-5.20); RBC Distribution Width 17.7 % (11.7-14.6)
[2019-08-07] MEDS: Normal Saline Flush 10 ML SYR IVP (08:42)
[2019-08-07] MEDS: Heparin 500 UNITS/5 ML SYRINGE IV (08:42)
[2019-08-07 08:55] LABS: Absolute Neutrophil Count 0.03 k/cumm (1.2-6.7); White Blood Cell Count 1.37 k/cumm (4.4-10.8)
[2019-08-07 08:56] LABS: Diff Comment Agrees w/ Instrument; Platelet Count 57 x1000/uL (130-400); Polychromasia Present
== END 2019-08-10 23:59 | disposition home or self-care (01) ==
LOC: INF 02:58
PROVIDERS: PCP Family Medicine; Visit Provider Internal Medicine Hematology
DX: C92.00 Acute myeloblastic leukemia, not having achieved remission (principal); Z45.2 Encounter for adjustment and management of vascular access device; Z79.899 Other long term (current) drug therapy
CPT/HCPCS: 36430; 36591; 80053; 86850; 86900; 86901; 86920; 86945; 96523; 85025; 86644; P9016; P9035

== ENCOUNTER 2019-09-08 01:53 | Outpatient (RCR) | payer OTHER, SELFPAY ==
[2019-08-11 08:10] LABS: Abs Immature Grans 0.01 k/cumm (0.0-0.09); Absolute Eosinophil Count 0.01 k/cumm (0.0-0.7); Absolute Monocyte Count 0.19 k/cumm (0.11-0.7); Eosinophils % 0.6; HGB 9.5 g/dL (12.0-15.5); Immature Grans % 0.6 %; Lymphocytes % 77.8; Mean Corp. HGB Concentration 33.9 g/dL (32.0-36.0); Mean Corpuscular Volume 91.5 fL (80-95); Mean Platelet Volume 11.1 fL (8.0-11.0); Monocytes % 11.4; Neutrophils % 9.6; RBC 3.06 m/cumm (4.00-5.20); RBC Distribution Width 17.5 % (11.7-14.6)
[2019-08-11 08:49] LABS: White Blood Cell Count 1.67 k/cumm (4.4-10.8)
[2019-08-11 08:50] LABS: Absolute Neutrophil Count 0.16 k/cumm (1.2-6.7); Platelet Count 49 x1000/uL (130-400)
[2019-08-11 08:51] LABS: Anisocytosis 2+; Diff Comment Agrees w/ Instrument; Polychromasia Present
[2019-08-11] MEDS: Heparin 500 UNITS/5 ML SYRINGE IV (08:58)
[2019-08-11] MEDS: Normal Saline Flush 10 ML SYR IVP (08:58)
[2019-08-14] MEDS: Heparin 500 UNITS/5 ML SYRINGE IV (08:18)
[2019-08-14] MEDS: Normal Saline Flush 10 ML SYR IVP (08:18)
[2019-08-14 08:37] LABS: Abs Immature Grans 0.02 k/cumm (0.0-0.09); Absolute Eosinophil Count 0.01 k/cumm (0.0-0.7); Absolute Lymphocyte Count 1.65 k/cumm (1.2-3.4); Absolute Monocyte Count 0.26 k/cumm (0.11-0.7); Eosinophils % 0.4; HCT 27.3 % (36.0-46.0); HGB 9.4 g/dL (12.0-15.5); Immature Grans % 0.8 %; Lymphocytes % 69.9; Mean Corp. HGB Concentration 34.4 g/dL (32.0-36.0); Mean Corpuscular Hemoglobin 31.2 pg (27.0-33.0); Mean Corpuscular Volume 90.7 fL (80-95); Mean Platelet Volume 10.1 fL (8.0-11.0); Neutrophils % 17.9; RBC 3.01 m/cumm (4.00-5.20); RBC Distribution Width 17.6 % (11.7-14.6)
[2019-08-14 08:51] LABS: Absolute Neutrophil Count 0.42 k/cumm (1.2-6.7); Platelet Count 33 x1000/uL (130-400)
[2019-08-14 08:52] LABS: Anisocytosis 2+; Basophilic Stippling Present; Diff Comment Agrees w/ Instrument; Polychromasia Present; White Blood Cell Count 2.36 k/cumm (4.4-10.8)
[2019-08-18 08:26] LABS: Abs Immature Grans 0.01 k/cumm (0.0-0.09); Absolute Lymphocyte Count 2.04 k/cumm (1.2-3.4); Absolute Monocyte Count 0.37 k/cumm (0.11-0.7); Absolute Neutrophil Count 0.79 k/cumm (1.2-6.7); HCT 26.8 % (36.0-46.0); HGB 9.1 g/dL (12.0-15.5); Immature Grans % 0.3 %; Lymphocytes % 63.6; Mean Corpuscular Hemoglobin 31.1 pg (27.0-33.0); Mean Corpuscular Volume 91.5 fL (80-95); Monocytes % 11.5; Neutrophils % 24.6; RBC 2.93 m/cumm (4.00-5.20); White Blood Cell Count 3.21 k/cumm (4.4-10.8)
[2019-08-18] MEDS: Heparin 500 UNITS/5 ML SYRINGE IV (08:38)
[2019-08-18] MEDS: Normal Saline Flush 10 ML SYR IVP (08:38)
[2019-08-18 08:52] LABS: Anisocytosis 2+; Diff Comment Diff Reviewed; Platelet Count 34 x1000/uL (130-400); Polychromasia Present
[2019-08-21] VITALS (8 sets, daily range): BP systolic 131–150; BP diastolic 69–79; PULSE 71–88; RESP 18–19; TEMP 35.9–36.6; O2SAT 95–100
[2019-08-21] MEDS: Normal Saline Flush 10 ML SYR IVP (07:54)
[2019-08-21] MEDS: Heparin 500 UNITS/5 ML SYRINGE IV (07:54)
[2019-08-21 08:20] LABS: Abs Immature Grans 0.02 k/cumm (0.0-0.09); Absolute Eosinophil Count 0.01 k/cumm (0.0-0.7); Absolute Lymphocyte Count 1.96 k/cumm (1.2-3.4); Absolute Monocyte Count 0.53 k/cumm (0.11-0.7); Absolute Neutrophil Count 0.81 k/cumm (1.2-6.7); Eosinophils % 0.3; HCT 24.6 % (36.0-46.0); HGB 8.4 g/dL (12.0-15.5); Immature Grans % 0.6 %; Lymphocytes % 58.9; Mean Corp. HGB Concentration 34.1 g/dL (32.0-36.0); Mean Corpuscular Hemoglobin 31.5 pg (27.0-33.0); Mean Corpuscular Volume 92.1 fL (80-95); Mean Platelet Volume 12.8 fL (8.0-11.0); Monocytes % 15.9; Neutrophils % 24.3; RBC 2.67 m/cumm (4.00-5.20); RBC Distribution Width 17.8 % (11.7-14.6); White Blood Cell Count 3.33 k/cumm (4.4-10.8)
[2019-08-21 08:32] LABS: Anisocytosis 1+; Diff Comment Agrees w/ Instrument; Platelet Count 32 x1000/uL (130-400)
[2019-08-25 08:06] LABS: Abs Immature Grans 0.01 k/cumm (0.0-0.09); Absolute Basophil Count 0.01 k/cumm (0.0-0.2); Absolute Eosinophil Count 0.01 k/cumm (0.0-0.7); Absolute Lymphocyte Count 1.98 k/cumm (1.2-3.4); Absolute Monocyte Count 0.42 k/cumm (0.11-0.7); Absolute Neutrophil Count 1.07 k/cumm (1.2-6.7); Basophils % 0.3; Eosinophils % 0.3; HCT 28.1 % (36.0-46.0); HGB 9.6 g/dL (12.0-15.5); Immature Grans % 0.3 %; Lymphocytes % 56.6; Mean Corp. HGB Concentration 34.2 g/dL (32.0-36.0); Mean Corpuscular Hemoglobin 31.1 pg (27.0-33.0); Mean Corpuscular Volume 90.9 fL (80-95); Neutrophils % 30.5; RBC 3.09 m/cumm (4.00-5.20); RBC Distribution Width 17.3 % (11.7-14.6)
[2019-08-25] MEDS: Normal Saline Flush 10 ML SYR IVP (08:06)
[2019-08-25] MEDS: Heparin 500 UNITS/5 ML SYRINGE IV (08:06)
[2019-08-25 08:21] LABS: Anisocytosis 1+; Diff Comment Diff Reviewed; Mean Platelet Volume 11.4 fL (8.0-11.0); Platelet Count 35 x1000/uL (130-400); Polychromasia Present
[2019-08-28 08:26] LABS: Abs Immature Grans 0.02 k/cumm (0.0-0.09); Absolute Basophil Count 0.02 k/cumm (0.0-0.2); Absolute Eosinophil Count 0.01 k/cumm (0.0-0.7); Absolute Lymphocyte Count 1.83 k/cumm (1.2-3.4); Absolute Monocyte Count 0.45 k/cumm (0.11-0.7); Absolute Neutrophil Count 1.25 k/cumm (1.2-6.7); Basophils % 0.6; Eosinophils % 0.3; HCT 26.7 % (36.0-46.0); HGB 9.1 g/dL (12.0-15.5); Immature Grans % 0.6 %; Lymphocytes % 51.1; Mean Corp. HGB Concentration 34.1 g/dL (32.0-36.0); Mean Corpuscular Hemoglobin 31.2 pg (27.0-33.0); Mean Corpuscular Volume 91.4 fL (80-95); Mean Platelet Volume 10.7 fL (8.0-11.0); Monocytes % 12.6; Neutrophils % 34.8; RBC 2.92 m/cumm (4.00-5.20); RBC Distribution Width 17.5 % (11.7-14.6); White Blood Cell Count 3.58 k/cumm (4.4-10.8)
[2019-08-28 08:48] LABS: Anisocytosis 1+; Diff Comment RBC Morph Reviewed; Platelet Count 39 x1000/uL (130-400); Polychromasia Present
[2019-08-28] MEDS: Normal Saline Flush 10 ML SYR IVP (09:12)
[2019-08-28] MEDS: Heparin 500 UNITS/5 ML SYRINGE IV (09:12)
[2019-09-01] VITALS (8 sets, daily range): BP systolic 125–145; BP diastolic 45–87; PULSE 66–92; RESP 12–18; TEMP 35.9–36.9; O2SAT 90–99
[2019-09-01] MEDS: Heparin 500 UNITS/5 ML SYRINGE IV (08:12)
[2019-09-01] MEDS: Normal Saline Flush 10 ML SYR IVP (08:12)
[2019-09-01 08:29] LABS: Abs Immature Grans 0.04 k/cumm (0.0-0.09); Absolute Eosinophil Count 0.02 k/cumm (0.0-0.7); Absolute Lymphocyte Count 1.83 k/cumm (1.2-3.4); Absolute Monocyte Count 0.48 k/cumm (0.11-0.7); Absolute Neutrophil Count 1.46 k/cumm (1.2-6.7); Eosinophils % 0.5; HCT 24.1 % (36.0-46.0); HGB 8.1 g/dL (12.0-15.5); Lymphocytes % 47.8; Mean Corp. HGB Concentration 33.6 g/dL (32.0-36.0); Mean Corpuscular Hemoglobin 31.3 pg (27.0-33.0); Mean Corpuscular Volume 93.1 fL (80-95); Mean Platelet Volume 8.9 fL (8.0-11.0); Monocytes % 12.5; Neutrophils % 38.2; RBC 2.59 m/cumm (4.00-5.20); RBC Distribution Width 18.2 % (11.7-14.6); White Blood Cell Count 3.83 k/cumm (4.4-10.8)
[2019-09-01 08:35] LABS: Anisocytosis 1+; Basophilic Stippling Present; Diff Comment RBC Morph Reviewed; Platelet Count 40 x1000/uL (130-400); Polychromasia Present
[2019-09-08] MEDS: Normal Saline Flush 10 ML SYR IVP (07:56)
[2019-09-08] MEDS: Heparin 500 UNITS/5 ML SYRINGE IV (07:57)
[2019-09-08 08:06] LABS: Abs Immature Grans 0.03 k/cumm (0.0-0.09); Absolute Eosinophil Count 0.03 k/cumm (0.0-0.7); Absolute Lymphocyte Count 2.14 k/cumm (1.2-3.4); Absolute Monocyte Count 0.41 k/cumm (0.11-0.7); Absolute Neutrophil Count 2.26 k/cumm (1.2-6.7); Eosinophils % 0.6; HCT 27.1 % (36.0-46.0); HGB 9.3 g/dL (12.0-15.5); Immature Grans % 0.6 %; Lymphocytes % 43.9; Mean Corp. HGB Concentration 34.3 g/dL (32.0-36.0); Mean Corpuscular Volume 93.1 fL (80-95); Mean Platelet Volume 10.5 fL (8.0-11.0); Monocytes % 8.4; Neutrophils % 46.5; RBC 2.91 m/cumm (4.00-5.20); RBC Distribution Width 18.2 % (11.7-14.6); White Blood Cell Count 4.87 k/cumm (4.4-10.8)
[2019-09-08 08:28] LABS: Anisocytosis 2+; Diff Comment RBC Morph Reviewed; Platelet Count 45 x1000/uL (130-400)
== END 2019-09-09 23:59 | disposition home or self-care (01) ==
LOC: INF 01:53
PROVIDERS: PCP Family Medicine; Visit Provider Internal Medicine Hematology
DX: D46.20 Refractory anemia with excess of blasts, unspecified (principal); Z45.2 Encounter for adjustment and management of vascular access device
CPT/HCPCS: 36430; 36591; 86850; 86900; 86901; 86920; 86945; 85025; 86644; P9016

== ENCOUNTER 2019-10-09 09:00 | Outpatient (RCR) | payer OTHER, SELFPAY ==
[2019-09-11 08:12] LABS: Abs Immature Grans 0.02 k/cumm (0.0-0.09); Absolute Eosinophil Count 0.05 k/cumm (0.0-0.7); Absolute Lymphocyte Count 1.47 k/cumm (1.2-3.4); Absolute Monocyte Count 0.34 k/cumm (0.11-0.7); Absolute Neutrophil Count 2.34 k/cumm (1.2-6.7); Eosinophils % 1.2; HCT 25.2 % (36.0-46.0); HGB 8.6 g/dL (12.0-15.5); Immature Grans % 0.5 %; Lymphocytes % 34.8; Mean Corp. HGB Concentration 34.1 g/dL (32.0-36.0); Mean Corpuscular Hemoglobin 32.1 pg (27.0-33.0); Monocytes % 8.1; Neutrophils % 55.4; RBC 2.68 m/cumm (4.00-5.20); RBC Distribution Width 18.8 % (11.7-14.6); White Blood Cell Count 4.22 k/cumm (4.4-10.8)
[2019-09-11 08:26] LABS: Anisocytosis 1+; Diff Comment RBC Morph Reviewed; Platelet Count 50 x1000/uL (130-400); Poikilocytes 1+; Polychromasia Present
[2019-09-11] MEDS: Heparin 500 UNITS/5 ML SYRINGE IV (09:19)
[2019-09-11] MEDS: Normal Saline Flush 10 ML SYR IVP (09:19)
[2019-09-15] MEDS: Normal Saline Flush 10 ML SYR IVP (07:58)
[2019-09-15 08:21] LABS: Abs Immature Grans 0.05 k/cumm (0.0-0.09); Absolute Basophil Count 0.01 k/cumm (0.0-0.2); Absolute Eosinophil Count 0.05 k/cumm (0.0-0.7); Absolute Lymphocyte Count 1.81 k/cumm (1.2-3.4); Absolute Monocyte Count 0.38 k/cumm (0.11-0.7); Absolute Neutrophil Count 2.21 k/cumm (1.2-6.7); Basophils % 0.2; Eosinophils % 1.1; HCT 25.3 % (36.0-46.0); HGB 8.5 g/dL (12.0-15.5); Immature Grans % 1.1 %; Lymphocytes % 40.1; Mean Corp. HGB Concentration 33.6 g/dL (32.0-36.0); Mean Corpuscular Hemoglobin 31.8 pg (27.0-33.0); Mean Corpuscular Volume 94.8 fL (80-95); Mean Platelet Volume 10.3 fL (8.0-11.0); Monocytes % 8.4; Neutrophils % 49.1; RBC 2.67 m/cumm (4.00-5.20); RBC Distribution Width 19.7 % (11.7-14.6); White Blood Cell Count 4.51 k/cumm (4.4-10.8)
[2019-09-15 08:35] LABS: ALT 45 U/L (14-59); AST 30 U/L (15-37); Albumin 3.5 g/dL (3.4-5.0); Alkaline Phosphatase 80 U/L (46-116); Anion Gap 11.6 mmol/L (3-11); Anisocytosis 2+; BUN 26 mg/dL (7-18); Bilirubin, Total 0.4 mg/dL (0.2-1.0); CO2 24.4 mmol/L (21.0-32.0); CREATININE 1.27 mg/dL (0.55-1.02); Calcium 9.1 mg/dL (8.5-10.1); Chloride 103 mmol/L (98-107); Diff Comment RBC Morph Reviewed; Estimated GFR 41.13 (mL/min/1.73m2); Glucose 171 mg/dL (74-106); Platelet Count 52 x1000/uL (130-400); Polychromasia Present; Potassium 3.5 mmol/L (3.5-5.1); Sodium 139 mmol/L (136-145); Total Protein 7.2 g/dL (6.4-8.2)
[2019-09-16] VITALS (9 sets, daily range): BP systolic 104–151; BP diastolic 66–98; PULSE 65–100; RESP 18–19; TEMP 36–36.6; O2SAT 97–100
[2019-09-16] MEDS: Normal Saline Flush 10 ML SYR IVP (07:16)
[2019-09-18] MEDS: Normal Saline Flush 10 ML SYR IVP (07:53)
[2019-09-18 08:06] LABS: Abs Immature Grans 0.03 k/cumm (0.0-0.09); Absolute Basophil Count 0.01 k/cumm (0.0-0.2); Absolute Eosinophil Count 0.03 k/cumm (0.0-0.7); Absolute Lymphocyte Count 1.77 k/cumm (1.2-3.4); Absolute Monocyte Count 0.44 k/cumm (0.11-0.7); Absolute Neutrophil Count 2.68 k/cumm (1.2-6.7); Basophils % 0.2; Eosinophils % 0.6; HCT 27.4 % (36.0-46.0); HGB 9.3 g/dL (12.0-15.5); Immature Grans % 0.6 %; Lymphocytes % 35.7; Mean Corp. HGB Concentration 33.9 g/dL (32.0-36.0); Mean Corpuscular Hemoglobin 32.1 pg (27.0-33.0); Mean Corpuscular Volume 94.5 fL (80-95); Mean Platelet Volume 10.5 fL (8.0-11.0); Monocytes % 8.9; RBC Distribution Width 20.1 % (11.7-14.6); White Blood Cell Count 4.96 k/cumm (4.4-10.8)
[2019-09-18 08:20] LABS: Basophilic Stippling Present; Diff Comment Diff Reviewed; Hypochromasia 2+; Platelet Count 53 x1000/uL (130-400); Polychromasia Present
[2019-09-18 08:21] LABS: Poikilocytes 2+
[2019-09-22] MEDS: Normal Saline Flush 10 ML SYR IVP (08:01)
[2019-09-22 08:14] LABS: Abs Immature Grans 0.01 k/cumm (0.0-0.09); Absolute Eosinophil Count 0.03 k/cumm (0.0-0.7); Absolute Lymphocyte Count 1.31 k/cumm (1.2-3.4); Absolute Monocyte Count 0.26 k/cumm (0.11-0.7); Absolute Neutrophil Count 1.87 k/cumm (1.2-6.7); Eosinophils % 0.9; HCT 25.7 % (36.0-46.0); HGB 8.7 g/dL (12.0-15.5); Immature Grans % 0.3 %; Lymphocytes % 37.6; Mean Corp. HGB Concentration 33.9 g/dL (32.0-36.0); Mean Corpuscular Hemoglobin 32.1 pg (27.0-33.0); Mean Corpuscular Volume 94.8 fL (80-95); Mean Platelet Volume 10.8 fL (8.0-11.0); Monocytes % 7.5; Neutrophils % 53.7; RBC 2.71 m/cumm (4.00-5.20); White Blood Cell Count 3.48 k/cumm (4.4-10.8)
[2019-09-22 08:36] LABS: Platelet Count 45 x1000/uL (130-400)
[2019-09-25] MEDS: Normal Saline Flush 10 ML SYR IVP (07:50)
[2019-09-25] MEDS: Heparin 500 UNITS/5 ML SYRINGE IV (07:57)
[2019-09-25 08:16] LABS: Abs Immature Grans 0.01 k/cumm (0.0-0.09); Absolute Eosinophil Count 0.01 k/cumm (0.0-0.7); Absolute Lymphocyte Count 1.33 k/cumm (1.2-3.4); Absolute Monocyte Count 0.25 k/cumm (0.11-0.7); Absolute Neutrophil Count 1.42 k/cumm (1.2-6.7); Eosinophils % 0.3; HCT 25.3 % (36.0-46.0); HGB 8.6 g/dL (12.0-15.5); Immature Grans % 0.3 %; Mean Corpuscular Hemoglobin 32.5 pg (27.0-33.0); Mean Corpuscular Volume 95.5 fL (80-95); Mean Platelet Volume 10.5 fL (8.0-11.0); Monocytes % 8.3; Neutrophils % 47.1; RBC 2.65 m/cumm (4.00-5.20); RBC Distribution Width 19.3 % (11.7-14.6); White Blood Cell Count 3.02 k/cumm (4.4-10.8)
[2019-09-25 08:24] LABS: Anisocytosis 1+; Basophilic Stippling Present; Diff Comment RBC Morph Reviewed; Platelet Count 35 x1000/uL (130-400); Polychromasia Present
[2019-09-29 08:00] LABS: Abs Immature Grans 0.01 k/cumm (0.0-0.09); Absolute Eosinophil Count 0.01 k/cumm (0.0-0.7); Absolute Lymphocyte Count 1.09 k/cumm (1.2-3.4); Absolute Monocyte Count 0.21 k/cumm (0.11-0.7); Absolute Neutrophil Count 0.51 k/cumm (1.2-6.7); Eosinophils % 0.5; Immature Grans % 0.5 %; Lymphocytes % 59.6; Mean Corp. HGB Concentration 34.8 g/dL (32.0-36.0); Mean Corpuscular Hemoglobin 33.2 pg (27.0-33.0); Mean Corpuscular Volume 95.4 fL (80-95); Monocytes % 11.5; Neutrophils % 27.9; RBC 2.41 m/cumm (4.00-5.20); RBC Distribution Width 19.3 % (11.7-14.6)
[2019-09-29 08:36] VITALS: BP 101/64; PULSE 58; RESP 19; TEMP 36.6; O2SAT 93
[2019-09-29 08:36] LABS: White Blood Cell Count 1.83 k/cumm (4.4-10.8)
[2019-09-29 08:37] LABS: Platelet Count 26 x1000/uL (130-400)
[2019-09-29 08:38] LABS: Anisocytosis 2+; Diff Comment Agrees w/ Instrument; Microcytosis 1+; Polychromasia Present
[2019-09-29 09:35] VITALS: BP 105/66; PULSE 65; RESP 19; TEMP 36.2; O2SAT 99
[2019-09-29 09:50] VITALS: BP 109/65; PULSE 69; RESP 18; TEMP 36.1; O2SAT 99
[2019-09-29 10:05] VITALS: BP 122/74; PULSE 66; RESP 19; TEMP 36.6; O2SAT 99
[2019-09-29 10:35] VITALS: BP 116/64; PULSE 68; RESP 18; TEMP 36.6; O2SAT 97
[2019-09-29 11:00] VITALS: BP 118/64; PULSE 68; RESP 18; TEMP 36.7; O2SAT 97
[2019-09-29] MEDS: Normal Saline Flush 10 ML SYR IVP (11:03)
[2019-09-29] MEDS: Heparin 500 UNITS/5 ML SYRINGE IV (11:03)
[2019-10-02 07:53] LABS: Absolute Lymphocyte Count 1.51 k/cumm (1.2-3.4); Absolute Monocyte Count 0.11 k/cumm (0.11-0.7); HCT 25.6 % (36.0-46.0); HGB 8.7 g/dL (12.0-15.5); Lymphocytes % 71.9; Mean Corpuscular Volume 94.1 fL (80-95); Monocytes % 5.2; Neutrophils % 22.9; RBC 2.72 m/cumm (4.00-5.20); RBC Distribution Width 18.5 % (11.7-14.6)
[2019-10-02] MEDS: Normal Saline Flush 10 ML SYR IVP (08:11)
[2019-10-02 08:14] LABS: Platelet Count 20 x1000/uL (130-400)
[2019-10-02 08:15] LABS: Absolute Neutrophil Count 0.48 k/cumm (1.2-6.7); Anisocytosis 2+; Diff Comment Agrees w/ Instrument; Macrocytosis 1+; Microcytosis 2+; Polychromasia Present
[2019-10-03 08:35] VITALS: BP 173/82; PULSE 120; RESP 19; TEMP 36.4; O2SAT 99
[2019-10-03] MEDS: Normal Saline Flush 10 ML SYR IVP (09:15)
[2019-10-03 09:16] VITALS: BP 137/78; PULSE 96; RESP 19; TEMP 36.4; O2SAT 100
[2019-10-03 09:17] VITALS: BP 124/71; PULSE 75; RESP 18; TEMP 36; O2SAT 100
[2019-10-06] MEDS: Heparin 500 UNITS/5 ML SYRINGE IV (08:00)
[2019-10-06] MEDS: Normal Saline Flush 10 ML SYR IVP (08:00)
[2019-10-06 08:01] LABS: Absolute Basophil Count 0.01 k/cumm (0.0-0.2); Absolute Eosinophil Count 0.01 k/cumm (0.0-0.7); Absolute Lymphocyte Count 1.27 k/cumm (1.2-3.4); Absolute Monocyte Count 0.03 k/cumm (0.11-0.7); Basophils % 0.6; Eosinophils % 0.6; HCT 25.4 % (36.0-46.0); HGB 8.7 g/dL (12.0-15.5); Lymphocytes % 77.4; Mean Corp. HGB Concentration 34.3 g/dL (32.0-36.0); Mean Corpuscular Hemoglobin 32.7 pg (27.0-33.0); Mean Corpuscular Volume 95.5 fL (80-95); Mean Platelet Volume 12.2 fL (8.0-11.0); Monocytes % 1.8; Neutrophils % 19.6; RBC 2.66 m/cumm (4.00-5.20); RBC Distribution Width 19.3 % (11.7-14.6)
[2019-10-06 08:34] LABS: White Blood Cell Count 1.64 k/cumm (4.4-10.8)
[2019-10-06 08:35] LABS: Absolute Neutrophil Count 0.32 k/cumm (1.2-6.7); Platelet Count 28 x1000/uL (130-400)
[2019-10-06 08:36] LABS: Anisocytosis 2+; Diff Comment Agrees w/ Instrument; Microcytosis 1+; Nucleated RBC 1 /100WBC; Polychromasia Present
[2019-10-09] VITALS (9 sets, daily range): BP systolic 108–153; BP diastolic 56–84; PULSE 63–96; RESP 18–20; TEMP 36–36.4; O2SAT 97–100
[2019-10-09] MEDS: Heparin 500 UNITS/5 ML SYRINGE IV (08:17)
[2019-10-09] MEDS: Normal Saline Flush 10 ML SYR IVP (08:17)
[2019-10-09 08:43] LABS: Abs Immature Grans 0.01 10^3/uL (0.0-0.06); Absolute Lymphocyte Count 0.99 10^3/uL (1.2-3.4); Absolute Monocyte Count 0.04 10^3/uL (0.1-0.8); HCT 23.6 % (36.0-46.0); HGB 8.3 g/dL (11.2-15.7); Immature Grans % 0.9; Lymphocytes % 86.8; MCH 33.2 pg (27.0-33.0); MCHC 35.2 % (32.0-36.0); MCV 94.4 fL (80-95); MPV 11.3 fL (8.0-11.0); Monocytes % 3.5; Neutrophils % 8.8; RDW 19.2 % (11.7-14.6); RDW-SD 62.1 fL
[2019-10-09 08:54] LABS: WBC 1.14 10^3/uL (4.4-10.8)
[2019-10-09 08:55] LABS: Anisocytosis 2+; Basophilic Stippling Present; Diff Comment Diff Reviewed; Hypochromasia 1+; Microcytosis 1+; Poikilocytes 1+; Polychromasia Present
[2019-10-09 08:56] LABS: Platelet Count 34 10^3/uL (130-400)
== END 2019-10-10 23:59 | disposition home or self-care (01) ==
LOC: INF 09:00
PROVIDERS: PCP Family Medicine; Visit Provider Internal Medicine Hematology
DX: D46.20 Refractory anemia with excess of blasts, unspecified (principal); Z45.2 Encounter for adjustment and management of vascular access device
CPT/HCPCS: 36430; 36591; 80053; 86850; 86900; 86901; 86920; 86945; 96365; 96523; 85025; 86644; P9016; P9035

== ENCOUNTER 2019-10-23 09:41 | Outpatient (REF) | payer OTHER, SELFPAY ==
[2019-10-23 09:58] LABS: ALT 37 U/L (14-59); AST 21 U/L (15-37); Albumin 3.5 g/dL (3.4-5.0); Alkaline Phosphatase 81 U/L (46-116); Anion Gap 9.4 mmol/L (3-11); BUN 20 mg/dL (7-18); Bilirubin, Total 0.6 mg/dL (0.2-1.0); CO2 26.6 mmol/L (21.0-32.0); CREATININE 1.34 mg/dL (0.55-1.02); Calcium 9.4 mg/dL (8.5-10.1); Chloride 100 mmol/L (98-107); Estimated GFR 38.66 (mL/min/1.73m2); Glucose 162 mg/dL (74-106); PHOSPHORUS 4.5 mg/dL (2.6-4.7); Potassium 3.4 mmol/L (3.5-5.1); Sodium 136 mmol/L (136-145); Total Protein 6.9 g/dL (6.4-8.2)
== END 2019-10-23 10:01 ==
LOC: LBN 09:41
PROVIDERS: PCP Family Medicine; Visit Provider Internal Medicine Hematology
DX: D46.Z Other myelodysplastic syndromes (principal); C92.00 Acute myeloblastic leukemia, not having achieved remission
CPT/HCPCS: 80053; 84100

== ENCOUNTER 2019-11-03 07:42 | Emergency (ER) | payer OTHER, SELFPAY ==
[2019-11-03] VITALS (36 sets, daily range): BP systolic 111–162; BP diastolic 62–110; PULSE 68–118; RESP 16–18; TEMP 36.6–36.8; O2SAT 95–100
--- NOTE | 2019-11-03 07:56 | W.ED.GENAD ---
Discharge Plan Disposition Patient Disposition: HOME Condition: Stable Discharge Details Chief Complaint: HeadInjury Clinical Impression: Thrombocytopenia, Fall, Acute head trauma, Traumatic hematoma of scalp Primary Care Provider: [facility] ED Provider: Bjorn Bethea Home Meds and New Rx's Prescriptions: Continued levofloxacin [Levaquin] 750 mg Tablet 750 mg PO DAILY RF: 0 acetaminophen [Tylenol] 325 mg Capsule 650 mg PO Q8H PRN PRNRF: 0 acyclovir [Zovirax] 400 mg Tablet 400 mg PO BID RF: 0 allopurinol 300 mg Tablet 300 mg PO DAILY RF: 0 cyanocobalamin (vitamin B-12) 1,000 mcg Capsule 1,000 mcg PO DAILY RF: 0 diphenhydramine HCl 25 mg Capsule 25 mg PO Q6H PRN PRNRF: 0 fluconazole 200 mg Tablet 200 mg PO DAILY RF: 0 meclizine 25 mg Tablet 25 mg PO BID PRNRF: 0 ondansetron 8 mg Tablet,Disintegrating 8 mg PO PRN PRNRF: 0 potassium chloride 20 mEq tablet extended release 20 meq PO DAILY Qty: 20 RF: 0 Discharge Instructions Instructions: Fall Prevention for Older Adults (ED), Head Injury (ED), Scalp Contusion in Adults (ED) Additional Instructions: Today received 1 pack of platelets. Please contact your primary care physician to arrange follow-up. Return to the ER for any worsening or new concerning symptoms. Medical Decision Making 819 ?? 74-year-old female with history of mild dysplastic syndrome and thrombocytopenia requiring intermittent transfusions, here after mechanical trip and fall from standing to the ground having pulled a iron onto the back of her head. She has a small hematoma left occiput. She has no headache and did not lose consciousness. She is neurologically intact. Patient here at the prompting of infusion lab staff. Labs that were drawn and infusion labs today reveal thrombocytopenia with platelets of 18. Plan will be to give platelets that she would have received an infusion lab and monitor closely. 1217 --patient was transfused a pack of platelets. She was reassessed multiple times. She continues to have no headache, no visual changes, no nausea, no numbness or tingling. She states that her hematoma feels slightly tender but otherwise is well. Plan for outpatient follow-up. Disposition decision was made weighing the risks and benefits of hospitalization versus outpatient treatment, the risk for further decompensation, and the patient's wishes. The patient was stable and requested discharge. Prior to discharge, my usual and customary return precautions were reviewed with the patient - this included follow-up instructions and reason to return to the emergency department if condition worsens, does not improve as expected, or other new concerns arise including headache. HPI General Mode of arrival: ambulatory. Date/Time Provider Initiated Documentation: 11/03/19 07:53. Limitations to Documentation: no limitations. Information obtained by: patient. HPI Narrative: 74-year-old female with multiple medical problems including history of myelodysplastic syndrome resulting in thrombocytopenia requiring intermittent transfusions, presents after mechanical trip and fall with head injury. Patient notes she tripped, grabbed the cord of a iron which then fell from about 3 feet and struck the back of her head. She did not have any loss of consciousness. Patient denies associated headache. Patient does have goose egg posterior occiput. Related Data Home Medications Medication Instructions Recorded Confirmed acetaminophen [Tylenol] 650 mg PO Q8H PRN PRN 12/08/18 11/03/19 acyclovir [Zovirax] 400 mg PO BID 12/08/18 11/03/19 allopurinol 300 mg PO DAILY 12/08/18 11/03/19 cyanocobalamin (vitamin B-12) 1,000 mcg PO DAILY 12/08/18 11/03/19 diphenhydramine HCl 25 mg PO Q6H PRN PRN 12/08/18 11/03/19 fluconazole 200 mg PO DAILY 12/08/18 11/03/19 meclizine 25 mg PO BID PRN 12/08/18 11/03/19 ondansetron 8 mg PO PRN PRN 12/08/18 11/03/19 levofloxacin [Levaquin] 750 mg PO DAILY 03/06/19 11/03/19 potassium chloride 20 meq PO DAILY #20 tab 04/03/19 11/03/19 Previous Rx's Medication Instructions Recorded potassium chloride 20 meq PO DAILY #20 tab 04/03/19 Allergies Allergy/AdvReac Type Severity Reaction Status Date / Time prochlorperazine AdvReac Mild Other (See Unverified 11/03/19 07:52 [From Compazine] Comment) General Stated Complaint: HeadInjury REBEKAH: 3 Review of Systems Constitutional Constitutional: Denies headache(s) and Denies weakness ENT Ears, Nose, Mouth, and Throat: Denies headache(s) Neurologic Neurologic: Denies headache(s) and Denies weakness [facility] Medical History CAD S/P percutaneous coronary angioplasty (Acute) HTN (hypertension), benign (Acute) Hyperlipidemia (Acute) Lumbago without sciatica (Acute) MDS (myelodysplastic syndrome) (Chronic) Vertiginous syndrome (Acute) Surgical History S/P PICC central line placement (Acute) Social History Smoking/Tobacco Use Status: Never Alcohol Intake: never Drug use: Never Substance use type: does not use What is your relationship status?: Panel score (0-1 are the most socially isolated patients): 1 Do you feel safe at home: Yes Do you feel safe in your relationship?: Yes Additional Social history: Retired nurse Exam Const General: cooperative and no acute distress HENMT Head: no Burgess's sign, hematoma left occipital, no palpable skull fracture, no raccoon eyes, scalp tenderness (Over occipital hematoma) and No periorbital ecchymosis Ears: TM's normal bilaterally Mouth: moist mucous membranes Throat: posterior oropharynx normal Eyes EOM: EOM intact bilaterally Neck Neck: full ROM and nontender Resp Auscultation: clear to auscultation bilaterally, no rales, no rhonchi and no wheezes Cardio Jugular venous pressure: no JVD Rate: regular rate and not tachycardic Rhythm: regular rhythm GI Palpation: soft, not firm, no guarding, no masses, not rigid and nontender Skin General skin exam: no rashes or lesions noted Neuro General: patient alert, patient awake, patient oriented x3 and tone normal Extrem General: no edema Psych Appearance: grossly normal Mental Status: mental status grossly normal Speech and Movement: speech and movement normal Course Vital Signs Vital signs: Vital Signs Temperature 36.7 C 11/03/19 07:45 Pulse 118 H 11/03/19 07:45 Blood Pressure 155/92 H 11/03/19 07:45 Pulse Oximetry 100 11/03/19 07:45 Temperature 36.7 C 11/03/19 07:45 Temperature Source Temporal Artery Scan 11/03/19 07:45 Pulse 118 H 11/03/19 07:45 Respiratory Effort Non-Labored 11/03/19 07:50 Blood Pressure 155/92 H 11/03/19 07:45 Blood Pressure Position Sitting 11/03/19 07:45 Pulse Oximetry 100 11/03/19 07:45 Oxygen Delivery Method Room Air 11/03/19 07:45 Oxygen Flow Rate 0 11/03/19 07:45 Pain Level 2 11/03/19 07:45
[2019-11-03 08:04] LABS: Absolute Lymphocyte Count 1.33 10^3/uL (1.2-3.4); Absolute Monocyte Count 0.11 10^3/uL (0.1-0.8); HCT 26.6 % (36.0-46.0); HGB 9.2 g/dL (11.2-15.7); Lymphocytes % 84.2; MCH 31.7 pg (27.0-33.0); MCHC 34.6 % (32.0-36.0); MCV 91.7 fL (80-95); Neutrophils % 8.8; Nucleated RBC 0 %; RDW 15.6 % (11.7-14.6); RDW-SD 51.8 fL
[2019-11-03 08:18] LABS: Absolute Neutrophil Count 0.14 10^3/uL (1.2-6.7); Platelet Count 18 10^3/uL (130-400); WBC 1.58 10^3/uL (4.4-10.8)
[2019-11-03 08:19] LABS: Anisocytosis 1+; Diff Comment Diff Reviewed
--- NOTE | 2019-11-03 11:58 | NUR.NOTE ---
lungs clear / afebrile at start of transfusion Nursing Note:
--- NOTE | 2019-11-03 12:27 | NUR.NOTE ---
port accessed in transfusion room this morning for blood draw d/c'd by brendon,rn prior to d/c Nursing Note:
== END 2019-11-03 12:23 | disposition home or self-care (01) ==
PROVIDERS: Internal Medicine Hematology; Emergency Provider Student in an Organized Health Care Education/Training Program; PCP Family Medicine
DX: S00.03XA Contusion of scalp, initial encounter (principal); W18.30XA Fall on same level, unspecified, initial encounter; W20.8XXA Other cause of strike by thrown, projected or falling object, initial encounter; D69.6 Thrombocytopenia, unspecified; D46.9 Myelodysplastic syndrome, unspecified; I10 Essential (primary) hypertension
CPT/HCPCS: 36430; 36592; 86850; 86900; 86901; 86945; 99285; 85025; 86644; 99284; P9035

== ENCOUNTER 2019-11-05 08:05 | Outpatient (CLI) | payer OTHER, SELFPAY ==
--- NOTE | 2019-11-04 | DI.CT_ITS ---
EXAM: CT HEAD WO CLINICAL HISTORY: PANCYTOPENIA D61.818. TECHNIQUE: Imaging Protocol: Axial computed tomography images with coronal and sagittal reformatted images were created and reviewed COMPARISON: No exams were available for comparison FINDINGS: The ventricular system is normal in appearance. No evidence of acute intracranial hemorrhage, mass effect, or midline shift. The orbital structures are unremarkable. The temporal bone structures appear intact. Calvarium: Normal. Visualized Paranasal sinuses/Mastoids: Clear. IMPRESSION: Normal cranial CT. RADIATION DOSE DELIVERED: 700.55mGy.cm Total DLP 700.55mGy.cm Total DLP DATA REPOSITORY: All CT scans at this facility are submitted to the National Radiology Data Registry (NRDR) Dose Index Registry (DIR) with the [employer] (ACR). RADIATION OPTIMIZATION: All CT scans at this facility use at least one of these dose optimization te chniques: automated exposure control; mA and/or kV adjustment per patient size (includes targeted exa ms where dose is matched to clinical indication); or iterative reconstruction.
== END 2019-11-05 08:25 ==
PROVIDERS: PCP Family Medicine; Visit Provider Internal Medicine Hematology
DX: D61.818 Other pancytopenia (principal)
CPT/HCPCS: 70450

== ENCOUNTER 2019-11-10 02:40 | Outpatient (RCR) | payer OTHER, SELFPAY ==
[2019-10-13 08:00] LABS: Absolute Eosinophil Count 0.01 10^3/uL (0.0-0.7); Absolute Lymphocyte Count 1.39 10^3/uL (1.2-3.4); Absolute Monocyte Count 0.06 10^3/uL (0.1-0.8); Eosinophils % 0.7; HCT 26.9 % (36.0-46.0); HGB 9.1 g/dL (11.2-15.7); Lymphocytes % 92.7; MCH 31.5 pg (27.0-33.0); MCHC 33.8 % (32.0-36.0); MCV 93.1 fL (80-95); MPV 9.2 fL (8.0-11.0); Neutrophils % 2.6; RBC 2.89 10^6/uL (3.93-5.22); RDW 18.5 % (11.7-14.6); RDW-SD 59.3 fL
[2019-10-13] MEDS: Normal Saline Flush 10 ML SYR IVP (08:03)
[2019-10-13] MEDS: Heparin 500 UNITS/5 ML SYRINGE IV (08:04)
[2019-10-13 08:32] LABS: Platelet Count 40 10^3/uL (130-400)
[2019-10-13 08:33] LABS: Absolute Neutrophil Count 0.04 10^3/uL (1.2-6.7); Diff Comment Agrees w/ Instrument
[2019-10-13 08:34] LABS: Poikilocytes 1+; Polychromasia Present
[2019-10-16] MEDS: Normal Saline Flush 10 ML SYR IVP (07:59)
[2019-10-16] MEDS: Heparin 500 UNITS/5 ML SYRINGE IV (08:00)
[2019-10-16 08:19] LABS: HCT 25.4 % (36.0-46.0); HGB 8.6 g/dL (11.2-15.7); MCH 31.9 pg (27.0-33.0); MCHC 33.9 % (32.0-36.0); MCV 94.1 fL (80-95); MPV 11.6 fL (8.0-11.0); Nucleated RBC 0 %; RDW 18.3 % (11.7-14.6); RDW-SD 60.3 fL
[2019-10-16 08:37] LABS: Absolute Lymphocyte Count 1.88 10^3/uL (1.2-3.4); Absolute Monocyte Count 0.06 10^3/uL (0.1-0.8); Platelet Count 35 10^3/uL (130-400)
[2019-10-16 08:46] LABS: Diff Comment Manual Differential
[2019-10-16 08:47] LABS: Anisocytosis 1+; Polychromasia Present
[2019-10-16 08:57] LABS: Absolute Neutrophil Count 0.06 10^3/uL (1.2-6.7)
[2019-10-20] VITALS (7 sets, daily range): BP systolic 122–142; BP diastolic 66–84; PULSE 78–98; RESP 17–18; TEMP 36.1–36.8; O2SAT 98–100
[2019-10-20] MEDS: Normal Saline Flush 10 ML SYR IVP (07:51)
[2019-10-20] MEDS: Heparin 500 UNITS/5 ML SYRINGE IV (07:52)
[2019-10-20 08:09] LABS: Abs Immature Grans 0.04 10^3/uL (0.0-0.06); Absolute Basophil Count 0.01 10^3/uL (0.0-0.2); Absolute Eosinophil Count 0.02 10^3/uL (0.0-0.7); Absolute Lymphocyte Count 2.66 10^3/uL (1.2-3.4); Absolute Monocyte Count 0.31 10^3/uL (0.1-0.8); Basophils % 0.3; Eosinophils % 0.6; HCT 24.4 % (36.0-46.0); HGB 8.3 g/dL (11.2-15.7); Immature Grans % 1.1; Lymphocytes % 74.1; MCH 31.9 pg (27.0-33.0); MCV 93.8 fL (80-95); Monocytes % 8.6; Neutrophils % 15.3; Nucleated RBC 0 %; RDW 18.5 % (11.7-14.6); RDW-SD 60.3 fL; WBC 3.59 10^3/uL (4.4-10.8)
[2019-10-20 08:27] LABS: Diff Comment Diff Reviewed
[2019-10-20 08:28] LABS: Anisocytosis 2+
[2019-10-20 09:10] LABS: Platelet Count 27 10^3/uL (130-400)
[2019-10-20 09:11] LABS: Absolute Neutrophil Count 0.55 10^3/uL (1.2-6.7)
[2019-10-23 08:04] LABS: Abs Immature Grans 0.04 10^3/uL (0.0-0.06); HCT 26.6 % (36.0-46.0); MCH 31.8 pg (27.0-33.0); MCHC 33.8 % (32.0-36.0); Nucleated RBC 1 %; RBC 2.83 10^6/uL (3.93-5.22); RDW 17.9 % (11.7-14.6); RDW-SD 59.4 fL; WBC 3.81 10^3/uL (4.4-10.8)
[2019-10-23] MEDS: Normal Saline Flush 10 ML SYR IVP (08:11)
[2019-10-23 08:32] LABS: Platelet Count 23 10^3/uL (130-400)
[2019-10-23 08:34] LABS: Absolute Lymphocyte Count 2.67 10^3/uL (1.2-3.4); Absolute Monocyte Count 0.23 10^3/uL (0.1-0.8); Absolute Neutrophil Count 0.91 10^3/uL (1.2-6.7); Atypical Lymphocytes % 5
[2019-10-23 08:36] LABS: Polychromasia Present
[2019-10-27] VITALS (7 sets, daily range): BP systolic 117–173; BP diastolic 70–86; PULSE 84–98; RESP 18–20; TEMP 36.1–36.5; O2SAT 96–100
[2019-10-27] MEDS: Normal Saline Flush 10 ML SYR IVP (07:50)
[2019-10-27 08:16] LABS: Absolute Eosinophil Count 0.01 10^3/uL (0.0-0.7); Absolute Lymphocyte Count 1.61 10^3/uL (1.2-3.4); Absolute Monocyte Count 0.13 10^3/uL (0.1-0.8); Eosinophils % 0.4; HCT 22.8 % (36.0-46.0); Lymphocytes % 65.7; MCH 31.9 pg (27.0-33.0); MCHC 35.1 % (32.0-36.0); MCV 90.8 fL (80-95); Monocytes % 5.3; Neutrophils % 28.6; RBC 2.51 10^6/uL (3.93-5.22); RDW 17.2 % (11.7-14.6); RDW-SD 54.2 fL; WBC 2.45 10^3/uL (4.4-10.8)
[2019-10-27 08:56] LABS: Anisocytosis 1+; Diff Comment Diff Reviewed; Platelet Count 18 10^3/uL (130-400)
[2019-10-28 13:18] VITALS: BP 172/93; PULSE 101; RESP 19; TEMP 36.4; O2SAT 99
[2019-10-28] MEDS: Normal Saline Flush 10 ML SYR IVP (13:20)
[2019-10-28 14:10] VITALS: BP 157/83; PULSE 91; RESP 18; TEMP 36.3; O2SAT 100
[2019-10-30] VITALS (7 sets, daily range): BP systolic 96–178; BP diastolic 47–80; PULSE 81–113; RESP 18–19; TEMP 36.2–36.6; O2SAT 96–100
[2019-10-30] MEDS: Normal Saline Flush 10 ML SYR IVP ×2 (07:50→10:56)
[2019-10-30 08:11] LABS: HCT 24.7 % (36.0-46.0); HGB 8.7 g/dL (11.2-15.7); MCH 32.5 pg (27.0-33.0); MCHC 35.2 % (32.0-36.0); MCV 92.2 fL (80-95); Nucleated RBC 0 %; RBC 2.68 10^6/uL (3.93-5.22); RDW 16.7 % (11.7-14.6); RDW-SD 55.8 fL
[2019-10-30 08:26] LABS: Absolute Basophil Count 0.02 10^3/uL (0.0-0.2); Absolute Eosinophil Count 0.02 10^3/uL (0.0-0.7); Absolute Lymphocyte Count 1.57 10^3/uL (1.2-3.4); Absolute Monocyte Count 0.02 10^3/uL (0.1-0.8); Anisocytosis 1+; Diff Comment Manual Differential
[2019-10-30 08:35] LABS: WBC 1.85 10^3/uL (4.4-10.8)
[2019-10-30 08:36] LABS: Absolute Neutrophil Count 0.22 10^3/uL (1.2-6.7); Platelet Count 12 10^3/uL (130-400)
[2019-10-31 08:03] VITALS: BP 149/99; PULSE 95; RESP 19; TEMP 36.5; O2SAT 99
[2019-10-31 08:25] VITALS: BP 142/86; PULSE 91; RESP 100; TEMP 36.6
[2019-11-03] MEDS: Normal Saline Flush 10 ML SYR IVP (07:44)
[2019-11-04] MEDS: Normal Saline Flush 10 ML SYR IVP (09:00)
[2019-11-04 09:23] LABS: Absolute Eosinophil Count 0.01 10^3/uL (0.0-0.7); Absolute Monocyte Count 0.08 10^3/uL (0.1-0.8); Eosinophils % 0.7; HGB 8.5 g/dL (11.2-15.7); Lymphocytes % 79.7; MCH 31.4 pg (27.0-33.0); MCV 92.3 fL (80-95); MPV 10.1 fL (8.0-11.0); Monocytes % 5.8; Neutrophils % 13.8; Nucleated RBC 0 %; RBC 2.71 10^6/uL (3.93-5.22); RDW 15.7 % (11.7-14.6); RDW-SD 51.8 fL
[2019-11-04 10:06] LABS: Absolute Neutrophil Count 0.19 10^3/uL (1.2-6.7); WBC 1.38 10^3/uL (4.4-10.8)
[2019-11-04 10:07] LABS: Platelet Count 32 10^3/uL (130-400)
[2019-11-04 10:29] VITALS: BP 168/76; PULSE 105; RESP 18; TEMP 36.8; O2SAT 100
[2019-11-04 11:35] VITALS: BP 148/76; PULSE 82; RESP 18; TEMP 35.9; O2SAT 100
[2019-11-06] VITALS (7 sets, daily range): BP systolic 128–145; BP diastolic 62–82; PULSE 77–94; RESP 18–19; TEMP 35.7–35.9; O2SAT 98–100
[2019-11-06] MEDS: Normal Saline Flush 10 ML SYR IVP ×2 (07:44→15:13)
[2019-11-06 07:58] LABS: Absolute Monocyte Count 0.08 10^3/uL (0.1-0.8); HCT 25.1 % (36.0-46.0); HGB 8.9 g/dL (11.2-15.7); Lymphocytes % 84.1; MCH 31.9 pg (27.0-33.0); MCHC 35.5 % (32.0-36.0); MPV 10.4 fL (8.0-11.0); Monocytes % 3.7; Neutrophils % 12.2; Nucleated RBC 0 %; RBC 2.79 10^6/uL (3.93-5.22); RDW 15.5 % (11.7-14.6); WBC 2.14 10^3/uL (4.4-10.8)
[2019-11-06 08:40] LABS: Diff Comment Agrees w/ Instrument; Platelet Count 45 10^3/uL (130-400)
[2019-11-06 08:41] LABS: Hypochromasia 2+
[2019-11-06 08:42] LABS: Poikilocytes 1+
[2019-11-06 08:48] LABS: Absolute Neutrophil Count 0.26 10^3/uL (1.2-6.7)
[2019-11-10] MEDS: Normal Saline Flush 10 ML SYR IVP (07:50)
== END 2019-11-10 23:59 | disposition home or self-care (01) ==
LOC: INF 02:40
PROVIDERS: PCP Family Medicine; Visit Provider Internal Medicine Hematology
DX: D46.20 Refractory anemia with excess of blasts, unspecified (principal); Z45.2 Encounter for adjustment and management of vascular access device; C92.01 Acute myeloblastic leukemia, in remission
CPT/HCPCS: 36430; 36591; 86850; 86900; 86901; 86920; 86945; 96372; 85025; 86644; P9016; P9035

== ENCOUNTER 2019-12-09 01:56 | Outpatient (RCR) | payer OTHER, SELFPAY ==
[2019-11-10 07:58] LABS: HGB 9.3 g/dL (11.2-15.7); MCH 31.2 pg (27.0-33.0); MCHC 34.4 % (32.0-36.0); MCV 90.6 fL (80-95); MPV 11.3 fL (8.0-11.0); Nucleated RBC 0 %; RBC 2.98 10^6/uL (3.93-5.22); RDW-SD 48.2 fL
[2019-11-10 08:44] LABS: Platelet Count 15 10^3/uL (130-400)
[2019-11-10 08:45] LABS: WBC 1.59 10^3/uL (4.4-10.8)
[2019-11-10 08:46] LABS: Absolute Lymphocyte Count 1.49 10^3/uL (1.2-3.4); Absolute Monocyte Count 0.03 10^3/uL (0.1-0.8); Absolute Neutrophil Count 0.06 10^3/uL (1.2-6.7)
[2019-11-10 08:47] LABS: Anisocytosis 1+; Diff Comment Manual Differential
[2019-11-11 08:00] VITALS: BP 155/59; PULSE 91; RESP 20; TEMP 36.5; O2SAT 99
[2019-11-11] MEDS: Normal Saline Flush 10 ML SYR IVP (08:00)
[2019-11-11 08:41] VITALS: BP 132/67; PULSE 78; RESP 18; TEMP 36.5; O2SAT 100
[2019-11-11 08:54] VITALS: BP 156/72; PULSE 87; RESP 19; TEMP 36.6; O2SAT 100
[2019-11-13] MEDS: Normal Saline Flush 10 ML SYR IVP (07:52)
[2019-11-13 08:01] LABS: HCT 25.2 % (36.0-46.0); HGB 8.8 g/dL (11.2-15.7); MCH 31.7 pg (27.0-33.0); MCHC 34.9 % (32.0-36.0); MCV 90.6 fL (80-95); Nucleated RBC 0 %; RBC 2.78 10^6/uL (3.93-5.22); RDW 15.1 % (11.7-14.6); RDW-SD 49.4 fL
[2019-11-13 08:54] LABS: WBC 1.51 10^3/uL (4.4-10.8)
[2019-11-13 08:56] LABS: Absolute Lymphocyte Count 1.36 10^3/uL (1.2-3.4); Absolute Monocyte Count 0.06 10^3/uL (0.1-0.8); Absolute Neutrophil Count 0.09 10^3/uL (1.2-6.7); Diff Comment Manual Differential; Platelet Count 19 10^3/uL (130-400)
[2019-11-13 08:57] LABS: Anisocytosis 1+; Polychromasia Present
[2019-11-14] VITALS (8 sets, daily range): BP systolic 141–172; BP diastolic 73–99; PULSE 67–95; RESP 18–19; TEMP 36.1–36.6; O2SAT 98–100
[2019-11-14] MEDS: Normal Saline Flush 10 ML SYR IVP (08:30)
[2019-11-18] MEDS: Normal Saline Flush 10 ML SYR IVP (07:56)
[2019-11-18 08:03] LABS: Absolute Eosinophil Count 0.01 10^3/uL (0.0-0.7); Absolute Lymphocyte Count 1.58 10^3/uL (1.2-3.4); Absolute Monocyte Count 0.08 10^3/uL (0.1-0.8); Eosinophils % 0.6; HCT 26.5 % (36.0-46.0); HGB 9.2 g/dL (11.2-15.7); Lymphocytes % 92.4; MCH 31.2 pg (27.0-33.0); MCHC 34.7 % (32.0-36.0); MCV 89.8 fL (80-95); MPV 8.7 fL (8.0-11.0); Monocytes % 4.7; Neutrophils % 2.3; Nucleated RBC 0 %; Platelet Count 32 10^3/uL (130-400); RBC 2.95 10^6/uL (3.93-5.22); RDW 14.5 % (11.7-14.6); RDW-SD 46.1 fL
[2019-11-18 08:34] LABS: Absolute Neutrophil Count 0.04 10^3/uL (1.2-6.7); WBC 1.71 10^3/uL (4.4-10.8)
[2019-11-18 08:36] LABS: Diff Comment Diff Reviewed; RBC Morphology Normal
[2019-11-20] VITALS (8 sets, daily range): BP systolic 123–158; BP diastolic 56–84; PULSE 71–91; RESP 18–19; TEMP 35.7–36.3; O2SAT 96–100
[2019-11-20] MEDS: Normal Saline Flush 10 ML SYR IVP (07:55)
[2019-11-20 08:01] LABS: HCT 24.2 % (36.0-46.0); HGB 8.7 g/dL (11.2-15.7); MCH 31.9 pg (27.0-33.0); MCV 88.6 fL (80-95); MPV 10.5 fL (8.0-11.0); Nucleated RBC 0 %; RBC 2.73 10^6/uL (3.93-5.22); RDW 14.5 % (11.7-14.6); RDW-SD 45.1 fL
[2019-11-20 08:20] LABS: Diff Comment Manual Differential
[2019-11-20 08:21] LABS: Absolute Eosinophil Count 0.01 10^3/uL (0.0-0.7); Absolute Monocyte Count 0.01 10^3/uL (0.1-0.8); RBC Morphology Normal
[2019-11-20 08:31] LABS: Platelet Count 29 10^3/uL (130-400); WBC 1.35 10^3/uL (4.4-10.8)
[2019-11-20 08:32] LABS: Absolute Neutrophil Count 0.03 10^3/uL (1.2-6.7)
[2019-11-20] MEDS: Heparin 500 UNITS/5 ML SYRINGE IV (10:03)
[2019-11-24 08:14] LABS: HCT 26.9 % (36.0-46.0); HGB 9.3 g/dL (11.2-15.7); MCH 30.4 pg (27.0-33.0); MCHC 34.6 % (32.0-36.0); MCV 87.9 fL (80-95); MPV 10.8 fL (8.0-11.0); Nucleated RBC 1 %; RBC 3.06 10^6/uL (3.93-5.22); RDW 14.1 % (11.7-14.6); RDW-SD 43.7 fL
[2019-11-24] MEDS: Normal Saline Flush 10 ML SYR IVP (08:32)
[2019-11-24] MEDS: Heparin 500 UNITS/5 ML SYRINGE IV (08:33)
[2019-11-24 08:45] LABS: Absolute Lymphocyte Count 1.56 10^3/uL (1.2-3.4); Absolute Monocyte Count 0.09 10^3/uL (0.1-0.8); Diff Comment Manual Differential
[2019-11-24 08:46] LABS: RBC Morphology Normal
[2019-11-24 08:53] LABS: WBC 1.71 10^3/uL (4.4-10.8)
[2019-11-24 08:54] LABS: Absolute Neutrophil Count 0.05 10^3/uL (1.2-6.7); Platelet Count 29 10^3/uL (130-400)
[2019-11-27 08:02] LABS: Abs Immature Grans 0.01 10^3/uL (0.0-0.06); Absolute Eosinophil Count 0.02 10^3/uL (0.0-0.7); Absolute Lymphocyte Count 1.49 10^3/uL (1.2-3.4); Absolute Monocyte Count 0.32 10^3/uL (0.1-0.8); Eosinophils % 0.9; HCT 26.4 % (36.0-46.0); HGB 9.1 g/dL (11.2-15.7); Immature Grans % 0.5; Lymphocytes % 70.3; MCH 30.4 pg (27.0-33.0); MCHC 34.5 % (32.0-36.0); MCV 88.3 fL (80-95); MPV 13.3 fL (8.0-11.0); Monocytes % 15.1; Neutrophils % 13.2; Nucleated RBC 1 %; RBC 2.99 10^6/uL (3.93-5.22); RDW 13.9 % (11.7-14.6); RDW-SD 43.2 fL; WBC 2.12 10^3/uL (4.4-10.8)
[2019-11-27] MEDS: Normal Saline Flush 10 ML SYR IVP (08:25)
[2019-11-27 08:42] LABS: Absolute Neutrophil Count 0.28 10^3/uL (1.2-6.7); Platelet Count 28 10^3/uL (130-400)
[2019-11-27 08:45] LABS: Diff Comment Agrees w/ Instrument; Polychromasia Present
[2019-11-28 10:29] LABS: Abs Immature Grans 0.19 10^3/uL (0.0-0.06); HCT 24.3 % (36.0-46.0); HGB 8.5 g/dL (11.2-15.7); MCH 30.8 pg (27.0-33.0); RBC 2.76 10^6/uL (3.93-5.22); RDW 14.1 % (11.7-14.6); RDW-SD 43.8 fL
[2019-11-28 10:52] LABS: Platelet Count 17 10^3/uL (130-400)
[2019-11-28 10:53] LABS: Absolute Lymphocyte Count 1.46 10^3/uL (1.2-3.4); Absolute Neutrophil Count 0.43 10^3/uL (1.2-6.7)
[2019-11-28 10:54] LABS: Nucleated RBC 0 %
[2019-11-28 10:55] LABS: Diff Comment Manual Differential; RBC Morphology Normal
[2019-11-29] VITALS (9 sets, daily range): BP systolic 119–149; BP diastolic 58–86; PULSE 78–106; RESP 18–20; TEMP 35.9–36.8; O2SAT 91–100
[2019-11-29] MEDS: Normal Saline Flush 10 ML SYR IVP (11:15)
[2019-12-01] VITALS (10 sets, daily range): BP systolic 110–156; BP diastolic 59–81; PULSE 71–99; RESP 18–19; TEMP 36–36.9; O2SAT 96–100
[2019-12-01 08:09] LABS: Abs Immature Grans 0.04 10^3/uL (0.0-0.06); HCT 25.8 % (36.0-46.0); HGB 8.9 g/dL (11.2-15.7); MCH 30.4 pg (27.0-33.0); MCHC 34.5 % (32.0-36.0); MCV 88.1 fL (80-95); RBC 2.93 10^6/uL (3.93-5.22); RDW 14.2 % (11.7-14.6); RDW-SD 44.3 fL
[2019-12-01] MEDS: Normal Saline Flush 10 ML SYR IVP (08:09)
[2019-12-01 08:51] LABS: Platelet Count 30 10^3/uL (130-400)
[2019-12-01 08:53] LABS: Absolute Eosinophil Count 0.06 10^3/uL (0.0-0.7); Absolute Lymphocyte Count 1.54 10^3/uL (1.2-3.4); Absolute Monocyte Count 0.41 10^3/uL (0.1-0.8); Bands % 2; Nucleated RBC 2 %
[2019-12-01 08:54] LABS: Anisocytosis 1+; Diff Comment Manual Differential; Polychromasia Present
[2019-12-04] MEDS: Normal Saline Flush 10 ML SYR IVP (07:36)
[2019-12-04 07:44] LABS: Abs Immature Grans 0.02 10^3/uL (0.0-0.06); Absolute Basophil Count 0.01 10^3/uL (0.0-0.2); Absolute Eosinophil Count 0.01 10^3/uL (0.0-0.7); Absolute Lymphocyte Count 1.92 10^3/uL (1.2-3.4); Absolute Monocyte Count 0.34 10^3/uL (0.1-0.8); Absolute Neutrophil Count 0.76 10^3/uL (1.2-6.7); Basophils % 0.3; Eosinophils % 0.3; HCT 29.4 % (36.0-46.0); Immature Grans % 0.7; Lymphocytes % 62.7; MCH 30.3 pg (27.0-33.0); MCV 89.1 fL (80-95); MPV 10.6 fL (8.0-11.0); Monocytes % 11.1; Neutrophils % 24.9; Nucleated RBC 0 %; RDW 13.8 % (11.7-14.6); RDW-SD 44.4 fL
[2019-12-04 08:01] LABS: Diff Comment Agrees w/ Instrument; RBC Morphology Normal
[2019-12-04 09:50] LABS: Platelet Count 24 10^3/uL (130-400)
[2019-12-04 09:51] LABS: WBC 3.06 10^3/uL (4.4-10.8)
[2019-12-08] MEDS: Normal Saline Flush 10 ML SYR IVP (07:43)
[2019-12-08 08:27] LABS: Abs Immature Grans 0.01 10^3/uL (0.0-0.06); Absolute Lymphocyte Count 1.56 10^3/uL (1.2-3.4); Absolute Neutrophil Count 0.96 10^3/uL (1.2-6.7); HCT 25.5 % (36.0-46.0); HGB 8.8 g/dL (11.2-15.7); Immature Grans % 0.4; Lymphocytes % 57.1; MCH 30.2 pg (27.0-33.0); MCHC 34.5 % (32.0-36.0); MCV 87.6 fL (80-95); MPV 10.4 fL (8.0-11.0); Monocytes % 7.3; Neutrophils % 35.2; Nucleated RBC 0 %; RBC 2.91 10^6/uL (3.93-5.22); RDW 13.2 % (11.7-14.6); RDW-SD 41.2 fL; WBC 2.73 10^3/uL (4.4-10.8)
[2019-12-08 09:14] LABS: Platelet Count 17 10^3/uL (130-400)
[2019-12-08 09:15] LABS: Diff Comment Diff Reviewed; Microcytosis 1+
[2019-12-08 10:45] VITALS: BP 146/66; PULSE 87; RESP 20; TEMP 36.9; O2SAT 98
[2019-12-08 11:26] VITALS: BP 136/68; PULSE 92; RESP 18; TEMP 36.6; O2SAT 100
[2019-12-08 11:56] VITALS: BP 123/90; PULSE 95; RESP 18; TEMP 36.6; O2SAT 98
[2019-12-08 12:33] VITALS: BP 128/82; PULSE 108; RESP 20; TEMP 36.7; O2SAT 97
[2019-12-09 07:40] VITALS: BP 158/81; PULSE 97; RESP 18; TEMP 36.4; O2SAT 97
[2019-12-09 07:55] VITALS: BP 146/80; PULSE 91; RESP 18; TEMP 36.4; O2SAT 99
[2019-12-09] MEDS: Normal Saline Flush 10 ML SYR IVP (08:00)
[2019-12-09 08:10] VITALS: BP 145/69; PULSE 89; RESP 18; TEMP 36.2; O2SAT 97
== END 2019-12-10 23:59 | disposition home or self-care (01) ==
LOC: INF 01:56
PROVIDERS: PCP Family Medicine; Visit Provider Internal Medicine Hematology
DX: D46.Z Other myelodysplastic syndromes (principal); C92.01 Acute myeloblastic leukemia, in remission; Z45.2 Encounter for adjustment and management of vascular access device
CPT/HCPCS: 36430; 36591; 86850; 86900; 86901; 86920; 86945; 96372; 96523; 85025; 86644; P9016; P9035

== ENCOUNTER 2020-01-09 03:52 | Outpatient (RCR) | payer OTHER, SELFPAY ==
[2019-12-11] MEDS: Normal Saline Flush 10 ML SYR IVP (07:55)
[2019-12-11 08:02] LABS: Absolute Eosinophil Count 0.01 10^3/uL (0.0-0.7); Absolute Lymphocyte Count 1.62 10^3/uL (1.2-3.4); Absolute Monocyte Count 0.13 10^3/uL (0.1-0.8); Eosinophils % 0.5; HCT 27.2 % (36.0-46.0); HGB 9.4 g/dL (11.2-15.7); MCH 30.3 pg (27.0-33.0); MCHC 34.6 % (32.0-36.0); MCV 87.7 fL (80-95); MPV 11.3 fL (8.0-11.0); Monocytes % 6.5; Nucleated RBC 0 %; RDW 13.1 % (11.7-14.6); RDW-SD 40.9 fL
[2019-12-11 08:26] LABS: ALT 66 U/L (14-59); AST 36 U/L (15-37); Albumin 3.4 g/dL (3.4-5.0); Alkaline Phosphatase 81 U/L (46-116); Anion Gap 6.5 mmol/L (3-11); BUN 24 mg/dL (7-18); Bilirubin, Total 0.8 mg/dL (0.2-1.0); CO2 29.5 mmol/L (21.0-32.0); CREATININE 1.11 mg/dL (0.55-1.02); Calcium 9.4 mg/dL (8.5-10.1); Chloride 102 mmol/L (98-107); Estimated GFR 48.05 (mL/min/1.73m2); Glucose 170 mg/dL (74-106); Potassium 3.5 mmol/L (3.5-5.1); Sodium 138 mmol/L (136-145); Total Protein 7.1 g/dL (6.4-8.2)
[2019-12-11 08:48] LABS: Absolute Neutrophil Count 0.24 10^3/uL (1.2-6.7); Platelet Count 24 10^3/uL (130-400)
[2019-12-11 08:49] LABS: Diff Comment Agrees w/ Instrument; RBC Morphology Normal
[2019-12-15] VITALS (7 sets, daily range): BP systolic 106–132; BP diastolic 57–81; PULSE 70–90; RESP 18–19; TEMP 36–36.5; O2SAT 99–100
[2019-12-15 08:11] LABS: Absolute Eosinophil Count 0.01 10^3/uL (0.0-0.7); Absolute Lymphocyte Count 1.69 10^3/uL (1.2-3.4); Eosinophils % 0.5; HCT 24.6 % (36.0-46.0); HGB 8.5 g/dL (11.2-15.7); Lymphocytes % 87.6; MCHC 34.6 % (32.0-36.0); MCV 86.9 fL (80-95); MPV 8.4 fL (8.0-11.0); Monocytes % 5.2; Neutrophils % 6.7; Nucleated RBC 0 %; RBC 2.83 10^6/uL (3.93-5.22); RDW 12.7 % (11.7-14.6); RDW-SD 39.9 fL
[2019-12-15 08:53] LABS: Diff Comment Diff Reviewed; RBC Morphology Normal
[2019-12-15 08:55] LABS: Platelet Count 8 10^3/uL (130-400); WBC 1.93 10^3/uL (4.4-10.8)
[2019-12-15 08:56] LABS: Absolute Neutrophil Count 0.13 10^3/uL (1.2-6.7)
[2019-12-15] MEDS: Normal Saline Flush 10 ML SYR IVP (12:25)
[2019-12-18 07:50] LABS: Absolute Lymphocyte Count 1.36 10^3/uL (1.2-3.4); Absolute Monocyte Count 0.09 10^3/uL (0.1-0.8); HCT 26.4 % (36.0-46.0); HGB 9.3 g/dL (11.2-15.7); Lymphocytes % 86.1; MCH 30.6 pg (27.0-33.0); MCHC 35.2 % (32.0-36.0); MCV 86.8 fL (80-95); MPV 9.5 fL (8.0-11.0); Monocytes % 5.7; Neutrophils % 8.2; Nucleated RBC 0 %; RBC 3.04 10^6/uL (3.93-5.22); RDW 12.6 % (11.7-14.6); RDW-SD 39.7 fL
[2019-12-18 08:15] LABS: Diff Comment Agrees w/ Instrument; RBC Morphology Normal
[2019-12-18 08:21] LABS: Absolute Neutrophil Count 0.13 10^3/uL (1.2-6.7); Platelet Count 12 10^3/uL (130-400)
[2019-12-18 08:23] LABS: WBC 1.58 10^3/uL (4.4-10.8)
[2019-12-19 07:52] VITALS: BP 143/99; PULSE 89; RESP 18; TEMP 36; O2SAT 98
[2019-12-19] MEDS: Normal Saline Flush 10 ML SYR IVP (08:15)
[2019-12-19 08:25] VITALS: BP 125/78; PULSE 81; RESP 19; TEMP 36.1; O2SAT 99
[2019-12-22 08:01] LABS: Abs Immature Grans 0.01 10^3/uL (0.0-0.06); Absolute Lymphocyte Count 1.57 10^3/uL (1.2-3.4); HCT 25.8 % (36.0-46.0); HGB 8.9 g/dL (11.2-15.7); Immature Grans % 0.5; Lymphocytes % 81.8; MCH 30.1 pg (27.0-33.0); MCHC 34.5 % (32.0-36.0); MCV 87.2 fL (80-95); MPV 11.1 fL (8.0-11.0); Monocytes % 10.4; Neutrophils % 7.3; Nucleated RBC 0 %; RBC 2.96 10^6/uL (3.93-5.22); RDW 12.8 % (11.7-14.6); RDW-SD 39.8 fL
[2019-12-22 08:19] LABS: Diff Comment Diff Reviewed; RBC Morphology Normal
[2019-12-22 08:20] VITALS: BP 127/78; PULSE 86; RESP 18; TEMP 36.4; O2SAT 98
[2019-12-22 08:39] LABS: WBC 1.92 10^3/uL (4.4-10.8)
[2019-12-22 08:40] LABS: Absolute Neutrophil Count 0.14 10^3/uL (1.2-6.7); Platelet Count 24 10^3/uL (130-400)
[2019-12-22 09:10] VITALS: BP 130/73; PULSE 85; RESP 18; TEMP 36.4; O2SAT 99
[2019-12-22 09:35] VITALS: BP 114/73; PULSE 89; RESP 18; TEMP 36.4; O2SAT 98
[2019-12-22 09:50] VITALS: BP 137/64; PULSE 85; RESP 18; TEMP 36.2; O2SAT 100
[2019-12-22 10:20] VITALS: BP 126/63; PULSE 94; RESP 18; TEMP 36.2; O2SAT 100
[2019-12-22 10:50] VITALS: BP 139/70; PULSE 91; RESP 18; TEMP 36; O2SAT 100
[2019-12-22] MEDS: Normal Saline Flush 10 ML SYR IVP (11:13)
[2019-12-25] MEDS: Normal Saline Flush 10 ML SYR IVP (07:55)
[2019-12-25 08:16] LABS: Absolute Basophil Count 0.01 10^3/uL (0.0-0.2); Absolute Eosinophil Count 0.01 10^3/uL (0.0-0.7); Absolute Lymphocyte Count 1.29 10^3/uL (1.2-3.4); Absolute Monocyte Count 0.22 10^3/uL (0.1-0.8); Basophils % 0.6; Eosinophils % 0.6; HCT 26.2 % (36.0-46.0); HGB 8.9 g/dL (11.2-15.7); Lymphocytes % 79.1; MCH 30.1 pg (27.0-33.0); MCV 88.5 fL (80-95); MPV 9.1 fL (8.0-11.0); Monocytes % 13.5; Neutrophils % 6.2; RBC 2.96 10^6/uL (3.93-5.22); RDW 12.5 % (11.7-14.6); RDW-SD 39.6 fL
[2019-12-25 09:15] VITALS: BP 127/62; PULSE 85; RESP 18; TEMP 36.6; O2SAT 98
[2019-12-25 09:24] LABS: Nucleated RBC 0 %; Platelet Count 14 10^3/uL (130-400); WBC 1.63 10^3/uL (4.4-10.8)
[2019-12-25 09:25] LABS: Diff Comment Diff Reviewed; RBC Morphology Normal
[2019-12-25 09:35] VITALS: BP 130/76; PULSE 77; RESP 16; TEMP 36.3; O2SAT 98
[2019-12-25 09:50] VITALS: BP 134/82; PULSE 87; RESP 16; TEMP 36.5; O2SAT 99
[2019-12-25 10:15] VITALS: BP 127/80; PULSE 82; RESP 18; TEMP 36.3; O2SAT 97
[2019-12-25 11:05] VITALS: BP 134/64; PULSE 72; RESP 16; TEMP 36.5; O2SAT 98
[2019-12-25 11:51] LABS: ALT 60 U/L (14-59); AST 28 U/L (15-37); Albumin 3.2 g/dL (3.4-5.0); Alkaline Phosphatase 78 U/L (46-116); Anion Gap 10.5 mmol/L (3-11); BUN 24 mg/dL (7-18); Bilirubin, Total 0.5 mg/dL (0.2-1.0); CO2 25.5 mmol/L (21.0-32.0); CREATININE 1.08 mg/dL (0.55-1.02); Calcium 9.3 mg/dL (8.5-10.1); Chloride 105 mmol/L (98-107); Estimated GFR 49.59 (mL/min/1.73m2); Glucose 167 mg/dL (74-106); Potassium 3.8 mmol/L (3.5-5.1); Sodium 141 mmol/L (136-145); Total Protein 7.2 g/dL (6.4-8.2)
[2019-12-26 07:55] VITALS: BP 131/60; PULSE 94; RESP 19; TEMP 36; O2SAT 98
[2019-12-26] MEDS: Normal Saline Flush 10 ML SYR IVP (08:03)
[2019-12-26 08:25] VITALS: BP 132/68; PULSE 78; RESP 19; TEMP 36; O2SAT 98
[2019-12-29] MEDS: Normal Saline Flush 10 ML SYR IVP (07:59)
[2019-12-29 08:21] LABS: Absolute Basophil Count 0.01 10^3/uL (0.0-0.2); Absolute Lymphocyte Count 1.11 10^3/uL (1.2-3.4); Absolute Monocyte Count 0.18 10^3/uL (0.1-0.8); Basophils % 0.7; HCT 27.7 % (36.0-46.0); Lymphocytes % 77.1; MCH 30.2 pg (27.0-33.0); MCHC 34.7 % (32.0-36.0); MCV 87.1 fL (80-95); Monocytes % 12.5; Neutrophils % 9.7; Nucleated RBC 4 %; RBC 3.18 10^6/uL (3.93-5.22); RDW 12.1 % (11.7-14.6); RDW-SD 38.5 fL
[2019-12-29 08:52] LABS: Diff Comment Agrees w/ Instrument; RBC Morphology Normal
[2019-12-29 08:54] LABS: WBC 1.44 10^3/uL (4.4-10.8)
[2019-12-29 08:56] LABS: Absolute Neutrophil Count 0.14 10^3/uL (1.2-6.7)
[2019-12-29 08:57] LABS: Platelet Count 24 10^3/uL (130-400)
[2019-12-29 08:58] LABS: HGB 9.6 g/dL (11.2-15.7)
[2020-01-01] MEDS: Normal Saline Flush 10 ML SYR IVP (07:50)
[2020-01-01 08:03] LABS: Absolute Basophil Count 0.02 10^3/uL (0.0-0.2); Absolute Eosinophil Count 0.01 10^3/uL (0.0-0.7); Absolute Lymphocyte Count 1.34 10^3/uL (1.2-3.4); Absolute Monocyte Count 0.31 10^3/uL (0.1-0.8); Basophils % 1.1; Eosinophils % 0.5; HCT 26.2 % (36.0-46.0); HGB 8.9 g/dL (11.2-15.7); MCH 29.7 pg (27.0-33.0); MCV 87.3 fL (80-95); MPV 10.1 fL (8.0-11.0); Monocytes % 16.8; Neutrophils % 9.2; Nucleated RBC 5 %; RDW 12.1 % (11.7-14.6); RDW-SD 38.5 fL
[2020-01-01 08:17] VITALS: BP 146/85; PULSE 83; RESP 16; TEMP 36.8; O2SAT 99
[2020-01-01 08:18] VITALS: BP 146/85; PULSE 83; RESP 16; TEMP 36.8; O2SAT 99
[2020-01-01 09:15] LABS: WBC 1.85 10^3/uL (4.4-10.8)
[2020-01-01 09:16] LABS: Absolute Neutrophil Count 0.17 10^3/uL (1.2-6.7); Platelet Count 17 10^3/uL (130-400)
[2020-01-01 09:18] LABS: Lymphocytes % 72.4
[2020-01-01 09:19] LABS: Diff Comment Agrees w/ Instrument; RBC Morphology Normal
[2020-01-01 09:29] VITALS: BP 119/77; PULSE 86; RESP 18; TEMP 36.5; O2SAT 99
[2020-01-01 09:44] VITALS: BP 130/75; PULSE 83; RESP 18; TEMP 36.6; O2SAT 99
[2020-01-01 09:59] VITALS: BP 129/76; PULSE 17; RESP 17; TEMP 36.5; O2SAT 99
[2020-01-01 11:04] VITALS: BP 131/69; PULSE 79; RESP 16; TEMP 36.9; O2SAT 100
[2020-01-02 08:43] VITALS: BP 166/91; PULSE 111; RESP 19; TEMP 36.3; O2SAT 99
[2020-01-02] MEDS: Normal Saline Flush 10 ML SYR IVP (08:45)
[2020-01-02 09:04] VITALS: BP 162/84; PULSE 100; RESP 19; TEMP 37; O2SAT 99
[2020-01-05] MEDS: Normal Saline Flush 10 ML SYR IVP (07:50)
[2020-01-05 08:02] LABS: Abs Immature Grans 0.08 10^3/uL (0.0-0.06); HCT 27.2 % (36.0-46.0); HGB 9.4 g/dL (11.2-15.7); MCH 29.2 pg (27.0-33.0); MCHC 34.6 % (32.0-36.0); MCV 84.5 fL (80-95); MPV 10.8 fL (8.0-11.0); Nucleated RBC 4 %; RBC 3.22 10^6/uL (3.93-5.22); RDW 12.6 % (11.7-14.6); RDW-SD 38.2 fL; WBC 2.87 10^3/uL (4.4-10.8)
[2020-01-05 08:58] LABS: Absolute Lymphocyte Count 1.72 10^3/uL (1.2-3.4); Absolute Neutrophil Count 0.26 10^3/uL (1.2-6.7); Platelet Count 22 10^3/uL (130-400)
[2020-01-05 08:59] LABS: Absolute Basophil Count 0.09 10^3/uL (0.0-0.2); Absolute Eosinophil Count 0.03 10^3/uL (0.0-0.7); Absolute Monocyte Count 0.66 10^3/uL (0.1-0.8)
[2020-01-05 09:00] LABS: Other Cells % 3
[2020-01-05 09:01] LABS: Diff Comment Manual Differential; RBC Morphology Normal
[2020-01-07 13:17] VITALS: BP 162/84; PULSE 100; RESP 19; TEMP 37; O2SAT 99
[2020-01-07] MEDS: Normal Saline Flush 10 ML SYR IVP (13:22)
[2020-01-07 13:34] LABS: Abs Immature Grans 0.01 10^3/uL (0.0-0.06); HCT 27.6 % (36.0-46.0); HGB 9.6 g/dL (11.2-15.7); MCH 29.8 pg (27.0-33.0); MCHC 34.8 % (32.0-36.0); MCV 85.7 fL (80-95); MPV 9.7 fL (8.0-11.0); RBC 3.22 10^6/uL (3.93-5.22); RDW 12.4 % (11.7-14.6); RDW-SD 38.1 fL; WBC 2.65 10^3/uL (4.4-10.8)
[2020-01-07 14:03] LABS: Absolute Lymphocyte Count 1.91 10^3/uL (1.2-3.4); Absolute Monocyte Count 0.48 10^3/uL (0.1-0.8)
[2020-01-07 14:04] LABS: Absolute Basophil Count 0.03 10^3/uL (0.0-0.2); Absolute Eosinophil Count 0.05 10^3/uL (0.0-0.7); Diff Comment Manual Differential; Nucleated RBC 3 %; RBC Morphology Normal
[2020-01-07 14:10] LABS: Absolute Neutrophil Count 0.19 10^3/uL (1.2-6.7); Platelet Count 15 10^3/uL (130-400)
[2020-01-08] MEDS: Normal Saline Flush 10 ML SYR IVP (07:51)
[2020-01-08 08:05] LABS: Abs Immature Grans 0.35 10^3/uL (0.0-0.06); HCT 27.3 % (36.0-46.0); HGB 9.4 g/dL (11.2-15.7); MCH 29.5 pg (27.0-33.0); MCHC 34.4 % (32.0-36.0); MCV 85.6 fL (80-95); RBC 3.19 10^6/uL (3.93-5.22); RDW 12.3 % (11.7-14.6); WBC 3.94 10^3/uL (4.4-10.8)
[2020-01-08 08:46] LABS: Platelet Count 11 10^3/uL (130-400)
[2020-01-08 08:47] LABS: Absolute Eosinophil Count 0.08 10^3/uL (0.0-0.7); Absolute Lymphocyte Count 2.21 10^3/uL (1.2-3.4); Absolute Monocyte Count 0.59 10^3/uL (0.1-0.8)
[2020-01-08 08:48] LABS: Absolute Basophil Count 0.08 10^3/uL (0.0-0.2); Metamyelocytes % 1; Nucleated RBC 1 %; Other Cells % 3; Promyelocytes % 2
[2020-01-08 08:49] LABS: Absolute Neutrophil Count 0.71 10^3/uL (1.2-6.7); Diff Comment Manual Differential; Polychromasia Present
[2020-01-08 08:51] LABS: Bands % 9
[2020-01-09 09:13] VITALS: BP 135/57; PULSE 103; RESP 18; TEMP 36.5; O2SAT 99
[2020-01-09 09:20] LABS: Abs Immature Grans 0.19 10^3/uL (0.0-0.06); MCH 29.6 pg (27.0-33.0); MCHC 34.1 % (32.0-36.0); MCV 86.8 fL (80-95); RBC 3.11 10^6/uL (3.93-5.22); RDW 12.5 % (11.7-14.6); RDW-SD 39.3 fL; WBC 4.28 10^3/uL (4.4-10.8)
[2020-01-09] MEDS: Normal Saline Flush 10 ML SYR IVP (09:27)
[2020-01-09 09:30] VITALS: BP 145/75; PULSE 99; RESP 17; TEMP 36.5; O2SAT 98
[2020-01-09 09:52] LABS: Bands % 10
[2020-01-09 09:53] LABS: Absolute Eosinophil Count 0.04 10^3/uL (0.0-0.7); Absolute Monocyte Count 0.56 10^3/uL (0.1-0.8); Atypical Lymphocytes % 20
[2020-01-09 09:55] LABS: Metamyelocytes % 1; Myelocytes % 1; Nucleated RBC 3 %
[2020-01-09 10:01] LABS: Platelet Count 8 10^3/uL (130-400)
[2020-01-09 10:02] LABS: HGB 9.2 g/dL (11.2-15.7)
[2020-01-09 11:02] LABS: Platelet Count 30 10^3/uL (130-400)
[2020-01-09 13:03] LABS: Diff Comment Manual Differential; RBC Morphology Normal
== END 2020-01-10 23:59 | disposition home or self-care (01) ==
LOC: INF 03:52
PROVIDERS: PCP Family Medicine; Visit Provider Internal Medicine Hematology
DX: D46.Z Other myelodysplastic syndromes (principal); C92.10 Chronic myeloid leukemia, BCR/ABL-positive, not having achieved remission
CPT/HCPCS: 36430; 36591; 80053; 86850; 86900; 86901; 86920; 86945; 96372; 85025; 85049; 86644; P9016; P9035

== ENCOUNTER 2020-01-21 19:57 | Inpatient (IN) | payer OTHER, SELFPAY ==
[2020-01-21] VITALS (18 sets, daily range): BP systolic 92–129; BP diastolic 48–72; PULSE 82–122; RESP 16–27; TEMP 37.6–39.4; O2SAT 94–98
--- NOTE | 2020-01-21 20:15 | RT.EKG_ITS ---
APPROVED REPORT Exam: Resting ECG Patient Location: E HR:112 bpm ECG Measurements Heart Rate 112 AXIS NC 128 P 65 QRSd 158 QRS 94 QT 400 T -3 QTc 546 Conclusion Sinus tachycardia...rate> 99 Right bundle branch block...QRSd>120, terminal axis(90,270) Physician: No STEMI. Unchanged from March EKG
--- NOTE | 2020-01-21 20:28 | ED.GENADUL_ITS ---
Discharge Plan Disposition Patient Disposition: [facility] INPATIENT Condition: Improving Discharge Details Chief Complaint: Fever Clinical Impression: Neutropenic fever, Thrombocytopenia Primary Care Provider: [facility] ED Provider: Bar Smith Home Meds and New Rx's Prescriptions: No Action levofloxacin [Levaquin] 750 mg Tablet 750 mg PO DAILY RF: 0 acetaminophen [Tylenol] 325 mg Capsule 650 mg PO Q8H PRN PRNRF: 0 acyclovir [Zovirax] 400 mg Tablet 400 mg PO BID RF: 0 diphenhydramine HCl 25 mg Capsule 25 mg PO Q6H PRN PRNRF: 0 fluconazole 200 mg Tablet 200 mg PO DAILY RF: 0 meclizine 25 mg Tablet 25 mg PO BID PRNRF: 0 ondansetron 8 mg Tablet,Disintegrating 8 mg PO PRN PRNRF: 0 potassium chloride 20 mEq tablet extended release 20 meq PO DAILY Qty: 20 RF: 0 cefpodoxime 200 mg tablet RF: 0 tramadol 50 mg tablet 50 mg PO PRN PRN (Reason: Pain) RF: 0 Medical Decision Making 74-year-old female with a past medical history of myelodysplastic syndrome, leukemia, currently receiving chemotherapy, presents today for fall, however upon EMS arrival they noted her to be febrile and recommended transfer to ED. Patient states that today she got up to get out of bed and grabbed a rolling chair instead of a solid chair, slipped and she fell to her knees. She did not hit her head, she did not hit her body in any other way, and had no pain. She denies any significant trauma otherwise. She does admit to feeling cold regularly and was chilled today but states that this is somewhat normal for her. Additionally she is supposed to be taking prophylactic Levaquin and Cefp odoxime however she has not taken the for the last 2 days. She denies any other complaints at this time. She denies any urinary complaints, cough, shortness of breath, calf pain, nausea vomiting diarrhea. She did receive chemotherapy last week, and platelets today. Physical exam is notably unremarkable, however she is febrile, tachycardic, and mildly hypotensive. We will start with fluid bolus, broad-spectrum antibiotics, evaluate for septic etiology. I suspect patient will require admission. As she has not had her prophylactic antibiotics over the last 2 days I feel infectious etiology is most likely, I feel that a serum reaction to the platelets is less likely but on the differential still. 11 PM Chest x-ray negative for evidence of acute pneumonia. Temperature improving after Tylenol, urinalysis negative for evidence of infection. Heart rate improving, blood pressure rising. Work-up shows a notable low white count at 0.62, absolute neutrophil is 0.11. Mild lymphopenia. Platelets are 21 which is stable for her. Lactate is only 2.0, electrolytes demonstrate an abnormality of potassium at 3.1, BUN/creatinine ratio of 2 suggesting mild dehydration, low calcium at 8.3, and a low magnesium at 1.6. Calcium magnesium and potassium will be repleted. Troponin normal. proBNP 950 and stable for the patient, no signs of significant fluid overload. The patient's neutropenic fever, her lack of taking her prophylactic antiviral and antibiotic medication for the last 2 days, and her generalized symptomatology we did start broad-spectrum antibiotics orally of vancomycin, Zosyn, azithromycin, and acyclovir. Clinically the patient shows no signs of meningitis, I am uncertain as to the exact cause of her sepsis and neutropenic fever, but I suspect mild bacteremia. With her stabilizing vital signs, I feel that she can be admitted to our ICU here. Influenza negative. Pending Covid test at this time. Discussed the case with Dr. Thurston, he agrees with the assessment and plan. I have extensively reviewed the treatment plan and discharge instructions with the patient. I have addressed all patient concerns at this time. The patient was made aware of what symptoms to monitor for that would warrant a return to the emergency department. Discussed the plan with the patient, they demonstrate verbal understanding and agreement with our assessment and plan at this time. Of note I did contact the patient's family and spoke with Dorothy who is on the list for contact. I discussed the case with her and she also agrees with the plan. She will contact the other family. FINDINGS: Tubes, catheters and devices: Right chest wall Port-A-Cath with its tip in the cavoatrial junction. Lungs: The lungs are clear without opacity or suspicious parenchymal finding. Pleural space: Unremarkable. No pleural effusion. No pneumothorax. Heart/Mediastinum: Unremarkable. No cardiomegaly. Bones/joints: Unremarkable. IMPRESSION: No acute cardiopulmonary process. Thank you for allowing us to participate in the care of your patient. Dictated and Authenticated by: Rox Avilez MD 01/21/2020 8:43 PM Eastern Time ([place] & [place]) HPI General Date/Time Provider Initiated Documentation: 01/21/20 20:05 . HPI Narrative: 74-year-old female with a past medical history of myelodysplastic syndrome, leukemia, currently receiving chemotherapy, presents today for fall, however upon EMS arrival they noted her to be febrile and recommended transfer to ED. Patient states that today she got up to get out of bed and grabbed a rolling chair instead of a solid chair, slipped and she fell to her knees. She did not hit her head, she did not hit her body in any other way, and had no pain. She denies any significant trauma otherwise. She does admit to feeling cold regularly and was chilled today but states that this is somewhat normal for her. Additionally she is supposed to be taking prophylactic Levaquin and Cefpodoxime however she has not taken the for the last 2 days. She denies any other complaints at this time. She denies any urinary complaints, cough, shortness of breath, calf pain, nausea vomiting diarrhea. She did receive chemotherapy last week, and platelets today. Related Data Home Medications Medication Instructions Recorded Confirmed acetaminophen [Tylenol] 650 mg PO Q8H PRN PRN 12/08/18 01/21/20 acyclovir [Zovirax] 400 mg PO BID 12/08/18 01/21/20 diphenhydramine HCl 25 mg PO Q6H PRN PRN 12/08/18 01/21/20 fluconazole 200 mg PO DAILY 12/08/18 01/21/20 meclizine 25 mg PO BID PRN 12/08/18 01/21/20 ondansetron 8 mg PO PRN PRN 12/08/18 01/21/20 levofloxacin [Levaquin] 750 mg PO DAILY 03/06/19 01/21/20 potassium chloride 20 meq PO DAILY #20 tab 04/03/19 01/21/20 cefpodoxime 01/21/20 tramadol 50 mg PO PRN PRN 01/21/20 01/21/20 Previous Rx's Medication Instructions Recorded potassium chloride 20 meq PO DAILY #20 tab 04/03/19 Allergies Allergy/AdvReac Type Severity Reaction Status Date / Time prochlorperazine AdvReac Mild Other (See Unverified 01/21/20 20:10 [From Compazine] Comment) General Stated Complaint: Fever REBEKAH: 2 Review of Systems All systems reviewed & are unremarkable except as noted in HPI and below PFSH Medical History (Updated 01/21/20 @ 23:14 by Bar Smith DO) CAD S/P percutaneous coronary angioplasty HTN (hypertension), benign Hyperlipidemia Lumbago without sciatica MDS (myelodysplastic syndrome) Vertiginous syndrome Surgical History S/P PICC central line placement Social History Smoking/Tobacco Use Status: Never Smoking risk assessment performed?: Yes Alcohol Intake: never Drug use: Never Substance use type: does not use What is your relationship status?: Panel score (0-1 are the most socially isolated patients): 1 Do you feel safe at home: Yes Do you feel safe in your relationship?: Yes Additional Social history: Retired nurse Exam Narrative Exam Narrative: 1.Const: Well-nourished, Well-developed, appearing stated age 2.Eyes: PERRL, no conjunctival injection, and symmetrical lids. 3.ENT: Atraumatic external nose and ears. Moist MM. Neck: Symmetric, trachea midline, No thyromegaly. 4.CVS: +S1/S2, No murmurs or gallops. Peripheral pulses 2+ and equal in all extremities. Brisk capillary refill in all extremities. 5.RESP: Unlabored respiratory effort. Clear to auscultation bilaterally. No wheezes rales or rhonchi 6.GI: Soft, Nontender/Nondistended, No hepatosplenomegaly. No guarding or rebound. 7.MSK: Normocephalic/Atraumatic, Extremities w/o deformity or ttp No cyanosis or clubbing, Normal movement of all extremities. Mild abrasions over the knees but no tenderness 8.Skin: Notably warm, Dry. No rashes or lesions. 9.Neuro: thread drawer II-XII grossly intact. Sensation grossly intact, no focal neurologic deficits. 10.Psych: (AAO) x3. Appropriate mood and affect Course Vital Signs Vital signs: Vital Signs Temperature 39.4 C H 01/21/20 20:00 Pulse 122 H 01/21/20 20:00 Respiratory Rate 16 01/21/20 20:00 Blood Pressure 92/69 L 01/21/20 20:00 Pulse Oximetry 98 01/21/20 20:00 Temperature 39.4 C H 01/21/20 20:00 Temperature Source Oral 01/21/20 20:00 Pulse 122 H 01/21/20 20:00 Respiratory Rate 16 01/21/20 20:00 Blood Pressure 92/69 L 01/21/20 20:00 Blood Pressure Position Supine 01/21/20 20:00 Pulse Oximetry 98 01/21/20 20:00 Oxygen Delivery Method Room Air 01/21/20 20:00 Oxygen Flow Rate 0 01/21/20 20:00 Pain Level 0 01/21/20 20:00 Lab/Test Results Lab/Test Results: 01/21/20 20:06 Blood Blood Culture - Pending 01/21/20 20:06 Blood Blood Culture - Pending
--- NOTE | 2020-01-21 20:35 | DI.RAD_ITS ---
EXAM: XR PORTABLE CHEST AP CLINICAL HISTORY: neutropenic fever TECHNIQUE: 2D digital imaging was performed. COMPARISON: CR XR CHEST 2V PA LATERAL from 04/03/2019 FINDINGS: MEDIASTINUM: Normal. HEART: Normal. PULMONARY VASCULATURE: Normal. LUNGS: Clear. PLEURAL SPACE: No pleural effusion or pneumothorax. BONE:Within normal limits for the patient's age. OTHER FINDINGS:The tip of the indwelling central venous catheter is in good position at the junction of the superior vena cava and right atrium. IMPRESSION: No acute pulmonary findings. DATA REPOSITORY: RADIATION DOSE DELIVERED:
[2020-01-21] MEDS: Acetaminophen 500 MG TAB 1000 MG PO (20:40)
--- NOTE | 2020-01-21 20:43 | DI.VRAD_ITS ---
PROCEDURE INFORMATION: Exam: XR Chest, 1 View Exam date and time: 01/21/2020 8:29 PM Age: 74 years old Clinical indication: Other: Neutropenic fever TECHNIQUE: Imaging protocol: XR of the chest Views: 1 view. COMPARISON: CR XR CHEST 2V PA LATERAL 04/03/2019 12:18 PM FINDINGS: Tubes, catheters and devices: Right chest wall Port-A-Cath with its tip in the cavoatrial junction. Lungs: The lungs are clear without opacity or suspicious parenchymal finding. Pleural space: Unremarkable. No pleural effusion. No pneumothorax. Heart/Mediastinum: Unremarkable. No cardiomegaly. Bones/joints: Unremarkable. IMPRESSION: No acute cardiopulmonary process. Dictated and Authenticated by: Rox Avilez MD. Ordering:LORY Benitez MD
[2020-01-21] MEDS: Normal Saline 1,000 ML 1000 ML IV (20:51)
[2020-01-21 21:13] LABS: Absolute Lymphocyte Count 0.37 10^3/uL (1.2-3.4); Absolute Monocyte Count 0.14 10^3/uL (0.1-0.8); HCT 35.3 % (36.0-46.0); HGB 12.3 g/dL (11.2-15.7); Lymphocytes % 59.7; MCH 28.7 pg (27.0-33.0); MCHC 34.8 % (32.0-36.0); MCV 82.5 fL (80-95); MPV 9.2 fL (8.0-11.0); Monocytes % 22.6; Neutrophils % 17.7; Nucleated RBC 0 %; RBC 4.28 10^6/uL (3.93-5.22); RDW 12.5 % (11.7-14.6); RDW-SD 37.7 fL
[2020-01-21 21:30] LABS: ALT 20 U/L (14-59); AST 14 U/L (15-37); Albumin 2.9 g/dL (3.4-5.0); Alkaline Phosphatase 71 U/L (46-116); Anion Gap 7.1 mmol/L (3-11); BUN 20 mg/dL (7-18); Bilirubin, Total 0.5 mg/dL (0.2-1.0); CO2 28.9 mmol/L (21.0-32.0); CREATININE 1.07 mg/dL (0.55-1.02); Calcium 8.3 mg/dL (8.5-10.1); Chloride 97 mmol/L (98-107); Estimated GFR 50.13 (mL/min/1.73m2); Glucose 200 mg/dL (74-106); Magnesium 1.6 mg/dL (1.8-2.4); Potassium 3.1 mmol/L (3.5-5.1); Sodium 133 mmol/L (136-145); Total Protein 7.1 g/dL (6.4-8.2)
[2020-01-21] MEDS: PIPERACILLIN/TAZO 4.5 GM in Normal Saline 100 ML IVPB (21:35)
--- NOTE | 2020-01-21 21:36 | NUR.NOTE ---
Nursing Note: Patient up to bedside commode with 1 assist.
[2020-01-21 21:39] LABS: Troponin I < 0.05 ng/mL (<0.06)
[2020-01-21 21:47] LABS: Absolute Neutrophil Count 0.11 10^3/uL (1.2-6.7)
[2020-01-21 21:50] LABS: Platelet Count 21 10^3/uL (130-400); WBC 0.62 10^3/uL (4.4-10.8)
[2020-01-21 21:57] LABS: NT-proBNP 950 pg/mL (<300)
[2020-01-21 21:58] LABS: INR 1.1 (0.9-1.1); PTT Activated 24.6 sec (21.0-27.5)
[2020-01-21 22:02] LABS: Diff Comment Diff Reviewed; RBC Morphology Normal
[2020-01-21] MEDS: AZITHROMYCIN 500 MG in Normal Saline 250 ML 250 MG IVPB (22:13)
[2020-01-21 22:17] LABS: Bilirubin Negative (Negative); Blood Trace-intact (Negative); Clarity Clear (Clear); Glucose Negative (Negative); Ketones Negative (Negative); Leukocyte Esterase Negative (Negative); Nitrite Negative (Negative); Urobilinogen 0.2 EU/dL (Up TO 0.2); pH 6.5 (5-8)
[2020-01-21 22:32] LABS: Bacteria Negative HPF (Negative); Casts Negative LPF (Negative); Crystals Negative HPF (Negative); Epithelial Cells Few HPF (Negative); Mucus Negative (Negative); Other Cells Negative (Negative); WBC 0-2 HPF (0-5)
[2020-01-21 22:33] LABS: C & S Indicated? C&S Done As Ordered
--- NOTE | 2020-01-21 23:06 | W.PM.HP.N ---
Date of service: 01/21/20 Time of Service: 23:07 Assessment and Plan Assessment and plan (1) Neutropenic fever: Status: Acute Assessment and plan: Neutropenic fever, source not apparent. Will continue empiric abx and track counts. Monotherapy (Cefipime) reasonable choice at present. Reviewed ADs, requests Full Code. History of Present Illness History of Present Illness Chief Complaint: fever, neutropenia Narrative: 74 female with h/o myelodysplasia and now unspecified leukemia. In [facility] last week for BM biopsy, reports she had transient fever during stay. Last chemo one week [facility] [employer]. Slipped at home today, fever 102 noted. In ER temp to 103 with ANC 110. CXR and U/A unremarkable. Cxx obtained and given doses Vanco, Zosyn and Zithro, admitted for further management. Feels entirely well. Review of Systems All systems reviewed & are unremarkable except as noted in HPI and below PFSH Medical History (Updated 01/21/20 @ 23:14 by Bar Smith DO) CAD S/P percutaneous coronary angioplasty HTN (hypertension), benign Hyperlipidemia Lumbago without sciatica MDS (myelodysplastic syndrome) Vertiginous syndrome Surgical History S/P PICC central line placement Social History Smoking/Tobacco Use Status: Never Smoking risk assessment performed?: Yes Alcohol Intake: never Drug use: Never Substance use type: does not use What is your relationship status?: Panel score (0-1 are the most socially isolated patients): 1 Do you feel safe at home: Yes Do you feel safe in your relationship?: Yes 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 Medications and Allergies Home Medications Medication Instructions Recorded Confirmed Type acetaminophen [Tylenol] 650 mg PO Q8H PRN PRN 12/08/18 01/21/20 History acyclovir [Zovirax] 400 mg PO BID 12/08/18 01/21/20 History diphenhydramine HCl 25 mg PO Q6H PRN PRN 12/08/18 01/21/20 History fluconazole 200 mg PO DAILY 12/08/18 01/21/20 History meclizine 25 mg PO BID PRN 12/08/18 01/21/20 History ondansetron 8 mg PO PRN PRN 12/08/18 01/21/20 History levofloxacin [Levaquin] 750 mg PO DAILY 03/06/19 01/21/20 History potassium chloride 20 meq PO DAILY #20 tab 04/03/19 01/21/20 Rx cefpodoxime 01/21/20 History tramadol 50 mg PO PRN PRN 01/21/20 01/21/20 History Allergies Allergy/AdvReac Type Severity Reaction Status Date / Time prochlorperazine AdvReac Mild Other (See Unverified 01/21/20 20:10 [From Compazine] Comment) Exam Narrative Exam Narrative: 121/67, 94, 37.6 (39.4 max), 23, 96% RA. HEENT no oral lesions noted; neck supple; lungs clear; heart RRR w/o MRG; port site right upper chest w/o redness; abdomen soft and NT; extremities w/o edema; skin w/o rash or lesion, neuro Ox3, nonfocal Results Labs Result diagrams: 01/21/20 20:50 01/21/20 20:50 Labs: Laboratory Results - last 24 hr 01/21/20 01/21/20 01/21/20 20:28 20:50 20:50 WBC RBC Hgb Hct MCV MCH MCHC RDW Plt Count MPV Immature Gran % Neutrophils % Lymphocytes % Monocytes % Eosinophils % Basophils % Nucleated RBC % Absolute Neutrophils Absolute Lymphocytes Absolute Monocytes Absolute Eosinophils Absolute Basophils RBC Morphology PT INR APTT VBG Lactate 2.0 H Sodium 133 L Potassium 3.1 L Chloride 97 L Carbon Dioxide 28.9 Anion Gap 7.1 BUN 20 H Creatinine 1.07 H Estimated GFR/1.73 m2 50.13 Glucose 200 H Calcium 8.3 L Magnesium 1.6 L Total Bilirubin 0.5 AST 14 L ALT 20 Alkaline Phosphatase 71 Troponin I NT-Pro-B Natriuret Pep Total Protein 7.1 Albumin 2.9 L Urine Color Urine Clarity Urine pH Ur Specific [place] Urine Protein Urine Ketones Urine Blood Urine Nitrite Urine Bilirubin Urine Urobilinogen Ur Leukocyte Esterase Urine RBC Urine WBC Ur Epithelial Cells Urine Crystals Urine Bacteria Urine Casts Urine Mucus Urine Other Ur Culture Indicated? Urine Glucose COVID-19 PCR Cancelled Nasopharyn COVID-19 PCR Cancelled Ref Test Perform Site Cancelled 01/21/20 01/21/2020 20:50 20:50 20:50 WBC 0.62 L* RBC 4.28 Hgb 12.3 D Hct 35.3 L D MCV 82.5 MCH 28.7 MCHC 34.8 RDW 12.5 Plt Count 21 L* MPV 9.2 Immature Gran % 0.0 Neutrophils % 17.7 Lymphocytes % 59.7 Monocytes % 22.6 Eosinophils % 0.0 Basophils % 0.0 Nucleated RBC % 0 Absolute Neutrophils 0.11 L* Absolute Lymphocytes 0.37 L Absolute Monocytes 0.14 Absolute Eosinophils 0.00 Absolute Basophils 0.00 RBC Morphology Normal PT 11.0 INR 1.1 APTT 24.6 VBG Lactate Sodium Potassium Chloride Carbon Dioxide Anion Gap BUN Creatinine Estimated GFR/1.73 m2 Glucose Calcium Magnesium Total Bilirubin AST ALT Alkaline Phosphatase Troponin I < 0.05 NT-Pro-B Natriuret Pep 950 H Total Protein Albumin Urine Color Urine Clarity Urine pH Ur Specific [place] Urine Protein Urine Ketones Urine Blood Urine Nitrite Urine Bilirubin Urine Urobilinogen Ur Leukocyte Esterase Urine RBC Urine WBC Ur Epithelial Cells Urine Crystals Urine Bacteria Urine Casts Urine Mucus Urine Other Ur Culture Indicated? Urine Glucose COVID-19 PCR Nasopharyn COVID-19 PCR Ref Test Perform Site 01/21/20 22:14 WBC RBC Hgb Hct MCV MCH MCHC RDW Plt Count MPV Immature Gran % Neutrophils % Lymphocytes % Monocytes % Eosinophils % Basophils % Nucleated RBC % Absolute Neutrophils Absolute Lymphocytes Absolute Monocytes Absolute Eosinophils Absolute Basophils RBC Morphology PT INR APTT VBG Lactate Sodium Potassium Chloride Carbon Dioxide Anion Gap BUN Creatinine Estimated GFR/1.73 m2 Glucose Calcium Magnesium Total Bilirubin AST ALT Alkaline Phosphatase Troponin I NT-Pro-B Natriuret Pep Total Protein Albumin Urine Color Yellow Urine Clarity Clear Urine pH 6.5 Ur Specific [place] 1.020 Urine Protein Negative Urine Ketones Negative Urine Blood Trace-intact H Urine Nitrite Negative Urine Bilirubin Negative Urine Urobilinogen 0.2 Ur Leukocyte Esterase Negative Urine RBC 3-5 H Urine WBC 0-2 Ur Epithelial Cells Few Urine Crystals Negative Urine Bacteria Negative Urine Casts Negative Urine Mucus Negative Urine Other Negative Ur Culture Indicated? C&s done as ordered Urine Glucose Negative COVID-19 PCR Nasopharyn COVID-19 PCR Ref Test Perform Site Last Vital Signs Temp 37.6 C H 01/21/20 22:15 Pulse 94 H 01/21/20 21:16 Resp 23 01/21/20 21:16 BP 121/67 01/21/20 21:16 Pulse Ox 96 01/21/20 21:16 COVID-19 Screening Have you, or household traveled for leisure in last 14 days?: No Had IN PERSON contact w/suspected or confirmed C-19 person: No
[2020-01-21] MEDS: Potassium Chloride 20 MEQ TABCR 40 MEQ PO (23:45)
[2020-01-21] MEDS: MAGNESIUM SULFATE 1 GM/100 ML BAG IVPB (23:45)
[2020-01-22] VITALS (20 sets, daily range): BP systolic 104–148; BP diastolic 50–63; PULSE 80–106; RESP 16–20; TEMP 36–38.7; O2SAT 94–97
[2020-01-22] MEDS: VANCOMYCIN 2,000 MG in Normal Saline 500 ML 333.3333 MG IVPB (00:24)
[2020-01-22] MEDS: CEFEPIME 2 GM in Normal Saline 100 ML IVPB ×2 (02:23→14:50)
[2020-01-22] MEDS: POTASSIUM CHLORIDE/0.9% NACL 1,000 ML 100 MEQ IV (02:23)
[2020-01-22] MEDS: Acetaminophen 325 MG TAB 650 MG PO ×3 (05:39→23:59)
[2020-01-22 07:16] LABS: Abs Immature Grans 0.02 10^3/uL (0.0-0.06); Absolute Lymphocyte Count 0.73 10^3/uL (1.2-3.4); Absolute Monocyte Count 0.31 10^3/uL (0.1-0.8); Immature Grans % 1.6; Lymphocytes % 59.8; MCH 28.8 pg (27.0-33.0); MCHC 34.5 % (32.0-36.0); MCV 83.3 fL (80-95); MPV 9.1 fL (8.0-11.0); Monocytes % 25.4; Neutrophils % 13.2; Nucleated RBC 0 %; RDW 12.7 % (11.7-14.6)
[2020-01-22 07:23] LABS: Anion Gap 6.6 mmol/L (3-11); BUN 17 mg/dL (7-18); CO2 27.4 mmol/L (21.0-32.0); CREATININE 0.92 mg/dL (0.55-1.02); Calcium 8.1 mg/dL (8.5-10.1); Chloride 104 mmol/L (98-107); Estimated GFR 59.67 (mL/min/1.73m2); Glucose 124 mg/dL (74-106); Potassium 3.4 mmol/L (3.5-5.1); Sodium 138 mmol/L (136-145)
[2020-01-22 07:40] LABS: WBC 1.22 10^3/uL (4.4-10.8)
[2020-01-22 07:41] LABS: Absolute Neutrophil Count 0.16 10^3/uL (1.2-6.7)
[2020-01-22 07:42] LABS: HGB 6.9 g/dL (11.2-15.7)
[2020-01-22 07:43] LABS: Diff Comment Diff Reviewed; Microcytosis 2+; Platelet Count 22 10^3/uL (130-400)
[2020-01-22] MEDS: Acyclovir 400 MG TAB PO ×2 (08:33→19:39)
[2020-01-22] MEDS: Fluconazole 100 MG TAB 200 MG PO (08:33)
[2020-01-22] MEDS: Potassium Chloride 20 MEQ TABCR PO (08:33)
[2020-01-22 10:06] LABS: Lactate 1.8 mmol/L (0.6-1.4)
[2020-01-22 10:10] LABS: HGB 7.2 g/dL (11.2-15.7)
--- NOTE | 2020-01-22 11:32 | W.NUTRFU ---
Date of service: 01/23/20 Time of Service: 12:15 Nutritional Follow up NOTE: 74 year old female admitted to ICU with neutropenic fever. PMH: leukemia, MS, recently undergoing chemotherapy. BMI indicates morbid obesity, stable. WBC severly depleted. Following neutropenic diet and meeting nutrient and fluid needs at this time. Not at nutritional risk. Will continue to follow. Time Spent in Nutritional Counseling and Treatment: 0
--- NOTE | 2020-01-22 12:16 | PDOC.CMIN ---
- If Service Date Differs Date of service: 01/22/20 Time of Service: 12:17 Care Management Initial Assess REASON FOR HOSPITALIZATION:: Neutropenic Fever PAST MEDICAL HISTORY/PAST SURGICAL HISTORY:: Medical History. CAD S/P percutaneous coronary angioplasty. HTN (hypertension), benign. Hyperlipidemia. Lumbago without sciatica. MDS (myelodysplastic syndrome). Vertiginous syndrome. Surgical History. S/P PICC central line placement PREVIOUS FUNCTIONAL STATUS/SOCIAL/FAMILY SUPPORTS:: Emelyn lives in [facility]. Per chart review, she is recently . She is a retired RN. She has 5 children, who are very supportive. She is independent at baseline with her ADLs, and continues to drive. She enjoys quilting, reading, gardening and farming. CURRENT FUNCTIONAL STATUS:: Emelyn is currently on Covid 19 precautions, so CM was unable to visit with her. CM spoke to her RN, who stated that she has her cell phone, and provided the phone number to CM. Emelyn was resting when CM attempted to call. Per report, she will likely need abx for at least two weeks. CM will continue to follow. ADVANCE DIRECTIVES:: Patient reports she is not interested in advance directives. Has patient been provided with info about the portal/API?: Yes Did the patient sign up for the portal?: No CODE STATUS:: Full Code INSURANCE COVERAGE / FINANCIAL ISSUES:: [employer] group health, CBA CURRENT HOME/COMMUNITY SERVICES/EQUIPMENT:: No current services. Equipment unknown. PRIMARY CARE PHYSICIAN:: Duke Ventura MD, of [facility] in [place], [place]. POTENTIAL DISCHARGE NEEDS:: Follow-up with primary care physician and [facility] providers. PATIENT/FAMILY EDUCATION NEEDS:: Discharge plan, limitations, and follow-up plan of care including ask me 3 and self-management. ANTICIPATED BARRIERS TO DISCHARGE:: None identified at this time. TRANSPORTATION:: Via private vehicle by family when ready. PLAN:: Emelyn will be discharged home when medically cleared by provider. Anticipate no additional services needed at time of discharge. Family members will transport patient home. She will follow up with her PCP and discharge plan of care. CM will continue to follow.
--- NOTE | 2020-01-22 12:39 | PGE_ITS ---
Date of Service Date of service: 01/22/20 Time of Service: 12:39 Assessment and Plan Assessment and plan (1) Thrombocytopenia: Status: Chronic Assessment and plan: Platelets 22. No spontaneous bleeding. Goal is above 10 while in hospital, 20 when discharged. (2) Anemia: Status: Chronic Assessment and plan: Hgb 6.9 this AM; repeated to verify result and it was 7.2 The goal at the [facility] infusion center has been to transfuse if lower than 7.5. Recheck tomorrow and transfuse if < 7.5. No SOA, CP. (3) DVT prophylaxis: Status: Acute Assessment and plan: Avoid chemical VTE prophylaxis d/t thrombocytopenia and anemia. SCD's. (4) MDS (myelodysplastic syndrome): Status: Chronic Assessment and plan: Bone marrow at [facility] admission on 01/15/2020 - 01/17/2020 showed 10% blast cells. Does not qualify as leukemic phase when blasts are 20% or more. H/O AML. I spoke with her oncologist Dr Gustafson. She is OK with the current treatment plan. (5) Neutropenic fever: Status: Acute Assessment and plan: Now on Cefepime and Vancomycin. Gram stain shows gram + cocci in pairs and chains; likely to be strep. Narrow antibiotic coverage when final ID and sensitivities are known. She is on home prophylaxis of Levaquin 750mg QD, acyclovir 400mg BID and fluconazole 400mg daily. Subjective Subjective Patient reports: no new complaints, feels better and afebrile; denies shortness of breath Interval history since last seen: No melena, hematochezia, hematuria noted. Good appetite. Exam Const General: cooperative, no acute distress and well groomed Nutritional Appearance: obese Orientation: alert and oriented x3 Eyes Sclera: sclerae normal Pupils: PERRL Resp Effort & Inspection: normal respiratory effort Auscultation: clear to auscultation bilaterally Cardio Rate: regular rate Rhythm: regular rhythm Heart Sounds: S1 normal and S2 normal GI Inspection: obesity Palpation: soft and nontender Skin General skin exam: no rashes or lesions noted Extrem General: no pedal edema and no calf tenderness Objective Last Vital Signs Temp 36.0 C L 01/22/20 12:29 Pulse 80 01/22/20 08:40 Resp 16 01/22/20 00:35 BP 111/50 L 01/22/20 08:40 Pulse Ox 97 01/22/20 08:38 Laboratory Results - last 24 hr 01/21/20 01/21/20 01/21/20 20:28 20:50 20:50 WBC RBC Hgb Hct MCV MCH MCHC RDW Plt Count MPV Immature Gran % Neutrophils % Lymphocytes % Monocytes % Eosinophils % Basophils % Nucleated RBC % Absolute Neutrophils Absolute Lymphocytes Absolute Monocytes Absolute Eosinophils Absolute Basophils RBC Morphology Microcytosis PT INR APTT VBG Lactate 2.0 H Sodium 133 L Potassium 3.1 L Chloride 97 L Carbon Dioxide 28.9 Anion Gap 7.1 BUN 20 H Creatinine 1.07 H Estimated GFR/1.73 m2 50.13 Glucose 200 H Calcium 8.3 L Magnesium 1.6 L Total Bilirubin 0.5 AST 14 L ALT 20 Alkaline Phosphatase 71 Troponin I NT-Pro-B Natriuret Pep Total Protein 7.1 Albumin 2.9 L Urine Color Urine Clarity Urine pH Ur Specific [place] Urine Protein Urine Ketones Urine Blood Urine Nitrite Urine Bilirubin Urine Urobilinogen Ur Leukocyte Esterase Urine RBC Urine WBC Ur Epithelial Cells Urine Crystals Urine Bacteria Urine Casts Urine Mucus Urine Other Ur Culture Indicated? Urine Glucose COVID-19 PCR Cancelled Nasopharyn COVID-19 PCR Cancelled Ref Test Perform Site Cancelled 01/21/20 01/21/20 01/21/20 20:50 20:50 20:50 WBC 0.62 L* RBC 4.28 Hgb 12.3 D Hct 35.3 L D MCV 82.5 MCH 28.7 MCHC 34.8 RDW 12.5 Plt Count 21 L* MPV 9.2 Immature Gran % 0.0 Neutrophils % 17.7 Lymphocytes % 59.7 Monocytes % 22.6 Eosinophils % 0.0 Basophils % 0.0 Nucleated RBC % 0 Absolute Neutrophils 0.11 L* Absolute Lymphocytes 0.37 L Absolute Monocytes 0.14 Absolute Eosinophils 0.00 Absolute Basophils 0.00 RBC Morphology Normal Microcytosis PT 11.0 INR 1.1 APTT 24.6 VBG Lactate Sodium Potassium Chloride Carbon Dioxide Anion Gap BUN Creatinine Estimated GFR/1.73 m2 Glucose Calcium Magnesium Total Bilirubin AST ALT Alkaline Phosphatase Troponin I < 0.05 NT-Pro-B Natriuret Pep 950 H Total Protein Albumin Urine Color Urine Clarity Urine pH Ur Specific [place] Urine Protein Urine Ketones Urine Blood Urine Nitrite Urine Bilirubin Urine Urobilinogen Ur Leukocyte Esterase Urine RBC Urine WBC Ur Epithelial Cells Urine Crystals Urine Bacteria Urine Casts Urine Mucus Urine Other Ur Culture Indicated? Urine Glucose COVID-19 PCR Nasopharyn COVID-19 PCR Ref Test Perform Site 01/21/20 01/21/20 01/22/20 22:14 23:25 06:50 WBC RBC Hgb Hct MCV MCH MCHC RDW Plt Count MPV Immature Gran % Neutrophils % Lymphocytes % Monocytes % Eosinophils % Basophils % Nucleated RBC % Absolute Neutrophils Absolute Lymphocytes Absolute Monocytes Absolute Eosinophils Absolute Basophils RBC Morphology Microcytosis PT INR APTT VBG Lactate Sodium 138 Potassium 3.4 L Chloride 104 Carbon Dioxide 27.4 Anion Gap 6.6 BUN 17 Creatinine 0.92 Estimated GFR/1.73 m2 59.67 Glucose 124 H D Calcium 8.1 L Magnesium Total Bilirubin AST ALT Alkaline Phosphatase Troponin I Cancelled NT-Pro-B Natriuret Pep Total Protein Albumin Urine Color Yellow Urine Clarity Clear Urine pH 6.5 Ur Specific [place] 1.020 Urine Protein Negative Urine Ketones Negative Urine Blood Trace-intact H Urine Nitrite Negative Urine Bilirubin Negative Urine Urobilinogen 0.2 Ur Leukocyte Esterase Negative Urine RBC 3-5 H Urine WBC 0-2 Ur Epithelial Cells Few Urine Crystals Negative Urine Bacteria Negative Urine Casts Negative Urine Mucus Negative Urine Other Negative Ur Culture Indicated? C&s done as ordered Urine Glucose Negative COVID-19 PCR Nasopharyn COVID-19 PCR Ref Test Perform Site 01/22/20 01/22/20 01/22/20 06:50 09:55 09:55 WBC 1.22 L* D RBC 2.40 L Hgb 6.9 L* D 7.2 L Hct 20.0 L* D 21.0 L MCV 83.3 MCH 28.8 MCHC 34.5 RDW 12.7 Plt Count 22 L* MPV 9.1 Immature Gran % 1.6 Neutrophils % 13.2 Lymphocytes % 59.8 Monocytes % 25.4 Eosinophils % 0.0 Basophils % 0.0 Nucleated RBC % 0 Absolute Neutrophils 0.16 L* Absolute Lymphocytes 0.73 L Absolute Monocytes 0.31 Absolute Eosinophils 0.00 Absolute Basophils 0.00 RBC Morphology See below Microcytosis 2+ PT INR APTT VBG Lactate 1.8 H Sodium Potassium Chloride Carbon Dioxide Anion Gap BUN Creatinine Estimated GFR/1.73 m2 Glucose Calcium Magnesium Total Bilirubin AST ALT Alkaline Phosphatase Troponin I NT-Pro-B Natriuret Pep Total Protein Albumin Urine Color Urine Clarity Urine pH Ur Specific [place] Urine Protein Urine Ketones Urine Blood Urine Nitrite Urine Bilirubin Urine Urobilinogen Ur Leukocyte Esterase Urine RBC Urine WBC Ur Epithelial Cells Urine Crystals Urine Bacteria Urine Casts Urine Mucus Urine Other Ur Culture Indicated? Urine Glucose COVID-19 PCR Nasopharyn COVID-19 PCR Ref Test Perform Site
--- NOTE | 2020-01-22 13:34 | PHA.REVIEW ---
Pharmacy Admission Review - Admission Clinical Review (Last Reviewed 01/21/20 @ 23:11 by Duke Thurston MD) DVT prophylaxis (Acute) Neutropenic fever (Acute) prochlorperazine [From Compazine] Adverse Reaction (Mild, Unverified 01/21/20 20:10) Other (See Comment) Height 5 ft 5 in Weight 111.13 kg - Renal Dosing Renal Dosing: BUN 17 mg/dL (7-18) 01/22/20 06:50 Creatinine 0.92 mg/dL (0.55-1.02) 01/22/20 06:50 Medications needing adjustments: Reviewed (eCrCl slightly improved and is now 66.6 based on abw, cefepime was originally dosed q8h but changed to q12h given renal fxn at that time -- will leave given vanco was added) - Anticoagulation Anticoagulation: Hgb 7.2 g/dL (11.2-15.7) L 01/22/20 09:55 Hct 21.0 % (36.0-46.0) L 01/22/20 09:55 Plt Count 22 10^3/uL (130-400) L* 01/22/20 06:50 INR 1.1 (0.9-1.1) 01/21/20 20:50 Creatinine 0.92 mg/dL (0.55-1.02) 01/22/20 06:50 DVT Prohphylaxis: N/A (None due to thrombocytopenia and anemia) - Opiate Usage Evaluate Pain Scale/Pains Meds: N/A - Relevant Labs Sodium 138 mmol/L (136-145) 01/22/20 06:50 Potassium 3.4 mmol/L (3.5-5.1) L 01/22/20 06:50 Chloride 104 mmol/L (98-107) 01/22/20 06:50 Magnesium 1.6 mg/dL (1.8-2.4) L 01/21/20 20:50 Electrolytes, C-Reactive P, ESR: Reviewed (K+ being repleted orally and via fluids, mag replaced in the ED) - DM Control DM Control: Glucose 124 mg/dL (74-106) H D 01/22/20 06:50 Insulin Dosing: N/A - Heart Failure/KY Heart Failure/KY: Troponin I Cancelled 01/21/20 23:25 NT-Pro-B Natriuret Pep 950 pg/mL (<300) H 01/21/20 20:50 EF%, BOO's, B-Blockers, Diuretics: Reviewed - BP Control BP Control: Blood Pressure 111/50 - Qtc Review If Elevated: Intervened (QTc is 546) List meds needing interventions: Patient is on Levaquin 750mg daily at home as well as fluconazole 400mg daily both moderate risk for LQTS, avoid additional drugs with prolonged QT risk while admitted - IV to PO Switch IV Medications: Reviewed - Home Meds Home Med List reviewed: Intervened (corrected doses, added missing rxs pt has been filling regularly per pharmacy record) Relevent Home Meds Not ordered & why?: celecoxib 200mg daily; of note: pt has previously been on multiple BP medications but all seemed to have been dc'd as she hasn't picked any up recently, has a history hypertensive emerency/urgency in the past per prev admission reports - Current meds Current Medication Order Review: Reviewed - Comments Comments/Follow Ups: Cefepime 2g q12h plus Vanco 1g q12h (2g loading dose given in ED)
[2020-01-22] MEDS: Normal Saline Flush 10 ML SYR IVP (15:48)
[2020-01-22] MEDS: Acetaminophen 500 MG TAB PO (17:50)
[2020-01-22] MEDS: POTASSIUM CHLORIDE/0.9% NACL 1,000 ML 1000 MEQ IV (18:14)
[2020-01-23] VITALS (24 sets, daily range): BP systolic 103–156; BP diastolic 45–91; PULSE 78–95; RESP 16–20; TEMP 36.8–39.3; O2SAT 83–99
[2020-01-23] MEDS: Zolpidem 5 MG TAB PO (01:15)
[2020-01-23] MEDS: CEFEPIME 2 GM in Normal Saline 100 ML IVPB (02:40)
[2020-01-23 06:56] LABS: Abs Immature Grans 0.01 10^3/uL (0.0-0.06); MCH 29.4 pg (27.0-33.0); MCHC 34.6 % (32.0-36.0); MCV 84.9 fL (80-95); MPV 10.7 fL (8.0-11.0); Nucleated RBC 0 %; RBC 2.18 10^6/uL (3.93-5.22); RDW 12.7 % (11.7-14.6); RDW-SD 38.5 fL
[2020-01-23 07:12] LABS: Anion Gap 6.9 mmol/L (3-11); BUN 15 mg/dL (7-18); CO2 27.1 mmol/L (21.0-32.0); CREATININE 0.91 mg/dL (0.55-1.02); Calcium 7.8 mg/dL (8.5-10.1); Chloride 104 mmol/L (98-107); Glucose 138 mg/dL (74-106); Magnesium 1.7 mg/dL (1.8-2.4); Potassium 3.5 mmol/L (3.5-5.1); Sodium 138 mmol/L (136-145)
[2020-01-23 07:41] LABS: WBC 1.23 10^3/uL (4.4-10.8)
[2020-01-23 07:42] LABS: Absolute Basophil Count 0.01 10^3/uL (0.0-0.2); Absolute Lymphocyte Count 0.82 10^3/uL (1.2-3.4); Absolute Monocyte Count 0.25 10^3/uL (0.1-0.8); HCT 18.5 % (36.0-46.0); HGB 6.4 g/dL (11.2-15.7); Platelet Count 13 10^3/uL (130-400)
[2020-01-23 07:43] LABS: Absolute Neutrophil Count 0.11 10^3/uL (1.2-6.7); Diff Comment Manual Differential; Myelocytes % 1; Other Cells % 2
[2020-01-23] MEDS: Potassium Chloride 20 MEQ TABCR PO (08:13)
[2020-01-23] MEDS: Fluconazole 100 MG TAB 400 MG PO (08:13)
[2020-01-23] MEDS: Acyclovir 400 MG TAB PO ×2 (08:14→20:16)
[2020-01-23] MEDS: POTASSIUM CHLORIDE/0.9% NACL 1,000 ML 100 MEQ IV (08:56)
[2020-01-23] MEDS: Magnesium Oxide 400 MG TAB PO ×2 (08:59→20:16)
[2020-01-23 10:24] LABS: COVID-19 RT-PCR UVMMC Result Negative (Negative)
--- NOTE | 2020-01-23 11:48 | PDOC.CMPRO ---
- If Service Date Differs Date of service: 01/23/20 Time of Service: 11:48 Care Management Progress Note S/O: Emelyn was sitting up in her chair when CM met with her. She reported that she is feeling better today. She was aware that she would be receiving a unit of blood today, as her RN had just informed her. Per report, her provider spoke with her oncologist, who is in agreement with the current treatment plan. Awaiting sensitivities to determine final abx course. Per MD, she will likely remain at [facility] through the weekend. She reported that she is very happy with her care at [facility], and feels well taken care of. CM will continue to follow. A: Emelyn is a 74 year old female admitted to [facility] on 01/23/20 with neutropenic fever. P: Anticipate Emelyn will return home when medically cleared vs remain at [facility] for IV abx, depending on course of treatment. Emelyn regularly goes to the Infusion room at [facility]. Once she is ready for discharge, she will be driven home via private vehicle by family. She will follow up with her PCP, Oncologist, and discharge plan of care. CM will continue to follow.
--- NOTE | 2020-01-23 13:41 | W.PM.PROGNOT ---
Date of Service Date of service: 01/23/20 Time of Service: 13:43 Assessment and Plan Assessment and plan (1) Thrombocytopenia: Status: Chronic Assessment and plan: Blood streaked stool but likely d/t firmness of stool. No significant bleeding noted overall. Transfuse platelets. Goal is to keep above 10 while in hospital. Goal of > 20 upon discharge (2) Anemia: Status: Chronic Assessment and plan: Hgb decreased to 6.4. Transfused 1 unit RBCs Recheck CBC pending. Monitor. Goal of > 7 during hospitalization, > 8 at home. (3) MDS (myelodysplastic syndrome): Status: Chronic Assessment and plan: With trend toward recurrence of AML; 10% blasts on recent bone marrow bx (4) Neutropenic fever: Status: Acute Assessment and plan: Tm of 38.7 overnight and so far today. Blood culture growing Group D strep (gallolyticus). Echocardiogram ordered to r/o endocarditis; will be performed on Sunday. Changed antibiotic to ceftriaxone 2g daily. Stopped vancomycin and cefepime. Planning 2 weeks IV ceftriaxone if no valvular vegetations noted. Technically, her TTE may be less than optimal for evaluation of vegetations. If so, consider a 4 week antibiotic treatment with gentamicin for 2 weeks. Subjective Subjective Patient reports: no new complaints, blood in stool (red streak after painful passing of firm stool) and afebrile; denies nausea and vomiting Interval history since last seen: Endorses fatigue Exam Const General: cooperative and no acute distress Nutritional Appearance: obese Orientation: alert and oriented x3 Resp Effort & Inspection: normal respiratory effort Auscultation: clear to auscultation bilaterally Cardio Rate: regular rate Rhythm: regular rhythm Heart Sounds: S1 normal and S2 normal GI Palpation: soft and nontender Auscultation: normal bowel sounds Extrem General: no pedal edema and no calf tenderness Objective Last Vital Signs Temp 37.2 C 01/23/20 11:46 Pulse 82 01/23/20 11:48 Resp 16 01/23/20 11:46 BP 128/68 01/23/20 11:48 Pulse Ox 83 L 01/23/20 11:48 Laboratory Results - last 24 hr 01/21/20 01/23/20 01/23/20 22:14 06:20 06:20 WBC 1.23 L* RBC 2.18 L Hgb 6.4 L* Hct 18.5 L* MCV 84.9 MCH 29.4 MCHC 34.6 RDW 12.7 Plt Count 13 L* MPV 10.7 Immature Gran % See Differential Neutrophils % 9.0 Lymphocytes % 67.0 Monocytes % 20.0 Eosinophils % 0.0 Basophils % 1.0 Myelocytes % 1 Other Cells % 2 Nucleated RBC % 0 Absolute Neutrophils 0.11 L* Absolute Lymphocytes 0.82 L Absolute Monocytes 0.25 Absolute Eosinophils 0.00 Absolute Basophils 0.01 RBC Morphology See below Sodium 138 Potassium 3.5 Chloride 104 Carbon Dioxide 27.1 Anion Gap 6.9 BUN 15 Creatinine 0.91 Estimated GFR/1.73 m2 >= 60.00 Glucose 138 H Calcium 7.8 L Magnesium 1.7 L COVID-19 PCR Negative Nasopharyn COVID-19 PCR Not Applicable Ref Test Perform Site [facility] Patient ABO/Rh Antibody Screen Crossmatch 01/23/20 08:45 WBC RBC Hgb Hct MCV MCH MCHC RDW Plt Count MPV Immature Gran % Neutrophils % Lymphocytes % Monocytes % Eosinophils % Basophils % Myelocytes % Other Cells % Nucleated RBC % Absolute Neutrophils Absolute Lymphocytes Absolute Monocytes Absolute Eosinophils Absolute Basophils RBC Morphology Sodium Potassium Chloride Carbon Dioxide Anion Gap BUN Creatinine Estimated GFR/1.73 m2 Glucose Calcium Magnesium COVID-19 PCR Nasopharyn COVID-19 PCR Ref Test Perform Site Patient ABO/Rh A Positive Antibody Screen Negative Crossmatch See Detail
[2020-01-23] MEDS: cefTRIAXone 2 GM/50 ML BAG IVPB (14:00)
[2020-01-23 16:08] LABS: Absolute Lymphocyte Count 1.14 10^3/uL (1.2-3.4); HCT 22.3 % (36.0-46.0); HGB 7.7 g/dL (11.2-15.7); MCH 28.7 pg (27.0-33.0); MCHC 34.5 % (32.0-36.0); MCV 83.2 fL (80-95); MPV 10.4 fL (8.0-11.0); RBC 2.68 10^6/uL (3.93-5.22); RDW 12.8 % (11.7-14.6)
[2020-01-23 16:31] LABS: Myelocytes % 1; Nucleated RBC 0 %
[2020-01-23 16:32] LABS: Blastocytes % 2
[2020-01-23 16:34] LABS: WBC 1.68 10^3/uL (4.4-10.8)
[2020-01-23 16:36] LABS: Absolute Neutrophil Count 0.18 10^3/uL (1.2-6.7); Diff Comment Manual Differential; Platelet Count 13 10^3/uL (130-400)
[2020-01-23] MEDS: Normal Saline Flush 10 ML SYR IVP (20:15)
[2020-01-23] MEDS: Acetaminophen 325 MG TAB 650 MG PO (20:15)
[2020-01-24] VITALS (12 sets, daily range): BP systolic 118–157; BP diastolic 63–84; PULSE 70–85; RESP 16–18; TEMP 36.3–38.3; O2SAT 94–99
[2020-01-24] MEDS: POTASSIUM CHLORIDE/0.9% NACL 1,000 ML 100 MEQ IV ×2 (00:02→09:49)
[2020-01-24] MEDS: Acetaminophen 325 MG TAB 650 MG PO ×3 (05:46→19:02)
[2020-01-24] MEDS: Fluconazole 150 MG TAB 300 MG PO (08:21)
[2020-01-24] MEDS: Fluconazole 100 MG TAB PO (08:21)
[2020-01-24] MEDS: Magnesium Oxide 400 MG TAB PO ×2 (08:22→19:49)
[2020-01-24] MEDS: Acyclovir 400 MG TAB PO ×2 (08:22→19:49)
[2020-01-24] MEDS: Potassium Chloride 20 MEQ TABCR PO (08:22)
[2020-01-24 08:55] LABS: Abs Immature Grans 0.04 10^3/uL (0.0-0.06); Absolute Lymphocyte Count 0.88 10^3/uL (1.2-3.4); Absolute Monocyte Count 0.29 10^3/uL (0.1-0.8); Lymphocytes % 66.2; MCHC 34.7 % (32.0-36.0); MCV 83.6 fL (80-95); MPV 12.2 fL (8.0-11.0); Monocytes % 21.8; RBC 2.38 10^6/uL (3.93-5.22); RDW 13.1 % (11.7-14.6); RDW-SD 39.8 fL
[2020-01-24 09:02] LABS: BUN 12 mg/dL (7-18); CO2 25.1 mmol/L (21.0-32.0); CREATININE 0.93 mg/dL (0.55-1.02); Calcium 7.9 mg/dL (8.5-10.1); Estimated GFR 58.93 (mL/min/1.73m2); Glucose 153 mg/dL (74-106); Magnesium 1.5 mg/dL (1.8-2.4)
[2020-01-24 09:11] LABS: Anion Gap 8.9 mmol/L (3-11); Chloride 103 mmol/L (98-107); Potassium 3.9 mmol/L (3.5-5.1); Sodium 137 mmol/L (136-145)
[2020-01-24 09:25] LABS: HCT 19.9 % (36.0-46.0); HGB 6.9 g/dL (11.2-15.7); WBC 1.33 10^3/uL (4.4-10.8)
[2020-01-24 09:26] LABS: Absolute Neutrophil Count 0.12 10^3/uL (1.2-6.7); Diff Comment Agrees w/ Instrument; Nucleated RBC 0 %
[2020-01-24 09:27] LABS: Platelet Count 40 10^3/uL (130-400); Polychromasia Present
--- NOTE | 2020-01-24 09:38 | PDOC.CMPRO ---
- If Service Date Differs Date of service: 01/24/20 Time of Service: 09:38 Care Management Progress Note S/O:Emelyn was presented at interdisciplinary meeting, CM reviewed clinical chart and will continue to coordinate discharge and disposition. A: Emelyn is a 74 year old patient admitted to [facility] on 01/23/20 with neutropenic fever, with a history of AML in remission. Positive blood cultures concerns for port infection. She remains on IV antibiotics, anticipate a possible port removal if needed. P: Anticipate Emelyn will return home when medically cleared vs remain at [facility] for IV abx, depending on course of treatment. Emelyn regularly goes to the Infusion room at [facility]. Once she is ready for discharge, she will be driven home via private vehicle by family. She will follow up with her PCP, Oncologist, and discharge plan of care. CM will continue to follow.
--- NOTE | 2020-01-24 10:27 | PGE_ITS ---
Date of Service Date of service: 01/24/20 Time of Service: 10:29 Assessment and Plan Assessment and plan (1) Bacteremia due to Streptococcus: Start date: 01/24/20 Start time: 10:34 Status: Acute Assessment and plan: Positive blood cultures from 01/20 growing strep gallolyticus Surgery consulted, platelets 40, Dr. Tirado will plan for tomorrow, will give 1 unit prbc and plan on platelets in am. Spoke with [facility] [place] Kathleen she recommends the sooner the port be removed the better as this is likely the source for bactermia. She states she will let surgery decide when they want to remove but sooner the better. Agreeable ceftriaxone 2 gm appropriate treatment with duration for 2-4 weeks if blood cultures clear on second set, if blood cultures do not clear with second set she recommends 6 weeks antibiotic therapy, and a repeat phone call to discuss regimen. (2) Neutropenic fever: Start date: 01/24/20 Start time: 10:39 Status: Acute Assessment and plan: Tm of 37.8 overnight and so far today. Blood culture growing Group D strep (gallolyticus). Echocardiogram ordered to r/o endocarditis; will be performed on Sunday. Changed antibiotic to ceftriaxone 2g daily. Stopped vancomycin and cefepime. Planning 2 weeks IV ceftriaxone if no valvular vegetations noted. Technically, her TTE may be less than optimal for evaluation of vegetations. If so, consider a 4 week antibiotic treatment with gentamicin for 2 weeks. (3) Thrombocytopenia: Start date: 01/24/20 Start time: 10:41 Status: Chronic Assessment and plan: Blood streaked stool but likely d/t firmness of stool. No significant bleeding noted overall. Transfuse platelets. Goal is to keep above 10 while in hospital. Goal of > 20 upon discharge (4) Anemia: Start date: 01/24/20 Start time: 10:41 Status: Chronic Assessment and plan: Hgb decreased to 6.9. Transfuse 1 unit Recheck CBC pending. Monitor. Goal of > 7 during hospitalization, > 8 at home. (5) MDS (myelodysplastic syndrome): Start date: 01/24/20 Start time: 10:42 Status: Chronic Assessment and plan: With trend toward recurrence of AML; 10% blasts on recent bone marrow bx above case discussed with Dr. Tariq who is in agreement. Subjective Subjective Patient reports: no new complaints Interval history since last seen: Febrile overnight, tearful this morning. Exam Const General: cooperative, no acute distress and well groomed Nutritional Appearance: obese Orientation: alert and oriented x3 Eyes Sclera: sclerae normal Pupils: PERRL Resp Effort & Inspection: normal respiratory effort Auscultation: clear to auscultation bilaterally Cardio Rate: regular rate Rhythm: regular rhythm Heart Sounds: S1 normal and S2 normal GI Inspection: obesity Palpation: soft and nontender Auscultation: normal bowel sounds Skin General skin exam: no rashes or lesions noted Extrem General: no pedal edema and no calf tenderness Objective Last Vital Signs Temp 37.8 C H 01/24/20 08:26 Pulse 75 01/24/20 08:26 Resp 16 01/24/20 08:26 BP 128/63 01/24/20 08:26 Pulse Ox 97 01/24/20 08:26 Laboratory Results - last 24 hr 01/23/20 01/23/20 01/24/20 08:45 16:00 06:35 WBC 1.68 L* D RBC 2.68 L Hgb 7.7 L Hct 22.3 L D MCV 83.2 MCH 28.7 MCHC 34.5 RDW 12.8 Plt Count 13 L* MPV 10.4 Immature Gran % See Differential Neutrophils % 11.0 Lymphocytes % 68.0 Monocytes % 18.0 Eosinophils % 0.0 Basophils % 0.0 Myelocytes % 1 Nucleated RBC % 0 Absolute Neutrophils 0.18 L* Absolute Lymphocytes 1.14 L Absolute Monocytes 0.30 Absolute Eosinophils 0.00 Absolute Basophils 0.00 RBC Morphology See below Polychromasia Sodium 137 Potassium 3.9 Chloride 103 Carbon Dioxide 25.1 Anion Gap 8.9 BUN 12 Creatinine 0.93 Glucose 153 H Calcium 7.9 L Magnesium 1.5 L Patient ABO/Rh A Positive Antibody Screen Negative Crossmatch See Detail 01/24/20 06:35 WBC 1.33 L* RBC 2.38 L Hgb 6.9 L* Hct 19.9 L* MCV 83.6 MCH 29.0 MCHC 34.7 RDW 13.1 Plt Count 40 L D MPV 12.2 H Immature Gran % 3.0 Neutrophils % 9.0 Lymphocytes % 66.2 Monocytes % 21.8 Eosinophils % 0.0 Basophils % 0.0 Myelocytes % Nucleated RBC % 0 Absolute Neutrophils 0.12 L* Absolute Lymphocytes 0.88 L Absolute Monocytes 0.29 Absolute Eosinophils 0.00 Absolute Basophils 0.00 RBC Morphology See below Polychromasia Present Sodium Potassium Chloride Carbon Dioxide Anion Gap BUN Creatinine Glucose Calcium Magnesium Patient ABO/Rh Antibody Screen Crossmatch
--- NOTE | 2020-01-24 11:11 | SCONE_ITS ---
Date of service: 01/24/20 Time of Service: 22:35 Assessment and Plan Assessment and plan (1) Bacteremia due to Streptococcus: Status: Acute Assessment and plan: Patient is at high risk from anesthesia standpoint and from a bleeding standpoint. She is on antifungal's/antiviral/antibiotics We cannot get an echo until Sunday. CT was not remarkable for any acute abdominal pathology or source of infection Patient is currently not septic and hemodynamically stable. Patient currently does not have any active bleeding. [facility] does not have any beds The decision was made at this time to hold for removal and to wait until we have the echo and blood cultures from the line. Medicine will continue to treat her. I will continue to follow her progress. 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 Pt has mylodysplastic syndrome which has rapidly deteriorated to AML in 6wks. she is being treated with 2 chemotherapeutic agents. Her last chemo dose was approximately January 15. She was diagnosed with MDS approximately 3 years ago. Her and Adames is a production problem and not a destruction/consumption problem. She was recently in [facility] for an infection. She was d./c'ed from on 01/16 w/ infection. Labs from today were reviewed. hgb 6 .9.plt 40. She did receive a sixpack of platelets yesterday. She grew out strep bovis in x2 bottles. These are simply labeled as blood cultures and do not say if they came from her port or peripheral site. We cannot get an echo today. [facility] has no beds and cannot take her. Hematology oncology wanted the port removed. Infectious disease was more conservative and it is not clear cut at this point that they absolutely want the port removed from an infection standpoint. Port was inserted in November 2018 for continued treatment of her myelodysplastic syndrome. It is right IJ. [place] port. She also has a history of pulmonary nodular amyloidosis. She is severely short of breath per the notes at [facility]. Her BMI is 42. She has had no problems with anesthesia in the past. She did have a ME and stents placed remotely. She had a stress test in 2019 which showed no reversible defects. There was also concern for possible intra-abdominal source of sepsis/bacteremia versus cancer. CT was obtained. I did personally review it and does not show any source of infection. We cannot obtain an echo until Sunday. Her port is in the right atrium. She is currently on an antifungal/antibiotics/antiviral. I did discuss the case with anesthesia-Rosalind Flowers.. Given her MDS and obesity, and the amyloidosis, she would be a difficult airway. She is not a good candidate for general anesthesia. The line is in the right IJ. If we had coagulation problems we would be forced to intubate and tie off her IJ. She would definitely require a higher level of care. Unfortunately [facility] has no beds available at this time I did look discussed the case with Angelina Moses as well. At this point we are going to draw blood cultures from the port and see if it shows anything and we will hold on doing any surgery. She is very high risk from an airway standpoint and from a bleeding standpoint. She would need to receive platelets and DDAVP prior to the procedure.. 60 minutes is spent doing the consult today and reviewing her chart and discussing with other providers. 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 IJ in 11/2018. IR @ [facility] Lumbago without sciatica MDS (myelodysplastic syndrome) Pulmonary nodular amyloidosis Vertiginous syndrome Surgical History (Updated 01/24/20 @ 23:01 by Tangela Watson DO) S/P laparoscopic cholecystectomy S/P PICC central line placement Social History Smoking/Tobacco Use Status: Never Smoking risk assessment performed?: Yes Alcohol Intake: never Drug use: Never Substance use type: does not use What is your relationship status?: Panel score (0-1 are the most socially isolated patients): 1 Do you feel safe at home: Yes Do you feel safe in your relationship?: Yes Additional Social history: Retired nurse Results Last Vital Signs Temp 37.8 C H 01/24/20 08:26 Pulse 75 01/24/20 08:26 Resp 16 01/24/20 08:26 BP 128/63 01/24/20 08:26 Pulse Ox 97 01/24/20 08:26 Labs Result diagrams: 01/25/20 08:43 01/25/20 08:43 Labs: Laboratory Results - last 24 hr 01/23/20 01/23/20 01/24/20 08:45 16:00 06:35 WBC 1.68 L* D RBC 2.68 L Hgb 7.7 L Hct 22.3 L D MCV 83.2 MCH 28.7 MCHC 34.5 RDW 12.8 Plt Count 13 L* MPV 10.4 Immature Gran % See Differential Neutrophils % 11.0 Lymphocytes % 68.0 Monocytes % 18.0 Eosinophils % 0.0 Basophils % 0.0 Myelocytes % 1 Nucleated RBC % 0 Absolute Neutrophils 0.18 L* Absolute Lymphocytes 1.14 L Absolute Monocytes 0.30 Absolute Eosinophils 0.00 Absolute Basophils 0.00 RBC Morphology See below Polychromasia Sodium 137 Potassium 3.9 Chloride 103 Carbon Dioxide 25.1 Anion Gap 8.9 BUN 12 Creatinine 0.93 Estimated GFR/1.73 m2 58.93 Glucose 153 H Calcium 7.9 L Magnesium 1.5 L Patient ABO/Rh A Positive Antibody Screen Negative Crossmatch See Detail 01/24/20 06:35 WBC 1.33 L* RBC 2.38 L Hgb 6.9 L* Hct 19.9 L* MCV 83.6 MCH 29.0 MCHC 34.7 RDW 13.1 Plt Count 40 L D MPV 12.2 H Immature Gran % 3.0 Neutrophils % 9.0 Lymphocytes % 66.2 Monocytes % 21.8 Eosinophils % 0.0 Basophils % 0.0 Myelocytes % Nucleated RBC % 0 Absolute Neutrophils 0.12 L* Absolute Lymphocytes 0.88 L Absolute Monocytes 0.29 Absolute Eosinophils 0.00 Absolute Basophils 0.00 RBC Morphology See below Polychromasia Present Sodium Potassium Chloride Carbon Dioxide Anion Gap BUN Creatinine Estimated GFR/1.73 m2 Glucose Calcium Magnesium Patient ABO/Rh Antibody Screen Crossmatch
[2020-01-24] MEDS: cefTRIAXone 2 GM/50 ML BAG IVPB (13:10)
--- NOTE | 2020-01-24 13:44 | DI.CT_ITS ---
EXAM: CT ABDOMEN PELVIS W INDICATION: bactermic. COMPARISON: CR XR CHEST 2V PA LATERAL from 03/06/[address] CHEST PE CTA from 04/03/2019 TECHNIQUE: FINDINGS: CT examination of the abdomen and pelvis was performed with bolus infusion of 100 cc of Omnipaque 350 . Oral contrast was also administered. Images obtained through the lung bases are unremarkable except for a tiny bilateral pleural effusions .. The bones are diffusely demineralized with a somewhat patchy appearance, this is a nonspecific findin g and may reflect osteoporosis but possibility of a diffuse bony process such as multiple myeloma is not entirely excluded. The liver is unremarkable in appearance. Prior cholecystectomy noted. No biliary dilatation.. Pancreas appears normal. Spleen is unremarkable in appearance. There is a 2.5 x 1.5 cm in diameter left adrenal mass, mean attenuation values are around 25 Hounsfie ld units. This is in the indeterminate range for likelihood of adrenal neoplasm, accordingly adrenal protocol CT is recommended for further evaluation. The kidneys are unremarkable with no evidence of hydronephrosis, nephrolithiasis, or renal mass.. Ur inary bladder unremarkable. Abdominal aorta is of normal diameter and no major vascular abnormality is seen. No abdominal wall hernia. No abdominal or pelvic adenopathy. Uterus is presumably absent. There are multiple vascular clips in the pelvis. Appendix is not specifically visualized but there is no evidence of appendicitis. No evidence of div erticulitis or bowel obstruction. There is a large quantity of fecal material in the rectosigmoid. IMPRESSION: No evidence of acute process. Probable constipation. Indeterminate left adrenal mass, 2.5 cm in diameter. Additional evaluation with adrenal protocol CT recommended. RADIATION DOSE DELIVERED: LINK-TO-SR Total DLP 1,484.03mGy.cm Total DLP
[2020-01-24] MEDS: Normal Saline - Diluent 50 ML VIAL IV (13:52)
[2020-01-24] MEDS: Omnipaque 350 MG/ML 100 ML BTL IJ (13:53)
[2020-01-24] MEDS: Normal Saline Flush 10 ML SYR IVP ×3 (13:55→19:00)
--- NOTE | 2020-01-24 14:08 | DI.VRAD_ITS ---
PROCEDURE INFORMATION: Exam: CT Abdomen And Pelvis With Contrast Exam date and time: 01/24/2020 11:31 AM Age: 74 years old Clinical indication: Other: Bactermic TECHNIQUE: Imaging protocol: Computed tomography of the abdomen and pelvis with intravenous contrast. Radiation optimization: All CT scans at this facility use at least one of these dose optimization techniques: automated exposure control; mA and/or kV adjustment per patient size (includes targeted exams where dose is matched to clinical indication); or iterative reconstruction. Contrast material: OMNI-PAQUE 350; Contrast volume: 100 ml; Contrast route: INTRAVENOUS (IV); COMPARISON: No relevant prior studies available. FINDINGS: Lungs: Dependent atelectasis in the lung bases posteriorly. Pleural space: Small bilateral pleural effusions. Heart: Very dense mitral annulus calcifications. Mild cardiomegaly. Liver: Mild diffuse fatty infiltration of the liver. Gallbladder and bile ducts: Cholecystectomy. Pancreas: Normal. No ductal dilation. Spleen: Normal. No splenomegaly. Adrenal glands: 3 cm left adrenal mass with Hounsfield units of 15. Kidneys and ureters: Horizontal orientation of right kidney, normal variant. No urinary stones are identified. No evidence of urinary obstruction. Stomach and bowel: Large amount of stool in rectosigmoid colon. No evidence of obstruction. Appendix: No evidence of appendicitis. Intraperitoneal space: Unremarkable. No free air. No significant fluid collection. Vasculature: Vascular calcifications. No aneurysm identified. Lymph nodes: Unremarkable. No enlarged lymph nodes. Urinary bladder: Unremarkable as visualized. Reproductive: Hysterectomy. 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 Bilateral L4 spondylolysis. Left L5 spondylolysis. Low-grade spondylolisthesis of L4. Bones are demineralized. Soft tissues: Fat containing left inguinal hernia. Several tiny fat containing ventral midline abdominal wall hernias in the periumbilical and sub umbilical region. The periumbilical hernia opening measures approximately 10 mm by 10 mm in AP and transverse dimension. Lowest hernia opening measures approximately 15 mm by 28 mm in craniocaudad and transverse dimensions. IMPRESSION: 1. Small bilateral effusions with dependent atelectasis in lung bases. 2. Large amount of stool in the rectosigmoid colon. 3. Indeterminate 3 cm left adrenal mass. Recommend adrenal CT. (Shore-Collins W, ACR White Paper, 2017) Dictated and Authenticated by: Lucretia Klein MD. Ordering:IAN Alfaro MD
[2020-01-24] MEDS: diphenhydrAMINE 25 MG CAP PO (14:18)
[2020-01-24] MEDS: MAGNESIUM SULFATE 4 GM/100 ML BAG IVPB (19:00)
--- NOTE | 2020-01-24 19:13 | NUR.NOTE ---
Nursing Note: patient rings about 1700, her access was lost, blood was completed, Ed nurse Beverley resumes access via us at 1848, and magnesium started
[2020-01-24] MEDS: Docusate Sodium 100 MG CAP PO (19:49)
[2020-01-25] VITALS (31 sets, daily range): BP systolic 144–213; BP diastolic 46–136; PULSE 67–110; RESP 13–31; TEMP 36.1–38.6; O2SAT 92–98
[2020-01-25] MEDS: Zolpidem 5 MG TAB PO (01:47)
[2020-01-25] MEDS: Acetaminophen 325 MG TAB 650 MG PO ×2 (01:59→17:28)
[2020-01-25] MEDS: POTASSIUM CHLORIDE/0.9% NACL 1,000 ML 100 MEQ IV ×2 (05:28→16:30)
[2020-01-25] MEDS: Potassium Chloride 20 MEQ TABCR PO (08:08)
[2020-01-25] MEDS: Acyclovir 400 MG TAB PO ×2 (08:08→21:02)
[2020-01-25] MEDS: Docusate Sodium 100 MG CAP PO ×2 (08:08→21:02)
[2020-01-25] MEDS: Magnesium Oxide 400 MG TAB PO ×2 (08:08→21:02)
[2020-01-25] MEDS: Fluconazole 100 MG TAB 200 MG PO (08:08)
[2020-01-25 08:47] LABS: Abs Immature Grans 0.04 10^3/uL (0.0-0.06); Absolute Lymphocyte Count 0.82 10^3/uL (1.2-3.4); Absolute Monocyte Count 0.42 10^3/uL (0.1-0.8); HCT 24.1 % (36.0-46.0); HGB 8.5 g/dL (11.2-15.7); Immature Grans % 2.7; Lymphocytes % 55.4; MCH 29.4 pg (27.0-33.0); MCHC 35.3 % (32.0-36.0); MCV 83.4 fL (80-95); MPV 8.8 fL (8.0-11.0); Monocytes % 28.4; Neutrophils % 13.5; Nucleated RBC 0 %; RBC 2.89 10^6/uL (3.93-5.22); RDW 12.9 % (11.7-14.6); RDW-SD 39.3 fL
[2020-01-25 08:54] LABS: BUN 12 mg/dL (7-18); CREATININE 0.91 mg/dL (0.55-1.02); Calcium 8.1 mg/dL (8.5-10.1); Chloride 102 mmol/L (98-107); Glucose 130 mg/dL (74-106); Magnesium 2.3 mg/dL (1.8-2.4); Potassium 4.2 mmol/L (3.5-5.1); Sodium 135 mmol/L (136-145)
[2020-01-25 09:02] LABS: INR 1.1 (0.9-1.1); Prothrombin Time 11.5 sec (9.3-11.0)
[2020-01-25 09:28] LABS: WBC 1.48 10^3/uL (4.4-10.8)
[2020-01-25 09:31] LABS: Platelet Count 22 10^3/uL (130-400)
[2020-01-25 09:32] LABS: Diff Comment Agrees w/ Instrument; RBC Morphology Normal
[2020-01-25] MEDS: VANCOMYCIN/WATER (PEG) 1.25 GM/250 ML BAG IV (10:53)
--- NOTE | 2020-01-25 10:58 | PDOC.CMPRO ---
- If Service Date Differs Date of service: 01/25/20 Time of Service: 10:58 Care Management Progress Note S/O:Emelyn was presented at interdisciplinary meeting, CM reviewed clinical chart and will continue to coordinate discharge and disposition. Plan will be for her to have her PORT removed today, continues with IV abx, she does not want to return to [facility] at this point. She will have a palliative consult on Sunday which she and her family are in agreement with. A: Emelyn is a 74 year old patient admitted to [facility] on 01/23/20 with neutropenic fever, with a history of AML in remission. Positive blood cultures concerns for port infection. She remains on IV antibiotics, anticipate a possible port removal if needed. P: Anticipate Emelyn will return home when medically cleared vs remain at [facility] for IV abx, depending on course of treatment. Once she is ready for discharge, she will be driven home via private vehicle by family. She will follow up with her PCP, Oncologist, and discharge plan of care. CM will continue to follow.
--- NOTE | 2020-01-25 11:15 | W.PM.PROGNOT ---
Date of Service Date of service: 01/25/20 Time of Service: 11:15 Assessment and Plan Assessment and plan (1) Bacteremia due to Streptococcus: Start date: 01/25/20 Start time: 11:33 Status: Acute Assessment and plan: Positive blood cultures from 01/20 growing strep gallolyticus. Also revealing staph in all 4 bottles. Repeat cultures pending. Vanco added to regimen, she was febrile overnight Going to OR today for PAC removal with Dr. Tirado, she will need an ICU bed post surgery as she is high risk for bleeding. 2 units platelets ordered for surgery (2) Neutropenic fever: Start date: 01/25/20 Start time: 11:35 Status: Acute Assessment and plan: 38.6 overnight Vanco added. Removal of PAC Will await sensitivities to narrow antibiotics. (3) Thrombocytopenia: Start date: 01/25/20 Start time: 11:35 Status: Chronic Assessment and plan: HH improved today after 1 unit yesterday 8.5/24.1, Monitor h/h. Per daughter spoke with oncologist she is no longer going to have chemo on discharge she will going into a new trial. Will speak with oncology tomorrow. (4) Anemia: Start date: 01/25/20 Start time: 11:37 Status: Chronic Assessment and plan: Greater than 7 continue to monitor. Daily labs (5) MDS (myelodysplastic syndrome): Start date: 01/25/20 Start time: 11:37 Status: Chronic Assessment and plan: With trend toward recurrence of AML; 10% blasts on recent bone marrow bx, above case discussed with Dr. Tariq who is in agreement. Subjective Subjective Patient reports: no new complaints Interval history since last seen: Spoke with Lab all 4 blood culture bottles are speciating staph. Dr. Watson made aware. Patient is going to the OR today for PAC removal. She is tearful when speaking and experiencing a lot of guilt over her husbands . She will benefit from antidepressant which will be started after surgery today. She will need transfer to ICU post surgery. Exam Const General: cooperative, no acute distress and well groomed Nutritional Appearance: obese Orientation: alert and oriented x3 Eyes Sclera: sclerae normal Pupils: PERRL Resp Effort & Inspection: normal respiratory effort Auscultation: clear to auscultation bilaterally Cardio Rate: regular rate Rhythm: regular rhythm Heart Sounds: S1 normal and S2 normal GI Inspection: obesity Palpation: soft and nontender Auscultation: normal bowel sounds Skin General skin exam: no rashes or lesions noted Extrem General: no pedal edema and no calf tenderness Objective Last Vital Signs Temp 36.6 C 01/25/20 08:12 Pulse 88 01/25/20 08:12 Resp 15 01/25/20 08:12 BP 144/77 H 01/25/20 08:12 Pulse Ox 96 01/25/20 08:12 Laboratory Results - last 24 hr 01/23/20 01/25/20 01/25/20 08:45 08:43 08:43 WBC 1.48 L* RBC 2.89 L Hgb 8.5 L Hct 24.1 L D MCV 83.4 MCH 29.4 MCHC 35.3 RDW 12.9 Plt Count 22 L* MPV 8.8 Immature Gran % 2.7 Neutrophils % 13.5 Lymphocytes % 55.4 Monocytes % 28.4 Eosinophils % 0.0 Basophils % 0.0 Nucleated RBC % 0 Absolute Neutrophils 0.20 L* Absolute Lymphocytes 0.82 L Absolute Monocytes 0.42 Absolute Eosinophils 0.00 Absolute Basophils 0.00 RBC Morphology Normal PT INR Sodium 135 L Potassium 4.2 Chloride 102 Carbon Dioxide 24.0 Anion Gap 9.0 BUN 12 Creatinine 0.91 Estimated GFR/1.73 m2 >= 60.00 Glucose 130 H Calcium 8.1 L Magnesium 2.3 Patient ABO/Rh A Positive Antibody Screen Negative Crossmatch See Detail 01/25/20 08:43 WBC RBC Hgb Hct MCV MCH MCHC RDW Plt Count MPV Immature Gran % Neutrophils % Lymphocytes % Monocytes % Eosinophils % Basophils % Nucleated RBC % Absolute Neutrophils Absolute Lymphocytes Absolute Monocytes Absolute Eosinophils Absolute Basophils RBC Morphology PT 11.5 H INR 1.1 Sodium Potassium Chloride Carbon Dioxide Anion Gap BUN Creatinine Estimated GFR/1.73 m2 Glucose Calcium Magnesium Patient ABO/Rh Antibody Screen Crossmatch
[2020-01-25] MEDS: cefTRIAXone 2 GM/50 ML BAG IVPB (12:47)
--- NOTE | 2020-01-25 13:57 | W.PM.PROGNOT ---
Date of Service Date of service: 01/25/20 Time of Service: 13:58 Assessment and Plan Assessment and plan (1) Infection associated with totally implantable venous access device: Status: Acute Assessment and plan: Our plan today is to remove the venous access device. We will do it down in the operating room. She will get 2 aliquots of platelets prior to beginning the procedure. She does not require any further antibiotic antiviral antifungal called coverage for Dr. Preciado. She will be kept in the ICU overnight to monitor for bleeding. She is Covid negative. Risks include bleeding, exsanguination, need for ligation of the internal jugular vein, nonhealing of the wound. Further infections. Hematomas that obstruct the airway. MS CVA and . I discussed this with the patient and her daughter. She does wish to proceed with procedure today. We will plan on doing this in the OR the line and the pocket will be cultured. 2 hours was spent in coordinating her care and discussing her care with Dr. Catherine nursing Rosalind Flowers from anesthesia and Dr. Castellanos from transfusion medicine at [facility]. (2) At risk for complications involving vascular access device: Status: Acute (3) Atherosclerosis of arteries: Status: Acute (4) ALLRED (dyspnea on exertion): Status: Acute (5) BMI 40.0-44.9, adult: Status: Acute (6) Acute myeloblastic leukemia: Status: Acute (7) Pulmonary nodular amyloidosis: Status: Acute (8) Bacteremia due to Streptococcus: Status: Acute (9) Thrombocytopenia: Status: Chronic (10) Anemia: Status: Chronic (11) HTN (hypertension), benign: Status: Acute (12) MDS (myelodysplastic syndrome): Status: Chronic (13) Neutropenic fever: Status: Acute Subjective Subjective Interval history since last seen: I spoke with Angelina Kamaljit today and cultures from her port are growing out staph. The port itself is exposed. There is a defect in the upper overlying skin and has a chronic opening. It is loose and does not appear to be adhered to the underlying tissue like a normal port does. There is no redness or drainage. However she does not have an intact immune system so may not be able to mount the normal infection/inflammatory response. She has had no problems with spontaneous bleeding. No nosebleeds or bleeding from her IV sites. She is neutropenic. She has not been running a temperature in the last 48 hours. Exam Resp Effort & Inspection: normal respiratory effort and able to speak in complete sentences Auscultation: clear to auscultation bilaterally Cardio Rate: regular rate Rhythm: regular rhythm GI Other: Obese soft and nontender. Internal organs and hernias are not palpable secondary to size Skin Other: The port site has some mild redness. There is a open area in the skin. There is no drainage. Objective Last Vital Signs Temp 36.8 C 01/25/20 13:46 Pulse 88 01/25/20 13:46 Resp 15 01/25/20 13:46 BP 158/76 H 01/25/20 13:46 Pulse Ox 97 01/25/20 13:46 Laboratory Results - last 24 hr 01/23/20 01/25/20 01/25/20 08:45 08:43 08:43 WBC 1.48 L* RBC 2.89 L Hgb 8.5 L Hct 24.1 L D MCV 83.4 MCH 29.4 MCHC 35.3 RDW 12.9 Plt Count 22 L* MPV 8.8 Immature Gran % 2.7 Neutrophils % 13.5 Lymphocytes % 55.4 Monocytes % 28.4 Eosinophils % 0.0 Basophils % 0.0 Nucleated RBC % 0 Absolute Neutrophils 0.20 L* Absolute Lymphocytes 0.82 L Absolute Monocytes 0.42 Absolute Eosinophils 0.00 Absolute Basophils 0.00 RBC Morphology Normal PT INR Sodium 135 L Potassium 4.2 Chloride 102 Carbon Dioxide 24.0 Anion Gap 9.0 BUN 12 Creatinine 0.91 Estimated GFR/1.73 m2 >= 60.00 Glucose 130 H Calcium 8.1 L Magnesium 2.3 Patient ABO/Rh A Positive Antibody Screen Negative Crossmatch See Detail 01/25/20 08:43 WBC RBC Hgb Hct MCV MCH MCHC RDW Plt Count MPV Immature Gran % Neutrophils % Lymphocytes % Monocytes % Eosinophils % Basophils % Nucleated RBC % Absolute Neutrophils Absolute Lymphocytes Absolute Monocytes Absolute Eosinophils Absolute Basophils RBC Morphology PT 11.5 H INR 1.1 Sodium Potassium Chloride Carbon Dioxide Anion Gap BUN Creatinine Estimated GFR/1.73 m2 Glucose Calcium Magnesium Patient ABO/Rh Antibody Screen Crossmatch
--- NOTE | 2020-01-25 15:39 | W.PM.OP ---
Date of service: 01/25/20 Time of Service: 15:39 Operative Note Operative Note DATE OF PROCEDURE: 01/25/20 PRE-OP DIAGNOSIS: infected buried resiviour vascular access device POST-OP DIAGNOSIS: same removal of buried resiviour vascular access device PROCEDURE: removal of buried resiviour vascular access device SURGEON: Tangela Watson ASSEMBLER ARRANGER: Jeanette Macias ANESTHESIA: MAC ESTIMATED BLOOD LOSS: 5 PATHOLOGY: other Patient was transported to: ICU Patient's condition: stable Procedure Description: Ms. Jasso is a 74-year-old female seen at the request of Dr. Tariq for port removal. 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 Her port is become infected and is growing out staph and she requires removal and a long discussion with the patient and her family what this could entail. Including bleeding exsanguination, occluding her airway nonhealing of the pocket and having a chronic open wound complications including MN CVA inability to maintain airway. Patient is a full code. I did review the case with Dr. Catherine, we have PERRL from anesthesia and with Dr. Castellanos from [facility]. She is already on antibiotics, antifungals, antivirals. She received 2 units of platelets just prior to cut time. Patient brought to the operative suite and placed in the supine position. Anesthesia is local and a very light sedative. Her neck is prepped and draped in usual sterile fashion using ChloraPrep scrub solution. 1 unit of platelet is infused prior to cut time. The second unit is started. We are fully prep to do a night neck dissection and ligation of the IJ if this is necessary. Timeout is performed. 3 cc of 1% lidocaine with epinephrine used for local anesthetization. The old scar is removed on the right chest wall. Electrocautery is used to provide hemostasis. The port is dissected out. It he port has not incorporated into the subcutaneous tissues. There is no gross purulence. However it does not have the usual appearance of a healthy healed import and has the appearance of a chronic low-grade infected port. Aerobic and anaerobic cultures are done of the subcutaneous pocket. The tip was sent in for culture. The catheter is easily removed from the vein. Pressure is held for 10 minutes on the vein. There is no bleeding noted. The pocket is irrigated with 200 cc of saline. It is closed in 2 layers using 3-0 Vicryl and 2-0 Prolene. Tight pressure dressing is applied. There is no bleeding from the incision site or from the dissection sites or from the vein. Patient tolerated the procedure well without any bleeding. Family was apprised of the patient's condition. She is transferred to ICU for close monitoring for the next 24 hours. Findings were discussed with Dr. Tariq. This report was created using using [employer] software and may contain errors
--- NOTE | 2020-01-25 20:10 | W.PM.PROGNOT ---
Date of Service Date of service: 01/25/20 Time of Service: 16:00 Assessment and Plan Assessment and plan (1) Infection associated with totally implantable venous access device: Status: Acute Assessment and plan: The patient is doing well post-op. There pain is well controlled. They are having no nausea or vomiting. The pt is not having any chest pain or SOB, productive cough; no calf pain or swelling. The pt is making good urine. The pt pain is adequately controlled. The case was discussed with nursing and patents progress reviewed. All of the pt's home medications were addressed and adjusted accordingly for their oral intact status. HEENT: no janudice. no eye pain/drainage/redness/swelling. mild sore throat cardio- NSR no chest pain, BP stable. pulm: no sob or productive cough. no hemoptysis insicion- clean/dry. dressing intact no excessive bleeding or drainage I discussed with the patient and/or there family about the findings in surgery and the pt's progress. We reviewed expectations for progress in the hospital; what the pt could expect for recovery time and length of stay. We discussed the importance of walking and pulmonary toilet to avoid blood clots and pneumonia. Continue current plans for pulmonary toilet, GI and DVT prophalxis. We shall continue the current plan for pain mangament as it is at an appropraite level and working well for the pt. Appriopriate measures will be taken for constipation prevention as well, and this was also reviewed witht the pt. wound care plan was reviewed with nursing as well. see orders -further infectious dx care- per hospitlists service -treatment of AML/MDS per oncology service. -will follow for routine wound care. High risk of infection adn non healing of the wound. (2) Atherosclerosis of arteries: Status: Acute (3) ALLRED (dyspnea on exertion): Status: Acute (4) BMI 40.0-44.9, adult: Status: Acute (5) Acute myeloblastic leukemia: Status: Acute (6) Pulmonary nodular amyloidosis: Status: Acute (7) Bacteremia due to Streptococcus: Status: Acute (8) Thrombocytopenia: Status: Chronic (9) Anemia: Status: Chronic (10) MDS (myelodysplastic syndrome): Status: Chronic (11) Neutropenic fever: Status: Acute Objective Last Vital Signs Temp 37.9 C H 01/25/20 17:28 Pulse 108 H 01/25/20 16:46 Resp 24 01/25/20 16:49 BP 168/94 H 01/25/20 16:46 Pulse Ox 96 01/25/20 16:49 Laboratory Results - last 24 hr 01/23/20 01/25/20 01/25/20 08:45 08:43 08:43 WBC 1.48 L* RBC 2.89 L Hgb 8.5 L Hct 24.1 L D MCV 83.4 MCH 29.4 MCHC 35.3 RDW 12.9 Plt Count 22 L* MPV 8.8 Immature Gran % 2.7 Neutrophils % 13.5 Lymphocytes % 55.4 Monocytes % 28.4 Eosinophils % 0.0 Basophils % 0.0 Nucleated RBC % 0 Absolute Neutrophils 0.20 L* Absolute Lymphocytes 0.82 L Absolute Monocytes 0.42 Absolute Eosinophils 0.00 Absolute Basophils 0.00 RBC Morphology Normal PT INR Sodium 135 L Potassium 4.2 Chloride 102 Carbon Dioxide 24.0 Anion Gap 9.0 BUN 12 Creatinine 0.91 Estimated GFR/1.73 m2 >= 60.00 Glucose 130 H Calcium 8.1 L Magnesium 2.3 Patient ABO/Rh A Positive Antibody Screen Negative Crossmatch See Detail 01/25/20 08:43 WBC RBC Hgb Hct MCV MCH MCHC RDW Plt Count MPV Immature Gran % Neutrophils % Lymphocytes % Monocytes % Eosinophils % Basophils % Nucleated RBC % Absolute Neutrophils Absolute Lymphocytes Absolute Monocytes Absolute Eosinophils Absolute Basophils RBC Morphology PT 11.5 H INR 1.1 Sodium Potassium Chloride Carbon Dioxide Anion Gap BUN Creatinine Estimated GFR/1.73 m2 Glucose Calcium Magnesium Patient ABO/Rh Antibody Screen Crossmatch
[2020-01-26] VITALS (113 sets, daily range): BP systolic 105–194; BP diastolic 48–133; PULSE 68–115; RESP 13–28; TEMP 36.2–38.8; O2SAT 85–99
--- NOTE | 2020-01-26 | DI.US_ITS ---
APPROVED REPORT EXAM: Comprehensive 2D, Doppler, and color-flow Echocardiogram Patient Location: In-Patient Room/Bed: SOF027 Lift Manager: Paris Bradley RDCS (AE) Indications: Group D Strep Bacteremia Other Information Study Quality: Fair. Technically limited study due to inability to position patient. Conclusion Mild concentric left ventricular hypertrophy with an estimated ejection fraction of 55 to 60%. There are no segmental wall motion abnormalities Normal right ventricular size and systolic function Mildly dilated left atrium. Normal right atrial size The aortic valve is trileaflet and sclerotic without stenosis or regurgitation Moderate mitral annular calcification. Mild to moderate mitral regurgitation Structurally normal tricuspid and pulmonic valves. Mild tricuspid and trace pulmonic regurgitation. Mild pulmonary hypertension, estimated right ventricular systolic pressure is 38 mmHg Mildly dilated ascending aorta Trivial pericardial effusion Wall motion Left Ventricle The left ventricle is normal size. The left ventricular systolic function is normal. The left ventric ular ejection fraction is within the normal range. Mild concentric left ventricular hypertrophy. Ther e is normal LV segmental wall motion. There is no ventricular septal defect visualized. LVEF is 55-60 %. Right Ventricle The right ventricle is normal size. The right ventricular systolic function is normal. The RVSP is 38 .6 mmHg. Atria Left atrium is mildly dilated. The right atrium size is normal. The interatrial septum is intact with no evidence for an atrial septal defect. Aortic Valve Aortic valve is calcified. Aortic valve is trileaflet. The aortic valve is not well visualized. No he modynamically significant valvular aortic stenosis. No aortic regurgitation is present. Mitral Valve Moderate mitral annular calcification. No evidence of mitral valve stenosis. Mild to moderate mitral regurgitation. Tricuspid Valve The tricuspid valve is normal in structure. There is no tricuspid valve stenosis. Mild tricuspid regu rgitation. There is no tricuspid valve vegetations. Pulmonic Valve Pulmonic valve is grossly normal in structure. There is no pulmonic valvular stenosis. Trace pulmonic regurgitation. There is no pulmonic valve vegetations. Great Vessels The aortic root is normal in size. The ascending aorta is mildly dilated. Aortic arch is normal in ca liber. IVC is normal in size and collapses >50% with inspiration. Pericardium Trace pericardial effusion. 2D Dimensions IVSD d PLAX 1.23 cm F: 0.6-1.0 LV Vol A2C d MOD 116.0 mL LVPW d PLAX 1.27 cm F: 0.6 - 1.0 LV Vol A4C d MOD 125.5 mL LVID d PLAX 4.86 cm F: 3.8 - 5.2 LA vol/ BSA A2C s A-L 38.9 mL/m2 LVDs 3.45 cm F: 2.2 - 3.5 LA vol/ BSA A4C s A-L 32.1 mL/m2 Ao Root d 2.41 cm F: 2.7 - 3.3 LA Vol/ BSA Biplane s A-L 38.1 mL/m2 RA Area A4C 13.29 cm2 LA Area A4C s MOD 23.32 cm2 RA Vol/ BSA A4C s A-L 13.5 mL/m2 LA Area A2C s MOD 23.81 cm2 Ao Asc Diam d 3.50 cm F: 2.3 - 3.1 LV EF A4C MOD 55.1 % LV EF Teichholz 54.4 % LV EF A2C MOD 50.8 % LVEF (Oliver's) 53.65 % F: 54 - 74 LV EF Biplane MOD 53.7 % LV Volume 89.82 mL F: 46 - 106 SV 66.20 mL LV Volume Index 41.01 mL/m2 F: 29 - 61 SV Index 30.18 mL/m2 LV Vol Biplane MOD 123.4 mL FS 28.20 % M-Mode TAPSE 1.49 cm (M/F) >1.7 LV Diastology MV E' medial 0.095 (>0.07 m/s) E/A Ratio 1.3 LV E/e MED 13.85 (<14) MV E Vmax 1.32 (0.4-1.3 m/s) MV E' lateral 0.101 (>0.1 m/s) MV A Vmax 1.00 (0.4-1.3 m/s) LV E/e LAT 13.00 (<14) MV E/A Ratio 1.26 MV E/E' medial 13.88 MV E/E' lateral 13.04 Aortic Valve LVOT Area 3.62 cm2 AoV Area Vmax 1.68 cm2 LVOT Vmax 0.96 m/s AoV Area/ BSA (Vmax) 0.77 cm2/m2 LVOT Mean Vinny. 0.61 m/s SIOBHAN Mean Vinny. 1.48 cm2 LVOT Peak Grad 3.7 mmHg SIOBHAN Mean Vinny. Index 0.68 cm2/m2 LVOT Mean Grad 1.8 mmHg LVOT VTI 0.201 m LVOT Diam s 2.10 cm AoV Vmax 2.07 m/s Velocity Ratio 0.46 AoV Mean Vinny. 1.50 m/s AoV Peak Grad 17.2 mmHg LVOT SV 72.77 mL AoV Mean Grad 10.1 mmHg AoV VTI 0.435 m AoV Area VTI 1.67 cm2 AoV Area/ BSA (VTI) 0.76 cm/m2 Mitral Valve MV DT 170 (160-240 msec) MR Vmax 4.82 m/s MV PHT 49 msec MR VTI 1.595 m MV Area PHT 4.47 cm2 MR Peak Grad 92.8 mmHg MV VTI 0.472 m MR Mean Grad 69.3 mmHg MV VTI Annulus 0.478 m MV Area VTI 1.56 (4.0-6.0 cm2) Pulmonary Valve PV Vmax 1.17 (0.5-1.5 m/s) RVOT Peak Gr. 2.79 mmHg PV Peak Grad 5.4 mmHg RVOT Mean Gr. 1.45 mmHg PV Mean Grad 2.8 mmHg RVOT VTI 0.177 m PV VTI 0.232 m RVOT Vmax 0.84 m/s Tricuspid Valve TR Peak Grad 35.5 mmHg TR Vmax 2.98 m/s RA Pressure 3.00 mmHg RVSP (TR) 38.6 mmHg
--- NOTE | 2020-01-26 | DI.RAD_ITS ---
EXAM: XR PORTABLE CHEST AP CLINICAL HISTORY: Hypoxia overnight TECHNIQUE: 2D digital imaging was performed. COMPARISON: CR,XR XR PORTABLE CHEST AP from 01/21/2020 FINDINGS: MEDIASTINUM: Normal. HEART: Mild cardiomegaly. PULMONARY VASCULATURE: Normal. LUNGS: Clear. PLEURAL SPACE: No pleural effusion or pneumothorax. BONE:Within normal limits for the patient's age. OTHER FINDINGS:There has been interval removal of the right IJ catheter. Stable elevation of the rig ht hemidiaphragm. IMPRESSION: Mild cardiomegaly. DATA REPOSITORY: RADIATION DOSE DELIVERED:
[2020-01-26] MEDS: VANCOMYCIN/WATER (PEG) 1.25 GM/250 ML BAG IV ×2 (00:47→14:56)
[2020-01-26] MEDS: Zolpidem 5 MG TAB PO (00:56)
[2020-01-26] MEDS: Metoprolol 5 MG/5 ML VIAL 2.5 MG IVP (01:47)
[2020-01-26] MEDS: Acetaminophen 325 MG TAB 650 MG PO ×4 (03:43→23:47)
[2020-01-26] MEDS: POTASSIUM CHLORIDE/0.9% NACL 1,000 ML 100 MEQ IV (04:50)
[2020-01-26 07:26] LABS: Abs Immature Grans 0.02 10^3/uL (0.0-0.06); Absolute Lymphocyte Count 0.66 10^3/uL (1.2-3.4); Absolute Monocyte Count 0.39 10^3/uL (0.1-0.8); HCT 21.4 % (36.0-46.0); HGB 7.4 g/dL (11.2-15.7); Immature Grans % 1.7; Lymphocytes % 54.5; MCH 29.1 pg (27.0-33.0); MCHC 34.6 % (32.0-36.0); MCV 84.3 fL (80-95); MPV 11.4 fL (8.0-11.0); Monocytes % 32.2; Neutrophils % 11.6; RBC 2.54 10^6/uL (3.93-5.22); RDW-SD 39.4 fL
--- NOTE | 2020-01-26 07:27 | W.PM.PROGNOT ---
Documented by User: SRI Waldrop 01/26/20 07:31 Date of Service Date of service: 01/26/20 Time of Service: 07:28 Assessment and Plan Assessment and plan (1) Infection associated with totally implantable venous access device: Status: Acute Assessment and plan: Patient is doing well this morning. Mild discomfort following port removal. Encouraged activity as tolerated. Encouraged deep breathing as well. (2) Atherosclerosis of arteries: Status: Acute (3) ALLRED (dyspnea on exertion): Status: Acute (4) BMI 40.0-44.9, adult: Status: Acute (5) Acute myeloblastic leukemia: Status: Acute (6) Pulmonary nodular amyloidosis: Status: Acute (7) Bacteremia due to Streptococcus: Status: Acute (8) Thrombocytopenia: Status: Chronic (9) Anemia: Status: Chronic (10) MDS (myelodysplastic syndrome): Status: Chronic (11) Neutropenic fever: Status: Acute Subjective Subjective Interval history since last seen: Feeling well this morning. Mild soreness of right upper chest from port removal. Slept well overnight. Exam Const General: cooperative, healthy appearing and comfortable Orientation: alert and oriented x3 Resp Effort & Inspection: normal respiratory effort, no audible wheezes and no cough Objective Last Vital Signs Temp 36.7 C 01/26/20 04:43 Pulse 88 01/26/20 04:31 Resp 22 01/26/20 04:31 BP 160/65 H 01/26/20 04:31 Pulse Ox 95 01/26/20 04:31 Laboratory Results - last 24 hr 01/23/20 01/25/20 01/25/20 08:45 08:43 08:43 WBC 1.48 L* RBC 2.89 L Hgb 8.5 L Hct 24.1 L D MCV 83.4 MCH 29.4 MCHC 35.3 RDW 12.9 Plt Count 22 L* MPV 8.8 Immature Gran % 2.7 Neutrophils % 13.5 Lymphocytes % 55.4 Monocytes % 28.4 Eosinophils % 0.0 Basophils % 0.0 Nucleated RBC % 0 Absolute Neutrophils 0.20 L* Absolute Lymphocytes 0.82 L Absolute Monocytes 0.42 Absolute Eosinophils 0.00 Absolute Basophils 0.00 RBC Morphology Normal PT INR Sodium 135 L Potassium 4.2 Chloride 102 Carbon Dioxide 24.0 Anion Gap 9.0 BUN 12 Creatinine 0.91 Estimated GFR/1.73 m2 >= 60.00 Glucose 130 H Calcium 8.1 L Magnesium 2.3 Patient ABO/Rh A Positive Antibody Screen Negative Crossmatch See Detail 01/25/20 08:43 WBC RBC Hgb Hct MCV MCH MCHC RDW Plt Count MPV Immature Gran % Neutrophils % Lymphocytes % Monocytes % Eosinophils % Basophils % Nucleated RBC % Absolute Neutrophils Absolute Lymphocytes Absolute Monocytes Absolute Eosinophils Absolute Basophils RBC Morphology PT 11.5 H INR 1.1 Sodium Potassium Chloride Carbon Dioxide Anion Gap BUN Creatinine Estimated GFR/1.73 m2 Glucose Calcium Magnesium Patient ABO/Rh Antibody Screen Crossmatch Documented by User: Tangela Watson DO 01/26/20 10:38 Assessment and Plan Assessment and plan (1) Bacteremia due to Streptococcus: Status: Acute Assessment and plan: moderate drainage overnight. no pain cbc reviewed. further transfusions and abx per hospitalists pt seen and reviewed findings w/ pt
[2020-01-26 07:33] LABS: Anion Gap 8.1 mmol/L (3-11); BUN 13 mg/dL (7-18); CO2 24.9 mmol/L (21.0-32.0); CREATININE 0.89 mg/dL (0.55-1.02); Calcium 7.7 mg/dL (8.5-10.1); Chloride 104 mmol/L (98-107); Glucose 135 mg/dL (74-106); Potassium 4.1 mmol/L (3.5-5.1); Sodium 137 mmol/L (136-145)
[2020-01-26 07:35] LABS: WBC 1.21 10^3/uL (4.4-10.8)
[2020-01-26 07:36] LABS: Absolute Neutrophil Count 0.14 10^3/uL (1.2-6.7)
[2020-01-26 08:08] LABS: Anisocytosis 1+; Diff Comment Diff Reviewed; Nucleated RBC 1 %
[2020-01-26 08:09] LABS: Polychromasia Present
[2020-01-26 08:11] LABS: Platelet Count 34 10^3/uL (130-400)
--- NOTE | 2020-01-26 08:15 | W.PM.PROGNOT ---
Date of Service Date of service: 01/26/20 Time of Service: 11:30 Assessment and Plan Assessment and plan (1) Neutropenic sepsis: Status: Acute Assessment and plan: Source: infusaport infection, present on admission (strep bovis and stap spp, s/p removal of the infusaport on 01/25/2020). Blood cultures 01/21/2020: 4/4 bottles w/ strep bovis and staph spp (we are awaiting speciation/sensitivities). Blood cultures 01/24/2020: bottles from the port with GPCs in clusters; peripheral set with NGTD. Infusaport tip cx 01/25/2020: pending. Blood cultures were repeated this am, pending. Defervescing. Continue empiric vancomycin and ceftriaxone 2 grams daily. Will give GCSF x 1 today, as above. No evidence of vegetations on TTE. Poor candidate for JONATHAN due to neutropenia/thrombocytopenia. With this, I expect the duration of therapy to be 4 weeks from 1st negative blood cultures, which we have not had yet. Once we know speciation/sensitivities, the course will be clarified with ID. Poor candidate for colonoscopy to clarify the source of strep bovis due to neutropenia as well, but CT of the abdomen/pelvis was negative. (2) Bacteremia due to Staphylococcus: Status: Acute Assessment and plan: As above (3) Bacteremia due to Streptococcus: Status: Acute Assessment and plan: As above Strep Bovis is associated with GI malignancies; however, the patient is a poor candidate for a colonoscopy due to neutropenia. This could be discussed as outpatient with her oncologist. Her CT of the abdomen/pelvis on this admission was negative for massess or abscesses. (4) Infection associated with totally implantable venous access device: Status: Acute Assessment and plan: As above. S/p removal on 01/25/2020. (5) Pancytopenia: Status: Acute Assessment and plan: Unclear if this is solely due to MDS or also due to chemotherapy. To receive 1 unit pRBCs today for Hgb of 7.4 (down from 8.5) yesterday. No indication for plt transfusion today (34, no active bleeding). To receive GCSF today (x1), though it is unclear what the results of this are going to be. (6) MDS (myelodysplastic syndrome): Status: Chronic Assessment and plan: The patient is unwilling to discuss her prognosis with our palliative care team. She should follow up with her outpatient oncologist for further discussion of her prognosis. (7) Nocturnal hypoxia: Status: Acute Assessment and plan: Given BMI of 42.4 as well as presence of pulmonary hypertension on the echo, RHONDA is highly suspected. Will continue to monitor O2 sats. D/c IVF. Will order overnight oximetry. (8) DVT prophylaxis: Status: Acute Assessment and plan: Contraindicated due to thrombocytopenia (9) Discharge planning issues: Status: Acute Assessment and plan: Full code. Ok to transfer out of ICU. Subjective Subjective Interval history since last seen: S/p removal of infusaport yesterday. Spent the night in the ICU (for closer monitoring). MICHAEL overnight. Ms Jasso states she feels a lot better today. She denies dizziness, chest pain, shortness of breath, nausea. She was not interested in meeting with palliative care. Her case was discussed with Dr Can of hematology at [facility] [place] [place], who was not sure whether GCSF would help this patient because it is not clear if the etiology of her neutropenia is MDS or chemotherapy, but trialing a dose of neupogen was recommended. Surgical dressing was saturated this morning, but no oozing from site this am. On NS + 20 meQ KCl @100 cc/hr. Trace edema. Desaturated to 85% on RA overnight. 2 L - 96%/. 94% on RA when awake. 36.2 this am; 38.0 overnight. Exam Narrative Exam Narrative: General: Pleasant, pale obese female, laying comfortably flat in bed, on room air, no dyspnea/tachypnea noted HEENT: EOMI, MMM Heart: RRR, no m/r/g Lungs: CTAB Abdomen: soft, nontender, nondistended Extremities: no edema BLE's, +1 pedal pulses B Objective Last Vital Signs Temp 36.7 C 01/26/20 05:00 Pulse 80 01/26/20 07:31 Resp 18 01/26/20 07:31 BP 142/69 H 01/26/20 07:31 Pulse Ox 97 01/26/20 07:31 Laboratory Results - last 24 hr 01/23/20 01/25/20 01/25/20 08:45 08:43 08:43 WBC 1.48 L* RBC 2.89 L Hgb 8.5 L Hct 24.1 L D MCV 83.4 MCH 29.4 MCHC 35.3 RDW 12.9 Plt Count 22 L* MPV 8.8 Immature Gran % 2.7 Neutrophils % 13.5 Lymphocytes % 55.4 Monocytes % 28.4 Eosinophils % 0.0 Basophils % 0.0 Nucleated RBC % 0 Absolute Neutrophils 0.20 L* Absolute Lymphocytes 0.82 L Absolute Monocytes 0.42 Absolute Eosinophils 0.00 Absolute Basophils 0.00 RBC Morphology Normal Polychromasia Anisocytosis PT INR Sodium 135 L Potassium 4.2 Chloride 102 Carbon Dioxide 24.0 Anion Gap 9.0 BUN 12 Creatinine 0.91 Estimated GFR/1.73 m2 >= 60.00 Glucose 130 H Calcium 8.1 L Magnesium 2.3 Patient ABO/Rh A Positive Antibody Screen Negative Crossmatch See Detail 01/25/20 01/26/20 01/26/20 08:43 06:04 06:04 WBC 1.21 L* RBC 2.54 L Hgb 7.4 L Hct 21.4 L MCV 84.3 MCH 29.1 MCHC 34.6 RDW 13.0 Plt Count 34 L D MPV 11.4 H Immature Gran % 1.7 Neutrophils % 11.6 Lymphocytes % 54.5 Monocytes % 32.2 Eosinophils % 0.0 Basophils % 0.0 Nucleated RBC % 1 Absolute Neutrophils 0.14 L* Absolute Lymphocytes 0.66 L Absolute Monocytes 0.39 Absolute Eosinophils 0.00 Absolute Basophils 0.00 RBC Morphology See below Polychromasia Present Anisocytosis 1+ PT 11.5 H INR 1.1 Sodium 137 Potassium 4.1 Chloride 104 Carbon Dioxide 24.9 Anion Gap 8.1 BUN 13 Creatinine 0.89 Estimated GFR/1.73 m2 >= 60.00 Glucose 135 H Calcium 7.7 L Magnesium 2.0 Patient ABO/Rh Antibody Screen Crossmatch CXR: Mild cardiomegaly. Echo: Mild concentric left ventricular hypertrophy with an estimated ejection fraction of 55 to 60%. There are no segmental wall motion abnormalities Normal right ventricular size and systolic function Mildly dilated left atrium. Normal right atrial size The aortic valve is trileaflet and sclerotic without stenosis or regurgitation Moderate mitral annular calcification. Mild to moderate mitral regurgitation Structurally normal tricuspid and pulmonic valves. Mild tricuspid and trace pulmonic regurgitation. Mild pulmonary hypertension, estimated right ventricular systolic pressure is 38 mmHg Mildly dilated ascending aorta Trivial pericardial effusion.
[2020-01-26] MEDS: Fluconazole 100 MG TAB 200 MG PO (08:25)
[2020-01-26] MEDS: Docusate Sodium 100 MG CAP PO ×2 (08:26→20:27)
[2020-01-26] MEDS: Magnesium Oxide 400 MG TAB PO ×2 (08:26→20:27)
[2020-01-26] MEDS: Potassium Chloride 20 MEQ TABCR PO (08:26)
[2020-01-26] MEDS: Acyclovir 400 MG TAB PO ×2 (08:26→20:27)
--- NOTE | 2020-01-26 10:23 | PDOC.CMPRO ---
- If Service Date Differs Date of service: 01/26/20 Time of Service: 10:23 Care Management Progress Note S/O: Emelyn was lying in bed when CM met with her. She had multiple blankets covering her, and she reported that she continues to feel cold. She stated that she had her port removed this weekend, which is believed to be the source of her infection. She is unclear of how long her abx course will be at this time. CM discussed the Palliative consultation that was placed this weekend. Emelyn was unaware of this consult and was very clear that she did not want to talk with Palliative Care at this time. She stated that she knows what her current health care goals are, she understands her illness, and if she feels that she needs to have a conversation with Palliative care, she will ask for it. CM informed her RN of this decision, as well as the MD. CM will continue to follow. A: Emelyn is a 74 year old patient admitted to [facility] on 01/23/20 with neutropenic fever, with a history of AML in remission. Positive blood cultures concerns for port infection. She remains on IV antibiotics, anticipate a possible port removal if needed. P: Anticipate Emelyn will return home when medically cleared vs remain at [facility] for IV abx, depending on course of treatment. Once she is ready for discharge, she will be driven home via private vehicle by family. She will follow up with her PCP, Oncologist, and discharge plan of care. CM will continue to follow.
--- NOTE | 2020-01-26 11:05 | W.NUTRFU ---
Date of service: 01/26/20 Time of Service: 11:05 Nutritional Follow up NOTE: Pat continues on neutrapenic diet with excellent intake (>75%). Continues to meet nutrient and fluid needs. Will continue to follow. Time Spent in Nutritional Counseling and Treatment: 0 time
[2020-01-26] MEDS: diphenhydrAMINE 25 MG CAP PO (11:10)
[2020-01-26] MEDS: cefTRIAXone 2 GM/50 ML BAG IVPB (14:25)
[2020-01-26] MEDS: traMADol 50 MG TAB PO (20:27)
[2020-01-27] VITALS (10 sets, daily range): BP systolic 118–171; BP diastolic 70–81; PULSE 75–128; RESP 16–22; TEMP 36.6–39.6; O2SAT 95–98
[2020-01-27] MEDS: VANCOMYCIN/WATER (PEG) 1.25 GM/250 ML BAG IV ×2 (04:08→18:06)
[2020-01-27] MEDS: Normal Saline Flush 10 ML SYR IVP ×3 (04:09→14:34)
[2020-01-27] MEDS: Acetaminophen 325 MG TAB 650 MG PO ×3 (04:09→20:31)
[2020-01-27 07:34] LABS: Anion Gap 8.4 mmol/L (3-11); BUN 16 mg/dL (7-18); CO2 22.6 mmol/L (21.0-32.0); CREATININE 0.93 mg/dL (0.55-1.02); Calcium 8.2 mg/dL (8.5-10.1); Chloride 103 mmol/L (98-107); Estimated GFR 58.93 (mL/min/1.73m2); Glucose 123 mg/dL (74-106); Potassium 4.5 mmol/L (3.5-5.1); Sodium 134 mmol/L (136-145)
[2020-01-27 07:49] LABS: Abs Immature Grans 0.14 10^3/uL (0.0-0.06); HCT 25.5 % (36.0-46.0); HGB 8.8 g/dL (11.2-15.7); MCH 29.3 pg (27.0-33.0); MCHC 34.5 % (32.0-36.0); MPV 9.4 fL (8.0-11.0); RDW 13.1 % (11.7-14.6); RDW-SD 40.3 fL
[2020-01-27 08:01] LABS: Absolute Neutrophil Count 0.36 10^3/uL (1.2-6.7); Nucleated RBC 1 %
[2020-01-27 08:02] LABS: Absolute Basophil Count 0.02 10^3/uL (0.0-0.2); Absolute Lymphocyte Count 1.08 10^3/uL (1.2-3.4); Absolute Monocyte Count 0.48 10^3/uL (0.1-0.8); Metamyelocytes % 1; Other Cells % 2
[2020-01-27 08:03] LABS: Diff Comment Manual Differential; Platelet Count 22 10^3/uL (130-400)
[2020-01-27] MEDS: Fluconazole 100 MG TAB 200 MG PO (08:08)
[2020-01-27] MEDS: Docusate Sodium 100 MG CAP PO ×2 (08:08→20:30)
[2020-01-27] MEDS: Potassium Chloride 20 MEQ TABCR PO (08:08)
[2020-01-27] MEDS: Magnesium Oxide 400 MG TAB PO ×2 (08:08→20:31)
[2020-01-27] MEDS: Acyclovir 400 MG TAB PO ×2 (08:08→20:30)
--- NOTE | 2020-01-27 10:39 | PDOC.CMPRO ---
- If Service Date Differs Date of service: 01/27/20 Time of Service: 10:39 Care Management Progress Note S/O: Emelyn was transitioned to med/surge last night. She continues to receive IV abx, still awaiting sensitivities to inform course of treatment. Per report, she may need 4 weeks of IV abx from the first negative blood cultures, which we have not had yet. CM will discuss options for abx therapy, once course is identified. She may be able to go to the infusion room at [facility] vs home IV abx vs [facility] for IV abx. CM will continue to follow and support discharge planning considerations. A: Emelyn is a 74 year old patient admitted to [facility] on 01/23/20 with neutropenic fever, with a history of AML in remission. Positive blood cultures concerns for port infection. She remains on IV antibiotics, anticipate a possible port removal if needed. P: Anticipate Emelyn will return home when medically cleared vs remain at [facility] for IV abx, depending on course of treatment. Once she is ready for discharge, she will be driven home via private vehicle by family. She will follow up with her PCP, Oncologist, and discharge plan of care. CM will continue to follow.
[2020-01-27] MEDS: cefTRIAXone 2 GM/50 ML BAG IVPB (14:35)
[2020-01-27 16:49] LABS: Vancomycin, Trough 17.5 ug/mL (10.0-20.0)
--- NOTE | 2020-01-27 18:49 | W.PM.PROGNOT ---
Date of Service Date of service: 01/27/20 Time of Service: 16:00 Assessment and Plan Assessment and plan (1) Neutropenic sepsis: Status: Acute Assessment and plan: Source: infusaport infection, present on admission (strep bovis and staph epi, s/p removal of the infusaport on 01/25/2020). Blood cultures 01/21/2020: 4/4 bottles w/ strep bovis and staph epi (sensitivities pending) Blood cultures 01/24/2020: bottles from the port with GPCs in clusters - also likely staph epi, per microbiology; peripheral set with NGTD. Infusaport tip cx 01/25/2020: gram positive pinky, speciation/sensitivities pending. Blood cultures 01/26/2020: NGTD at 24 hrs. T max 38.8 Continue empiric vancomycin and ceftriaxone 2 grams daily. S/p gCSF 01/26/2020. No evidence of vegetations on TTE. Poor candidate for JONATHAN due to neutropenia/thrombocytopenia. With this, I expect the duration of therapy to be 4 weeks from 1st negative blood cultures. Once we know speciation/sensitivities, the course will be clarified with ID. Poor candidate for colonoscopy to clarify the source of strep bovis due to neutropenia as well, but CT of the abdomen/pelvis was negative. (2) Bacteremia due to Staphylococcus: Status: Acute Assessment and plan: As above (3) Bacteremia due to Streptococcus: Status: Acute Assessment and plan: As above Strep Bovis is associated with GI malignancies; however, the patient is a poor candidate for a colonoscopy due to neutropenia. This could be discussed as outpatient with her oncologist. Her CT of the abdomen/pelvis on this admission was negative for massess or abscesses. (4) Infection associated with totally implantable venous access device: Status: Acute Assessment and plan: As above. S/p removal on 01/25/2020. (5) Pancytopenia: Status: Acute Assessment and plan: Unclear if this is solely due to MDS or also due to chemotherapy. Not requiring blood transfusion or plts today. ANC slightly better post GSCF, but still very low. Will discuss with Hem onc. (6) MDS (myelodysplastic syndrome): Status: Chronic Assessment and plan: The patient is willing to give a one time try to palliative care - agrees to meet with Emili Marquez, specifically. She should follow up with her outpatient oncologist for further discussion of her prognosis. (7) Nocturnal hypoxia: Status: Acute Assessment and plan: Overnight oxymetry does not show events with O2 sat<88%. No need for O2 on discharge. (8) DVT prophylaxis: Status: Acute Assessment and plan: Contraindicated due to thrombocytopenia (9) Discharge planning issues: Status: Acute Assessment and plan: Full code. Continues to require hospitalization. Will need 4 weeks of IV abx from the 1st negative blood culture. Which antibiotic and how we are going to do this will depend on speciation/sensitivities on cx as well as ID recommendations. Subjective Subjective Interval history since last seen: Ms Jasso states she is feeling better today. There was a lot of drainage out of her infusaport wound overnight, but not as much today. She tolerated the 5lb sand bag overnight. Denies dizziness, chest pain, shortness of breath, nausea. She is wondering if this illness (infection) is going to kill her. I told her that she seemed to be responding to antibiotics, but that she also had severe MDS, and other events could happen - in other words, no guarantees. She is now in agreement with talking to palliative care. Overnight oxymetry does not reveal significant hypoxia. Exam Narrative Exam Narrative: General: Pleasant, pale obese female, sitting up in a chair, on room air, no dyspnea/tachypnea. Dressing on R side of the chest is c/d/i. HEENT: EOMI, MMM Heart: RRR, no m/r/g Lungs: CTAB Abdomen: soft, nontender, nondistended Extremities: no edema BLE's, +1 pedal pulses B Objective Last Vital Signs Temp 37.5 C 01/27/20 17:16 Pulse 87 01/27/20 17:16 Resp 16 01/27/20 17:16 BP 171/75 H 01/27/20 17:16 Pulse Ox 98 01/27/20 17:16 Laboratory Results - last 24 hr 01/23/20 01/26/20 01/27/20 08:45 06:04 06:20 WBC RBC Hgb Hct MCV MCH MCHC RDW Plt Count MPV Immature Gran % Neutrophils % Lymphocytes % Monocytes % Eosinophils % Basophils % Metamyelocytes % Other Cells % Nucleated RBC % Absolute Neutrophils Absolute Lymphocytes Absolute Monocytes Absolute Eosinophils Absolute Basophils RBC Morphology Sodium 134 L Potassium 4.5 Chloride 103 Carbon Dioxide 22.6 Anion Gap 8.4 BUN 16 Creatinine 0.93 Estimated GFR/1.73 m2 58.93 Glucose 123 H Calcium 8.2 L Magnesium 2.0 Vancomycin Trough Patient ABO/Rh A Positive Antibody Screen Negative Crossmatch See Detail See Detail 01/27/20 01/27/20 06:20 16:10 WBC 2.00 L D RBC 3.00 L Hgb 8.8 L Hct 25.5 L MCV 85.0 MCH 29.3 MCHC 34.5 RDW 13.1 Plt Count 22 L* MPV 9.4 Immature Gran % See Differential Neutrophils % 18.0 Lymphocytes % 54.0 Monocytes % 24.0 Eosinophils % 0.0 Basophils % 1.0 Metamyelocytes % 1 Other Cells % 2 Nucleated RBC % 1 Absolute Neutrophils 0.36 L* Absolute Lymphocytes 1.08 L Absolute Monocytes 0.48 Absolute Eosinophils 0.00 Absolute Basophils 0.02 RBC Morphology See below Sodium Potassium Chloride Carbon Dioxide Anion Gap BUN Creatinine Estimated GFR/1.73 m2 Glucose Calcium Magnesium Vancomycin Trough 17.5 Patient ABO/Rh Antibody Screen Crossmatch
[2020-01-27] MEDS: traMADol 50 MG TAB PO (20:30)
[2020-01-27] MEDS: LORazepam 0.5 MG TAB PO (21:34)
[2020-01-27] MEDS: Acetaminophen 325 MG TAB PO (22:00)
[2020-01-28] VITALS (8 sets, daily range): BP systolic 94–148; BP diastolic 54–75; PULSE 70–97; RESP 17–20; TEMP 36.1–37.5; O2SAT 95–98
--- NOTE | 2020-01-28 | DI.RAD_ITS ---
EXAM: XR FOOT LT COMPLETE CLINICAL HISTORY: swollen left 2nd toe/history of fall. TECHNIQUE: 2D digital imaging was performed. COMPARISON: No exams were available for comparison FINDINGS: BONES: No acute fracture is present. No bony destructive lesion is seen. No findings to suggest acut e osteomyelitis. JOINTS: No dislocation present. Moderate osteoarthritis of the foot is noted. The findings are most marked in the interphalangeal joints of the 2nd through 4th toes. SOFT TISSUE: There is diffuse soft tissue swelling of the foot, particularly the forefoot. No foreig n bodies are seen in the soft tissues. Atherosclerosis. IMPRESSION: No acute fracture or dislocation. Nonspecific generalized soft tissue swelling primarily of the forefoot. DATA REPOSITORY: RADIATION DOSE DELIVERED:
[2020-01-28] MEDS: Acetaminophen 325 MG TAB 650 MG PO ×4 (00:28→20:07)
[2020-01-28 07:33] LABS: Abs Immature Grans 0.16 10^3/uL (0.0-0.06); HCT 24.2 % (36.0-46.0); HGB 8.3 g/dL (11.2-15.7); MCH 29.1 pg (27.0-33.0); MCHC 34.3 % (32.0-36.0); MCV 84.9 fL (80-95); MPV 10.2 fL (8.0-11.0); RBC 2.85 10^6/uL (3.93-5.22); RDW-SD 39.8 fL
[2020-01-28] MEDS: Fluconazole 100 MG TAB 200 MG PO (08:10)
[2020-01-28] MEDS: Docusate Sodium 100 MG CAP PO ×2 (08:10→20:07)
[2020-01-28] MEDS: VANCOMYCIN/WATER (PEG) 1.25 GM/250 ML BAG IV (08:10)
[2020-01-28] MEDS: Magnesium Oxide 400 MG TAB PO ×2 (08:10→20:07)
[2020-01-28] MEDS: Potassium Chloride 20 MEQ TABCR PO (08:10)
[2020-01-28] MEDS: Acyclovir 400 MG TAB PO ×2 (08:10→20:08)
[2020-01-28 08:19] LABS: WBC 1.92 10^3/uL (4.4-10.8)
[2020-01-28 08:20] LABS: Platelet Count 14 10^3/uL (130-400)
[2020-01-28 08:27] LABS: Absolute Basophil Count 0.02 10^3/uL (0.0-0.2); Absolute Monocyte Count 0.36 10^3/uL (0.1-0.8); Absolute Neutrophil Count 0.23 10^3/uL (1.2-6.7); Bands % 2; Metamyelocytes % 4; Nucleated RBC 1 %
[2020-01-28 08:29] LABS: Other Cells % 4; RBC Morphology Normal
[2020-01-28 08:30] LABS: Diff Comment Manual Differential
[2020-01-28 08:31] LABS: Absolute Lymphocyte Count 1.15 10^3/uL (1.2-3.4)
--- NOTE | 2020-01-28 10:00 | NUR.NOTE ---
Nursing Note: Visit patient with DR. Marciano Dr. stated that in hewr opinion patient needs to be transferred to [facility] [place]. Patient agrees to transfer, Waiting for a bed at this time
--- NOTE | 2020-01-28 10:32 | W.PM.PROGNOT ---
Date of Service Date of service: 01/28/20 Time of Service: 10:33 Assessment and Plan Assessment and plan (1) Neutropenic sepsis: Status: Acute Assessment and plan: Source: infusaport infection, present on admission (strep bovis and staph epi, s/p removal of the infusaport on 01/25/2020). Blood cultures 01/21/2020: 4/4 bottles w/ strep bovis and staph epi (intermediate to vancomycin, GIACOMO 4, resistant to cipro and oxacillin, sensitive to erythromycin and gentamycin) Blood cultures 01/24/2020: bottles from the port with staph epi, same sensitivities; peripheral set with NGTD. Infusaport tip cx 01/25/2020: gram positive pinky, speciation/sensitivities pending. Blood cultures 01/26/2020: NGTD T max 39.6 Per [facility] [place] ID, d/c vancomycin and ceftriaxone. Start daptomycin/cefepime. Await repeat blood cutlure results. S/p gCSF 01/26/2020. No evidence of vegetations on TTE. Poor candidate for JONATHAN due to neutropenia/thrombocytopenia. Await repeat blood culture results. Once we know speciation/sensitivities, the length of treatment will be clarified with ID. Poor candidate for colonoscopy to clarify the source of strep bovis due to neutropenia as well, but CT of the abdomen/pelvis was negative. Additionally, consult podiatry for cellulitis of 2nd digit L foot. (2) Cellulitis of toe of left foot: Status: Acute Assessment and plan: Doubt embolic spread as the patient states there was an injury to the toe. Abx are being adjusted as above. Consult podiatry. (3) Bacteremia due to Staphylococcus: Status: Acute Assessment and plan: As above (4) Bacteremia due to Streptococcus: Status: Acute Assessment and plan: As above Strep Bovis is associated with GI malignancies; however, the patient is a poor candidate for a colonoscopy due to neutropenia. This could be discussed as outpatient with her oncologist. Her CT of the abdomen/pelvis on this admission was negative for massess or abscesses. (5) Infection associated with totally implantable venous access device: Status: Acute Assessment and plan: As above. S/p removal on 01/25/2020. (6) Pancytopenia: Status: Acute Assessment and plan: Unclear if this is solely due to MDS or also due to chemotherapy. Not requiring blood transfusion or plts today. Attempted to transfer to [facility] [place] per Hem/onc recommendations; however, no beds today. Will re-attempt tomorrow. (7) MDS (myelodysplastic syndrome): Status: Chronic Assessment and plan: As above The patient is willing to give a one time try to palliative care - agrees to meet with Emili Marquez, specifically. (8) Nocturnal hypoxia: Status: Ruled-out Assessment and plan: Overnight oxymetry does not show events with O2 sat<88%. No need for O2 on discharge. (9) DVT prophylaxis: Status: Acute Assessment and plan: Contraindicated due to thrombocytopenia (10) Discharge planning issues: Status: Acute Assessment and plan: Attempting to transfer to [facility] [place]. Full code. Continues to require hospitalization. Will likely need 4 weeks of IV abx from the 1st negative blood culture (as per ID recommendation). Subjective Subjective Interval history since last seen: Ms Jasso denies dizziness, chest pain, shortness of breath, nausea. Hem/onc (Dr Can) has reached out to me from [facility] [place] and, based on latest labs values and Tmax of 39.6 last night, has suggested that we pursue transfer to [facility] [place], to which the patient agrees. Unfortunately, there are no beds at [facility] [place]. Discussed staph epi sensitivities with [facility] [place] [facility] ID - recommend switching to daptomycin and to broaden the gram negative coverage to cefepime because the fever curve is going up. Other than the fever, there have been no acute events. The patient's dressing has not required changing today. Exam Narrative Exam Narrative: General: Pleasant, pale obese female, sitting up in a chair, on room air, no dyspnea/tachypnea. Dressing on R side of the chest is c/d/i. HEENT: EOMI, MMM Heart: RRR, no m/r/g Lungs: CTAB Abdomen: soft, nontender, nondistended Extremities: no edema BLE's, +1 pedal pulses B, 2nd digit L foot has a small scab and is erythematous and edematous. Objective Last Vital Signs Temp 36.7 C 01/28/20 07:39 Pulse 71 01/28/20 07:39 Resp 20 01/28/20 07:39 BP 104/64 01/28/20 07:39 Pulse Ox 95 01/28/20 07:39 Laboratory Results - last 24 hr 01/27/20 01/28/20 16:10 06:37 WBC 1.92 L* RBC 2.85 L Hgb 8.3 L Hct 24.2 L MCV 84.9 MCH 29.1 MCHC 34.3 RDW 13.0 Plt Count 14 L* MPV 10.2 Immature Gran % See Differential Neutrophils % 10.0 Band Neutrophils % 2 Lymphocytes % 60.0 Monocytes % 19.0 Eosinophils % 0.0 Basophils % 1.0 Metamyelocytes % 4 Other Cells % 4 Nucleated RBC % 1 Absolute Neutrophils 0.23 L* Absolute Lymphocytes 1.15 L Absolute Monocytes 0.36 Absolute Eosinophils 0.00 Absolute Basophils 0.02 RBC Morphology Normal Vancomycin Trough 17.5
[2020-01-28 10:45] LABS: Anion Gap 9.1 mmol/L (3-11); BUN 16 mg/dL (7-18); CO2 23.9 mmol/L (21.0-32.0); CREATININE 0.88 mg/dL (0.55-1.02); Calcium 8.4 mg/dL (8.5-10.1); Chloride 105 mmol/L (98-107); Glucose 122 mg/dL (74-106); Potassium 3.9 mmol/L (3.5-5.1); Sodium 138 mmol/L (136-145)
--- NOTE | 2020-01-28 11:18 | IN_ITS ---
Date of service: 01/28/20 Time of Service: 11:18 PT Notes Visit Reasons: NEUTROPENIC FEVER Physical Therapy Inpatient Initial Evaluation Date: 01/30/2020 Referring Doctor: Annemarie Tariq MD PT Orders: PT CONSULT: Limited ability Precautions: Fall. Standard. Activity as tolerated. Patient Profile/Admitting Diagnosis: Emelyn is a 74-year-old female with a diagnosis of infected buried implantable venous access device and is status post removal on 01/25/[address] Tangela Watson. Patient is also diagnosed any fever, thrombocytopenia, anemia, myelodysplastic syndrome, and bacteremia due to Streptococcus. 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 IJ in 11/2018. [place] [facility] [place]ago without sciatica MDS (myelodysplastic syndrome) Pulmonary nodular amyloidosis Vertiginous syndrome Surgical History S/P laparoscopic cholecystectomy S/P PICC central line placement Social History/Home Situation: Lives with son in a private home with 1 step to enter with both rails. Independent with all aspects of ADLs prior to admission. She is a retired nurse. Equipment Owned/DME: [employer], [facility] Subjective: Agreeable to PT consult. Just wanted to make sure that she is up and moving but is not ambitious about doing anything aggressive. States that she has had 2 falls in the past year Objective: General Observation: Seated on bedside chair. Mental Status: Alert and oriented x4 Pain: 2?3/10 in the R hip ROM: Right Upper Extremity: Shoulder Flexion WFL. Shoulder abduction WFL. Elbow flexion WFL. Wrist flexion WFL. Opening and closing of hand WFL. Left Upper Extremity: Shoulder Flexion WFL. Shoulder abduction WFL. Elbow flexion WFL. Wrist flexion WFL. Opening and closing of hand WFL. Right Lower Extremity: Hip flexion WFL. Hip abduction WFL. Knee flexion WFL. Ankle dorsiflexion WFL. Ankle plantarflexion WFL. Left Lower Extremity: Hip flexion WFL. Hip abduction WFL. Knee flexion WFL. Ankle dorsiflexion WFL. Ankle plantarflexion WFL. Strength: Right Upper Extremity: Shoulder flexors 4/5. Shoulder abductors 4/5. Elbow flexors 4/5. Elbow extensors 4/5. Mental Measurements Teacher strong. Left Upper Extremity: Shoulder flexors 4/5. Shoulder abductors 4/5. Elbow flexors 4/5. Elbow extensors 4/5. Mental Measurements Teacher strong. Right Lower Extremity: Hip flexors 4-/5. Hip abductors 4-/5. Knee flexors 4-/5. Knee extensors 4/5. Ankle dorsiflexors 4/5. Ankle plantarflexors 4/5. Left Lower Extremity: Hip flexors 4-/5. Hip abductors 4-/5. Knee flexors 4-/5. Knee extensors 4/5. Ankle dorsiflexors 4/5. Ankle plantarflexors 4/5. Sensation: Intact as to pain and pressure on bilateral lower extremities. Bed Mobility/Transfers: Sit to stand mod assist Stand to sit contact-guard assist Bed to chair contact-guard assist Chair to bed contact-guard assist Gait: 75 feet using front wheeled walker with full weight bearing requiring contact-guard assist only with step through reciprocal gait pattern with report of minimal ache in the right hip. Balance: Static Sitting: Normal Dynamic Sitting: Normal Static Standing: Fair Dynamic Standing: Fair Special Tests: Mobility Limitations Standardized Measure [facility] AM-PAC 6 clicks Basic Mobility Inpatient Short Form: Raw Score: 18 CMS Score: 47% deficit Informed Consent/Education: Patient instructed in purpose of PT consult and plan of care. Assessment: Emelyn demonstrates functional mobility decline requiring the use of a front wheeled walker for all mobility ADL performance, his activity tolerance, and increased fall risk due to admitting diagnoses and co- morbidities. Patient presents with clinical signs and symptoms consistent with current/admitting diagnoses that have resulted to mobility limitations, gait instability, generalized weakness, and impairment of motor control as demonstrated by the following impairment level findings: 1. Decreased strength to B UEs/LE major muscle groups 2. Impaired standing balance 3. Impaired activity tolerance Impairments are contributing to the following functional limitations: 1. Dependent bed mobility skills 2. Increased dependence with transfers 3. Inability to safely ambulate without assistive device and physical assistance 4. Increase completion time for mobility ADL performance 5. Increased fall risk 6. Inability to negotiate steps alone safely Patient is assessed as a 43462 moderate complexity based on the following: History: 74-year-old female with impairment level findings, functional limitations, and past medical history as indicated above Examination: Demonstrable impairment in strength, balance, and mobility level with underlying impairments and functional limitations as documented above Presentation:Evolving Decision Makin moderate complexity Goals: Goals X1 week 1. Supine-Sit independent 2. Sit-Supine independent 3. Sit-Stand independent 4. Stand-Sit independent 5. Bed-Chair independent 6. Chair-Bed independent 7. Independent gait on level surface with use of least restrictive device for at least 100 feet without report of pain nor dyspnea 8. Good static and dynamic standing balance/tolerance Plan of Care/Treatment Plan: 1-2x/day, 7 days/week x 1 week. Plan of care has been reviewed with the DOOR TO DOOR SALES REPRESENTATIVE providing the service under Physical Therapy direction. Initiate Physical Therapy intervention for strengthening, bed mobility, transfers, gait, stairs, balance training, use of assistive device. DISCHARGE RECOMMENDATIONS: Patient will benefit from home health PT services in order to progress mobility level using least restrictive assistive ambulatory device, assess home safety, identify additional equipment needs, and establish a functional maintenance program that will increase ability of patient to remain at home. TREATMENT CODE/TIME: 79372 x 27 minutes beginning at 11:18 AM. Thank you for the opportunity to participate in the care of this patient. Lyly Walker PT, DPT, CLT [facility] [place], [place]
[2020-01-28] MEDS: CEFEPIME 2 GM in Normal Saline 100 ML IVPB ×2 (12:11→20:08)
--- NOTE | 2020-01-28 12:58 | W.PM.PROGNOT ---
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 F/u in clinic in 3-4wks for evaluation. please contact surgery if further evaluation required. Objective Last Vital Signs Temp 36.5 C 01/28/20 11:14 Pulse 75 01/28/20 11:14 Resp 19 01/28/20 11:14 BP 123/66 01/28/20 11:14 Pulse Ox 98 01/28/20 11:14 Laboratory Results - last 24 hr 01/27/20 01/28/20 01/28/20 16:10 06:37 06:37 WBC 1.92 L* RBC 2.85 L Hgb 8.3 L Hct 24.2 L MCV 84.9 MCH 29.1 MCHC 34.3 RDW 13.0 Plt Count 14 L* MPV 10.2 Immature Gran % See Differential Neutrophils % 10.0 Band Neutrophils % 2 Lymphocytes % 60.0 Monocytes % 19.0 Eosinophils % 0.0 Basophils % 1.0 Metamyelocytes % 4 Other Cells % 4 Nucleated RBC % 1 Absolute Neutrophils 0.23 L* Absolute Lymphocytes 1.15 L Absolute Monocytes 0.36 Absolute Eosinophils 0.00 Absolute Basophils 0.02 RBC Morphology Normal Sodium 138 Potassium 3.9 Chloride 105 Carbon Dioxide 23.9 Anion Gap 9.1 BUN 16 Creatinine 0.88 Estimated GFR/1.73 m2 >= 60.00 Glucose 122 H Calcium 8.4 L Magnesium 2.0 Vancomycin Trough 17.5
[2020-01-28 15:02] LABS: Creatine Kinase 65 U/L (26-192)
--- NOTE | 2020-01-28 16:08 | CMPROGNOTE_ITS ---
- If Service Date Differs Date of service: 01/28/20 Time of Service: 16:08 Care Management Progress Note S/O: Emelyn was sitting up in her chair when CM met with her. She reported that she is feeling ok, but is still struggling to stay warm, having chills and fevers. She reported also that per MD, [place] [facility] [place] as she continues to have fevers and has yet to have a negative blood culture. CM asked how she feels about this decision, as she previously shared a negative expe [place]ence [place] [facility] She stated that she would prefer to remain at [facility], but she will go if it will save her life. CM will continue to follow. A: Emelyn is a 74 year old patient admitted to [facility] on 01/23/20 with neutropenic fever, with a history of AML in remission. Positive blood cultures concerns for port infection. She remains on IV antibiotics, anticipate a possible port removal if needed. P: Emelyn will likely be transferred [place] [facility], pending bed availability. She will transfer via ambulance, coordinated by RN supervisor finish end. She will follow up with her PCP, Oncologist, and discharge plan of care. CM will continue to follow.
--- NOTE | 2020-01-28 16:31 | W.PM.HP.N ---
Date of service: 01/28/20 Time of Service: 16:32 History of Present Illness History of Present Illness Chief Complaint: Swollen, tender left second toe Narrative: 74-year-old female seen in her room who was admitted with bacteremia due to Staphylococcus, neutropenic sepsis with a infected total implanted venous access device who is seen with a swollen tender left second toe. She indicates she fell at home last Sunday and injured the digit. This fall prompted her transfer to the emergency room where she was admitted. While she has been in house, she also hit the same foot on a support frame of the bed further injuring the digit. She states she has been increasing redness for the last several days. 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 IJ in 11/2018. 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 Medications and Allergies Home Medications Medication Instructions Recorded Confirmed Type acetaminophen [Tylenol] 650 mg PO Q8H PRN PRN 12/08/18 01/21/20 History acyclovir [Zovirax] 400 mg PO BID 12/08/18 01/21/20 History diphenhydramine HCl 25 mg PO Q6H PRN PRN 12/08/18 01/21/20 History fluconazole 400 mg PO DAILY 12/08/18 01/22/20 History meclizine 25 mg PO BID PRN 12/08/18 01/21/20 History ondansetron 8 mg PO PRN PRN 12/08/18 01/21/20 History levofloxacin [Levaquin] 750 mg PO DAILY 03/06/19 01/21/20 History potassium chloride 20 meq PO DAILY #20 tab 04/03/19 01/21/20 Rx cefpodoxime 200 mg PO BID 01/21/20 01/22/20 History tramadol 100 mg PO Q8H PRN PRN 01/21/20 01/22/20 History celecoxib 200 mg PO DAILY 01/22/20 01/22/20 History Allergies Allergy/AdvReac Type Severity Reaction Status Date / Time prochlorperazine AdvReac Mild Other (See Unverified 01/21/20 20:10 [From Compazine] Comment) Exam Narrative Exam Narrative: Mrs. Jasso is seen in her room she is resting comfortably in her chair. She is awake and alert and pleasant. Peripheral pulses are easily palpable at the ankle graded plus 1 out of 4 bilaterally. Trace peripheral edema or is noted but the calves are nontender to palpation. Capillary return is under 3 seconds to all toes. Her feet are warm to the touch. Dermatologic exam: Distal lysis of the left second nail plate is appreciated but no active drainage is noted and no retained subungual hematoma observed. No openings of the skin are appreciated at this time and there is no drainage observed. No sinus tracts or abscesses noted. her right second toenail is grossly quite static but nontender with an old subungual hematoma noted. The remaining toenails show mild to moderate crypt ptosis without pain with sensitivity to palpation. Musculoskeletal: The left second toe is edematous with erythema noted affecting the dorsal aspect of the second toe from the proximal nail fold to the base of the proximal phalanx. Palpation of the distal interphalangeal joint revealed tenderness and I question whether I felt some crepitance. The proximal interphalangeal joint was asymptomatic. Neurologically: She appears grossly intact. She denied any tingling or numbness of her feet. Impression: Contusion left second toe without damage to the nail plate Plan: I will order a portable x-ray limited series on the left foot second toe to rule out occult fracture. She is currently on daptomycin and imipenem which certainly should cover typical organisms causing a cellulitis within the toe such as staph or strep. No change in active treatment suggested at this time pending radiographic studies. I will follow-up after the radiographs have been obtained. Results Labs Result diagrams: 01/28/20 06:37 01/28/20 06:37 Labs: Laboratory Results - last 24 hr 01/27/20 01/28/20 01/28/20 16:10 06:37 06:37 WBC 1.92 L* RBC 2.85 L Hgb 8.3 L Hct 24.2 L MCV 84.9 MCH 29.1 MCHC 34.3 RDW 13.0 Plt Count 14 L* MPV 10.2 Immature Gran % See Differential Neutrophils % 10.0 Band Neutrophils % 2 Lymphocytes % 60.0 Monocytes % 19.0 Eosinophils % 0.0 Basophils % 1.0 Metamyelocytes % 4 Other Cells % 4 Nucleated RBC % 1 Absolute Neutrophils 0.23 L* Absolute Lymphocytes 1.15 L Absolute Monocytes 0.36 Absolute Eosinophils 0.00 Absolute Basophils 0.02 RBC Morphology Normal Sodium 138 Potassium 3.9 Chloride 105 Carbon Dioxide 23.9 Anion Gap 9.1 BUN 16 Creatinine 0.88 Estimated GFR/1.73 m2 >= 60.00 Glucose 122 H Calcium 8.4 L Magnesium 2.0 Creatine Kinase 65 Vancomycin Trough 17.5 Last Vital Signs Temp 37.3 C 01/28/20 15:30 Pulse 70 01/28/20 15:30 Resp 17 01/28/20 15:30 BP 145/75 H 01/28/20 15:30 Pulse Ox 96 01/28/20 15:30 COVID-19 Screening Have you, or household traveled for leisure in last 14 days?: No Had IN PERSON contact w/suspected or confirmed C-19 person: No
--- NOTE | 2020-01-28 18:33 | DI.VRAD_ITS ---
PROCEDURE INFORMATION: Exam: XR Left Foot Complete Exam date and time: 01/28/2020 6:16 PM Age: 74 years old Clinical indication: Other: Swollen toe TECHNIQUE: Imaging protocol: XR Left foot. Views: 3 or more views. COMPARISON: No relevant prior studies available. FINDINGS: Bones/joints: No fracture or dislocation. Interphalangeal osteoarthritic changes with marginal spurring and joint space narrowing primarily involving the 2nd through 4th toes. Small proliferative calcifications at the medial and lateral margins of the distal condyle of the great toe proximal phalanx but no aggressive periostitis or osteolysis. Midfoot alignment is normal with mild-moderate osteoarthritic changes in dorsal spurring in the midfoot. Moderate spurring at the Achilles calcaneal attachment. Mild joint space narrowing in the 1st MTP joint. Soft tissues: Soft tissue swelling in the forefoot is nonspecific. No radiopaque foreign body. Vasculature: Moderate calcific atherosclerosis. IMPRESSION: 1. Nonspecific soft tissue swelling in the forefoot primarily. No foreign body. 2. No evidence of osteomyelitis or septic joint. No soft tissue air suggestive of gangrene/necrotizing fasciitis. 3. Mild-moderate osteoarthritic changes. Dictated and Authenticated by: Braxton Braden MD. Ordering:ISAAC Spangler MD
[2020-01-28] MEDS: Normal Saline Flush 10 ML SYR IVP (20:08)
[2020-01-28] MEDS: Zolpidem 5 MG TAB PO (22:42)
[2020-01-28] MEDS: traMADol 50 MG TAB PO (22:42)
--- NOTE | 2020-01-29 | DI.MRI_ITS ---
EXAM: MR LOWER EXTREMITY LT WO/W CLINICAL HISTORY: MRI 2nd digit LLE - concern for OM vs fx. TECHNIQUE: Multiplanar multisequence MRI of the foot was performed. CONTRAST MATERIAL: IV Contrast: 20 mL of Dotarem contrast administered. COMPARISON: CR,XR XR FOOT LT COMPLETE from 01/28/2020 FINDINGS: There is mild marrow edema seen in the middle and distal phalanges of the 2nd toe on the T2 weighted images. Following contrast administration, there is mild enhancement of both the middle and distal p halanges. There is otherwise normal marrow signal. Degenerative changes are seen at the DIP joint o f the 2nd toe. There is edema in the subcutaneous tissues of the 2nd toe. No focal fluid collection is seen to suggest an abscess. IMPRESSION: Marrow edema and enhancement involving the middle and distal phalanges of the 2nd toe with edema in t he surrounding soft tissues. No focal abscess. There are degenerative changes seen at the DIP joint of the 2nd toe. Osteomyelitis cannot be entirely excluded. DATA REPOSITORY:
[2020-01-29 02:54] VITALS: BP 123/64; PULSE 78; RESP 18; TEMP 37.2; O2SAT 95
[2020-01-29] MEDS: CEFEPIME 2 GM in Normal Saline 100 ML IVPB ×2 (03:31→12:01)
[2020-01-29 06:53] LABS: Abs Immature Grans 0.12 10^3/uL (0.0-0.06); Absolute Monocyte Count 0.59 10^3/uL (0.1-0.8); HCT 24.2 % (36.0-46.0); HGB 8.5 g/dL (11.2-15.7); MCH 29.3 pg (27.0-33.0); MCHC 35.1 % (32.0-36.0); MCV 83.4 fL (80-95); MPV 11.1 fL (8.0-11.0); Nucleated RBC 1 %; RDW-SD 39.8 fL; WBC 2.02 10^3/uL (4.4-10.8)
[2020-01-29 06:59] LABS: Anion Gap 11.7 mmol/L (3-11); BUN 16 mg/dL (7-18); CO2 23.3 mmol/L (21.0-32.0); CREATININE 0.91 mg/dL (0.55-1.02); Calcium 8.1 mg/dL (8.5-10.1); Chloride 104 mmol/L (98-107); Glucose 110 mg/dL (74-106); Magnesium 1.9 mg/dL (1.8-2.4); Potassium 4.4 mmol/L (3.5-5.1); Sodium 139 mmol/L (136-145)
--- NOTE | 2020-01-29 07:29 | W.PM.PROGNOT ---
Date of Service Date of service: 01/29/20 Time of Service: 07:29 Subjective Subjective Interval history since last seen: Emelyn is seen in her room at bedside. She indicates that the left foot is feeling less tender than it did yesterday. She has no new complaints concerning her lower extremities. Exam Narrative Exam Narrative: Evaluation of the left foot reveals marked reduction of erythema to the left second toe. The plantar half of the toe appears completely normal with erythema remaining over the dorsal half of the digit extending from the tip of the toe to just proximal of the PIPJ. No fluctuance is appreciated, the skin is intact. She did have radiographs is ordered of her left foot and radiology read the films as negative for fracture. She has a great deal of degenerative change at the distal interphalangeal joint of the second toe and I question whether there is a stress fracture through the head of the middle phalanx without displacement. Medial erosion of the middle phalanx at the DIPJ level is appreciated consistent with a Jasson sign, gout? The remaining exam was otherwise grossly benign. Impressions: Improving erythema and swelling to the left second toe status post blunt trauma secondary to falling and contusion against bed frame Plan: I explained to Emelyn that I anticipate the second toe to continue to improve steadily but that it could take several weeks before all of the redness and/or swelling subsides. No particular precautions are necessary and regular shoe gear can be worn as tolerated. I will be happy to reassess her extremities if any significant changes develop. Objective Last Vital Signs Temp 37.2 C 01/29/20 02:54 Pulse 78 01/29/20 02:54 Resp 18 01/29/20 02:54 BP 123/64 01/29/20 02:54 Pulse Ox 95 01/29/20 02:54 Laboratory Results - last 24 hr 01/28/20 01/28/20 01/29/20 06:37 06:37 06:00 WBC 1.92 L* RBC 2.85 L Hgb 8.3 L Hct 24.2 L MCV 84.9 MCH 29.1 MCHC 34.3 RDW 13.0 Plt Count 14 L* MPV 10.2 Immature Gran % See Differential Neutrophils % 10.0 Band Neutrophils % 2 Lymphocytes % 60.0 Monocytes % 19.0 Eosinophils % 0.0 Basophils % 1.0 Metamyelocytes % 4 Other Cells % 4 Nucleated RBC % 1 Absolute Neutrophils 0.23 L* Absolute Lymphocytes 1.15 L Absolute Monocytes 0.36 Absolute Eosinophils 0.00 Absolute Basophils 0.02 RBC Morphology Normal Sodium 138 139 Potassium 3.9 4.4 Chloride 105 104 Carbon Dioxide 23.9 23.3 Anion Gap 9.1 11.7 H BUN 16 16 Creatinine 0.88 0.91 Estimated GFR/1.73 m2 >= 60.00 >= 60.00 Glucose 122 H 110 H Calcium 8.4 L 8.1 L Magnesium 2.0 1.9 Creatine Kinase 65
[2020-01-29 07:39] LABS: Platelet Count 11 10^3/uL (130-400)
[2020-01-29 07:40] LABS: Neutrophils % 10.4
[2020-01-29 07:41] LABS: Absolute Lymphocyte Count 1.13 10^3/uL (1.2-3.4); Absolute Neutrophil Count 0.21 10^3/uL (1.2-6.7)
[2020-01-29 07:42] LABS: Absolute Basophil Count 0.02 10^3/uL (0.0-0.2); Metamyelocytes % 1; Myelocytes % 1
[2020-01-29 07:43] LABS: Other Cells % 2
[2020-01-29 07:45] VITALS: BP 131/65; PULSE 77; RESP 16; TEMP 37.2; O2SAT 97
[2020-01-29 07:45] LABS: Diff Comment Manual Differential
[2020-01-29] MEDS: Magnesium Oxide 400 MG TAB PO (08:59)
[2020-01-29] MEDS: Acyclovir 400 MG TAB PO (08:59)
[2020-01-29] MEDS: Fluconazole 100 MG TAB 200 MG PO (08:59)
[2020-01-29] MEDS: Potassium Chloride 20 MEQ TABCR PO (08:59)
[2020-01-29] MEDS: Docusate Sodium 100 MG CAP PO (09:00)
[2020-01-29 11:47] VITALS: BP 142/76; PULSE 63; RESP 17; TEMP 36.7; O2SAT 97
[2020-01-29] MEDS: LORazepam 0.5 MG TAB PO (12:03)
[2020-01-29] MEDS: Normal Saline Flush 10 ML SYR IVP (13:39)
[2020-01-29] MEDS: Gadoterate meglumine 20 ML VIAL IVP (13:40)
--- NOTE | 2020-01-29 14:52 | W.PM.DS.N ---
Date of service: 01/29/20 Time of Service: 15:03 DS: Diagnosis Discharge Diagnosis (1) Neutropenic sepsis: Status: Acute (2) Infection associated with totally implantable venous access device: Status: Acute (3) Pancytopenia: Status: Acute (4) Bacteremia due to Staphylococcus: Status: Acute Asessment and Plan: coag negative staph (5) Bacteremia due to Streptococcus: Status: Acute (6) Fracture of toe of left foot: Status: Acute (7) Cellulitis of toe of left foot: Status: Acute (8) MDS (myelodysplastic syndrome): Status: Chronic (9) COVID-19 ruled out by laboratory testing: Status: Ruled-out Discharge Plan Disposition Patient Disposition: [facility] Condition: Fair Discharge Details Reason For Visit: NEUTROPENIC FEVER Admit Date/Time: 01/21/20 23:19 Admit Provider: Duke Thurston Attending Provider: Duke Thurston Primary Care Provider: [facility] Hospital Course Hospital Course: Ms Jasso is a 74 year old female with PMHx of MDS with pancytopenia, on chemotherapy via an infusaport (now removed), as well as h/o CAD, HTN, and obesity, who was a patient on [facility] hospitalist service from 01/21/2020 until present (01/29/2020) for neutropenic sepsis due to her infusaport infection. She did not have septic shock on this admission, and her antibiotics and culture data are summarized below: Blood cultures 01/21/2020: 4/4 bottles w/ strep bovis and staph epi (intermediate to vancomycin, GIACOMO 4, resistant to cipro and oxacillin, sensitive to erythromycin and gentamycin; port and periphery cultured; bacteria grew out at about the same time) Blood cultures 01/24/2020: bottles from the port with staph epi, same sensitivities; peripheral set with NGTD. Infusaport tip cx 01/25/2020: Staph epi (sensitive to vancomycin, erythromycin, gentamycin; resistant to cipro, oxacillin, bactrim) Wound/Tissue cx 01/25/2020: 2 spp. of staph (not aureus, sensitivities are not yet available) Blood cultures 01/26/2020 (2 sets done peripherally): NGTD Blood cultures 01/28/2020 (1 set peripherally): NGTD Azithromycin/zosyn/vanco x1 01/21/2020 (ED) Vancomycin 01/21/2020 - 01/23/2020, 01/25/2020 - 01/28/2020 Cefepime 01/22/2020 - 01/23/2020, 01/28/2020 - present Ceftriaxone (2 grams) 01/23/2020 - 01/28/2020 Daptomycin 01/28/2020 - present (Throughout this hospitalization, ID at [facility] was involved in antibiotic stewardship and should continue to follow the patient at [facility] when she arrives) The infusaport was removed on 01/25/2020 with 2 units of platelets preoperatively. Postoperatively, the patient was monitored in the ICU x 24 hrs due to high potential of bleeding, but did not have any complications, so she was transferred to the medical surgical floor. Transthoracic echo on 01/26/2020 revealed no valvular vegetations. Since being initiated on daptomycin and cefepime on 01/28/2020, she has not had a single fever. Her last fever was 39.6 on 01/27/2020 at 22:00. From hematology stand point, the patient received a total of 3 units of platelets and 3 units of pRBCs on this admission. She received neupogen on 01/26/2020. Despite this, she remains profoundly neutropenic with ANC of 210 and thrombocytoepnic with plts of 11,000. There is no active sign of bleeding. The case was continuously discussed with [facility] hematology/oncology service and, at this time, it is felt that she would benefit from a transfer to [facility] inpatient hematology/oncology for possible inpatients treatments unavailable at [facility]. She was accepted in transfer by Dr Fink. The patient is in agreement with transfer and is stable for transfer. The patient reported to us an injury to her 2nd digit LLE. The toe looked cellulitic and was evaluated by podiatry (Dr Cunningham), whose assessment was that this was a fracture. MRI of the toe shows marrow edema and enhancement, osteomyelitis could not be definitively ruled out. This will need to be followed up at [facility]. Care for patient as well as completion of her discharge summary took 1 hour on the day of transfer. * for list of inpatient medications, please, see the attached MAR rather than the list below. Home Meds and New Rx's Prescriptions: No Action levofloxacin [Levaquin] 750 mg Tablet 750 mg PO DAILY RF: 0 acetaminophen [Tylenol] 325 mg Capsule 650 mg PO Q8H PRN PRNRF: 0 acyclovir [Zovirax] 400 mg Tablet 400 mg PO BID RF: 0 diphenhydramine HCl 25 mg Capsule 25 mg PO Q6H PRN PRNRF: 0 fluconazole 200 mg Tablet 400 mg PO DAILY RF: 0 meclizine 25 mg Tablet 25 mg PO BID PRNRF: 0 ondansetron 8 mg Tablet,Disintegrating 8 mg PO PRN PRNRF: 0 potassium chloride 20 mEq tablet extended release 20 meq PO DAILY Qty: 20 RF: 0 cefpodoxime 200 mg tablet 200 mg PO BID RF: 0 tramadol 50 mg tablet 100 mg PO Q8H PRN PRN (Reason: Pain) RF: 0 celecoxib 200 mg capsule 200 mg PO DAILY RF: 0 Discharge Instructions Activity:: Activity as Tolerated Diet:: neutropenic Discharge Orders Discharge Orders: Discharge Order (Routine); Ordered 01/29/20 Ordered By: Annemarie Tariq DS: Summary Status at Discharge Functional status at discharge: independent ambulation Overall status at discharge: patient is not back to baseline Mental Status: mental status grossly normal Speech and Movement: speech and movement normal Mood: congruent mood Affect: normal affect Exam Narrative Exam Narrative: General: Pleasant, pale obese female, sitting up in a chair, on room air, no dyspnea/tachypnea. Dressing on R side of the chest is c/d/i. HEENT: EOMI, MMM Heart: RRR, no m/r/g Lungs: CTAB Abdomen: soft, nontender, nondistended Extremities: no edema BLE's, +1 pedal pulses B, 2nd digit L foot has a small scab and is erythematous and edematous. Psych Mental Status: mental status grossly normal Speech and Movement: speech and movement normal Mood: congruent mood Affect: normal affect DS: Data Vitals/I&O Vitals and I&O: Vital Signs Temperature 36.7 C 01/29/20 11:47 Temperature Source Tympanic 01/29/20 11:47 Pulse 63 01/29/20 11:47 Pulse Rhythm Regular 01/29/20 09:59 Pulse 93 H 01/26/20 18:12 Respiratory Rate 17 01/29/20 11:47 Respiratory Effort 01/29/20 09:59 Respiratory Depth Normal 01/29/20 09:59 Respiratory Pattern Normal 01/29/20 09:59 Blood Pressure 142/76 H 01/29/20 11:47 Blood Pressure Mean 94 01/26/20 18:01 Blood Pressure Position Supine 01/25/20 16:51 Pulse Oximetry 97 01/29/20 11:47 Oxygen Delivery Method Room Air 01/29/20 11:47 Oxygen Flow Rate 0 01/29/20 11:47 Pain Level 0 01/29/20 11:47 Comment 01/27/20 20:31 Intake & Output 01/28/20 01/29/20 01/29/20 23:59 11:59 23:59 Intake Total 735 / 1335 200 / 200 Balance 735 / 835 200 / 200 Intake: IV 500 / 500 200 / 200 Oral 235 / 835 Other: Urine Color Yellow Yellow Urine Appearance Clear Clear Comment independant to toilet Stool Size Moderate Moderate Stool Characteristics Soft Liquid Formed Brown Voiding Methods Toilet Toilet Data Completed and Pending Completed studies during hospitalization [Text1]: CXR 01/21/2020: No acute pulmonary findings. CT abdomen/pelvis 01/24/2020: No evidence of acute process. Probable constipation. Indeterminate left adrenal mass, 2.5 cm in diameter. Additional evaluation with adrenal protocol CT recommended. CXR 01/26/2020: Mild cardiomegaly. TTE 01/26/2020: Mild concentric left ventricular hypertrophy with an estimated ejection fraction of 55 to 60%. There are no segmental wall motion abnormalities Normal right ventricular size and systolic function Mildly dilated left atrium. Normal right atrial size The aortic valve is trileaflet and sclerotic without stenosis or regurgitation Moderate mitral annular calcification. Mild to moderate mitral regurgitation Structurally normal tricuspid and pulmonic valves. Mild tricuspid and trace pulmonic regurgitation. Mild pulmonary hypertension, estimated right ventricular systolic pressure is 38 mmHg Mildly dilated ascending aorta Trivial pericardial effusion XR L foot 01/28/2020: No acute fracture or dislocation. Nonspecific generalized soft tissue swelling primarily of the forefoot. Labs on day of discharge: Labs from last 24 hours 01/29/20 01/29/20 01/28/20 06:00 06:00 06:37 WBC 2.02 L RBC 2.90 L Hgb 8.5 L Hct 24.2 L MCV 83.4 MCH 29.3 MCHC 35.1 RDW 13.0 Plt Count 11 L* MPV 11.1 H Immature Gran % See Differential Neutrophils % 10.4 Lymphocytes % 56.0 Monocytes % 29.0 Eosinophils % 0.0 Basophils % 1.0 Metamyelocytes % 1 Myelocytes % 1 Other Cells % 2 Nucleated RBC % 1 Absolute Neutrophils 0.21 L* Absolute Lymphocytes 1.13 L Absolute Monocytes 0.59 Absolute Eosinophils 0.00 Absolute Basophils 0.02 RBC Morphology See below Sodium 139 Potassium 4.4 Chloride 104 Carbon Dioxide 23.3 Anion Gap 11.7 H BUN 16 Creatinine 0.91 Estimated GFR/1.73 m2 >= 60.00 Glucose 110 H Calcium 8.1 L Magnesium 1.9 Creatine Kinase 65 Preliminary micro results at discharge 01/25/20 15:09 Anaerobic Culture - Preliminary Chest - Right Upper 01/25/20 15:09 Surgical Culture - Preliminary Chest - Right Upper Staph Sp., Not Aureus Staph Sp., Not Aureus#2 01/28/20 09:41 Blood Culture - Preliminary Blood NO GROWTH 24 HOURS 01/26/20 08:20 Blood Culture - Preliminary Blood NO GROWTH 72 HOURS 01/26/20 08:11 Blood Culture - Preliminary Blood NO GROWTH 72 HOURS PFSH Medical History Acute myeloblastic leukemia At risk for complications involving vascular access device Atherosclerosis of arteries BMI 40.0-44.9, adult CAD S/P percutaneous coronary angioplasty ALLRED (dyspnea on exertion) HTN (hypertension), benign Hyperlipidemia 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 IJ in 11/2018. IR @ [facility] Lumbago without sciatica MDS (myelodysplastic syndrome) Pulmonary nodular amyloidosis Vertiginous syndrome Surgical History S/P laparoscopic cholecystectomy S/P PICC central line placement Social History Smoking/Tobacco Use Status: Never Smoking risk assessment performed?: Yes Alcohol Intake: never Drug use: Never Substance use type: does not use What is your relationship status?: Panel score (0-1 are the most socially isolated patients): 1 Do you feel safe at home: Yes Do you feel safe in your relationship?: Yes Additional Social history: Retired nurse
[2020-01-29 15:44] VITALS: BP 160/80; PULSE 72; RESP 16; TEMP 37.3; O2SAT 97
--- NOTE | 2020-01-29 17:34 | PDOC.CMPRO ---
- If Service Date Differs Date of service: 01/29/20 Time of Service: 17:34 Care Management Progress Note S/O: Emelyn was sitting up in her chair when CM met with her. She reported that she is waiting to hear if she will be transferred today to [facility]. CM discussed the plan with the MD, who stated that she was accepted and will transfer this afternoon. MD stated that they will inform the daughter, as requested by Emelyn. CM will continue to follow. A: Emelyn is a 74 year old patient admitted to [facility] on 01/23/20 with neutropenic fever, with a history of AML in remission. Positive blood cultures concerns for port infection. She remains on IV antibiotics, anticipate a possible port removal if needed. P: Emelyn was transferred to [facility], as a bed became available. She transferred via ambulance, coordinated by RN belt and link assembly supervisor. She will follow up with her PCP, Oncologist, and discharge plan of care. CM will continue to follow.
--- NOTE | 2020-01-29 18:00 | INDS_ITS ---
Date of service: 01/29/20 Time of Service: 12:04 PT Notes Visit Reasons: NEUTROPENIC FEVER Physical Therapy Inpatient Discharge Summary Date: 01/29/2020 Date of service: 01/28/2020 only This is a clinical summary of care provided on the duration of dates listed above. No charge was made in the completion of this documentation. Referring Doctor: Annemarie Tariq MD PT Orders: PT CONSULT: Limited ability Precautions: Fall. Standard. Activity as tolerated. Patient Profile/Admitting Diagnosis: Emelyn is a 74-year-old female with a diagnosis of infected buried implantable venous access device and is status post removal on 01/25/[address] Tangela Watson. Patient is also diagnosed any fever, thrombocytopenia, anemia, myelodysplastic syndrome, and bacteremia due to Streptococcus. 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 IJ in 11/2018. IR @ [facility] Lumbago without sciatica MDS (myelodysplastic syndrome) Pulmonary nodular amyloidosis Vertiginous syndrome Surgical History S/P laparoscopic cholecystectomy S/P PICC central line placement Social History/Home Situation: Lives with son in a private home with 1 step to enter with both rails. Independent with all aspects of ADLs prior to admission. She is a retired nurse. Equipment Owned/DME: [employer], Subjective: NT Objective: General Observation: NT Mental Status: NT Pain: NT ROM: Right Upper Extremity: Shoulder Flexion WFL. Shoulder abduction WFL. Elbow flexion WFL. Wrist flexion WFL. Opening and closing of hand WFL. Left Upper Extremity: Shoulder Flexion WFL. Shoulder abduction WFL. Elbow flexion WFL. Wrist flexion WFL. Opening and closing of hand WFL. Right Lower Extremity: Hip flexion WFL. Hip abduction WFL. Knee flexion WFL. Ankle dorsiflexion WFL. Ankle plantarflexion WFL. Left Lower Extremity: Hip flexion WFL. Hip abduction WFL. Knee flexion WFL. Ankle dorsiflexion WFL. Ankle plantarflexion WFL. Strength: Right Upper Extremity: Shoulder flexors 4/5. Shoulder abductors 4/5. Elbow flexors 4/5. Elbow extensors 4/5. Screen Vent Binder strong. Left Upper Extremity: Shoulder flexors 4/5. Shoulder abductors 4/5. Elbow flexors 4/5. Elbow extensors 4/5. Screen Vent Binder strong. Right Lower Extremity: Hip flexors 4-/5. Hip abductors 4-/5. Knee flexors 4-/5. Knee extensors 4/5. Ankle dorsiflexors 4/5. Ankle plantarflexors 4/5. Left Lower Extremity: Hip flexors 4-/5. Hip abductors 4-/5. Knee flexors 4-/5. Knee extensors 4/5. Ankle dorsiflexors 4/5. Ankle plantarflexors 4/5. Sensation: Intact as to pain and pressure on bilateral lower extremities. Bed Mobility/Transfers: Sit to stand contact-guard assist Stand to sit contact-guard assist Bed to chair contact-guard assist Chair to bed contact-guard assist Gait: 75 feet using front wheeled walker with full weight bearing requiring contact-guard assist only with step through reciprocal gait pattern with report of minimal ache in the right hip. Balance: Static Sitting: Normal Dynamic Sitting: Normal Static Standing: Fair Dynamic Standing: Fair Assessment: Emelyn continues to demonstrate functional mobility decline requiring the use of a front wheeled walker for all mobility ADL performance, his activity tolerance, and increased fall risk due to admitting diagnoses and co-morbidities. Goals: Goals X1 week 1. Supine-Sit independent NOT MET 2. Sit-Supine independent NOT MET 3. Sit-Stand independent NOT MET 4. Stand-Sit independent NOT MET 5. Bed-Chair independent NOT MET 6. Chair-Bed independent NOT MET 7. Independent gait on level surface with use of least restrictive device for at least 100 feet without report of pain nor dyspnea NOT MET 8. Good static and dynamic standing balance/tolerance NOT MET DISCHARGE RECOMMENDATIONS: Emelyn is being transferred to [facility] today for immediate medical intervention. TREATMENT CODE/TIME: AL. Thank you for the opportunity to participate in the care of this patient. Lyly Walker PT, DPT, CLT [facility] [place], [place]
== END 2020-01-29 16:52 | disposition short-term general hospital (02) | DRG 252 ==
LOC: ER 01-22 00:19 → ICU 01-22 00:33 → MS 01-23 23:14 → ICU 01-25 16:02 → MS 01-26 18:23
PROVIDERS: Family Medicine; Internal Medicine; Physician Assistant; Surgery; Admitting Provider General Practice; Emergency Provider Student in an Organized Health Care Education/Training Program; PCP Family Medicine; Visit Provider General Practice
PROC: 0JPT0WZ Removal of Totally Implantable Vascular Access Device from Trunk Subcutaneous Tissue and Fascia, Open Approach (ICD-10-PCS; CPT 36590; principal; 2020-01-25 13:20)
DX: T80.211A Bloodstream infection due to central venous catheter, initial encounter (principal); A41.81 Sepsis due to Enterococcus; C92.00 Acute myeloblastic leukemia, not having achieved remission; Z68.41 Body mass index [BMI] 40.0-44.9, adult; D61.818 Other pancytopenia; D70.9 Neutropenia, unspecified; R50.81 Fever presenting with conditions classified elsewhere; W01.0XXA Fall on same level from slipping, tripping and stumbling without subsequent striking against object, initial encounter; I25.10 Atherosclerotic heart disease of native coronary artery without angina pectoris; I10 Essential (primary) hypertension; E78.5 Hyperlipidemia, unspecified; M54.5 Low back pain; H81.90 Unspecified disorder of vestibular function, unspecified ear; D69.6 Thrombocytopenia, unspecified; B95.4 Other streptococcus as the cause of diseases classified elsewhere; E66.9 Obesity, unspecified; I70.90 Unspecified atherosclerosis; D46.9 Myelodysplastic syndrome, unspecified; G47.34 Idiopathic sleep related nonobstructive alveolar hypoventilation; B95.7 Other staphylococcus as the cause of diseases classified elsewhere; L03.032 Cellulitis of left toe
CPT/HCPCS: 36590; 36415; 36430; 36591; 80048; 80053; 82550; 86850; 86900; 86901; 86920; 86945; 87040; 87077; 87449; 93005; 94640; 97163; 99222; 99223; 99232; 99233; 99239; 99253; NC; U0003; 71045; 73630; 73720; 74177; 80202; 81003; 81015; 82272; 83605; 83735; 83880; 84484; 85014; 85018; 85025; 85610; 85730; 87070; 87075; 87086; 87186; 87205; 93010; 93306; J0133; J0456; J0610; J2250; J2543; J3475; J3490; P9016; P9035

== ENCOUNTER 2020-02-09 08:00 | Outpatient (RCR) | payer OTHER, SELFPAY ==
[2020-01-12] VITALS (9 sets, daily range): BP systolic 106–169; BP diastolic 63–153; PULSE 87–104; RESP 18–20; TEMP 36.3–36.8; O2SAT 98–100
[2020-01-12] MEDS: Normal Saline Flush 10 ML SYR IVP (07:48)
[2020-01-12 07:55] LABS: HCT 26.1 % (36.0-46.0); HGB 8.8 g/dL (11.2-15.7); MCH 29.2 pg (27.0-33.0); MCHC 33.7 % (32.0-36.0); MCV 86.7 fL (80-95); Nucleated RBC 4 %; RBC 3.01 10^6/uL (3.93-5.22); RDW 12.4 % (11.7-14.6); RDW-SD 39.1 fL; WBC 3.69 10^3/uL (4.4-10.8)
[2020-01-12 08:35] LABS: Absolute Eosinophil Count 0.04 10^3/uL (0.0-0.7); Absolute Lymphocyte Count 2.25 10^3/uL (1.2-3.4); Absolute Monocyte Count 0.74 10^3/uL (0.1-0.8); Platelet Count 8 10^3/uL (130-400)
[2020-01-12 08:36] LABS: Absolute Basophil Count 0.07 10^3/uL (0.0-0.2); Absolute Neutrophil Count 0.52 10^3/uL (1.2-6.7)
[2020-01-12 08:37] LABS: Other Cells % 2
[2020-01-12 08:38] LABS: Basophilic Stippling Present; Diff Comment Manual Differential
[2020-01-13] MEDS: Normal Saline Flush 10 ML SYR IVP (12:59)
[2020-01-16 15:51] LABS: Leukemia/Lymphoma by FC (Blood See Comments
[2020-01-19] MEDS: Normal Saline Flush 10 ML SYR IVP (08:05)
[2020-01-19 08:18] LABS: Abs Immature Grans 0.02 10^3/uL (0.0-0.06); Absolute Lymphocyte Count 0.97 10^3/uL (1.2-3.4); Absolute Monocyte Count 0.25 10^3/uL (0.1-0.8); HCT 26.7 % (36.0-46.0); HGB 9.4 g/dL (11.2-15.7); Immature Grans % 1.3; Lymphocytes % 61.4; MCHC 35.2 % (32.0-36.0); MCV 82.4 fL (80-95); MPV 12.9 fL (8.0-11.0); Monocytes % 15.8; Neutrophils % 21.5; Nucleated RBC 0 %; RBC 3.24 10^6/uL (3.93-5.22); RDW 12.9 % (11.7-14.6); RDW-SD 38.9 fL
[2020-01-19 08:39] LABS: Basophilic Stippling Present; Diff Comment Agrees w/ Instrument; Hypochromasia 1+
[2020-01-19 08:45] LABS: Platelet Count 15 10^3/uL (130-400); WBC 1.58 10^3/uL (4.4-10.8)
[2020-01-19 08:46] LABS: Absolute Neutrophil Count 0.34 10^3/uL (1.2-6.7)
[2020-01-20 13:20] VITALS: BP 135/60; PULSE 102; RESP 18; TEMP 36.8; O2SAT 99
[2020-01-20] MEDS: Normal Saline Flush 10 ML SYR IVP (14:00)
[2020-02-09 08:59] LABS: Abs Immature Grans 0.18 10^3/uL (0.0-0.06); HCT 27.2 % (36.0-46.0); HGB 9.2 g/dL (11.2-15.7); MCH 28.8 pg (27.0-33.0); MCHC 33.8 % (32.0-36.0); Nucleated RBC 2 %; RDW 12.8 % (11.7-14.6); RDW-SD 39.3 fL
[2020-02-09 10:54] LABS: Platelet Count 10 10^3/uL (130-400)
[2020-02-09 10:55] LABS: Absolute Basophil Count 0.19 10^3/uL (0.0-0.2); Absolute Lymphocyte Count 2.84 10^3/uL (1.2-3.4); Absolute Monocyte Count 2.02 10^3/uL (0.1-0.8); Absolute Neutrophil Count 0.82 10^3/uL (1.2-6.7); Metamyelocytes % 2
[2020-02-09 10:57] LABS: Diff Comment Manual Differential; RBC Morphology Normal
[2020-02-09 11:00] LABS: Blastocytes % 5
[2020-02-09] MEDS: Normal Saline Flush 10 ML SYR IVP (14:14)
[2020-02-09 14:40] VITALS: BP 126/83; PULSE 77; RESP 18; TEMP 36.6; O2SAT 98
[2020-02-13 09:30] LABS: Other Cells % 5
== END 2020-02-09 23:59 | disposition home or self-care (01) ==
LOC: INF 08:00
PROVIDERS: PCP Family Medicine; Visit Provider Internal Medicine Hematology
DX: D46.Z Other myelodysplastic syndromes (principal); C92.01 Acute myeloblastic leukemia, in remission; Z45.2 Encounter for adjustment and management of vascular access device
CPT/HCPCS: 36430; 36591; 36592; 86850; 86900; 86901; 86920; 86945; 88185; 85025; 86644; 88184; 88189; P9016; P9035

== ENCOUNTER 2020-02-19 04:30 | Outpatient (RCR) | payer OTHER, SELFPAY ==
[2020-02-10 00:10] VITALS: BP 126/83; PULSE 77; RESP 18; TEMP 36.6
== END 2020-03-11 23:59 | disposition home or self-care (01) ==
LOC: INF 04:30
PROVIDERS: PCP Family Medicine; Visit Provider Internal Medicine Hematology
DX: Z53.9 Procedure and treatment not carried out, unspecified reason (principal)
CPT/HCPCS: 80053; 86900; 86901; 84550; 85025; 85045

== ENCOUNTER 2020-02-19 10:34 | Observation (INO) | payer OTHER, SELFPAY ==
[2020-02-19] VITALS (9 sets, daily range): BP systolic 97–140; BP diastolic 46–84; PULSE 79–110; RESP 17–22; TEMP 36.5–37.4; O2SAT 96–99
[2020-02-19 08:12] LABS: Abs Immature Grans 0.15 10^3/uL (0.0-0.06); HCT 25.4 % (36.0-46.0); HGB 8.5 g/dL (11.2-15.7); MCH 28.3 pg (27.0-33.0); MCHC 33.5 % (32.0-36.0); MCV 84.7 fL (80-95); Nucleated RBC 2 %; RDW-SD 39.4 fL; Reticulocyte 0.4 % (0.5-2.4); WBC 9.83 10^3/uL (4.4-10.8)
[2020-02-19 08:29] LABS: ALT 25 U/L (14-59); AST 17 U/L (15-37); Albumin 2.8 g/dL (3.4-5.0); Alkaline Phosphatase 105 U/L (46-116); BUN 15 mg/dL (7-18); Bilirubin, Total 0.5 mg/dL (0.2-1.0); CREATININE 1.17 mg/dL (0.55-1.02); Calcium 8.3 mg/dL (8.5-10.1); Chloride 97 mmol/L (98-107); Estimated GFR 45.22 (mL/min/1.73m2); Glucose 279 mg/dL (74-106); Sodium 133 mmol/L (136-145); Total Protein 7.4 g/dL (6.4-8.2); Uric Acid 3.9 mg/dL (2.6-6.0)
[2020-02-19 08:40] LABS: Absolute Lymphocyte Count 3.93 10^3/uL (1.2-3.4); Absolute Neutrophil Count 1.67 10^3/uL (1.2-6.7); Bands % 5
[2020-02-19 08:41] LABS: Diff Comment Manual Differential
[2020-02-19 08:42] LABS: Basophilic Stippling Present; Microcytosis 1+; Polychromasia Present
[2020-02-19 08:46] LABS: Other Cells % 22; Platelet Count 8 10^3/uL (130-400)
[2020-02-19 08:48] LABS: Potassium 2.8 mmol/L (3.5-5.1)
--- NOTE | 2020-02-19 10:30 | DI.RAD_ITS ---
EXAM: XR PORTABLE CHEST AP CLINICAL HISTORY: fever, AML. TECHNIQUE: 2D digital imaging was performed. COMPARISON: Prior chest x-ray 01/26/2020 FINDINGS: Mild cardiomegaly again noted. Mediastinum not widened. Slight elevation of the right hemidiaphragm is unchanged. The lungs are presently clear. No infiltrates nor pleural effusions evident. No pne umothorax. Distal tip of a left PICC line is in the lower SVC at the SVC-RA junction. IMPRESSION: No acute pulmonary findings. No obvious pleural effusions. Distal tip of left PICC line is at the SVC-RA junction. DATA REPOSITORY: RADIATION DOSE DELIVERED:
--- NOTE | 2020-02-19 10:47 | ED.GENADUL_ITS ---
Discharge Plan Disposition Patient Disposition: [facility] INPATIENT Condition: Improving Discharge Details Clinical Impression: MDS (myelodysplastic syndrome), Hypokalemia, Fever Primary Care Provider: [facility] ED Provider: Coleman Bynum Home Meds and New Rx's Prescriptions: No Action levofloxacin [Levaquin] 750 mg Tablet 750 mg PO DAILY RF: 0 acetaminophen [Tylenol] 325 mg Capsule 650 mg PO Q8H PRN PRNRF: 0 acyclovir [Zovirax] 400 mg Tablet 400 mg PO BID RF: 0 diphenhydramine HCl 25 mg Capsule 25 mg PO Q6H PRN PRNRF: 0 fluconazole 200 mg Tablet 400 mg PO DAILY RF: 0 meclizine 25 mg Tablet 25 mg PO BID PRNRF: 0 ondansetron 8 mg Tablet,Disintegrating 8 mg PO PRN PRNRF: 0 potassium chloride 20 mEq tablet extended release 20 meq PO DAILY Qty: 20 RF: 0 cefpodoxime 200 mg tablet 200 mg PO BID RF: 0 tramadol 50 mg tablet 100 mg PO Q8H PRN PRN (Reason: Pain) RF: 0 celecoxib 200 mg capsule 200 mg PO DAILY RF: 0 Medical Decision Making 74-year-old female referred from infusion suite after developing a fever. States she has had subjective fever and chills for 2 days at home. Fever started today after her infusion. Labs were obtained showing anemia and thrombocytopenia. Per report, case was discussed with oncology at [facility] and the patient was brought to the emergency room. Patient has been chronic clinical trial of Petruda and Entinostat per report. History of myelodysplastic syndrome with pancytopenia, AML, coronary artery disease, hypertension, admission to the hospital in the middle of January for bacteremia thought to be from [id number] tip infection which was removed and PICC line placed. She has also had an evaluation by Podiatry of left second toe question of infection. She arrives to the ER with a temp of 37.4, pulse 110, blood pressure 130/57. Concern for neutropenic fever, anemia, thrombocytopenia. Case discussed with oncology at [facility]. Blood and urine cultures obtained, screening chest x-ray obtained, labs including uric acid obtained and patient given empiric antibiotic coverage with 2 g of cefepime. Labs: White count 9, hemoglobin 7.7, platelets 6. Lactic acid 2.7. Sodium 132, potassium 2.8. BUN 12, creatinine 1.0. Uric acid 3.6. Rapid influenza, RSV, & COVID-19 test reported negative. Chest x-ray without acute findings. Patient was consented for blood products. Electrolytes were replaced. Case discussed with Dr. Monge of [facility]. He has reviewed the case and discussed with his team. They recommend overnight admission to [facility] with patient treated as neutropenic fever & they asked that we add vancomycin and continue the cefepime every [address] Monge states he would request repeat consult tomorrow morning and if patient has done well overnight, consider fol low-up in clinic. Lab Data Lab results reviewed: Yes I reviewed the patient's lab results. Labs: Laboratory Results - last 24 hr 02/19/20 02/19/20 02/19/20 07:51 07:51 07:51 WBC 9.83 RBC 3.00 L Hgb 8.5 L Hct 25.4 L MCV 84.7 MCH 28.3 MCHC 33.5 RDW 13.0 Plt Count 8 L* MPV Reticulocyte % (Auto) 0.4 L Immature Gran % 0.0 Neutrophils % 12.0 Band Neutrophils % 5 Lymphocytes % 40.0 Atypical Lymphs % Monocytes % 16.0 Eosinophils % 0.0 Basophils % 2.0 Metamyelocytes % Myelocytes % Promyelocytes % Other Cells % 22 Nucleated RBC % 2 Absolute Neutrophils 1.67 Absolute Lymphocytes 3.93 H Absolute Monocytes 1.57 H Absolute Eosinophils 0.00 Absolute Basophils 0.20 RBC Morphology See below Polychromasia Present Hypochromasia Poikilocytosis Basophilic Stippling Present Anisocytosis Microcytosis 1+ Macrocytosis Spherocytes Tear Drop Cells Ovalocytes Stomatocytes [place] Bodies [place] Cells/Echinocytes Acanthocytes (Spur) Schistocytes VBG Lactate Sodium 133 L Potassium 2.8 L* Chloride 97 L Carbon Dioxide 24.0 Anion Gap 12.0 H BUN 15 Creatinine 1.17 H Estimated GFR/1.73 m2 45.22 Glucose 279 H Uric Acid 3.9 Calcium 8.3 L Magnesium Total Bilirubin 0.5 AST 17 ALT 25 Alkaline Phosphatase 105 Total Protein 7.4 Albumin 2.8 L Patient ABO/Rh A Positive Antibody Screen Negative Crossmatch See Detail 02/19/20 02/19/20 02/19/20 11:05 11:05 11:05 WBC Cancelled RBC Cancelled Hgb Cancelled Hct Cancelled MCV Cancelled MCH Cancelled MCHC Cancelled RDW Cancelled Plt Count Cancelled MPV Cancelled Reticulocyte % (Auto) Immature Gran % Cancelled Neutrophils % Cancelled Band Neutrophils % Cancelled Lymphocytes % Cancelled Atypical Lymphs % Cancelled Monocytes % Cancelled Eosinophils % Cancelled Basophils % Cancelled Metamyelocytes % Cancelled Myelocytes % Cancelled Promyelocytes % Cancelled Other Cells % Cancelled Nucleated RBC % Cancelled Absolute Neutrophils Cancelled Absolute Lymphocytes Cancelled Absolute Monocytes Cancelled Absolute Eosinophils Cancelled Absolute Basophils Cancelled RBC Morphology Cancelled Polychromasia Cancelled Hypochromasia Cancelled Poikilocytosis Cancelled Basophilic Stippling Cancelled Anisocytosis Cancelled Microcytosis Cancelled Macrocytosis Cancelled Spherocytes Cancelled Tear Drop Cells Cancelled Ovalocytes Cancelled Stomatocytes Cancelled [place] Bodies Cancelled [place] Cells/Echinocytes Cancelled Acanthocytes (Spur) Cancelled Schistocytes Cancelled VBG Lactate 2.7 H* Sodium 132 L Potassium 2.8 L* Chloride 98 Carbon Dioxide 25.3 Anion Gap 8.7 BUN 12 Creatinine 1.00 Estimated GFR/1.73 m2 54.20 Glucose 219 H Uric Acid Calcium 7.9 L Magnesium 1.6 L Total Bilirubin 0.4 AST 18 ALT 22 Alkaline Phosphatase 96 Total Protein 6.8 Albumin 2.5 L Patient ABO/Rh Antibody Screen Crossmatch 02/19/20 02/19/20 02/19/20 11:05 11:05 11:06 WBC 9.28 RBC 2.70 L Hgb 7.7 L Hct 22.7 L MCV 84.1 MCH 28.5 MCHC 33.9 RDW 12.9 Plt Count 6 L* MPV Reticulocyte % (Auto) Immature Gran % Neutrophils % Band Neutrophils % Lymphocytes % Atypical Lymphs % Monocytes % Eosinophils % Basophils % Metamyelocytes % Myelocytes % Promyelocytes % Other Cells % Nucleated RBC % Absolute Neutrophils Absolute Lymphocytes Absolute Monocytes Absolute Eosinophils Absolute Basophils RBC Morphology Polychromasia Hypochromasia Poikilocytosis Basophilic Stippling Anisocytosis Microcytosis Macrocytosis Spherocytes Tear Drop Cells Ovalocytes Stomatocytes [place] Bodies [place] Cells/Echinocytes Acanthocytes (Spur) Schistocytes VBG Lactate Sodium Potassium Chloride Carbon Dioxide Anion Gap BUN Creatinine Estimated GFR/1.73 m2 Glucose Uric Acid 3.6 Calcium Magnesium Total Bilirubin AST ALT Alkaline Phosphatase Total Protein Albumin Patient ABO/Rh Cancelled Antibody Screen Crossmatch See Detail HPI General Mode of arrival: wheelchair . Date/Time Provider Initiated Documentation: 02/19/20 10:35 . Limitations to Documentation: no limitations . Information obtained by: patient and RN notes reviewed . History of Present Illness 74 year old F presents to the emergency department with the chief complaint of Fever, described as moderate, Quality is described as constant, Patient reports no radiation. Patient started experiencing this minute(s) and it has been constant. No relieving factors improve symptom(s), No exacerbating factors reported . Patient notes fever/chills. Patient did receive the following treatments prior to arrival, other (Normal saline fluid bolus in the infusion suite.) Related Data Home Medications Medication Instructions Recorded Confirmed acetaminophen [Tylenol] 650 mg PO Q8H PRN PRN 12/08/18 01/21/20 acyclovir [Zovirax] 400 mg PO BID 12/08/18 01/21/20 diphenhydramine HCl 25 mg PO Q6H PRN PRN 12/08/18 01/21/20 fluconazole 400 mg PO DAILY 12/08/18 01/22/20 meclizine 25 mg PO BID PRN 12/08/18 01/21/20 ondansetron 8 mg PO PRN PRN 12/08/18 01/21/20 levofloxacin [Levaquin] 750 mg PO DAILY 03/06/19 01/21/20 potassium chloride 20 meq PO DAILY #20 tab 04/03/19 01/21/20 cefpodoxime 200 mg PO BID 01/21/20 01/22/20 tramadol 100 mg PO Q8H PRN PRN 01/21/20 01/22/20 celecoxib 200 mg PO DAILY 01/22/20 01/22/20 Previous Rx's Medication Instructions Recorded potassium chloride 20 meq PO DAILY #20 tab 04/03/19 Allergies Allergy/AdvReac Type Severity Reaction Status Date / Time prochlorperazine AdvReac Mild Other (See Unverified 01/21/20 20:10 [From Compazine] Comment) General REBEKAH: 2 Review of Systems Narrative: Chronic left second toe irritation, recently removed indwelling [id number], left PICC line. 8 systems reviewed and otherwise negative. 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 IJ in 11/2018. IR @ [facility] [place] Lumbago without sciatica MDS (myelodysplastic syndrome) Pulmonary nodular amyloidosis Vertiginous syndrome Surgical History S/P laparoscopic cholecystectomy S/P PICC central line placement Social History Smoking/Tobacco Use Status: Never Smoking risk assessment performed?: Yes Alcohol Intake: never Drug use: Never Substance use type: does not use What is your relationship status?: Panel score (0-1 are the most socially isolated patients): 1 Do you feel safe at home: Yes Do you feel safe in your relationship?: Yes Additional Social history: Retired nurse Exam Narrative Exam Narrative: GEN: awake, alert, oriented 3. Pleasant, well groomed, interactive. HEAD: Normocephalic, atraumatic ENT: Mucous membranes moist, oropharynx unremarkable, External ear exam unremarkable EYES: PERRL, EOMI NECK: Full ROM, no TAYLER, no menigismus CHEST/RESP: Nontender, clear to auscultation bilateral, no wheeze/rhonchi/rales CARDIOVASCULAR: Regular, borderline tachycardia, no murmur, rub katy. 2+ Rad pulse bilateral ABDOMEN: Soft, nontender, no mass. +Bowel sounds EXT: Full ROM, right hand ecchymosis and mild swelling. Left upper extremity PICC line. Left second toe fusiformly swollen and erythematous. Neuro: Grossly normal neurologic exam, conversant, interactive. Psych: Speech fluent, thoughts congruent, affect normal Course Lab/Test Results Lab/Test Results: 02/19/20 10:38 Blood Blood Culture - Pending 02/19/20 10:38 Blood Blood Culture - Pending
[2020-02-19] MEDS: Acetaminophen 500 MG TAB 1000 MG PO (10:50)
[2020-02-19 11:19] LABS: Lactate 2.7 mmol/L (0.6-1.4)
[2020-02-19 11:19] LABS: Source Nasopharynx
--- NOTE | 2020-02-19 11:30 | RT.EKG_ITS ---
APPROVED REPORT Exam: Resting ECG Patient Location: E HR:97 bpm ECG Measurements Heart Rate 97 AXIS NJ 122 P 61 QRSd 163 QRS 80 QT 442 T 22 QTc 561 Conclusion Sinus rhythm. Right bundle branch block Similar to 04/03/19
[2020-02-19 11:34] LABS: Uric Acid 3.6 mg/dL (2.6-6.0)
[2020-02-19 11:36] LABS: ALT 22 U/L (14-59); AST 18 U/L (15-37); Albumin 2.5 g/dL (3.4-5.0); Alkaline Phosphatase 96 U/L (46-116); Anion Gap 8.7 mmol/L (3-11); BUN 12 mg/dL (7-18); Bilirubin, Total 0.4 mg/dL (0.2-1.0); CO2 25.3 mmol/L (21.0-32.0); Calcium 7.9 mg/dL (8.5-10.1); Chloride 98 mmol/L (98-107); Glucose 219 mg/dL (74-106); Magnesium 1.6 mg/dL (1.8-2.4); Sodium 132 mmol/L (136-145); Total Protein 6.8 g/dL (6.4-8.2)
[2020-02-19 11:37] LABS: HCT 22.7 % (36.0-46.0); HGB 7.7 g/dL (11.2-15.7); MCH 28.5 pg (27.0-33.0); MCHC 33.9 % (32.0-36.0); MCV 84.1 fL (80-95); RDW 12.9 % (11.7-14.6); RDW-SD 39.1 fL; WBC 9.28 10^3/uL (4.4-10.8)
[2020-02-19 11:38] LABS: Potassium 2.8 mmol/L (3.5-5.1)
[2020-02-19 11:41] LABS: Platelet Count 6 10^3/uL (130-400)
[2020-02-19] MEDS: CEFEPIME 2 GM in Normal Saline 100 ML IVPB (11:58)
[2020-02-19] MEDS: Potassium Chloride Liquid 20 MEQ PKT 10 MEQ PO (12:44)
[2020-02-19 12:59] LABS: COVID-19 PCR Negative (Negative); Influenza A PCR Negative (Negative); Influenza B PCR Negative (Negative); RSV PCR Negative (Negative)
--- NOTE | 2020-02-19 13:04 | NUR.NOTE ---
pt has prbc infusing. tolerating well. no s/sxs of infusion reaction noted. pt refused to drink more then half of liquid potassium. provider aware.
--- NOTE | 2020-02-19 13:53 | HPE_ITS ---
Date of service: 02/19/20 Time of Service: 13:54 Assessment and Plan Assessment and plan (1) Fever: Status: Acute Assessment and plan: referred to observation. no source identified, blood cultures pending continue cefepime and vancomycin as advised by Hem/onc at [facility] [place] [place] (2) COVID-19 ruled out by laboratory testing: Status: Ruled-out Assessment and plan: negative in-house rapid test (3) Pancytopenia: Status: Acute Assessment and plan: given blood product, no evidence of active bleeding. monitor discussed with Dr Cohn History of Present Illness History of Present Illness Chief Complaint: fever Narrative: This is a 74 year old who presented to the ED after she became febrile during an infusion at the infusion department here at [facility]. She reports she has had subjective fever over the past few days at home and documented fever during her infusion to max 38.9. Work up in the ED is unrevealing for a source. CXR, UA, rapid Covid/influenza/rsv swab and physical exam with no source. her blood cultures are pending. Her case was discussed with Dr. Monge of [facility] [place] [place] [facility] admission to [facility] with patient treated as neutropenic fever & they asked that we add vancomycin and continue the cefepime every [address] Monge states he would request repeat consult tomorrow morning and if patient has done well overnight, consider follow-up in clinic outpatient possibly tomorrow. She will be referred to observation under hospitalist services. Review of Systems All systems reviewed & are unremarkable except as noted in HPI and below Constitutional Constitutional: Reports fever(s) PFSH Medical History Acute myeloblastic leukemia At risk for complications involving vascular access device Atherosclerosis of arteries BMI 40.0-44.9, adult CAD S/P percutaneous coronary angioplasty ALLRED (dyspnea on exertion) HTN (hypertension), benign Hyperlipidemia 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 IJ in 11/2018. 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 Medications and Allergies Home Medications Medication Instructions Recorded Confirmed Type acyclovir [Zovirax] 400 mg PO BID 12/08/18 02/19/20 History fluconazole 400 mg PO DAILY 12/08/18 02/19/20 History meclizine 25 mg PO BID PRN 12/08/18 02/19/20 History ondansetron 8 mg PO PRN PRN 12/08/18 02/19/20 History levofloxacin [Levaquin] 750 mg PO DAILY 03/06/19 02/19/20 History cefpodoxime 200 mg PO BID 01/21/20 02/19/20 History tramadol 100 mg PO Q8H PRN PRN 01/21/20 02/19/20 History celecoxib 200 mg PO DAILY 01/22/20 02/19/20 History allopurinol 300 mg PO DAILY 02/19/20 02/19/20 History Allergies Allergy/AdvReac Type Severity Reaction Status Date / Time prochlorperazine AdvReac Mild Other (See Unverified 01/21/20 20:10 [From Compazine] Comment) Exam Narrative Exam Narrative: GEN: awake, alert, oriented 3. Pleasant, well groomed, interactive. HEAD: Normocephalic, atraumatic ENT: Mucous membranes moist, oropharynx unremarkable, External ear exam unremarkable EYES: PERRL, EOMI NECK: Full ROM, no menigismus CHEST/RESP: respirations even and unlabored, clear to auscultation bilateral, no wheeze/rhonchi/rales CARDIOVASCULAR: Regular, borderline tachycardia, no murmur, rub katy. 2+ Rad pulse bilateral ABDOMEN: Soft, nontender, no mass. +Bowel sounds EXT: Full ROM, right hand ecchymosis and mild swelling. Left upper extremity PICC line. Left second toe fusiformly swollen and erythematous within skin markings Neuro: Grossly normal neurologic exam, conversant, interactive. Psych: Speech fluent, thoughts congruent, affect normal Results Labs Result diagrams: 02/20/20 06:20 02/20/20 06:20 Labs: Laboratory Results - last 24 hr 02/19/20 02/19/20 02/19/20 07:51 07:51 07:51 WBC 9.83 RBC 3.00 L Hgb 8.5 L Hct 25.4 L MCV 84.7 MCH 28.3 MCHC 33.5 RDW 13.0 Plt Count 8 L* MPV Reticulocyte % (Auto) 0.4 L Immature Gran % 0.0 Neutrophils % 12.0 Band Neutrophils % 5 Lymphocytes % 40.0 Atypical Lymphs % Monocytes % 16.0 Eosinophils % 0.0 Basophils % 2.0 Metamyelocytes % Myelocytes % Promyelocytes % Other Cells % 22 Nucleated RBC % 2 Absolute Neutrophils 1.67 Absolute Lymphocytes 3.93 H Absolute Monocytes 1.57 H Absolute Eosinophils 0.00 Absolute Basophils 0.20 RBC Morphology See below Polychromasia Present Hypochromasia Poikilocytosis Basophilic Stippling Present Anisocytosis Microcytosis 1+ Macrocytosis Spherocytes Tear Drop Cells Ovalocytes Stomatocytes [place] Bodies [place] Cells/Echinocytes Acanthocytes (Spur) Schistocytes VBG Lactate Sodium 133 L Potassium 2.8 L* Chloride 97 L Carbon Dioxide 24.0 Anion Gap 12.0 H BUN 15 Creatinine 1.17 H Estimated GFR/1.73 m2 45.22 Glucose 279 H Uric Acid 3.9 Calcium 8.3 L Magnesium Total Bilirubin 0.5 AST 17 ALT 25 Alkaline Phosphatase 105 Total Protein 7.4 Albumin 2.8 L COVID-19 Source COVID-19 PCR Influenza Type A (PCR) Influenza Type B (PCR) RSV (PCR) Patient ABO/Rh A Positive Antibody Screen Negative Crossmatch See Detail 02/19/20 02/19/20 02/19/20 10:55 11:05 11:05 WBC RBC Hgb Hct MCV MCH MCHC RDW Plt Count MPV Reticulocyte % (Auto) Immature Gran % Neutrophils % Band Neutrophils % Lymphocytes % Atypical Lymphs % Monocytes % Eosinophils % Basophils % Metamyelocytes % Myelocytes % Promyelocytes % Other Cells % Nucleated RBC % Absolute Neutrophils Absolute Lymphocytes Absolute Monocytes Absolute Eosinophils Absolute Basophils RBC Morphology Polychromasia Hypochromasia Poikilocytosis Basophilic Stippling Anisocytosis Microcytosis Macrocytosis Spherocytes Tear Drop Cells Ovalocytes Stomatocytes [place] Bodies [place] Cells/Echinocytes Acanthocytes (Spur) Schistocytes VBG Lactate 2.7 H* Sodium 132 L Potassium 2.8 L* Chloride 98 Carbon Dioxide 25.3 Anion Gap 8.7 BUN 12 Creatinine 1.00 Estimated GFR/1.73 m2 54.20 Glucose 219 H Uric Acid Calcium 7.9 L Magnesium 1.6 L Total Bilirubin 0.4 AST 18 ALT 22 Alkaline Phosphatase 96 Total Protein 6.8 Albumin 2.5 L COVID-19 Source Nasopharynx COVID-19 PCR Negative Influenza Type A (PCR) Negative Influenza Type B (PCR) Negative RSV (PCR) Negative Patient ABO/Rh Antibody Screen Crossmatch 02/19/20 02/19/20 02/19/20 11:05 11:05 11:05 WBC Cancelled 9.28 RBC Cancelled 2.70 L Hgb Cancelled 7.7 L Hct Cancelled 22.7 L MCV Cancelled 84.1 MCH Cancelled 28.5 MCHC Cancelled 33.9 RDW Cancelled 12.9 Plt Count Cancelled 6 L* MPV Cancelled Reticulocyte % (Auto) Immature Gran % Cancelled Neutrophils % Cancelled Band Neutrophils % Cancelled Lymphocytes % Cancelled Atypical Lymphs % Cancelled Monocytes % Cancelled Eosinophils % Cancelled Basophils % Cancelled Metamyelocytes % Cancelled Myelocytes % Cancelled Promyelocytes % Cancelled Other Cells % Cancelled Nucleated RBC % Cancelled Absolute Neutrophils Cancelled Absolute Lymphocytes Cancelled Absolute Monocytes Cancelled Absolute Eosinophils Cancelled Absolute Basophils Cancelled RBC Morphology Cancelled Polychromasia Cancelled Hypochromasia Cancelled Poikilocytosis Cancelled Basophilic Stippling Cancelled Anisocytosis Cancelled Microcytosis Cancelled Macrocytosis Cancelled Spherocytes Cancelled Tear Drop Cells Cancelled Ovalocytes Cancelled Stomatocytes Cancelled [place] Bodies Cancelled [place] Cells/Echinocytes Cancelled Acanthocytes (Spur) Cancelled Schistocytes Cancelled VBG Lactate Sodium Potassium Chloride Carbon Dioxide Anion Gap BUN Creatinine Estimated GFR/1.73 m2 Glucose Uric Acid 3.6 Calcium Magnesium Total Bilirubin AST ALT Alkaline Phosphatase Total Protein Albumin COVID-19 Source COVID-19 PCR Influenza Type A (PCR) Influenza Type B (PCR) RSV (PCR) Patient ABO/Rh Antibody Screen Crossmatch 02/19/20 11:06 WBC RBC Hgb Hct MCV MCH MCHC RDW Plt Count MPV Reticulocyte % (Auto) Immature Gran % Neutrophils % Band Neutrophils % Lymphocytes % Atypical Lymphs % Monocytes % Eosinophils % Basophils % Metamyelocytes % Myelocytes % Promyelocytes % Other Cells % Nucleated RBC % Absolute Neutrophils Absolute Lymphocytes Absolute Monocytes Absolute Eosinophils Absolute Basophils RBC Morphology Polychromasia Hypochromasia Poikilocytosis Basophilic Stippling Anisocytosis Microcytosis Macrocytosis Spherocytes Tear Drop Cells Ovalocytes Stomatocytes [place] Bodies [place] Cells/Echinocytes Acanthocytes (Spur) Schistocytes VBG Lactate Sodium Potassium Chloride Carbon Dioxide Anion Gap BUN Creatinine Estimated GFR/1.73 m2 Glucose Uric Acid Calcium Magnesium Total Bilirubin AST ALT Alkaline Phosphatase Total Protein Albumin COVID-19 Source COVID-19 PCR Influenza Type A (PCR) Influenza Type B (PCR) RSV (PCR) Patient ABO/Rh Cancelled Antibody Screen Crossmatch See Detail Last Vital Signs Temp 36.6 C 02/19/20 12:59 Pulse 89 02/19/20 12:59 Resp 17 02/19/20 12:59 BP 103/48 L 02/19/20 12:59 Pulse Ox 97 02/19/20 12:59 COVID-19 Screening Have you, or household traveled for leisure in last 14 days?: No Had IN PERSON contact w/suspected or confirmed C-19 person: No
[2020-02-19] MEDS: Normal Saline 1,000 ML 150 ML IV (15:40)
[2020-02-19] MEDS: VANCOMYCIN/WATER (PEG) 1.5 GM/300 ML BAG IVPB (15:51)
[2020-02-19] MEDS: Potassium Chloride 20 MEQ TABCR PO ×2 (18:00→19:55)
[2020-02-19] MEDS: MAGNESIUM SULFATE 2 GM/50 ML BAG IVPB (19:29)
[2020-02-19] MEDS: Normal Saline Flush 10 ML SYR IVP (19:30)
[2020-02-19] MEDS: Acyclovir 400 MG TAB PO (19:55)
[2020-02-19] MEDS: diphenhydrAMINE 25 MG CAP PO (21:45)
[2020-02-19] MEDS: Acetaminophen 325 MG TAB 650 MG PO (21:45)
[2020-02-20] MEDS: CEFEPIME 2 GM in Normal Saline 100 ML IVPB (00:11)
[2020-02-20] MEDS: Normal Saline 1,000 ML 150 ML IV (01:40)
[2020-02-20 03:41] VITALS: BP 117/70; PULSE 89; RESP 18; TEMP 36.5; O2SAT 96
[2020-02-20 07:10] LABS: Abs Immature Grans 0.33 10^3/uL (0.0-0.06); HCT 21.2 % (36.0-46.0); HGB 7.3 g/dL (11.2-15.7); MCHC 34.4 % (32.0-36.0); MCV 84.1 fL (80-95); MPV 11.6 fL (8.0-11.0); Nucleated RBC 1 %; RBC 2.52 10^6/uL (3.93-5.22); RDW 13.2 % (11.7-14.6); RDW-SD 39.8 fL; WBC 9.57 10^3/uL (4.4-10.8)
[2020-02-20 07:27] LABS: Anion Gap 8.5 mmol/L (3-11); BUN 14 mg/dL (7-18); CO2 26.5 mmol/L (21.0-32.0); CREATININE 0.91 mg/dL (0.55-1.02); Calcium 7.5 mg/dL (8.5-10.1); Chloride 102 mmol/L (98-107); Glucose 138 mg/dL (74-106); Potassium 3.2 mmol/L (3.5-5.1); Sodium 137 mmol/L (136-145)
[2020-02-20 07:54] LABS: Absolute Lymphocyte Count 3.92 10^3/uL (1.2-3.4); Absolute Neutrophil Count 0.86 10^3/uL (1.2-6.7); Atypical Lymphocytes % 3; Bands % 3; Platelet Count 31 10^3/uL (130-400)
[2020-02-20 07:55] LABS: Metamyelocytes % 1
[2020-02-20 07:56] LABS: Diff Comment Manual Differential
[2020-02-20 07:57] LABS: Basophilic Stippling Present; Hypochromasia 1+; Microcytosis 2+; Polychromasia Present
[2020-02-20 08:05] VITALS: BP 140/67; PULSE 97; RESP 18; TEMP 36.3; O2SAT 98
[2020-02-20] MEDS: Fluconazole 100 MG TAB 400 MG PO (08:44)
[2020-02-20] MEDS: Acyclovir 400 MG TAB PO (08:45)
[2020-02-20] MEDS: Celecoxib 200 MG CAP PO (08:45)
[2020-02-20] MEDS: Potassium Chloride 20 MEQ TABCR PO (08:45)
[2020-02-20 09:18] LABS: Absolute Monocyte Count 1.87 10^3/uL (0.1-0.8)
[2020-02-20 09:25] VITALS: PULSE 90
--- NOTE | 2020-02-20 09:25 | PDOC.CMIN ---
- If Service Date Differs Date of service: 02/20/20 Time of Service: 09:25 Care Management Initial Assess REASON FOR HOSPITALIZATION:: Fever Has patient been provided with info about the portal/API?: Yes CODE STATUS:: Full Code TRANSPORTATION:: Family to transport via private car at time of discharge PLAN:: Emelyn will be discharged when medically ready per provider.
--- NOTE | 2020-02-20 09:27 | DSE_ITS ---
Date of service: 02/20/20 Time of Service: 09:27 DS: Diagnosis Discharge Diagnosis (1) Fever: Status: Acute (2) COVID-19 ruled out by laboratory testing: Status: Ruled-out (3) Pancytopenia: Status: Acute Discharge Plan Disposition Patient Disposition: HOME Condition: Improving Discharge Details Reason For Visit: FEVER Admit Date/Time: 02/19/20 13:47 Admit Provider: Benson Cohn Attending Provider: Benson Cohn Primary Care Provider: [facility] Hospital Course: This is a 74 year old who presented to the ED after she became febrile during an infusion at the infusion department here at [facility]. She reports she has had subjective fever over the past few days at home and documented fever during her infusion to max 39.1. Work up in the ED is unrevealing for a source. CXR, UA, rapid Covid/influenza/rsv swab and physical exam with no source. her blood cultures are still pending. Her case was discussed with Dr. Monge of [facility]. He recommended overnight admission to [facility] with patient treated as neutropenic fever & they asked that we add vancomycin and continue the cefepime every 12 hours renally closed. Overnight she rested comfortable with no symptoms and no further fevers. She was eating and drinking well. No cough, shortness of breath or abdominal pain. She has a red swollen left 2nd toe that she reports is unchanged. she was treated for gout, cellulitis with no improvement. erythema is within skin markings. Suspect this could be her source. She received vancomycin and cefepime overnight and outpatient antibiotics to be determined by outpatient team. discharge discussed with DR Cohn. Home Meds and New Rx's Prescriptions: Continued levofloxacin [Levaquin] 750 mg Tablet 750 mg PO DAILY RF: 0 acyclovir [Zovirax] 400 mg Tablet 400 mg PO BID RF: 0 fluconazole 200 mg Tablet 400 mg PO DAILY RF: 0 meclizine 25 mg Tablet 25 mg PO BID PRNRF: 0 ondansetron 8 mg Tablet,Disintegrating 8 mg PO PRN PRNRF: 0 cefpodoxime 200 mg tablet 200 mg PO BID RF: 0 tramadol 50 mg tablet 100 mg PO Q8H PRN PRN (Reason: Pain) RF: 0 celecoxib 200 mg capsule 200 mg PO DAILY RF: 0 allopurinol 300 mg tablet 300 mg PO DAILY RF: 0 Discharge Instructions Instructions: Fever in Adults (ED) Additional Instructions: present to outpatient clinic today at [facility] as scheduled. Leave here and go straight to appointment. further antibiotic therapy per outpatient team. Stand Alone Forms: Nursing Discharge Form Activity:: Activity as Tolerated Equipment/Supplies:: No Equipment Needed Diet:: As Tolerated Discharge Orders Discharge Orders: Discharge Order (Routine); Ordered 02/20/20 Ordered By: Carissa Pleitez DS: Summary Status at Discharge Functional status at discharge: independent ambulation Overall status at discharge: patient is back to baseline Mental Status: mental status grossly normal Speech and Movement: speech and movement normal Mood: congruent mood Affect: normal affect Exam Narrative Exam Narrative: GEN: awake, alert, oriented 3. Pleasant, well groomed, interactive. HEAD: Normocephalic, atraumatic ENT: Mucous membranes moist, oropharynx unremarkable, External ear exam unremarkable EYES: PERRL, EOMI NECK: Full ROM, no menigismus CHEST/RESP: respirations even and unlabored, clear to auscultation bilateral, no wheeze/rhonchi/rales CARDIOVASCULAR: Regular, borderline tachycardia, no murmur, rub katy. 2+ Rad pulse bilateral ABDOMEN: Soft, nontender, no mass. +Bowel sounds EXT: Full ROM, right hand ecchymosis and mild swelling. Left upper extremity PICC line. Left second toe fusiformly swollen and erythematous within skin markings Neuro: Grossly normal neurologic exam, conversant, interactive. Psych: Speech fluent, thoughts congruent, affect normal Psych Mental Status: mental status grossly normal Speech and Movement: speech and movement normal Mood: congruent mood Affect: normal affect DS: Data Vitals/I&O Vitals and I&O: Vital Signs Temperature 36.3 C L 02/20/20 08:05 Temperature Source Tympanic 02/20/20 08:05 Pulse 90 02/20/20 09:25 Pulse Rhythm Regular 02/20/20 08:45 Respiratory Rate 18 02/20/20 08:05 Respiratory Effort Non-Labored 02/20/20 08:45 Respiratory Depth Normal 02/20/20 08:45 Respiratory Pattern Normal 02/20/20 08:45 Blood Pressure 140/67 02/20/20 08:05 Blood Pressure Position Supine 02/19/20 10:46 Pulse Oximetry 98 02/20/20 08:05 Oxygen Delivery Method Room Air 02/20/20 08:05 Oxygen Flow Rate 0 02/20/20 08:05 Pain Level 0 02/20/20 08:05 Intake & Output 02/19/20 02/19/20 02/20/20 11:59 23:59 11:59 Intake Total 2169 / 2169 500 / 500 Output Total 300 / 300 850 / 850 Balance 1869 / 1869 -350 / -350 Weight 109.316 kg 109.4 kg Intake: IV 1470 / 1470 100 / 100 Oral 180 / 180 400 / 400 Blood Product 519 / 519 Pheresis Platelets Unit 134 / 134 [id number] Rbc Leuko Reduced Unit 385 / 385 [id number] Output: Urine 300 / 300 850 / 850 Other: Urine Color Straw Yellow Urine Appearance Clear Clear Urine Odor Strong Normal Comment Unable to messure Voiding Methods Toilet Bedside Commode Data Completed and Pending Labs on day of discharge: Labs from last 24 hours 02/20/20 02/20/20 02/19/20 06:20 06:20 11:06 WBC 9.57 RBC 2.52 L Hgb 7.3 L Hct 21.2 L MCV 84.1 MCH 29.0 MCHC 34.4 RDW 13.2 Plt Count 31 L D MPV 11.6 H Reticulocyte % (Auto) Immature Gran % See Differential Neutrophils % 6.0 Band Neutrophils % 3 Lymphocytes % 38.0 Atypical Lymphs % 3 Monocytes % 24.0 Eosinophils % 0.0 Basophils % 1.0 Metamyelocytes % 1 Myelocytes % Promyelocytes % Other Cells % 22 Nucleated RBC % 1 Absolute Neutrophils 0.86 L Absolute Lymphocytes 3.92 H Absolute Monocytes 2.30 H Absolute Eosinophils 0.00 Absolute Basophils 0.10 RBC Morphology See below Polychromasia Present Hypochromasia 1+ Poikilocytosis Basophilic Stippling Present Anisocytosis Microcytosis 2+ Macrocytosis Spherocytes Tear Drop Cells Ovalocytes Stomatocytes [place] Bodies [place] Cells/Echinocytes Acanthocytes (Spur) Schistocytes VBG Lactate Sodium 137 Potassium 3.2 L Chloride 102 Carbon Dioxide 26.5 Anion Gap 8.5 BUN 14 Creatinine 0.91 Estimated GFR/1.73 m2 >= 60.00 Glucose 138 H D Uric Acid Calcium 7.5 L Magnesium Total Bilirubin AST ALT Alkaline Phosphatase Total Protein Albumin Urine Color Urine Clarity Urine pH Ur Specific [place] Urine Protein Urine Ketones Urine Blood Urine Nitrite Urine Bilirubin Urine Urobilinogen Ur Leukocyte Esterase Urine Glucose COVID-19 Source COVID-19 PCR Influenza Type A (PCR) Influenza Type B (PCR) RSV (PCR) Patient ABO/Rh Cancelled Antibody Screen Crossmatch See Detail 02/19/20 02/19/20 02/19/20 11:05 11:05 11:05 WBC 9.28 Cancelled RBC 2.70 L Cancelled Hgb 7.7 L Cancelled Hct 22.7 L Cancelled MCV 84.1 Cancelled MCH 28.5 Cancelled MCHC 33.9 Cancelled RDW 12.9 Cancelled Plt Count 6 L* Cancelled MPV Cancelled Reticulocyte % (Auto) Immature Gran % Cancelled Neutrophils % Cancelled Band Neutrophils % Cancelled Lymphocytes % Cancelled Atypical Lymphs % Cancelled Monocytes % Cancelled Eosinophils % Cancelled Basophils % Cancelled Metamyelocytes % Cancelled Myelocytes % Cancelled Promyelocytes % Cancelled Other Cells % Cancelled Nucleated RBC % Cancelled Absolute Neutrophils Cancelled Absolute Lymphocytes Cancelled Absolute Monocytes Cancelled Absolute Eosinophils Cancelled Absolute Basophils Cancelled RBC Morphology Cancelled Polychromasia Cancelled Hypochromasia Cancelled Poikilocytosis Cancelled Basophilic Stippling Cancelled Anisocytosis Cancelled Microcytosis Cancelled Macrocytosis Cancelled Spherocytes Cancelled Tear Drop Cells Cancelled Ovalocytes Cancelled Stomatocytes Cancelled [place] Bodies Cancelled [place] Cells/Echinocytes Cancelled Acanthocytes (Spur) Cancelled Schistocytes Cancelled VBG Lactate Sodium Potassium Chloride Carbon Dioxide Anion Gap BUN Creatinine Estimated GFR/1.73 m2 Glucose Uric Acid 3.6 Calcium Magnesium Total Bilirubin AST ALT Alkaline Phosphatase Total Protein Albumin Urine Color Urine Clarity Urine pH Ur Specific [place] Urine Protein Urine Ketones Urine Blood Urine Nitrite Urine Bilirubin Urine Urobilinogen Ur Leukocyte Esterase Urine Glucose COVID-19 Source COVID-19 PCR Influenza Type A (PCR) Influenza Type B (PCR) RSV (PCR) Patient ABO/Rh Antibody Screen Crossmatch 02/19/20 02/19/20 02/19/20 11:05 11:05 10:55 WBC RBC Hgb Hct MCV MCH MCHC RDW Plt Count MPV Reticulocyte % (Auto) Immature Gran % Neutrophils % Band Neutrophils % Lymphocytes % Atypical Lymphs % Monocytes % Eosinophils % Basophils % Metamyelocytes % Myelocytes % Promyelocytes % Other Cells % Nucleated RBC % Absolute Neutrophils Absolute Lymphocytes Absolute Monocytes Absolute Eosinophils Absolute Basophils RBC Morphology Polychromasia Hypochromasia Poikilocytosis Basophilic Stippling Anisocytosis Microcytosis Macrocytosis Spherocytes Tear Drop Cells Ovalocytes Stomatocytes [place] Bodies [place] Cells/Echinocytes Acanthocytes (Spur) Schistocytes VBG Lactate 2.7 H* Sodium 132 L Potassium 2.8 L* Chloride 98 Carbon Dioxide 25.3 Anion Gap 8.7 BUN 12 Creatinine 1.00 Estimated GFR/1.73 m2 54.20 Glucose 219 H Uric Acid Calcium 7.9 L Magnesium 1.6 L Total Bilirubin 0.4 AST 18 ALT 22 Alkaline Phosphatase 96 Total Protein 6.8 Albumin 2.5 L Urine Color Urine Clarity Urine pH Ur Specific [place] Urine Protein Urine Ketones Urine Blood Urine Nitrite Urine Bilirubin Urine Urobilinogen Ur Leukocyte Esterase Urine Glucose COVID-19 Source Nasopharynx COVID-19 PCR Negative Influenza Type A (PCR) Negative Influenza Type B (PCR) Negative RSV (PCR) Negative Patient ABO/Rh Antibody Screen Crossmatch 02/19/20 02/19/20 02/19/20 10:46 07:51 07:51 WBC 9.83 RBC 3.00 L Hgb 8.5 L Hct 25.4 L MCV 84.7 MCH 28.3 MCHC 33.5 RDW 13.0 Plt Count 8 L* MPV Reticulocyte % (Auto) 0.4 L Immature Gran % 0.0 Neutrophils % 12.0 Band Neutrophils % 5 Lymphocytes % 40.0 Atypical Lymphs % Monocytes % 19.0 Eosinophils % 0.0 Basophils % 2.0 Metamyelocytes % Myelocytes % Promyelocytes % Other Cells % 22 Nucleated RBC % 2 Absolute Neutrophils 1.67 Absolute Lymphocytes 3.93 H Absolute Monocytes 1.87 H Absolute Eosinophils 0.00 Absolute Basophils 0.20 RBC Morphology See below Polychromasia Present Hypochromasia Poikilocytosis Basophilic Stippling Present Anisocytosis Microcytosis 1+ Macrocytosis Spherocytes Tear Drop Cells Ovalocytes Stomatocytes [place] Bodies [place] Cells/Echinocytes Acanthocytes (Spur) Schistocytes VBG Lactate Sodium Potassium Chloride Carbon Dioxide Anion Gap BUN Creatinine Estimated GFR/1.73 m2 Glucose Uric Acid Calcium Magnesium Total Bilirubin AST ALT Alkaline Phosphatase Total Protein Albumin Urine Color Cancelled Urine Clarity Cancelled Urine pH Cancelled Ur Specific [place] Cancelled Urine Protein Cancelled Urine Ketones Cancelled Urine Blood Cancelled Urine Nitrite Cancelled Urine Bilirubin Cancelled Urine Urobilinogen Cancelled Ur Leukocyte Esterase Cancelled Urine Glucose Cancelled COVID-19 Source COVID-19 PCR Influenza Type A (PCR) Influenza Type B (PCR) RSV (PCR) Patient ABO/Rh A Positive Antibody Screen Negative Crossmatch See Detail 02/19/20 07:51 WBC RBC Hgb Hct MCV MCH MCHC RDW Plt Count MPV Reticulocyte % (Auto) Immature Gran % Neutrophils % Band Neutrophils % Lymphocytes % Atypical Lymphs % Monocytes % Eosinophils % Basophils % Metamyelocytes % Myelocytes % Promyelocytes % Other Cells % Nucleated RBC % Absolute Neutrophils Absolute Lymphocytes Absolute Monocytes Absolute Eosinophils Absolute Basophils RBC Morphology Polychromasia Hypochromasia Poikilocytosis Basophilic Stippling Anisocytosis Microcytosis Macrocytosis Spherocytes Tear Drop Cells Ovalocytes Stomatocytes [place] Bodies [place] Cells/Echinocytes Acanthocytes (Spur) Schistocytes VBG Lactate Sodium 133 L Potassium 2.8 L* Chloride 97 L Carbon Dioxide 24.0 Anion Gap 12.0 H BUN 15 Creatinine 1.17 H Estimated GFR/1.73 m2 45.22 Glucose 279 H Uric Acid 3.9 Calcium 8.3 L Magnesium Total Bilirubin 0.5 AST 17 ALT 25 Alkaline Phosphatase 105 Total Protein 7.4 Albumin 2.8 L Urine Color Urine Clarity Urine pH Ur Specific [place] Urine Protein Urine Ketones Urine Blood Urine Nitrite Urine Bilirubin Urine Urobilinogen Ur Leukocyte Esterase Urine Glucose COVID-19 Source COVID-19 PCR Influenza Type A (PCR) Influenza Type B (PCR) RSV (PCR) Patient ABO/Rh Antibody Screen Crossmatch 02/19/20 11:45 Blood Blood Culture - Pending 02/19/20 11:05 Blood Blood Culture - Pending Preliminary micro results at discharge 02/19/20 11:45 Blood Culture - Pending Blood 02/19/20 11:05 Blood Culture - Pending Blood [facility] Medical History Acute myeloblastic leukemia At risk for complications involving vascular access device Atherosclerosis of arteries BMI 40.0-44.9, adult CAD S/P percutaneous coronary angioplasty ALLRED (dyspnea on exertion) HTN (hypertension), benign Hyperlipidemia 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 IJ in 11/2018. IR @ [facility] Lumbago without sciatica MDS (myelodysplastic syndrome) Pulmonary nodular amyloidosis Vertiginous syndrome Surgical History S/P laparoscopic cholecystectomy S/P PICC central line placement Social History Smoking/Tobacco Use Status: Never Smoking risk assessment performed?: Yes Alcohol Intake: never Drug use: Never Substance use type: does not use What is your relationship status?: Panel score (0-1 are the most socially isolated patients): 1 Do you feel safe at home: Yes Do you feel safe in your relationship?: Yes Additional Social history: Retired nurse
[2020-02-20 14:32] LABS: Other Cells % 24
--- NOTE | 2020-02-22 09:19 | PDOC.CMPRO ---
- If Service Date Differs Date of service: 02/22/20 Time of Service: 09:19 Care Management Progress Note CM notified by provider that Emelyn's blood cultures are positive x 4. CM called Emelyn's home to notify her of the positive blood cultures x 4 for staff epi. Patient was admitted to [facility] . SHANTA contacted [facility] and spoke with ALYSON Ortega. She will report the results to the medical team caring for Emelyn.
--- NOTE | 2020-02-22 12:45 | NUR.NOTE ---
Nursing Note: Spoke with [facility] as continuity of care. Results of negative COVID testing faxed to [phone]. Pt is receiving care @ [facility] and they are aware of her positive blood culture results. Hospitalist made aware, as there was concern regarding these cultures.
--- NOTE | 2020-02-22 13:41 | NUR.NOTE ---
Nursing Note: fax not received by [facility]- busy signal throughout. Faxed to [place] fax number @ [phone]. Spoke with Chelsea @ [phone] in the OR.
== END 2020-02-20 10:23 | disposition home or self-care (01) ==
LOC: ER 13:43 → MS 14:49
PROVIDERS: Internal Medicine Hematology; Nurse Practitioner Acute Care; Admitting Provider Internal Medicine; Emergency Provider Emergency Medicine; PCP Family Medicine; Visit Provider Internal Medicine
DX: R50.9 Fever, unspecified (principal); C92.00 Acute myeloblastic leukemia, not having achieved remission; D61.818 Other pancytopenia; E85.4 Organ-limited amyloidosis; J99 Respiratory disorders in diseases classified elsewhere; D46.9 Myelodysplastic syndrome, unspecified; M54.5 Low back pain
CPT/HCPCS: 36415; 36430; 80048; 80053; 85027; 86850; 86900; 86901; 86920; 86945; 87040; 87077; 87449; 93005; 96365; 99217; 99222; 99285; 71045; 81003; 83605; 83735; 84550; 85025; 85045; 87086; 87186; 93010; 99220; G0378; P9016; P9035

== ENCOUNTER 2020-02-23 01:27 | Outpatient (RCR) | payer OTHER, SELFPAY ==
[2020-02-11] VITALS (8 sets, daily range): BP systolic 101–116; BP diastolic 67–73; PULSE 70–89; RESP 16–19; TEMP 36.4–37.5; O2SAT 96–99
[2020-02-11 09:37] LABS: Abs Immature Grans 0.18 10^3/uL (0.0-0.06); HCT 24.9 % (36.0-46.0); HGB 8.4 g/dL (11.2-15.7); MCH 28.6 pg (27.0-33.0); MCHC 33.7 % (32.0-36.0); MCV 84.7 fL (80-95); Nucleated RBC 2 %; RBC 2.94 10^6/uL (3.93-5.22); RDW 12.6 % (11.7-14.6); RDW-SD 38.5 fL
[2020-02-11 09:50] LABS: ALT 92 U/L (14-59); AST 39 U/L (15-37); Albumin 2.9 g/dL (3.4-5.0); Alkaline Phosphatase 100 U/L (46-116); Anion Gap 7.3 mmol/L (3-11); BUN 23 mg/dL (7-18); Bilirubin, Total 0.6 mg/dL (0.2-1.0); CO2 30.7 mmol/L (21.0-32.0); Calcium 8.7 mg/dL (8.5-10.1); Chloride 94 mmol/L (98-107); Estimated GFR 48.55 (mL/min/1.73m2); Glucose 176 mg/dL (74-106); PHOSPHORUS 3.2 mg/dL (2.6-4.7); Potassium 3.2 mmol/L (3.5-5.1); Sodium 132 mmol/L (136-145); Total Protein 7.6 g/dL (6.4-8.2); Uric Acid 6.9 mg/dL (2.6-6.0)
[2020-02-11 10:28] LABS: Absolute Basophil Count 0.24 10^3/uL (0.0-0.2); Absolute Eosinophil Count 0.12 10^3/uL (0.0-0.7); Absolute Lymphocyte Count 2.95 10^3/uL (1.2-3.4); Absolute Monocyte Count 1.24 10^3/uL (0.1-0.8); Absolute Neutrophil Count 0.94 10^3/uL (1.2-6.7); Metamyelocytes % 2; Myelocytes % 1; Platelet Count 14 10^3/uL (130-400)
[2020-02-11 10:29] LABS: Blastocytes % 4; Diff Comment Manual Differential; Hypochromasia 2+; Polychromasia Present
[2020-02-11 10:30] LABS: Poikilocytes 1+
[2020-02-11] MEDS: Normal Saline Flush 10 ML SYR 30 ML IVP (10:37)
[2020-02-12] MEDS: Normal Saline Flush 10 ML SYR IVP (07:39)
[2020-02-12 07:44] VITALS: BP 125/78; PULSE 90; RESP 18; TEMP 36.5; O2SAT 98
[2020-02-12 07:47] LABS: HCT 28.7 % (36.0-46.0); HGB 9.7 g/dL (11.2-15.7); MCH 28.5 pg (27.0-33.0); MCHC 33.8 % (32.0-36.0); MCV 84.4 fL (80-95); MPV 8.3 fL (8.0-11.0); RDW 12.9 % (11.7-14.6); RDW-SD 39.2 fL; WBC 7.07 10^3/uL (4.4-10.8)
[2020-02-12 07:58] LABS: ALT 80 U/L (14-59); AST 29 U/L (15-37); Albumin 2.9 g/dL (3.4-5.0); Alkaline Phosphatase 98 U/L (46-116); Anion Gap 9.1 mmol/L (3-11); BUN 18 mg/dL (7-18); Bilirubin, Total 0.6 mg/dL (0.2-1.0); CO2 29.9 mmol/L (21.0-32.0); Calcium 8.5 mg/dL (8.5-10.1); Chloride 96 mmol/L (98-107); Estimated GFR 43.91 (mL/min/1.73m2); Glucose 198 mg/dL (74-106); PHOSPHORUS 3.7 mg/dL (2.6-4.7); Potassium 3.2 mmol/L (3.5-5.1); Sodium 135 mmol/L (136-145); Total Protein 7.5 g/dL (6.4-8.2); Uric Acid 6.7 mg/dL (2.6-6.0)
[2020-02-12 08:14] LABS: Platelet Count 10 10^3/uL (130-400)
[2020-02-12 08:20] VITALS: BP 130/76; PULSE 95; RESP 16; TEMP 36.7; O2SAT 95
[2020-02-12 08:45] LABS: Absolute Basophil Count 0.07 10^3/uL (0.0-0.2); Absolute Lymphocyte Count 2.62 10^3/uL (1.2-3.4); Absolute Monocyte Count 1.98 10^3/uL (0.1-0.8); Bands % 5
[2020-02-12 08:46] LABS: Metamyelocytes % 0; Myelocytes % 1; Nucleated RBC 2 %
[2020-02-12 08:47] LABS: Diff Comment Manual Differential
[2020-02-12 08:48] LABS: Absolute Neutrophil Count 0.78 10^3/uL (1.2-6.7); RBC Morphology Normal
[2020-02-12 08:54] LABS: Blastocytes % 22
[2020-02-13] MEDS: Normal Saline 1,000 ML 500 ML IV (08:00)
[2020-02-13] MEDS: Normal Saline Flush 10 ML SYR IVP (08:05)
[2020-02-13 08:24] LABS: Abs Immature Grans 0.14 10^3/uL (0.0-0.06); HCT 28.6 % (36.0-46.0); HGB 9.7 g/dL (11.2-15.7); MCH 28.7 pg (27.0-33.0); MCHC 33.9 % (32.0-36.0); MCV 84.6 fL (80-95); MPV 10.5 fL (8.0-11.0); RBC 3.38 10^6/uL (3.93-5.22); RDW 12.8 % (11.7-14.6); RDW-SD 39.3 fL; WBC 6.63 10^3/uL (4.4-10.8)
[2020-02-13 08:52] LABS: Nucleated RBC 2 %
[2020-02-13 08:53] LABS: Microcytosis 1+
[2020-02-13 08:56] LABS: Platelet Count 23 10^3/uL (130-400)
[2020-02-13 09:31] LABS: Other Cells % 22
[2020-02-13 09:32] LABS: Other Cells % 4
[2020-02-13 10:37] LABS: ALT 57 U/L (14-59); AST 26 U/L (15-37); Albumin 2.6 g/dL (3.4-5.0); Alkaline Phosphatase 83 U/L (46-116); BUN 13 mg/dL (7-18); Bilirubin, Total 0.4 mg/dL (0.2-1.0); CREATININE 0.83 mg/dL (0.55-1.02); Calcium 8.4 mg/dL (8.5-10.1); Chloride 100 mmol/L (98-107); Glucose 166 mg/dL (74-106); PHOSPHORUS 3.6 mg/dL (2.6-4.7); Potassium 3.2 mmol/L (3.5-5.1); Sodium 135 mmol/L (136-145); Total Protein 6.7 g/dL (6.4-8.2); Uric Acid 2.4 mg/dL (2.6-6.0)
[2020-02-14 09:02] LABS: Absolute Lymphocyte Count 2.65 10^3/uL (1.2-3.4)
[2020-02-14 09:03] LABS: Absolute Basophil Count 0.07 10^3/uL (0.0-0.2); Absolute Monocyte Count 1.26 10^3/uL (0.1-0.8); Diff Comment Manual Differential
[2020-02-14 09:04] LABS: Bands % 0
[2020-02-14 09:05] LABS: Absolute Neutrophil Count 0.66 10^3/uL (1.2-6.7); Other Cells % 30
[2020-02-16 08:25] LABS: Abs Immature Grans 0.05 10^3/uL (0.0-0.06); HCT 27.5 % (36.0-46.0); HGB 9.3 g/dL (11.2-15.7); MCH 28.5 pg (27.0-33.0); MCHC 33.8 % (32.0-36.0); MCV 84.4 fL (80-95); Nucleated RBC 1 %; RBC 3.26 10^6/uL (3.93-5.22); RDW 12.9 % (11.7-14.6); RDW-SD 39.4 fL; WBC 8.06 10^3/uL (4.4-10.8)
[2020-02-16 08:43] LABS: Absolute Lymphocyte Count 4.59 10^3/uL (1.2-3.4); Absolute Monocyte Count 1.05 10^3/uL (0.1-0.8)
[2020-02-16 08:44] LABS: Absolute Basophil Count 0.16 10^3/uL (0.0-0.2); Metamyelocytes % 1
[2020-02-16 08:45] LABS: Diff Comment Manual Differential
[2020-02-16 08:47] LABS: Platelet Count 8 10^3/uL (130-400); Polychromasia Present
[2020-02-16 08:48] LABS: Other Cells % 22
[2020-02-16 15:04] VITALS: BP 96/59; PULSE 92; RESP 18; TEMP 36.9; O2SAT 94
[2020-02-16 15:26] VITALS: BP 145/83; PULSE 92; RESP 20; TEMP 36.6; O2SAT 100
[2020-02-19] MEDS: Normal Saline 1,000 ML 500 ML IV (07:50)
[2020-02-19 07:53] VITALS: BP 144/74; PULSE 121; RESP 20; TEMP 36.6; O2SAT 100
[2020-02-19] MEDS: Normal Saline Flush 10 ML SYR 30 ML IVP (09:10)
[2020-02-19 09:26] VITALS: BP 132/72; PULSE 99; RESP 18; TEMP 38; O2SAT 99
[2020-02-19 09:55] VITALS: TEMP 38.9
[2020-02-19 10:22] VITALS: TEMP 39.2
[2020-02-19 10:25] VITALS: BP 136/59; PULSE 104; RESP 19; TEMP 39.1; O2SAT 37
== END 2020-03-11 23:59 | disposition home or self-care (01) ==
LOC: INF 01:27
PROVIDERS: PCP Family Medicine; Visit Provider Internal Medicine Hematology
DX: C92.02 Acute myeloblastic leukemia, in relapse (principal); Z45.2 Encounter for adjustment and management of vascular access device; D46.Z Other myelodysplastic syndromes
CPT/HCPCS: 36430; 36591; 36592; 80053; 86850; 86900; 86901; 86920; 86945; 96360; 96361; 84100; 84550; 85025; 85045; 86644; P9016; P9035